=== PATIENT | female | born 1930 | race African-American/Black ===

== ENCOUNTER 2018-02-10 11:29 | Inpatient (IN) | payer MEDICARE, MEDICAID ==
[~2018-02-10] VITALS: Ht 167.6 cm; Wt 74.4 kg
[~2018-02-10 11:29] MED LIST: ASPIRIN EC81 MG ORAL; ASPIRIN-LOW81 MG ORAL; CELEBREX200 MG ORAL; COLACE100 MG ORAL; DIPHENHYDRAMINE50 M1 ORAL; DOCUSATE SODIU100 MG ORAL; FOSAMAX70 MG ORAL; LEVAQUIN250 M1 ORAL; LEVOTHYROXINE112 MCG ORAL; LIPITOR20 MG ORAL; LYRICA25 MG ORAL; NORCO 5-325 TA1 EACH ORAL; NORVASC10 MG ORAL; PRILOSEC20 MG ORAL; RANITIDINE HCL150 MG ORAL; TRAZODONE HCL50 MG ORAL; VITAMIN D-32000 UNI1 PO; VITAMIN D31000 UNI2 PO; ZESTRIL10 M1 ORAL
[2018-02-10 11:36] VITALS: BP 113/68
[2018-02-10] MEDS ORDERED: Sodium Chloride 500ML 500 ML IV ONE (11:36)
[2018-02-10] MEDS ORDERED: Albuterol ud Inhalation HHN ONE (11:45)
[2018-02-10] MEDS ORDERED: ACETAMINOPHEN325 M1 ORAL (11:50)
[2018-02-10] MEDS ORDERED: ARGINAID POWDE1 EACH PO (11:50)
[2018-02-10] MEDS ORDERED: LOVENOX10 M4 SUBQ (11:50)
[2018-02-10] MEDS ORDERED: MIRALAX17 G2 ORAL (11:50)
[2018-02-10] MEDS ORDERED: OXANDROLONE2.5 MG PO (11:50)
[2018-02-10] MEDS ORDERED: MULTI-VITAMIN1 EACH PO (11:50)
[2018-02-10] MEDS ORDERED: FUROSEMIDE20 M1 ORAL (11:50)
[2018-02-10] MEDS ORDERED: LUMIGAN2.5 ML BOTH EYES (11:50)
[2018-02-10] MEDS ORDERED: MACRODANTIN100 MG ORAL (11:50)
[2018-02-10] MEDS ORDERED: ALBUTEROL2.5 MG/3 M INH (11:50)
[2018-02-10] MEDS ORDERED: Lidocaine 1% Plain 30 ml INJ ONE (12:15)
[2018-02-10] MEDS ORDERED: Heparin 2000 units/Ns 1000ml INJ ONE (12:15)
--- NOTE | 2018-02-10 12:16 | Emergency Room Report ---
History of Present Illness General Chief Complaint: Dyspnea/Respdistress Source: Medical Record, EMS Present Illness HPI Patient presents with shortness of breath and increased cough Patient herself has multiple comorbidities Cannot provide appropriate history at this time Presents from nursing facility Unknown regarding fever History of present illness is significantly limited There was no reports of vomiting or diarrhea patient has underlying COPD and it was felt that her oxygenation was worsening Allergies: Coded Allergies: AMOXICILLIN (Verified Allergy, Severe, SEVERE ICTHING /RASHES, 09/17/08) PENICILLINS (Verified Allergy, Intermediate, Itching, 06/21/13) Patient History Limited by: medical condition Past Medical History: see triage record Pertinent Family History: unable to obtain Reviewed Nursing Documentation: PMH: Agreed; PSxH: Agreed Nursing Documentation-PMH Hx Cardiac Problems: Yes - thyroid, anemia Hx Hypertension: Yes Hx Cancer: No Hx Gastrointestinal Problems: Yes - GERD Hx Neurological Problems: No Review of Systems All Other Systems: limited - Other than the ones mentioned in the history of present illness all others are reviewed however they do stay limited due to the patient's mental status Physical Exam Vital Signs Date Time Temp Pulse Resp B/P (MAP) Pulse Ox O2 Delivery O2 Flow Rate FiO2 02/10/18 11:26 98.1 68 22 130/80 98 Nasal Cannula 3.0 98.1 02/10/18 11:48 28 Sp02 EP Interpretation: reviewed, normal General Appearance: mild distress - Short of breath Head: normocephalic, atraumatic Eyes: bilateral eye PERRL, bilateral eye EOMI ENT: dry mucus membranes Neck: supple, thyroid normal Respiratory: crackles - Diffusely and mildly tachypneic Cardiovascular #1: irregularly irregular Gastrointestinal: non tender, soft Musculoskeletal: other - Patient is chronically debilitated with padding applied to all extremities Neurologic: responsive - To physical stimuli Skin: no rash Lymphatic: no adenopathy Medical Decision Making Diagnostic Impression: Primary Impression: Dyspnea Additional Impressions: Respiratory distress COPD (chronic obstructive pulmonary disease) ER Course Patient is a fairly complex patient with multiple differential to consideration including but not limited to cardiac cardiopulmonary and vascular emergencies Patient's blood work reveals significant abnormalities including low sodium Patient has breathing treatments provided No obvious effusion to suggest CHF Patient has done better throughout acute intervention and will require further inpatient care Labs Test 02/10/18 12:12 White Blood Count 9.3 K/UL (4.8-10.8) Red Blood Count 4.07 M/UL (4.20-5.40) Hemoglobin 11.2 G/DL (12.0-16.0) Hematocrit 34.9 % (37.0-47.0) Mean Corpuscular Volume 86 FL (80-99) Mean Corpuscular Hemoglobin 27.5 PG (27.0-31.0) Mean Corpuscular Hemoglobin Concent 32.1 G/DL (32.0-36.0) Red Cell Distribution Width 15.3 % (11.6-14.8) Platelet Count 238 K/UL (150-450) Mean Platelet Volume 7.9 FL (6.5-10.1) Neutrophils (%) (Auto) 72.9 % (45.0-75.0) Lymphocytes (%) (Auto) 12.4 % (20.0-45.0) Monocytes (%) (Auto) 13.1 % (1.0-10.0) Eosinophils (%) (Auto) 0.2 % (0.0-3.0) Basophils (%) (Auto) 1.4 % (0.0-2.0) Sodium Level 127 MMOL/L (136-145) Potassium Level 4.6 MMOL/L (3.5-5.1) Chloride Level 92 MMOL/L (98-107) Carbon Dioxide Level 26 MMOL/L (21-32) Anion Gap 10 mmol/L (5-15) Blood Urea Nitrogen 24 mg/dL (7-18) Creatinine 1.2 MG/DL (0.55-1.30) Estimat Glomerular Filtration Rate mL/min (>60) Glucose Level 124 MG/DL (74-106) Calcium Level 9.7 MG/DL (8.5-10.1) Total Bilirubin 0.4 MG/DL (0.2-1.0) Aspartate Amino Transf (AST/SGOT) 93 U/L (15-37) Alanine Aminotransferase (ALT/SGPT) 205 U/L (12-78) Alkaline Phosphatase 60 U/L (46-116) Total Creatine Kinase 164 U/L (26-308) Creatine Kinase MB 1.7 NG/ML (0.0-3.6) Creatine Kinase MB Relative Index 1.0 Troponin I 0.016 ng/mL (0.000-0.056) Pro-B-Type Natriuretic Peptide 4894 pg/mL (0-125) Total Protein 8.7 G/DL (6.4-8.2) Albumin 3.0 G/DL (3.4-5.0) Globulin 5.7 g/dL Albumin/Globulin Ratio 0.5 (1.0-2.7) Lipase 171 U/L (73-393) Rhythm Strip Diag. Results EP Interpretation: yes Rate: 88 Rhythm: no PVC's, no ectopy, other - Atrial fibrillation Chest X-Ray Diagnostic Results Chest X-Ray Diagnostic Results : Chest X-Ray Ordered: Yes # of Views/Limited/Complete: 1 View Indication: Shortness of Breath EP Interpretation: Yes Interpretation: no consolidation, no effusion, no pneumothorax, other - Nonspecific elevated right hemidiaphragm Impression: Other Electronically Signed by: Sanjay Tinoco DO CT/MRI/US Diagnostic Results CT/MRI/US Diagnostic Results : Impression CT chest abdomen pelvis IMPRESSION: Limited exam without intravenous and oral contrast. Patient motion and significant streak artifact from bilateral hip prosthesis also degraded the obtained images. Within these limitations: * Dense stool in the rectum concerning for fecal impaction. No definite evidence to suggest stercoral colitis at this time. * Significant coronary arterial calcifications. * Mild emphysematous changes in the lungs. 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 Left common iliac artery aneurysm measuring 1.9 cm (previously 1.5 cm). * Cholelithiasis. No CT evidence of acute cholecystitis. * Gastrostomy tube and Cordova catheter in place although the Cordova catheter is poorly evaluated due to significant streak artifact in the pelvis from the bilateral hip prostheses. * Extensive degenerative change of the lumbar spine. * Left renal mass likely cyst. Last Vital Signs Date Time Temp Pulse Resp B/P (MAP) Pulse Ox O2 Delivery O2 Flow Rate FiO2 02/10/18 12:00 105 18 100 Nasal Cannula 2.0 28 02/10/18 11:26 98.1 130/80 98.1 Status: improved Disposition: ADMITTED INPATIENT Condition: Serious Sanjay Tinoco DO Feb 10, 2018 12:16
[2018-02-10 12:33] LABS: BASOPHILS % (AUTO) 1.4 % (0.0-2.0); EOSINOPHILS % (AUTO) 0.2 % (0.0-3.0); HEMATOCRIT 34.9 % (37.0-47.0); HEMOGLOBIN 11.2 G/DL (12.0-16.0); LYMPHOCYTES % (AUTO) 12.4 % (20.0-45.0); MEAN CORPUSCULAR VOLUME 86 FL (80-99); MONOCYTES % (AUTO) 13.1 % (1.0-10.0); NEUTROPHILS % (AUTO) 72.9 % (45.0-75.0); PLATELET COUNT 238 K/UL (150-450); RED BLOOD COUNT 4.07 M/UL (4.20-5.40); RED CELL DISTRIBUTION WIDTH 15.3 % (11.6-14.8); WHITE BLOOD COUNT 9.3 K/UL (4.8-10.8)
--- NOTE | 2018-02-10 12:37 | Diagnostic Imaging Report ---
Indication: Shortness of breath Technique: Portable AP view of the chest Comparison: 11/02/2015 Findings: Elevation of the right hemidiaphragm with underlying loops of air-filled colon, similar to prior exam. Heart size is likely stable allowing for differences in volumes (lower lung volumes on today's exam). Atherosclerotic calcifications in the aorta. There is no definite focal airspace consolidation. Costophrenic sulci appear sharp. No pneumothorax. There is osteopenia and degenerative change of the spine. IMPRESSION: No definite radiographic evidence of acute cardiac pulmonary disease. No significant interval change from the prior exam allowing for lower lung volumes on today's exam. Prominent nonspecific colonic gas, similar to prior exam.
[2018-02-10 12:39] LABS: ANION GAP 10 mmol/L (5-15); BLOOD UREA NITROGEN 24 mg/dL (7-18); CALCIUM 9.7 MG/DL (8.5-10.1); CARBON DIOXIDE 26 MMOL/L (21-32); CHLORIDE 92 MMOL/L (98-107); CREATININE 1.2 MG/DL (0.55-1.30); POTASSIUM 4.6 MMOL/L (3.5-5.1); SODIUM 127 MMOL/L (136-145)
[2018-02-10 12:52] LABS: ALANINE AMINOTRANSFERASE 205 U/L (12-78); ALBUMIN/GLOBULIN RATIO 0.5 (1.0-2.7); ALKALINE PHOSPHATASE 60 U/L (46-116); ASPARTATE AMINO TRANSFERASE 93 U/L (15-37); BILIRUBIN,TOTAL 0.4 MG/DL (0.2-1.0); CKMB 1.7 NG/ML (0.0-3.6); CREATINE KINASE 164 U/L (26-308)
[2018-02-10 13:10] VITALS: BP 128/49
--- NOTE | 2018-02-10 14:41 | Pre-Procedure Note/Attestation ---
Pre-Procedure Note/Attestation Complete Prior to Procedure Planned Procedure: not applicable Procedure Narrative: PICC Line Indications for Procedure Pre-Operative Diagnosis: need iv access Attestation Consent obtained from family member by ER staff, confirmed prior to procedure I attest that I re-evaluated the patient just prior to the surgery and that there has been no change in the patient's H&P, except as documented below: Casey Dominguez M.D. Feb 10, 2018 14:41
--- NOTE | 2018-02-10 14:48 | Diagnostic Imaging Report ---
Indications: Needs long-term IV access Technique: Procedure performed at bedside. Procedural timeout performed. Ultrasound confirms patent compressible right basilic vein. Total sterile technique, including sterile probe cover and sterile gel, sterile gloves, hand hygiene, hat, mask,, sterile gown, large sterile drape, and preparation with 2% chlorhexidine utilized. Local anesthesia with 1% lidocaine. Under real-time ultrasound guidance, puncture right basilic vein using 21-gauge needle, passage 0.018 guidewire, exchange for 5 Brazilian peel-away sheath. 5 Brazilian dual-lumen power PICC cut to 35 cm. It was inserted through the peel-away sheath. Peel-away sheath and guidewire removed. Catheter fixed to the skin. Both catheter ports aspirated and flushed. Patient tolerated procedure well, without immediate complication. Followup chest x-ray obtained, documents catheter tip position at the cavoatrial junction Impression: Successful bedside placement of 5 Brazilian double-lumen PICC under sonographic guidance, as described above.
[2018-02-10] MEDS ORDERED: Solu-MEDROL 125mg Inj IVP ONE (15:00)
[2018-02-10 15:47] VITALS: BP 147/66
[2018-02-10] MEDS ORDERED: Acetaminophen 650mg/20.3ml GT PRN (16:00)
--- NOTE | 2018-02-10 16:08 | Diagnostic Imaging Report ---
Indication: Abdominal pain, possible pneumonia Technique: Noncontrast CT of the chest, abdomen and pelvis utilizing automated exposure control. Axial, sagittal and coronal reformats presented. CT dose: Total DLP 1239.38 mGycm; CTDI vol 19.32 mGy Comparison: CT of the abdomen 01/10/2015 Findings: Please note that evaluation of the mediastinum, abdominal and pelvic viscera and vascular structures is limited without the use of intravenous and oral contrast. Patient motion also degrades images, particularly through the lower chest/upper abdomen. Significant streak artifact from bilateral hip prostheses limits evaluation through the lower pelvis. Within these limitations the following observations are made: CT chest: Dependent atelectasis in the lung bases. Some mild emphysematous changes noted in the apices. No pleural effusion or pneumothorax. The heart is enlarged. There are extensive coronary arterial calcifications. Thyroid grossly unremarkable. No pathologically enlarged hilar or mediastinal adenopathy however evaluation has limited sensitivity due to lack of contrast. Thoracic aorta is normal in caliber but severely calcified. There are degenerative changes of the thoracic spine with bridging anterior osteophytes. No acute osseous abnormality identified. CT abdomen/pelvis: No free intraperitoneal air. There is elevation of the right hemidiaphragm with interposition of the colon anterior to the liver. There is no evidence of small bowel obstruction. There is dense stool within a mildly distended rectum concerning for fecal impaction. No obvious surrounding inflammatory change. There is scattered colonic diverticula without evidence of diverticulitis. A gastrostomy tube is noted in place. Noncontrast evaluation of the liver, spleen, adrenal glands and pancreas grossly unremarkable. Calcified gallstones noted within the gallbladder. No CT evidence to suggest acute cholecystitis. There is a 4.9 cm mass extending from the lower pole of the left kidney likely representing a cyst. Nonobstructive punctate stone in the right kidney. No evidence of hydronephrosis bilaterally. Prior hysterectomy. Bladder not well visualized but likely decompressed with a Cordova catheter. There is focal aneurysmal dilatation of the infrarenal abdominal aorta measuring up to 4.5 cm in diameter (previously 3.8 cm). There is aneurysmal dilatation of the bilateral iliac arteries, present measuring approximately 2.1 cm on the right and 1.9 cm on the left (previously approximately 1.5 cm on the left). There are extensive degenerative changes of the lumbar spine with vacuum disc phenomenon at multiple levels and unchanged grade 1 anterolisthesis of L4 on L5. Bilateral hip prostheses in place. Some foci of subcutaneous gas in the soft tissues of the anterior abdominal wall likely related to medication injections. IMPRESSION: Limited exam without intravenous and oral contrast. Patient motion and significant streak artifact from bilateral hip prosthesis also degraded the obtained images. Within these limitations: * Dense stool in the rectum concerning for fecal impaction. No definite evidence to suggest stercoral colitis at this time. * Significant coronary arterial calcifications. * Mild emphysematous changes in the lungs. 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 Left common iliac artery aneurysm measuring 1.9 cm (previously 1.5 cm). * Cholelithiasis. No CT evidence of acute cholecystitis. * Gastrostomy tube and Cordova catheter in place although the Cordova catheter is poorly evaluated due to significant streak artifact in the pelvis from the bilateral hip prostheses. * Extensive degenerative change of the lumbar spine. * Left renal mass likely cyst. Additional findings as above. The CT scanner at [facility] is accredited by the [employer] and the scans are performed using protocols designed to limit radiation exposure to as low as reasonably achievable to attain images of sufficient resolution adequate for diagnostic evaluation.
--- NOTE | 2018-02-10 16:51 | Consultation ---
Consult Note Consult Note Asked to eval for low Na HPI Patient presents with shortness of breath and increased cough Patient herself has multiple comorbidities Cannot provide appropriate history at this time Presents from nursing facility Unknown regarding fever History of present illness is significantly limited There was no reports of vomiting or diarrhea patient has underlying COPD and it was felt that her oxygenation was worsening Allergies: Coded Allergies: AMOXICILLIN (Verified Allergy, Severe, SEVERE ICTHING /RASHES, 09/17/08) PENICILLINS (Verified Allergy, Intermediate, Itching, 06/21/13) Hx Cardiac Problems: Yes - thyroid, anemia Hx Hypertension: Yes Hx Gastrointestinal Problems: Yes - GERD Hx Neurological Problems: Yes Assessment/Plan HypoNatremia, Likely diuretic related and Depletional COPD exac. ? Aspiration h/o Long Smoking h/o Anemia h/o OA h/o Colon Ca h/o HTN NPO- ST eval Cordova Isotonic solution Low Na snyder 2 D echo IV steroids and Protonix change synthroid to IV Per orders Zeb Jiang MD Feb 10, 2018 16:51
[2018-02-10] MEDS: D5NS 1,000 ML IV SCH (17:12)
[2018-02-10] MEDS: NovoLOG Insulin Flexpen SUBQ SCH ×2 (17:13→20:50)
[2018-02-10] MEDS: Docusate 100mg/10ml Liq GT SCH (17:17)
[2018-02-10] MEDS ORDERED: Docusate 100mg/10ml Liq GT SCH (18:00)
[2018-02-10] MEDS ORDERED: OXANDROLONE ORAL SCH (18:00)
[2018-02-10 18:05] LABS: BILIRUBIN, URINE NEGATIVE (NEGATIVE); GLUCOSE, URINE (UA) NEGATIVE (NEGATIVE); KETONES,URINE NEGATIVE (NEGATIVE); LEUKOCYTE ESTERASE ,URINE 3+ (NEGATIVE); NITRITE,URINE NEGATIVE (NEGATIVE); PH,URINE 5 (4.5-8.0); PROTEIN,URINE 3+ (NEGATIVE); UROBILINOGEN,URINE NORMAL (NORMAL)
[2018-02-10 18:07] LABS: APPEARANCE,URINE SLIGHTLY CLOUDY; COLOR,URINE YELLOW
--- NOTE | 2018-02-10 19:04 | Consultation ---
History of Present Illness General Date patient seen: Feb 10, 2018 Chief Complaint: Dyspnea/Respdistress Present Illness HPI 87 year old female with hx of endstage Dementia, bed bound, COPD, renal insufficiency, [facility] presented to ER with shortness of breath and increased cough Cannot provide appropriate history at this time There was no reports of vomiting or diarrhea patient. It was reported that her oxygenation was worsening. she is awake, aphasic, doesn't follow simple commands. She is visibly slightly short of breath. Allergies: Coded Allergies: AMOXICILLIN (Verified Allergy, Severe, SEVERE ICTHING /RASHES, 09/17/08) PENICILLINS (Verified Allergy, Intermediate, Itching, 06/21/13) Medication History Scheduled Alendronate Sodium* (Fosamax*), 70 MG ORAL ONCE A WEEK, (Reported) Amlodipine Besylate (Norvasc), 10 MG ORAL DAILY, (Reported) Arginine/Ascorbate Sod/Devang AC (Arginaid Powder), 1 EACH PO BID, (Reported) Aspirin (Aspirin EC), 81 MG ORAL BID, (Reported) Atorvastatin Calcium* (Lipitor*), 20 MG ORAL BEDTIME, (Reported) Bimatoprost (Lumigan), 1 DROP BOTH EYES DAILY, (Reported) Cholecalciferol (Vitamin D3) (Vitamin D3), 1,000 UNIT PO BID, (Reported) Docusate Sodium* (Docusate Sodium*), 100 MG ORAL THREE TIMES A DAY, (Reported) Enoxaparin* (Lovenox*), 40 MG SUBQ DAILY, (Reported) Furosemide* (Lasix*), 20 MG ORAL DAILY, (Reported) Levothyroxine Sodium* (Levothyroxine Sodium*), 112 MCG ORAL DAILY, (Reported) Lisinopril* (Zestril*), 10 MG ORAL BID, (Reported) Nitrofurantoin Macrocrystal (Macrodantin), 100 MG ORAL DAILY, (Reported) Omeprazole (Prilosec), 20 MG ORAL DAILY, (Reported) Oxandrolone (Oxandrolone), 2.5 MG PO BID, (Reported) Polyethylene Glycol 3350* (Miralax*), 17 GM ORAL DAILY, (Reported) Pregabalin (Lyrica), 25 MG ORAL THREE TIMES A DAY, (Reported) Ranitidine Hcl* (Zantac*), 150 MG ORAL QHS, (Reported) Scheduled PRN Acetaminophen* (Acetaminophen 325MG Tablet*), 650 MG ORAL Q6H PRN for Pain Scale (6-10), (Reported) Albuterol Sulfate* (Albuterol Sulfate Hhn*), 3 ML INH Q4H PRN for Shortness of Breath, (Reported) Diphenhydramine Hcl (Diphenhydramine Hcl), 50 MG ORAL BEDTIME PRN for Itching, ( Reported) Hydrocodone Bit/Acetaminophen 5-325* ([place] 5-325*), 1 TAB ORAL Q6H PRN for For Pain Miscellaneous Medications Multivitamin (Multi-Vitamin Daily), 1 EACH PO, (Reported) Patient History Healthcare decision maker Resuscitation status Full Code Advanced Directive on File Past Medical/Surgical History Past Medical/Surgical History: (1) Feeding by G-tube (2) Advanced dementia (3) Limited mobility in bed (4) COPD (chronic obstructive pulmonary disease) Review of Systems All Other Systems: negative except mentioned in HPI Physical Exam General Appearance: WD/WN Lines, tubes and drains: peripheral HEENT: normocephalic, atraumatic Neck: non-tender, supple Respiratory/Chest: chest wall non-tender, rhonchi - left, rhonchi - right Cardiovascular/Chest: normal peripheral pulses, normal rate Abdomen: normal bowel sounds, non tender Genitourinary/Rectal: normal genital exam Extremities: normal range of motion, non-tender Last 24 Hour Vital Signs Date Time Temp Pulse Resp B/P (MAP) Pulse Ox O2 Delivery O2 Flow Rate FiO2 02/10/18 15:51 70 02/10/18 15:47 99.1 62 18 147/66 (93) 96 99.1 02/10/18 15:20 98.1 84 18 113/68 100 Nasal Cannula 2.0 28 98.1 02/10/18 13:10 98.1 68 21 128/49 100 Nasal Cannula 2.0 98.1 02/10/18 12:00 105 18 100 Nasal Cannula 2.0 28 02/10/18 11:48 28 02/10/18 11:48 95 18 Nasal Cannula 2.0 28 02/10/18 11:48 95 18 99 Nasal Cannula 2.0 28 02/10/18 11:36 68 22 Room Air 02/10/18 11:36 98.1 84 20 113/68 100 Nasal Cannula 3.0 98.1 02/10/18 11:26 98.1 68 22 130/80 98 Nasal Cannula 3.0 98.1 Laboratory Tests Test 02/10/18 12:12 02/10/18 17:30 White Blood Count 9.3 K/UL (4.8-10.8) Red Blood Count 4.07 M/UL (4.20-5.40) L Hemoglobin 11.2 G/DL (12.0-16.0) L Hematocrit 34.9 % (37.0-47.0) L Mean Corpuscular Volume 86 FL (80-99) Mean Corpuscular Hemoglobin 27.5 PG (27.0-31.0) Mean Corpuscular Hemoglobin Concent 32.1 G/DL (32.0-36.0) Red Cell Distribution Width 15.3 % (11.6-14.8) H Platelet Count 238 K/UL (150-450) Mean Platelet Volume 7.9 FL (6.5-10.1) Neutrophils (%) (Auto) 72.9 % (45.0-75.0) Lymphocytes (%) (Auto) 12.4 % (20.0-45.0) L Monocytes (%) (Auto) 13.1 % (1.0-10.0) H Eosinophils (%) (Auto) 0.2 % (0.0-3.0) Basophils (%) (Auto) 1.4 % (0.0-2.0) Sodium Level 127 MMOL/L (136-145) L Potassium Level 4.6 MMOL/L (3.5-5.1) Chloride Level 92 MMOL/L (98-107) L Carbon Dioxide Level 26 MMOL/L (21-32) Anion Gap 10 mmol/L (5-15) Blood Urea Nitrogen 24 mg/dL (7-18) H Creatinine 1.2 MG/DL (0.55-1.30) Estimat Glomerular Filtration Rate mL/min (>60) Glucose Level 124 MG/DL (74-106) H Calcium Level 9.7 MG/DL (8.5-10.1) Total Bilirubin 0.4 MG/DL (0.2-1.0) Aspartate Amino Transf (AST/SGOT) 93 U/L (15-37) H Alanine Aminotransferase (ALT/SGPT) 205 U/L (12-78) H Alkaline Phosphatase 60 U/L (46-116) Total Creatine Kinase 164 U/L (26-308) Creatine Kinase MB 1.7 NG/ML (0.0-3.6) Creatine Kinase MB Relative Index 1.0 Troponin I 0.016 ng/mL (0.000-0.056) C-Reactive Protein, Quantitative 5.4 mg/dL (0.00-0.90) H Pro-B-Type Natriuretic Peptide 4894 pg/mL (0-125) H Total Protein 8.7 G/DL (6.4-8.2) H Albumin 3.0 G/DL (3.4-5.0) L Globulin 5.7 g/dL Albumin/Globulin Ratio 0.5 (1.0-2.7) L Lipase 171 U/L (73-393) Urine Color Yellow Urine Appearance Slightly cloudy Urine pH 5 (4.5-8.0) Urine Specific [place] 1.015 (1.005-1.035) Urine Protein 3+ (NEGATIVE) H Urine Glucose (UA) Negative (NEGATIVE) Urine Ketones Negative (NEGATIVE) Urine Occult Blood 5+ (NEGATIVE) H Urine Nitrite Negative (NEGATIVE) Urine Bilirubin Negative (NEGATIVE) Urine Urobilinogen Normal MG/DL (NORMAL) Urine Leukocyte Esterase 3+ (NEGATIVE) H Urine RBC 5-10 /HPF (0 - 2) H Urine WBC 10-15 /HPF (0 - 2) H Urine Squamous Epithelial Cells Few /LPF (NONE/OCC) Urine Bacteria Moderate /HPF (NONE) H Height (Feet): 5 Height (Inches): 6.00 Weight (Pounds): 190 Medications Current Medications Medications (Trade) Dose Ordered Sig/Orin Route PRN Reason Start Time Stop Time Status Last Admin Dose Admin Acetaminophen (Tylenol) 650 mg Q4H PRN GT Mild Pain/Temp > 100.5 02/10/18 16:00 03/12/18 15:59 Albuterol/ Ipratropium (Albuterol/ Ipratropium) 3 ml Q6HRT HHN 02/10/18 19:00 02/15/18 18:59 Amlodipine Besylate (Norvasc) 10 mg DAILY ORAL 02/11/18 09:00 03/13/18 08:59 Atorvastatin Calcium (Lipitor) 20 mg BEDTIME ORAL 02/10/18 21:00 03/12/18 20:59 Chlorhexidine Gluconate ([place]-Hex 2%) 1 applic DAILY@2000 TOPIC 02/10/18 20:00 03/12/18 19:59 Dextrose (Dextrose 50%) 25 ml STAT PRN IV Hypoglycemia 02/10/18 15:45 03/12/18 15:44 Dextrose (Dextrose 50%) 50 ml STAT PRN IV Hypoglycemia 02/10/18 15:45 03/12/18 15:44 Dextrose/Sodium Chloride 1,000 ml @ 75 mls/hr [id number] IV 02/10/18 17:00 03/12/18 16:59 02/10/18 17:12 Docusate Sodium (Colace) 100 mg TID GT 02/10/18 18:00 03/12/18 17:59 02/10/18 17:17 Enoxaparin Sodium (Lovenox) 40 mg DAILY SUBQ 02/11/18 09:00 03/13/18 08:59 Insulin Aspart (NovoLOG) BEFORE MEALS AND HS SUBQ 02/10/18 16:30 03/12/18 16:29 02/10/18 17:13 Levothyroxine Sodium (Synthroid) 50 mcg DAILY IV 02/11/18 09:00 03/13/18 08:59 Lisinopril (Zestril) 2.5 mg DAILY GT 02/11/18 09:00 03/13/18 08:59 Methylprednisolone Sodium Succinate (Solu-MEDROL) 40 mg EVERY 8 HOURS IVP 02/10/18 22:00 03/12/18 21:59 Pantoprazole (Protonix) 40 mg EVERY 12 HOURS IVP 02/10/18 21:00 03/12/18 20:59 Polyethylene Glycol (Miralax) 17 gm DAILY GT 02/11/18 09:00 03/13/18 08:59 Assessment/Plan Problem List: (1) Aspiration pneumonia ICD Codes: J69.0 - Pneumonitis due to inhalation of food and vomit SNOMED: 921148690 (2) Respiratory distress ICD Codes: R06.03 - Acute respiratory distress SNOMED: 311759628 (3) COPD (chronic obstructive pulmonary disease) ICD Codes: J44.9 - COPD (chronic obstructive pulmonary disease) SNOMED: 62155450 (4) Advanced dementia ICD Codes: F03.90 - Unspecified dementia without behavioral disturbance SNOMED: 31747225 (5) Feeding by G-tube ICD Codes: Z93.1 - Gastrostomy status SNOMED: 076202784, 218587544 (6) Limited mobility in bed SNOMED: 590343894 Assessment/Plan respiratory treatment titrate fio2 to sat of 92% chest pt check sputum IV abx aspiration precaution dvt prophylaxis Betsy Hope MD Feb 10, 2018 19:04
[2018-02-10 20:00] VITALS: BP 122/73
[2018-02-10] MEDS ORDERED: Dyna-Hex 2% Top Sol 2oz TOPIC SCH (20:00)
[2018-02-10] MEDS: Albuterol/Ipratropium 3ml neb HHN SCH (20:40)
[2018-02-10] MEDS: Pantoprazole Inj IVP SCH (20:49)
[2018-02-10] MEDS ORDERED: Atorvastatin 20mg tab ORAL SCH (21:00)
[2018-02-10] MEDS: Solu-MEDROL 40mg Inj IVP SCH (21:02)
--- NOTE | 2018-02-10 21:45 | History and Physical Report ---
DATE OF ADMISSION: 02/10/2018 CHIEF COMPLAINT: Shortness of breath, hypoxia, weakness, confusion. BRIEF HISTORY: This is an 87-year-old female from [facility], who presented with increased shortness of breath, was hypoxic down in the low 90s. The patient was little bit confused and sent to [facility]. Currently, O2 NC, slightly confused in bed, saying few things but unable to understand her. Currently, slight short of breath, O2 NC, slightly audible wheeze, no complaint. REVIEW OF SYSTEMS: No chest pain. Slight short of breath. No nausea, vomiting, or diarrhea. PAST MEDICAL HISTORY: Includes hypoxia, COPD, weakness. PAST SURGICAL HISTORY: Unknown. ALLERGIES: Amoxicillin and penicillin. MEDICATIONS: Include chlorhexidine, methylprednisolone, heparin, albuterol. SOCIAL HISTORY: Unable to obtain secondary to the patient's confusion. PHYSICAL EXAMINATION: GENERAL: Calm in bed, oriented x1, slight short of breath, O2 NC in place. VITAL SIGNS: Temperature is 98 degrees, pulse 105, respirations 18, blood pressure 113/68. CARDIOVASCULAR: No murmur. LUNGS: Poor air exchange. Bilateral wheeze audible noted. ABDOMEN: Bowel sounds positive. Nontender. Nondistended. EXTREMITIES: Show no cyanosis, clubbing, or edema. NEUROLOGIC: The patient moves all extremities, slightly weak. LABORATORY DATA: Labs at this time show hemoglobin is 11.2, otherwise CBC is normal. BMP shows sodium 127, chloride 92, BUN 24, glucose 124, AST 93, ALT 205. BNP 4894. Albumin 3.0. ASSESSMENT: COPD exacerbation, hypoxia, wheezing, weakness, renal insufficiency, hyponatremia. PLAN: Continue previous medications. IV fluids. O2 and pulmonary treatments. p.r.n. OT, PT, and dietary evaluation. CBC and BMP in the morning. Dr. Rendon, Dr. Hope, and Dr. Jiang to consult. We will continue to follow this patient. Mark Oro D.O. DR: Raymundo JOB#: [id number] CC:
[2018-02-11] VITALS (7 sets, daily range): BP systolic 109–135; BP diastolic 55–80
[2018-02-11] MEDS: Albuterol/Ipratropium 3ml neb HHN SCH ×4 (01:00→20:50)
[2018-02-11] MEDS ORDERED: LORazepam 0.5mg tab ORAL PRN ×2 (04:00→21:00)
[2018-02-11] MEDS: D5NS 1,000 ML IV SCH (05:31)
[2018-02-11] MEDS: Solu-MEDROL 40mg Inj IVP SCH (05:31)
[2018-02-11] MEDS: NovoLOG Insulin Flexpen SUBQ SCH ×4 (05:32→21:28)
[2018-02-11 06:05] LABS: HEMATOCRIT 30.2 % (37.0-47.0); HEMOGLOBIN 9.9 G/DL (12.0-16.0); MEAN CORPUSCULAR VOLUME 86 FL (80-99); PLATELET COUNT 211 K/UL (150-450); RED BLOOD COUNT 3.53 M/UL (4.20-5.40); RED CELL DISTRIBUTION WIDTH 14.8 % (11.6-14.8); WHITE BLOOD COUNT 9.4 K/UL (4.8-10.8)
--- NOTE | 2018-02-11 07:00 | Consultation ---
DATE OF CONSULTATION: 02/11/2018 CONSULTING PHYSICIAN: Josh Gonzalez M.D. HISTORY OF PRESENT ILLNESS: The patient is an 87-year-old female patient and this patient has COPD. This patient is very confused and disorganized, history of COPD exacerbation in this 87-year-old female patient. She has some confusion, some disorganized thought process, mood lability, worsened by stress of her medical illness and she came into the hospital because of shortness of breath, hypoxia, and weakness, transferred from [facility] where she had increased shortness of breath and she was hypoxic in the low 90s, which caused her to be confused and have altered mental status. Her cognition has declined below her baseline and she arrived to the [facility] the same way, so the initial psychiatric consultation and daily consultation throughout her hospital course after that with psychiatric was requested by Dr. Mark Oro. I saw and assessed the patient at bedside. She is still very confused and disorganized. Mood labile. Seems to have no logical plan for own self-care and cognition has declined below baseline based upon documentation of what her cognition was likely before recent events. MEDICAL HISTORY: Hypoxia, COPD, and generalized weakness. ALLERGIES: To amoxicillin and penicillin. SOCIAL HISTORY: The patient lives in [facility]. Financially supported by the [facility] and Medicare. By [employer] collateral information, the patient has no history of any drug or alcohol use. FAMILY PSYCHIATRIC HISTORY: Denies. PSYCHIATRIC HISTORY: Major depression with psychotic features, rule out dementia with psychosis. STRENGTHS: She is motivated to get better and has a place to live. WEAKNESSES: She is impulsive and poor family support. MENTAL STATUS EXAMINATION: This is an 87-year-old female. Appearance disheveled. Attitude irritable and agitated. Affect guarded and restricted. Intellect poor. Mood depressed and anxious. Motor activity, psychomotor agitation. Attention span is poor. Orientation x2. Speech is pressured. Thought process, disorganized and illogical. Thought content, auditory hallucinations and paranoid delusions. Insight and judgment is poor. Short-term memory is poor. She got 0/3 after 5-minute delay. Her long-term memory is poor. She was unable to recall long-term events such as high school that she went to. DIAGNOSIS: Major depressive disorder, mild, recurrent with psychotic features, rule out pseudodementia. PLAN: My plan for this patient is to treat her with a medication regimen consisting of Namenda 5 mg per G-tube twice a day and Ativan 0.5 mg per G-tube q.6 hours p.r.n. anxiety and agitation and she will continue to be followed by Psychiatry throughout her hospital course. Twenty minutes of cognitive behavior therapy was provided to help this patient to go over automatic negative thoughts and help her to convert them to more positive thoughts to reduce depression and 20 minutes of cognitive behavioral therapy. I am going to ask to see this patient for Psychology consultation. Chart reviewed. Discussed with staff. The patient is seen and assessed at bedside. I would like to thank, Dr. Mark Oro, for this interesting consultation. Josh Gonzalez M.D. DR: MELCHOR JOB#: [id number] CC:
[2018-02-11 07:58] LABS: ALANINE AMINOTRANSFERASE 206 U/L (12-78); ALBUMIN 2.8 G/DL (3.4-5.0); ALBUMIN/GLOBULIN RATIO 0.6 (1.0-2.7); ALKALINE PHOSPHATASE 51 U/L (46-116); ANION GAP 11 mmol/L (5-15); ASPARTATE AMINO TRANSFERASE 92 U/L (15-37); BILIRUBIN,TOTAL 0.4 MG/DL (0.2-1.0); BLOOD UREA NITROGEN 29 mg/dL (7-18); CALCIUM 8.8 MG/DL (8.5-10.1); CARBON DIOXIDE 23 MMOL/L (21-32); CHLORIDE 94 MMOL/L (98-107); CHOLESTEROL 124 MG/DL (< 200); CREATINE KINASE 149 U/L (26-308); CREATININE 1.5 MG/DL (0.55-1.30); GAMMA GLUTAMYL TRANSPEPTIDASE 102 U/L (5-85); HDL CHOLESTEROL 52 MG/DL (40-60); POTASSIUM 4.8 MMOL/L (3.5-5.1); SODIUM 128 MMOL/L (136-145); TRIGLYCERIDES 23 MG/DL (30-150)
[2018-02-11] MEDS: Docusate 100mg/10ml Liq GT SCH ×3 (08:35→18:00)
[2018-02-11] MEDS ORDERED: Memantine 5 MG TAB GT SCH (09:00)
[2018-02-11] MEDS ORDERED: Vitamin D 1000 IU Tab GT SCH (09:00)
[2018-02-11] MEDS ORDERED: Multivitamins W/Minerals 15 ML UDC GT SCH (09:00)
[2018-02-11] MEDS ORDERED: Enoxaparin 40mg Inj SUBQ SCH (09:00)
[2018-02-11] MEDS ORDERED: Miralax 17gm pkt GT SCH (09:00)
[2018-02-11] MEDS ORDERED: Lisinopril 2.5mg tab GT SCH (09:00)
[2018-02-11] MEDS: Pantoprazole Inj IVP SCH ×2 (09:41→21:26)
--- NOTE | 2018-02-11 11:42 | Pulmonology Progress Note ---
Assessment/Plan Problems: (1) Aspiration pneumonia (2) Respiratory distress (3) COPD (chronic obstructive pulmonary disease) (4) ATN (acute tubular necrosis) (5) Limited mobility in bed (6) Feeding by G-tube (7) Advanced dementia Assessment/Plan taper steroids continue abx check cultures check sputum titrate fio2 to sat of 92% f/u renal parameters gutbe site care consider DNR and palliative care. Subjective ROS Limited/Unobtainable: No Constitutional: Reports: no symptoms HEENT: Repors: no symptoms Respiratory: Reports: no symptoms Allergies: Coded Allergies: AMOXICILLIN (Verified Allergy, Severe, SEVERE ICTHING /RASHES, 09/17/08) PENICILLINS (Verified Allergy, Intermediate, Itching, 06/21/13) Objective Last 24 Hour Vital Signs Date Time Temp Pulse Resp B/P (MAP) Pulse Ox O2 Delivery O2 Flow Rate FiO2 02/11/18 09:42 83 124/80 02/11/18 09:42 124/80 02/11/18 09:00 Nasal Cannula 3.0 02/11/18 08:00 98.5 83 23 124/80 (95) 98 98.5 02/11/18 08:00 70 02/11/18 07:56 71 18 99 Nasal Cannula 2.0 28 02/11/18 07:48 70 18 100 Nasal Cannula 2.0 28 02/11/18 07:45 Nasal Cannula 2.0 28 02/11/18 07:45 100 Nasal Cannula 2.0 28 02/11/18 04:00 73 02/11/18 04:00 97.5 74 22 122/68 (86) 99 97.5 02/11/18 01:11 Nasal Cannula 2.0 28 02/11/18 01:10 Nasal Cannula 2.0 28 02/11/18 00:00 97.9 57 21 109/55 (73) 100 97.9 02/11/18 00:00 55 02/10/18 21:00 Nasal Cannula 3.0 02/10/18 20:45 96 Nasal Cannula 2.0 28 02/10/18 20:45 Nasal Cannula 2.0 28 02/10/18 20:00 73 02/10/18 20:00 68 18 99 Nasal Cannula 2.0 28 02/10/18 20:00 98.1 67 17 122/73 (89) 100 98.1 02/10/18 20:00 61 18 97 Nasal Cannula 2.0 28 02/10/18 19:33 Nasal Cannula 3.0 02/10/18 15:51 70 02/10/18 15:47 99.1 62 18 147/66 (93) 96 99.1 02/10/18 15:20 98.1 84 18 113/68 100 Nasal Cannula 2.0 28 98.1 02/10/18 13:10 98.1 68 21 128/49 100 Nasal Cannula 2.0 98.1 02/10/18 12:00 105 18 100 Nasal Cannula 2.0 28 02/10/18 11:48 28 02/10/18 11:48 95 18 Nasal Cannula 2.0 28 02/10/18 11:48 95 18 99 Nasal Cannula 2.0 28 Intake and Output 02/10/18 02/11/18 19:00 07:00 Intake Total 75 ml 1302 ml Output Total 500 ml Balance -425 ml 1302 ml Intake Free Water 90 ml IV Total 75 ml 862 ml Tube Feeding 350 ml Output Urine Total 500 ml # Bowel Movements 1 General Appearance: WD/WN HEENT: normocephalic, atraumatic Respiratory/Chest: chest wall non-tender, lungs clear Cardiovascular: normal peripheral pulses, normal rate Abdomen: normal bowel sounds, soft, non tender Genitourinary: normal external genitalia Extremities: no cyanosis Skin: no lesions 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 normal Microbiology Date/Time Source Procedure Growth Status 02/10/18 17:30 Urine,Clean Catch Urine Culture - Preliminary Resulted Laboratory Tests 02/10/18 12:12: White Blood Count 9.3, Red Blood Count 4.07L, Hemoglobin 11.2L, Hematocrit 34.9L , Mean Corpuscular Volume 86, Mean Corpuscular Hemoglobin 27.5, Mean Corpuscular Hemoglobin Concent 32.1, Red Cell Distribution Width 15.3H, Platelet Count 238, Mean Platelet Volume 7.9, Neutrophils (%) (Auto) 72.9, Lymphocytes (%) (Auto) 12.4L, Monocytes (%) (Auto) 13.1H, Eosinophils (%) (Auto ) 0.2, Basophils (%) (Auto) 1.4, Sodium Level 127L, Potassium Level 4.6, Chloride Level 92L, Carbon Dioxide Level 26, Anion Gap 10, Blood Urea Nitrogen 24H, Creatinine 1.2, Estimat Glomerular Filtration Rate , Glucose Level 124H, Calcium Level 9.7, Total Bilirubin 0.4, Aspartate Amino Transf (AST/SGOT) 93H, Alanine Aminotransferase (ALT/SGPT) 205H, Alkaline Phosphatase 60, Total Creatine Kinase 164, Creatine Kinase MB 1.7, Creatine Kinase MB Relative Index 1.0, Troponin I 0.016, C-Reactive Protein, Quantitative 5.4H, Pro-B-Type Natriuretic Peptide 4894H, Total Protein 8.7H, Albumin 3.0L, Globulin 5.7, Albumin/Globulin Ratio 0.5L, Lipase 171 02/10/18 17:30: Urine Color Yellow, Urine Appearance Slightly cloudy, Urine pH 5, Urine Specific [place] 1.015, Urine Protein 3+H, Urine Glucose (UA) Negative, Urine Ketones Negative, Urine Occult Blood 5+H, Urine Nitrite Negative, Urine Bilirubin Negative, Urine Urobilinogen Normal, Urine Leukocyte Esterase 3+H, Urine RBC 5-10H, Urine WBC 10-15H, Urine Squamous Epithelial Cells Few, Urine Bacteria ModerateH 02/11/18 05:45: White Blood Count 9.4, Red Blood Count 3.53L, Hemoglobin 9.9L, Hematocrit 30.2L , Mean Corpuscular Volume 86, Mean Corpuscular Hemoglobin 28.1, Mean Corpuscular Hemoglobin Concent 32.9, Red Cell Distribution Width 14.8, Platelet Count 211, Mean Platelet Volume 8.1, Neutrophils (%) (Auto) , Lymphocytes (%) ( Auto) , Monocytes (%) (Auto) , Eosinophils (%) (Auto) , Basophils (%) (Auto) , Sodium Level 128L, Potassium Level 4.8, Chloride Level 94L, Carbon Dioxide Level 23, Anion Gap 11, Blood Urea Nitrogen 29H, Creatinine 1.5H, Estimat Glomerular Filtration Rate , Glucose Level 177H, Calcium Level 8.8, Total Bilirubin 0.4, Aspartate Amino Transf (AST/SGOT) 92H, Alanine Aminotransferase ( ALT/SGPT) 206H, Alkaline Phosphatase 51, Total Creatine Kinase 149, Troponin I 0.000, Pro-B-Type Natriuretic Peptide 6959H, Total Protein 7.7, Albumin 2.8L, Globulin 4.9, Albumin/Globulin Ratio 0.6L, Differential Total Cells Counted 100 , Neutrophils % (Manual) 88H, Lymphocytes % (Manual) 8L, Monocytes % (Manual) 3 , Eosinophils % (Manual) 0, Basophils % (Manual) 0, Band Neutrophils 1, Platelet Estimate Adequate, Platelet Morphology Normal, Hypochromasia 1+, Anisocytosis 1+, Hemoglobin A1c 5.7, Osmolality 279L, Uric Acid 4.8, Phosphorus Level 5.0H, Magnesium Level 3.0H, Gamma Glutamyl Transpeptidase 102H, Triglycerides Level 23L, Cholesterol Level 124, LDL Cholesterol 73, HDL Cholesterol 52, Cholesterol/HDL Ratio 2.4L, Thyroid Stimulating Hormone (TSH) 4.743H 02/11/18 08:42: Urine Osmolality 434, Urine Random Sodium < 20L Current Medications Medications (Trade) Dose Ordered Sig/Orin Route PRN Reason Start Time Stop Time Status Last Admin Dose Admin Acetaminophen (Tylenol) 650 mg Q4H PRN GT Mild Pain/Temp > 100.5 02/10/18 16:00 03/12/18 15:59 Albuterol/ Ipratropium (Albuterol/ Ipratropium) 3 ml Q6HRT HHN 02/10/18 19:00 02/15/18 18:59 02/11/18 07:48 Amlodipine Besylate (Norvasc) 10 mg DAILY ORAL 02/11/18 09:00 03/13/18 08:59 02/11/18 09:42 Atorvastatin Calcium (Lipitor) 10 mg BEDTIME ORAL 02/11/18 21:00 03/13/18 20:59 Chlorhexidine Gluconate (Merlyn-Hex 2%) 1 applic DAILY@2000 TOPIC 02/10/18 20:00 03/12/18 19:59 Dextrose (Dextrose 50%) 25 ml STAT PRN IV Hypoglycemia 02/10/18 15:45 03/12/18 15:44 Dextrose (Dextrose 50%) 50 ml STAT PRN IV Hypoglycemia 02/10/18 15:45 03/12/18 15:44 Dextrose/Sodium Chloride 1,000 ml @ 75 mls/hr [id number] IV 02/10/18 17:00 03/12/18 16:59 02/11/18 05:31 Docusate Sodium (Colace) 100 mg TID GT 02/10/18 18:00 03/12/18 17:59 02/10/18 17:17 Enoxaparin Sodium (Lovenox) 40 mg DAILY SUBQ 02/11/18 09:00 03/13/18 08:59 02/11/18 09:44 Insulin Aspart (NovoLOG) BEFORE MEALS AND HS SUBQ 02/10/18 16:30 03/12/18 16:29 02/11/18 05:32 Levothyroxine Sodium (Synthroid) 50 mcg DAILY IV 02/11/18 09:00 03/13/18 08:59 02/11/18 10:22 Lisinopril (Zestril) 2.5 mg DAILY GT 02/11/18 09:00 03/13/18 08:59 02/11/18 09:42 Lorazepam (Ativan) 0.5 mg Q6H PRN ORAL For Anxiety 02/11/18 04:00 02/18/18 03:59 Memantine (Namenda) 5 mg BID GT 02/11/18 09:00 03/13/18 08:59 02/11/18 09:41 Methylprednisolone Sodium Succinate (Solu-MEDROL) 40 mg EVERY 8 HOURS IVP 02/10/18 22:00 03/12/18 21:59 02/11/18 05:31 Pantoprazole (Protonix) 40 mg EVERY 12 HOURS IVP 02/10/18 21:00 03/12/18 20:59 02/11/18 09:41 Polyethylene Glycol (Miralax) 17 gm DAILY GT 02/11/18 09:00 03/13/18 08:59 Betsy Hope MD Feb 11, 2018 11:42
--- NOTE | 2018-02-11 12:37 | General Progress Note ---
Assessment/Plan Problem List: (1) Confusion ICD Codes: R41.0 - Disorientation, unspecified SNOMED: 307976205 (2) Hyponatremia ICD Codes: E87.1 - Hypo-osmolality and hyponatremia SNOMED: 62980328 (3) Weak ICD Codes: R53.1 - Weakness SNOMED: 70069422 (4) Diabetes ICD Codes: E11.9 - Type 2 diabetes mellitus without complications SNOMED: 46616739 (5) Dyspnea ICD Codes: R06.00 - Dyspnea, unspecified SNOMED: 492739388 (6) COPD (chronic obstructive pulmonary disease) ICD Codes: J44.9 - COPD (chronic obstructive pulmonary disease) SNOMED: 17067274 (7) Advanced dementia ICD Codes: F03.90 - Unspecified dementia without behavioral disturbance SNOMED: 61907046 Status: unchanged Assessment/Plan o2 pulm tx ot pt diet psyc tx cbc bmp am Subjective Constitutional: Reports: weakness Respiratory: Reports: shortness of breath Allergies: Coded Allergies: AMOXICILLIN (Verified Allergy, Severe, SEVERE ICTHING /RASHES, 09/17/08) PENICILLINS (Verified Allergy, Intermediate, Itching, 06/21/13) All Systems: reviewed and negative except above Subjective o2nc calm Objective Last 24 Hour Vital Signs Date Time Temp Pulse Resp B/P (MAP) Pulse Ox O2 Delivery O2 Flow Rate FiO2 02/11/18 12:00 99.0 87 20 135/78 (97) 98 99.0 02/11/18 09:42 83 124/80 02/11/18 09:42 124/80 02/11/18 09:00 Nasal Cannula 3.0 02/11/18 08:00 98.5 83 23 124/80 (95) 98 98.5 02/11/18 08:00 70 02/11/18 07:56 71 18 99 Nasal Cannula 2.0 28 02/11/18 07:48 70 18 100 Nasal Cannula 2.0 28 02/11/18 07:45 Nasal Cannula 2.0 02/11/18 07:45 100 Nasal Cannula 2.0 28 02/11/18 04:00 73 02/11/18 04:00 97.5 74 22 122/68 (86) 99 97.5 02/11/18 01:11 Nasal Cannula 2.0 02/11/18 01:10 Nasal Cannula 2.0 28 02/11/18 00:00 97.9 57 21 109/55 (73) 100 97.9 02/11/18 00:00 55 02/10/18 21:00 Nasal Cannula 3.0 02/10/18 20:45 96 Nasal Cannula 2.0 28 02/10/18 20:45 Nasal Cannula 2.0 28 02/10/18 20:00 73 02/10/18 20:00 68 18 99 Nasal Cannula 2.0 28 02/10/18 20:00 98.1 67 17 122/73 (89) 100 98.1 02/10/18 20:00 61 18 97 Nasal Cannula 2.0 28 02/10/18 19:33 Nasal Cannula 3.0 02/10/18 15:51 70 02/10/18 15:47 99.1 62 18 147/66 (93) 96 99.1 02/10/18 15:20 98.1 84 18 113/68 100 Nasal Cannula 2.0 28 98.1 02/10/18 13:10 98.1 68 21 128/49 100 Nasal Cannula 2.0 98.1 Intake and Output 02/10/18 02/11/18 19:00 07:00 Intake Total 75 ml 1302 ml Output Total 500 ml Balance -425 ml 1302 ml Intake Free Water 90 ml IV Total 75 ml 862 ml Tube Feeding 350 ml Output Urine Total 500 ml # Bowel Movements 1 Laboratory Tests 02/10/18 17:30: Urine Color Yellow, Urine Appearance Slightly cloudy, Urine pH 5, Urine Specific [place] 1.015, Urine Protein 3+H, Urine Glucose (UA) Negative, Urine Ketones Negative, Urine Occult Blood 5+H, Urine Nitrite Negative, Urine Bilirubin Negative, Urine Urobilinogen Normal, Urine Leukocyte Esterase 3+H, Urine RBC 5-10H, Urine WBC 10-15H, Urine Squamous Epithelial Cells Few, Urine Bacteria ModerateH 02/11/18 05:45: White Blood Count 9.4, Red Blood Count 3.53L, Hemoglobin 9.9L, Hematocrit 30.2L , Mean Corpuscular Volume 86, Mean Corpuscular Hemoglobin 28.1, Mean Corpuscular Hemoglobin Concent 32.9, Red Cell Distribution Width 14.8, Platelet Count 211, Mean Platelet Volume 8.1, Neutrophils (%) (Auto) , Lymphocytes (%) ( Auto) , Monocytes (%) (Auto) , Eosinophils (%) (Auto) , Basophils (%) (Auto) , Differential Total Cells Counted 100, Neutrophils % (Manual) 88H, Lymphocytes % (Manual) 8L, Monocytes % (Manual) 3, Eosinophils % (Manual) 0, Basophils % ( Manual) 0, Band Neutrophils 1, Platelet Estimate Adequate, Platelet Morphology Normal, Hypochromasia 1+, Anisocytosis 1+, Sodium Level 128L, Potassium Level 4.8, Chloride Level 94L, Carbon Dioxide Level 23, Anion Gap 11, Blood Urea Nitrogen 29H, Creatinine 1.5H, Estimat Glomerular Filtration Rate , Glucose Level 177H, Hemoglobin A1c 5.7, Osmolality 279L, Uric Acid 4.8, Calcium Level 8.8, Phosphorus Level 5.0H, Magnesium Level 3.0H, Total Bilirubin 0.4, Gamma Glutamyl Transpeptidase 102H, Aspartate Amino Transf (AST/SGOT) 92H, Alanine Aminotransferase (ALT/SGPT) 206H, Alkaline Phosphatase 51, Total Creatine Kinase 149, Troponin I 0.000, Pro-B-Type Natriuretic Peptide 6959H, Total Protein 7.7, Albumin 2.8L, Globulin 4.9, Albumin/Globulin Ratio 0.6L, Triglycerides Level 23L, Cholesterol Level 124, LDL Cholesterol 73, HDL Cholesterol 52, Cholesterol/HDL Ratio 2.4L, Thyroid Stimulating Hormone (TSH) 4.743H 02/11/18 08:42: Urine Osmolality 434, Urine Random Sodium < 20L Height (Feet): 5 Height (Inches): 6.00 Weight (Pounds): 148 General Appearance: lethargic EENT: normal ENT inspection Neck: non-tender Cardiovascular: normal peripheral pulses, normal rate, regular rhythm Respiratory/Chest: chest wall non-tender, decreased breath sounds Abdomen: normal bowel sounds, non tender, soft Extremities: normal inspection Edema: no edema noted Arm (L), no edema noted Arm (R), no edema noted Leg (L), no edema noted Leg (R), no edema noted Pedal (L), no edema noted Pedal (R), no edema noted Generalized Neurologic: motor weakness Skin: normal pigmentation, warm/dry Mark Oro DO Feb 11, 2018 12:37
--- NOTE | 2018-02-11 14:57 | Cardiology Report ---
APPROVED REPORT EXAM: Two-dimensional and M-mode echocardiogram with Doppler and color Doppler. INDICATION Congestive Heart Failure M-Mode DIMENSIONS IVSd1.2 (0.7-1.1cm)Left Atrium (MM)4.0 (1.6-4.0cm) LVDd5.0 (3.5-5.6cm)Aortic Root3.3 (2.0-3.7cm) PWd1.1 (0.7-1.1cm)Aortic Cusp Exc.1.7 (1.5-2.0cm) LVDs3.4 (2.5-4.0cm) PWs1.5 cm Normal left ventricular chamber size, systolic function and wall motion. Left ventricular ejection fraction estimated to be 55 %. Mild left ventricular hypertrophy. Anterior Echo-free space, may be due to pericardial fat or effusion. All other cardiac chamber sizes are within normal limits. Mild focal aortic valve sclerosis with adequate cusp excursion. Mildly thickened mitral valve leaflets with normal excursion. Mild mitral annulus and aortic root calcification. Normal pulmonic valve structure. Normal tricuspid valve structure. IVC is normal in size with physiological collapse. A color flow and spectral Doppler study was performed and revealed: No aortic insufficiency. Moderate mitral regurgitation. Normal left ventricular diastolic function. Mild to moderate tricuspid regurgitation. Tricuspid systolic velocities suggests peak right ventricular systolic pressure of 44 mmHg, consistent with mild pulmonary hypertension. Mild to moderate pulmonic regurgitation present.
--- NOTE | 2018-02-11 15:03 | Nephrology Progress Note ---
Assessment/Plan Problem List: (1) Hyponatremia Assessment: depletional (2) COPD (chronic obstructive pulmonary disease) Assessment: exacerbation (3) Aspiration pneumonia (4) Feeding by G-tube (5) Anemia Assessment HypoNatremia, Likely diuretic related and Depletional Mireya low Cr jessica 1.5 COPD exac. ? Aspiration h/o Long Smoking h/o Anemia h/o OA h/o Colon Ca h/o HTN Plan Tube feeding ST eval [place] 3% Saline Low Na snyder 2 D echo 55% EjFx IV steroids and Protonix monitor renal parameters and lytes change synthroid to IV Per orders Subjective ROS Limited/Unobtainable: No Constitutional: Reports: malaise Objective Objective Last 24 Hour Vital Signs Date Time Temp Pulse Resp B/P (MAP) Pulse Ox O2 Delivery O2 Flow Rate FiO2 02/11/18 12:58 Nasal Cannula 2.0 28 02/11/18 12:58 Nasal Cannula 2.0 28 02/11/18 12:00 99.0 87 20 135/78 (97) 98 99.0 02/11/18 12:00 72 02/11/18 09:42 83 124/80 02/11/18 09:42 124/80 02/11/18 09:00 Nasal Cannula 3.0 02/11/18 08:00 98.5 83 23 124/80 (95) 98 98.5 02/11/18 08:00 70 02/11/18 07:56 71 18 99 Nasal Cannula 2.0 28 02/11/18 07:48 70 18 100 Nasal Cannula 2.0 02/11/18 07:45 Nasal Cannula 2.0 28 02/11/18 07:45 100 Nasal Cannula 2.0 28 02/11/18 04:00 73 02/11/18 04:00 97.5 74 22 122/68 (86) 99 97.5 02/11/18 01:11 Nasal Cannula 2.0 28 02/11/18 01:10 Nasal Cannula 2.0 02/11/18 00:00 97.9 57 21 109/55 (73) 100 97.9 02/11/18 00:00 55 02/10/18 21:00 Nasal Cannula 3.0 02/10/18 20:45 96 Nasal Cannula 2.0 28 02/10/18 20:45 Nasal Cannula 2.0 28 02/10/18 20:00 73 8/7/18 20:00 68 18 99 Nasal Cannula 2.0 28 02/10/18 20:00 98.1 67 17 122/73 (89) 100 98.1 02/10/18 20:00 61 18 97 Nasal Cannula 2.0 28 02/10/18 19:33 Nasal Cannula 3.0 02/10/18 15:51 70 02/10/18 15:47 99.1 62 18 147/66 (93) 96 99.1 02/10/18 15:20 98.1 84 18 113/68 100 Nasal Cannula 2.0 28 98.1 Intake and Output 02/10/18 02/11/18 19:00 07:00 Intake Total 75 ml 1302 ml Output Total 500 ml Balance -425 ml 1302 ml Intake Free Water 90 ml IV Total 75 ml 862 ml Tube Feeding 350 ml Output Urine Total 500 ml # Bowel Movements 1 Laboratory Tests 02/10/18 17:30: Urine Color Yellow, Urine Appearance Slightly cloudy, Urine pH 5, Urine Specific [place] 1.015, Urine Protein 3+H, Urine Glucose (UA) Negative, Urine Ketones Negative, Urine Occult Blood 5+H, Urine Nitrite Negative, Urine Bilirubin Negative, Urine Urobilinogen Normal, Urine Leukocyte Esterase 3+H, Urine RBC 5-10H, Urine WBC 10-15H, Urine Squamous Epithelial Cells Few, Urine Bacteria ModerateH 02/11/18 05:45: White Blood Count 9.4, Red Blood Count 3.53L, Hemoglobin 9.9L, Hematocrit 30.2L , Mean Corpuscular Volume 86, Mean Corpuscular Hemoglobin 28.1, Mean Corpuscular Hemoglobin Concent 32.9, Red Cell Distribution Width 14.8, Platelet Count 211, Mean Platelet Volume 8.1, Neutrophils (%) (Auto) , Lymphocytes (%) ( Auto) , Monocytes (%) (Auto) , Eosinophils (%) (Auto) , Basophils (%) (Auto) , Differential Total Cells Counted 100, Neutrophils % (Manual) 88H, Lymphocytes % (Manual) 8L, Monocytes % (Manual) 3, Eosinophils % (Manual) 0, Basophils % ( Manual) 0, Band Neutrophils 1, Platelet Estimate Adequate, Platelet Morphology Normal, Hypochromasia 1+, Anisocytosis 1+, Sodium Level 128L, Potassium Level 4.8, Chloride Level 94L, Carbon Dioxide Level 23, Anion Gap 11, Blood Urea Nitrogen 29H, Creatinine 1.5H, Estimat Glomerular Filtration Rate , Glucose Level 177H, Hemoglobin A1c 5.7, Osmolality 279L, Uric Acid 4.8, Calcium Level 8.8, Phosphorus Level 5.0H, Magnesium Level 3.0H, Total Bilirubin 0.4, Gamma Glutamyl Transpeptidase 102H, Aspartate Amino Transf (AST/SGOT) 92H, Alanine Aminotransferase (ALT/SGPT) 206H, Alkaline Phosphatase 51, Total Creatine Kinase 149, Troponin I 0.000, Pro-B-Type Natriuretic Peptide 6959H, Total Protein 7.7, Albumin 2.8L, Globulin 4.9, Albumin/Globulin Ratio 0.6L, Triglycerides Level 23L, Cholesterol Level 124, LDL Cholesterol 73, HDL Cholesterol 52, Cholesterol/HDL Ratio 2.4L, Thyroid Stimulating Hormone (TSH) 4.743H 02/11/18 08:42: Urine Osmolality 434, Urine Random Sodium < 20L Height (Feet): 5 Height (Inches): 6.00 Weight (Pounds): 148 General Appearance: lethargic Respiratory/Chest: decreased breath sounds, other - less wheeze Abdomen: distended eZb Jiang MD Feb 11, 2018 15:03
[2018-02-11] MEDS ORDERED: NaCl 3% 500ml 250 ML IV ONE (16:00)
[2018-02-11] MEDS ORDERED: Acetaminophen 650mg/20.3ml GT PRN (21:00)
[2018-02-12] VITALS (7 sets, daily range): BP systolic 120–155; BP diastolic 67–85
[2018-02-12] MEDS: Albuterol/Ipratropium 3ml neb HHN SCH ×4 (01:00→19:41)
[2018-02-12] MEDS: NovoLOG Insulin Flexpen SUBQ SCH ×4 (05:53→21:22)
[2018-02-12 05:56] LABS: BASOPHILS % (AUTO) 0.3 % (0.0-2.0); HEMATOCRIT 26.8 % (37.0-47.0); HEMOGLOBIN 8.8 G/DL (12.0-16.0); LYMPHOCYTES % (AUTO) 6.1 % (20.0-45.0); MEAN CORPUSCULAR VOLUME 86 FL (80-99); MONOCYTES % (AUTO) 14.3 % (1.0-10.0); NEUTROPHILS % (AUTO) 79.4 % (45.0-75.0); PLATELET COUNT 199 K/UL (150-450); RED CELL DISTRIBUTION WIDTH 15.3 % (11.6-14.8); WHITE BLOOD COUNT 11.9 K/UL (4.8-10.8)
[2018-02-12 06:35] LABS: ALANINE AMINOTRANSFERASE 228 U/L (12-78); ALBUMIN 2.7 G/DL (3.4-5.0); ALKALINE PHOSPHATASE 56 U/L (46-116); ASPARTATE AMINO TRANSFERASE 112 U/L (15-37); BILIRUBIN,DIRECT 0.2 MG/DL (0.0-0.3); BILIRUBIN,TOTAL 0.3 MG/DL (0.2-1.0); PHOSPHORUS 3.7 MG/DL (2.5-4.9)
[2018-02-12 06:44] LABS: ANION GAP 7 mmol/L (5-15); BLOOD UREA NITROGEN 33 mg/dL (7-18); CALCIUM 8.7 MG/DL (8.5-10.1); CARBON DIOXIDE 27 MMOL/L (21-32); CHLORIDE 101 MMOL/L (98-107); CREATININE 1.4 MG/DL (0.55-1.30); FERRITIN 707 NG/ML (8-388); POTASSIUM 4.4 MMOL/L (3.5-5.1); SODIUM 135 MMOL/L (136-145)
[2018-02-12 06:47] LABS: % IRON SATURATION 29 % (15-50); IRON 58 ug/dL (50-175); TOTAL IRON BINDING CAPACITY 199 ug/dL (250-450)
[2018-02-12] MEDS ORDERED: Enoxaparin 40mg Inj SUBQ SCH (09:00)
[2018-02-12] MEDS ORDERED: Solu-MEDROL 40mg Inj IVP SCH ×2 (09:00)
[2018-02-12] MEDS: Miralax 17gm pkt GT SCH (09:50)
[2018-02-12] MEDS: Docusate 100mg/10ml Liq GT SCH ×3 (09:50→17:58)
[2018-02-12] MEDS: Pantoprazole Inj IVP SCH ×2 (09:51→21:17)
--- NOTE | 2018-02-12 13:02 | Nephrology Progress Note ---
Assessment/Plan Problem List: (1) Hyponatremia Assessment: depletional (2) COPD (chronic obstructive pulmonary disease) Assessment: exacerbation (3) Aspiration pneumonia (4) Feeding by G-tube (5) Anemia Assessment HypoNatremia, Likely diuretic related and Depletional Mireya low, improving Cr jessica 1.4 COPD exac. ? Aspiration h/o Long Smoking h/o Anemia h/o OA h/o Colon Ca h/o HTN Plan Tube feeding ST eval [place] 3% Saline and one dose lasix Low Na snyder 2 D echo 55% EjFx IV steroids and Protonix monitor renal parameters and lytes change synthroid to IV Per orders Subjective ROS Limited/Unobtainable: No Constitutional: Reports: malaise, other - more responsive Objective Objective Last 24 Hour Vital Signs Date Time Temp Pulse Resp B/P (MAP) Pulse Ox O2 Delivery O2 Flow Rate FiO2 02/12/18 12:50 83 18 98 Nasal Cannula 2.0 28 02/12/18 12:45 79 18 97 Nasal Cannula 2.0 28 02/12/18 12:00 98.0 86 18 155/85 (108) 100 98.0 02/12/18 09:52 83 127/74 02/12/18 09:48 83 127/74 (91) 02/12/18 09:00 Nasal Cannula 2.0 02/12/18 08:05 81 18 99 Nasal Cannula 2.0 28 02/12/18 08:00 81 Nasal Cannula 2.0 28 02/12/18 08:00 81 18 98 Nasal Cannula 2.0 28 02/12/18 08:00 98.2 83 18 135/71 (92) 96 98.2 02/12/18 08:00 Nasal Cannula 2.0 28 02/12/18 04:00 98.7 82 18 120/75 (90) 96 98.7 02/12/18 01:00 Nasal Cannula 2.0 28 02/12/18 01:00 Nasal Cannula 2.0 28 02/12/18 00:00 98.6 80 18 122/67 (85) 98 98.6 02/11/18 21:00 Nasal Cannula 2.0 02/11/18 21:00 98.4 78 18 132/74 (93) 98 98.4 02/11/18 20:00 80 02/11/18 20:00 97.9 89 24 118/68 (85) 99 97.9 02/11/18 19:25 79 20 99 Nasal Cannula 2.0 28 02/11/18 19:20 Nasal Cannula 2.0 28 02/11/18 19:20 73 20 96 Nasal Cannula 2.0 28 02/11/18 19:20 95 Nasal Cannula 2.0 28 02/11/18 16:46 99.2 89 19 130/74 (92) 98 99.2 02/11/18 16:00 80 Intake and Output 02/11/18 02/12/18 19:00 07:00 Intake Total 1045 ml Output Total 475 ml 550 ml Balance -475 ml 495 ml Intake Free Water 440 ml Tube Feeding 605 ml Output Urine Total 475 ml 550 ml # Bowel Movements 2 Laboratory Tests 02/12/18 05:45: White Blood Count 11.9H, Red Blood Count 3.10L, Hemoglobin 8.8L, Hematocrit 26.8L, Mean Corpuscular Volume 86, Mean Corpuscular Hemoglobin 28.3, Mean Corpuscular Hemoglobin Concent 32.8, Red Cell Distribution Width 15.3H, Platelet Count 199, Mean Platelet Volume 6.7, Neutrophils (%) (Auto) 79.4H, Lymphocytes (%) (Auto) 6.1L, Monocytes (%) (Auto) 14.3H, Eosinophils (%) (Auto) 0.0, Basophils (%) (Auto) 0.3, Sodium Level 135L, Potassium Level 4.4, Chloride Level 101, Carbon Dioxide Level 27, Anion Gap 7, Blood Urea Nitrogen 33H, Creatinine 1.4H, Estimat Glomerular Filtration Rate , Glucose Level 133H, Uric Acid 5.0, Calcium Level 8.7, Phosphorus Level 3.7, Magnesium Level 2.9H, Iron Level 58, Total Iron Binding Capacity 199L, Percent Iron Saturation 29, Unsaturated Iron Binding 141, Ferritin 707H, Total Bilirubin 0.3, Direct Bilirubin 0.2, Aspartate Amino Transf (AST/SGOT) 112H, Alanine Aminotransferase (ALT/SGPT) 228H, Alkaline Phosphatase 56, C-Reactive Protein, Quantitative 3.5H , Pro-B-Type Natriuretic Peptide 3470H, Total Protein 7.1, Albumin 2.7L, Vitamin B12 Level 534, Folate 25.5 Height (Feet): 5 Height (Inches): 6.00 Weight (Pounds): 148 General Appearance: no apparent distress, lethargic Neck: limited range of motion Respiratory/Chest: decreased breath sounds Abdomen: distended Zeb Jiang MD Feb 12, 2018 13:02
--- NOTE | 2018-02-12 13:45 | General Progress Note ---
Assessment/Plan Problem List: (1) Confusion ICD Codes: R41.0 - Disorientation, unspecified SNOMED: 163629213 (2) Hyponatremia ICD Codes: E87.1 - Hypo-osmolality and hyponatremia SNOMED: 18989314 (3) Weak ICD Codes: R53.1 - Weakness SNOMED: 59522753 (4) Diabetes ICD Codes: E11.9 - Type 2 diabetes mellitus without complications SNOMED: 63092336 (5) Dyspnea ICD Codes: R06.00 - Dyspnea, unspecified SNOMED: 527358000 (6) COPD (chronic obstructive pulmonary disease) ICD Codes: J44.9 - COPD (chronic obstructive pulmonary disease) SNOMED: 91153490 (7) Advanced dementia ICD Codes: F03.90 - Unspecified dementia without behavioral disturbance SNOMED: 31780169 Status: stable, progressing Assessment/Plan o2 pulm tx ot pt diet psyc tx cbc bmp am ltach eval Subjective Constitutional: Reports: weakness Allergies: Coded Allergies: AMOXICILLIN (Verified Allergy, Severe, SEVERE ICTHING /RASHES, 09/17/08) PENICILLINS (Verified Allergy, Intermediate, Itching, 06/21/13) All Systems: reviewed and negative except above Subjective o2nc calm Objective Last 24 Hour Vital Signs Date Time Temp Pulse Resp B/P (MAP) Pulse Ox O2 Delivery O2 Flow Rate FiO2 02/12/18 12:50 83 18 98 Nasal Cannula 2.0 28 02/12/18 12:45 79 18 97 Nasal Cannula 2.0 28 02/12/18 12:00 98.0 86 18 155/85 (108) 100 98.0 02/12/18 09:52 83 127/74 02/12/18 09:48 83 127/74 (91) 02/12/18 09:00 Nasal Cannula 2.0 02/12/18 08:05 81 18 99 Nasal Cannula 2.0 28 02/12/18 08:00 81 Nasal Cannula 2.0 28 02/12/18 08:00 81 18 98 Nasal Cannula 2.0 28 02/12/18 08:00 98.2 83 18 135/71 (92) 96 98.2 02/12/18 08:00 Nasal Cannula 2.0 28 02/12/18 04:00 98.7 82 18 120/75 (90) 96 98.7 02/12/18 01:00 Nasal Cannula 2.0 28 02/12/18 01:00 Nasal Cannula 2.0 28 02/12/18 00:00 98.6 80 18 122/67 (85) 98 98.6 02/11/18 21:00 Nasal Cannula 2.0 02/11/18 21:00 98.4 78 18 132/74 (93) 98 98.4 02/11/18 20:00 80 02/11/18 20:00 97.9 89 24 118/68 (85) 99 97.9 02/11/18 19:25 79 20 99 Nasal Cannula 2.0 28 02/11/18 19:20 Nasal Cannula 2.0 28 02/11/18 19:20 73 20 96 Nasal Cannula 2.0 28 02/11/18 19:20 95 Nasal Cannula 2.0 28 02/11/18 16:46 99.2 89 19 130/74 (92) 98 99.2 02/11/18 16:00 80 Intake and Output 02/11/18 02/12/18 19:00 07:00 Intake Total 1045 ml Output Total 475 ml 550 ml Balance -475 ml 495 ml Intake Free Water 440 ml Tube Feeding 605 ml Output Urine Total 475 ml 550 ml # Bowel Movements 2 Laboratory Tests 02/12/18 05:45: White Blood Count 11.9H, Red Blood Count 3.10L, Hemoglobin 8.8L, Hematocrit 26.8L, Mean Corpuscular Volume 86, Mean Corpuscular Hemoglobin 28.3, Mean Corpuscular Hemoglobin Concent 32.8, Red Cell Distribution Width 15.3H, Platelet Count 199, Mean Platelet Volume 6.7, Neutrophils (%) (Auto) 79.4H, Lymphocytes (%) (Auto) 6.1L, Monocytes (%) (Auto) 14.3H, Eosinophils (%) (Auto) 0.0, Basophils (%) (Auto) 0.3, Sodium Level 135L, Potassium Level 4.4, Chloride Level 101, Carbon Dioxide Level 27, Anion Gap 7, Blood Urea Nitrogen 33H, Creatinine 1.4H, Estimat Glomerular Filtration Rate , Glucose Level 133H, Uric Acid 5.0, Calcium Level 8.7, Phosphorus Level 3.7, Magnesium Level 2.9H, Iron Level 58, Total Iron Binding Capacity 199L, Percent Iron Saturation 29, Unsaturated Iron Binding 141, Ferritin 707H, Total Bilirubin 0.3, Direct Bilirubin 0.2, Aspartate Amino Transf (AST/SGOT) 112H, Alanine Aminotransferase (ALT/SGPT) 228H, Alkaline Phosphatase 56, C-Reactive Protein, Quantitative 3.5H , Pro-B-Type Natriuretic Peptide 3470H, Total Protein 7.1, Albumin 2.7L, Vitamin B12 Level 534, Folate 25.5 Height (Feet): 5 Height (Inches): 6.00 Weight (Pounds): 148 General Appearance: lethargic EENT: normal ENT inspection Neck: normal alignment Cardiovascular: normal peripheral pulses, normal rate, regular rhythm Respiratory/Chest: chest wall non-tender, lungs clear, normal breath sounds Abdomen: normal bowel sounds, non tender, soft Extremities: normal inspection Edema: no edema noted Arm (L), no edema noted Arm (R), no edema noted Leg (L), no edema noted Leg (R), no edema noted Pedal (L), no edema noted Pedal (R), no edema noted Generalized Neurologic: motor weakness Skin: normal pigmentation, warm/dry Mark Oro DO Feb 12, 2018 13:45
[2018-02-12] MEDS ORDERED: NaCl 3% 500ml 250 ML IV ONE ×2 (14:00→16:00)
--- NOTE | 2018-02-12 15:31 | Pulmonology Progress Note ---
Assessment/Plan Problems: (1) Aspiration pneumonia (2) Respiratory distress (3) COPD (chronic obstructive pulmonary disease) (4) ATN (acute tubular necrosis) (5) Limited mobility in bed (6) Feeding by G-tube (7) Advanced dementia Assessment/Plan taper steroids continue abx check cultures check sputum titrate fio2 to sat of 92% f/u renal parameters gutbe site care all reviewed, consider DNR and palliative care. Subjective ROS Limited/Unobtainable: Yes Constitutional: Reports: no symptoms HEENT: Repors: no symptoms Respiratory: Reports: no symptoms Allergies: Coded Allergies: AMOXICILLIN (Verified Allergy, Severe, SEVERE ICTHING /RASHES, 09/17/08) PENICILLINS (Verified Allergy, Intermediate, Itching, 06/21/13) Objective Last 24 Hour Vital Signs Date Time Temp Pulse Resp B/P (MAP) Pulse Ox O2 Delivery O2 Flow Rate FiO2 02/12/18 12:50 83 18 98 Nasal Cannula 2.0 28 02/12/18 12:45 79 18 97 Nasal Cannula 2.0 28 02/12/18 12:00 98.0 86 18 155/85 (108) 100 98.0 02/12/18 09:52 83 127/74 02/12/18 09:48 83 127/74 (91) 02/12/18 09:00 Nasal Cannula 2.0 02/12/18 08:05 81 18 99 Nasal Cannula 2.0 28 02/12/18 08:00 81 Nasal Cannula 2.0 28 02/12/18 08:00 81 18 98 Nasal Cannula 2.0 28 02/12/18 08:00 98.2 83 18 135/71 (92) 96 98.2 02/12/18 08:00 Nasal Cannula 2.0 28 02/12/18 04:00 98.7 82 18 120/75 (90) 96 98.7 02/12/18 01:00 Nasal Cannula 2.0 28 02/12/18 01:00 Nasal Cannula 2.0 28 02/12/18 00:00 98.6 80 18 122/67 (85) 98 98.6 02/11/18 21:00 Nasal Cannula 2.0 02/11/18 21:00 98.4 78 18 132/74 (93) 98 98.4 02/11/18 20:00 80 02/11/18 20:00 97.9 89 24 118/68 (85) 99 97.9 02/11/18 19:25 79 20 99 Nasal Cannula 2.0 28 02/11/18 19:20 Nasal Cannula 2.0 28 02/11/18 19:20 73 20 96 Nasal Cannula 2.0 28 02/11/18 19:20 95 Nasal Cannula 2.0 28 02/11/18 16:46 99.2 89 19 130/74 (92) 98 99.2 02/11/18 16:00 80 Intake and Output 02/11/18 02/12/18 19:00 07:00 Intake Total 1045 ml Output Total 475 ml 550 ml Balance -475 ml 495 ml Intake Free Water 440 ml Tube Feeding 605 ml Output Urine Total 475 ml 550 ml # Bowel Movements 2 General Appearance: WD/WN HEENT: normocephalic, atraumatic Respiratory/Chest: chest wall non-tender, lungs clear Breasts: no masses Cardiovascular: normal rate Abdomen: normal bowel sounds, no organomegaly Genitourinary: normal external genitalia Extremities: no clubbing Skin: no rash, no lesions Microbiology Date/Time Source Procedure Growth Status 02/10/18 12:15 Blood Blood Culture - Preliminary NO GROWTH AFTER 24 HOURS Resulted 02/10/18 12:12 Blood Blood Culture - Preliminary NO GROWTH AFTER 24 HOURS Resulted 02/10/18 14:50 Nasal Nares MRSA Culture - Final Staphylococcus Aureus - Mrsa Complete 02/10/18 17:30 Urine,Clean Catch Urine Culture - Preliminary Gram Negative Bacillus 1 Resulted 02/10/18 14:50 Rectum - Final NO CARBAPENEM-RESISTANT ENTEROBACTERI... Complete 02/10/18 14:50 Rectum VRE Culture - Final Enterococcus Faecium - Vre Complete Laboratory Tests 02/12/18 05:45: White Blood Count 11.9H, Red Blood Count 3.10L, Hemoglobin 8.8L, Hematocrit 26.8L, Mean Corpuscular Volume 86, Mean Corpuscular Hemoglobin 28.3, Mean Corpuscular Hemoglobin Concent 32.8, Red Cell Distribution Width 15.3H, Platelet Count 199, Mean Platelet Volume 6.7, Neutrophils (%) (Auto) 79.4H, Lymphocytes (%) (Auto) 6.1L, Monocytes (%) (Auto) 14.3H, Eosinophils (%) (Auto) 0.0, Basophils (%) (Auto) 0.3, Sodium Level 135L, Potassium Level 4.4, Chloride Level 101, Carbon Dioxide Level 27, Anion Gap 7, Blood Urea Nitrogen 33H, Creatinine 1.4H, Estimat Glomerular Filtration Rate , Glucose Level 133H, Uric Acid 5.0, Calcium Level 8.7, Phosphorus Level 3.7, Magnesium Level 2.9H, Iron Level 58, Total Iron Binding Capacity 199L, Percent Iron Saturation 29, Unsaturated Iron Binding 141, Ferritin 707H, Total Bilirubin 0.3, Direct Bilirubin 0.2, Aspartate Amino Transf (AST/SGOT) 112H, Alanine Aminotransferase (ALT/SGPT) 228H, Alkaline Phosphatase 56, C-Reactive Protein, Quantitative 3.5H , Pro-B-Type Natriuretic Peptide 3470H, Total Protein 7.1, Albumin 2.7L, Vitamin B12 Level 534, Folate 25.5 Current Medications Medications (Trade) Dose Ordered Sig/Orin Route PRN Reason Start Time Stop Time Status Last Admin Dose Admin Acetaminophen (Tylenol) 650 mg Q4H PRN GT Mild Pain/Temp > 100.5 02/11/18 21:00 03/13/18 20:59 Albuterol/ Ipratropium (Albuterol/ Ipratropium) 3 ml Q6HRT HHN 02/12/18 01:00 02/15/18 18:59 02/12/18 12:44 Amlodipine Besylate (Norvasc) 10 mg DAILY ORAL 02/12/18 09:00 03/13/18 08:59 02/12/18 09:52 Atorvastatin Calcium (Lipitor) 10 mg BEDTIME ORAL 02/11/18 21:00 03/13/18 20:59 02/11/18 21:26 Chlorhexidine Gluconate (Merlyn-Hex 2%) 1 applic DAILY@1999 TOPIC 02/12/18 20:00 03/12/18 19:59 Dextrose (Dextrose 50%) 25 ml STAT PRN IV Hypoglycemia 02/11/18 21:00 03/13/18 20:59 Dextrose (Dextrose 50%) 50 ml STAT PRN IV Hypoglycemia 02/11/18 21:00 03/13/18 20:59 Docusate Sodium (Colace) 100 mg TID GT 02/12/18 09:00 03/12/18 17:59 02/12/18 13:53 Insulin Aspart (NovoLOG) BEFORE MEALS AND HS SUBQ 02/11/18 21:00 03/12/18 16:29 02/12/18 12:27 Levothyroxine Sodium (Synthroid) 50 mcg DAILY IV 02/12/18 09:00 03/13/18 08:59 02/12/18 09:51 Lorazepam (Ativan) 0.5 mg Q6H PRN ORAL For Anxiety 02/11/18 21:00 02/18/18 20:59 Methylprednisolone Sodium Succinate (Solu-MEDROL) 20 mg DAILY IVP 02/13/18 09:00 03/12/18 21:59 Pantoprazole (Protonix) 40 mg EVERY 12 HOURS IVP 02/11/18 21:00 03/12/18 20:59 02/12/18 09:51 Polyethylene Glycol (Miralax) 17 gm DAILY GT 02/12/18 09:00 03/13/18 08:59 02/12/18 09:50 Sodium Chloride 250 ml @ 30 mls/hr ONCE ONCE IV 02/12/18 14:00 02/12/18 22:19 Betsy Hope MD Feb 12, 2018 15:31
[2018-02-12 16:26] LABS: INR 1.1 (0.9-1.1)
[2018-02-12 17:18] LABS: APPEARANCE,URINE CLOUDY; BILIRUBIN, URINE NEGATIVE (NEGATIVE); COLOR,URINE PALE YELLOW; GLUCOSE, URINE (UA) NEGATIVE (NEGATIVE); KETONES,URINE NEGATIVE (NEGATIVE); LEUKOCYTE ESTERASE ,URINE 3+ (NEGATIVE); NITRITE,URINE NEGATIVE (NEGATIVE); PH,URINE 5 (4.5-8.0); PROTEIN,URINE 3+ (NEGATIVE); UROBILINOGEN,URINE NORMAL MG/DL (0.0-1.0)
--- NOTE | 2018-02-12 18:45 | Consultation ---
DATE OF CONSULTATION: 02/11/2018 PSYCHOTHERAPY CONSULTATION CONSULTING PHYSICIAN: Gisela Schuler PsyD. TREATING ATTENDING PHYSICIAN: Mark Oro D.O. HISTORY OF PRESENT ILLNESS: This patient is an 87-year-old female patient from [facility] . The patient was brought to the hospital with chronic obstructive pulmonary disease exacerbation, shortness of breath, confused, referred for further therapeutic services. . The patient remains slightly confused, disorganized, happened to her. The patient states that she is tired and lethargic and remains disorganized in her thought process at this time and she has some vague helpless and hopeless . Denies suicidal or homicidal thoughts of ideation. There is no indication of auditory or visual hallucinations at this time. PAST MEDICAL HISTORY: Includes a history of hypoxia and COPD. ALLERGIES: The patient is allergic to penicillin and amoxicillin. SUBSTANCE ABUSE HISTORY: The patient denies history of alcohol use, illicit substance use, or smoking cigarettes. PAST PSYCHIATRIC HISTORY: The patient has a . SOCIAL HISTORY: The patient is a 87-year-old female patient. She lives in [facility]. Financially sustained through [employer]. MENTAL STATUS EXAMINATION: The patient is alert and oriented to person and place. Mood is dysphoric. Affect is blunted. Thought process is disoriented. Thought content, confused. She has poor attention and concentration. Poor insight, judgment, and impulse control. DIAGNOSIS: Major depressive disorder, mild, recurrent, with psychotic features. PLAN: This clinician assessed this patient and assessed the patient's mental status. Provide the patient with reality orientation for confusion. Provide the patient with supportive psychotherapy and cognitive behavioral intervention. confusion and disorganization at this time. I want to thank Dr. Mark Oro and in the hospital. Continue with behavioral management. This clinician has reviewed the patient's chart and discussed the treatment with treatment team. Gisela Schuler PsyD. : ALISA JOB#: [id number] CC:
[2018-02-12] MEDS: Dyna-Hex 2% Top Sol 2oz TOPIC SCH (21:17)
[2018-02-13] VITALS: BP 124/63
[2018-02-13] MEDS: Albuterol/Ipratropium 3ml neb HHN SCH ×4 (01:00→19:38)
--- NOTE | 2018-02-13 01:45 | Progress Note ---
DATE: 02/12/2018 NOTE: POOR AUDIO SUBJECTIVE: The patient is an 87-year-old female patient with COPD, agitation, confusion, disorganized thought process and poor cognition worsened by the stress of her medical illness. Because of her decline in cognition, her attending physician request daily psychiatric consultation. The patient was seen and assessed at bedside. disorganized. MENTAL STATUS EXAMINATION: The patient is an 87-year-old female. Appearance is disheveled. Attitude is irritable and agitated. Affect is guarded and restricted. Intellect poor. Mood is depressed and anxious. Motor activity, psychomotor agitation. Attention span is poor. Orientation x2. Speech is pressured. Thought process, disorganized and illogical. Thought content, auditory hallucinations and paranoid delusions. Insight and judgment is poor. . DIAGNOSIS: PLAN: I am going to treat this patient with the medication regimen of Namenda 5 mg per G-tube twice a day, Ativan 0.5 mg per G-tube q.6 h. p.r.n. anxiety and agitation and provide 20 minutes of cognitive behavioral therapy, identifying this patient's automatic negative thoughts and more positive thoughts. Chart reviewed. Discussed with staff. Seen and assessed at bedside. A 20 minutes of cognitive behavioral therapy provided. Josh Gonzalez M.D. DR: TONY JOB#: [id number] CC:
[2018-02-13 04:00] VITALS: BP 141/75
[2018-02-13] MEDS: NovoLOG Insulin Flexpen SUBQ SCH ×4 (05:45→21:30)
[2018-02-13 06:20] LABS: BASOPHILS % (AUTO) 0.3 % (0.0-2.0); HEMATOCRIT 26.8 % (37.0-47.0); HEMOGLOBIN 8.6 G/DL (12.0-16.0); LYMPHOCYTES % (AUTO) 8.5 % (20.0-45.0); MEAN CORPUSCULAR VOLUME 87 FL (80-99); MONOCYTES % (AUTO) 13.2 % (1.0-10.0); NEUTROPHILS % (AUTO) 77.9 % (45.0-75.0); PLATELET COUNT 188 K/UL (150-450); RED BLOOD COUNT 3.06 M/UL (4.20-5.40); WHITE BLOOD COUNT 11.7 K/UL (4.8-10.8)
[2018-02-13 06:51] LABS: ALANINE AMINOTRANSFERASE 208 U/L (12-78); ALBUMIN 2.8 G/DL (3.4-5.0); ALBUMIN/GLOBULIN RATIO 0.6 (1.0-2.7); ALKALINE PHOSPHATASE 49 U/L (46-116); ANION GAP 7 mmol/L (5-15); ASPARTATE AMINO TRANSFERASE 88 U/L (15-37); BILIRUBIN,TOTAL 0.4 MG/DL (0.2-1.0); BLOOD UREA NITROGEN 32 mg/dL (7-18); CALCIUM 8.8 MG/DL (8.5-10.1); CARBON DIOXIDE 27 MMOL/L (21-32); CHLORIDE 107 MMOL/L (98-107); CREATININE 1.3 MG/DL (0.55-1.30); PHOSPHORUS 2.7 MG/DL (2.5-4.9); POTASSIUM 4.2 MMOL/L (3.5-5.1); SODIUM 141 MMOL/L (136-145)
[2018-02-13 08:00] VITALS: BP 148/76
--- NOTE | 2018-02-13 08:05 | Nephrology Progress Note ---
Assessment/Plan Problem List: (1) Hyponatremia Assessment: depletional (2) COPD (chronic obstructive pulmonary disease) Assessment: exacerbation (3) Aspiration pneumonia (4) Feeding by G-tube (5) Anemia Assessment HypoNatremia, Likely diuretic related and Depletional Mireya low, improving Cr stable COPD exac. ? Aspiration h/o Long Smoking h/o Anemia h/o OA h/o Colon Ca h/o HTN Plan Tube feeding Low Na snyder 2 D echo 55% EjFx IV steroids and Protonix monitor renal parameters and lytes change synthroid to IV Per orders Subjective ROS Limited/Unobtainable: No Constitutional: Reports: malaise Objective Objective Last 24 Hour Vital Signs Date Time Temp Pulse Resp B/P (MAP) Pulse Ox O2 Delivery O2 Flow Rate FiO2 02/13/18 04:00 99.3 83 20 141/75 (97) 100 99.3 02/13/18 00:55 Nasal Cannula 2.0 28 02/13/18 00:55 Nasal Cannula 02/13/18 00:00 99.0 85 20 124/63 (83) 99 99.0 02/12/18 21:00 Nasal Cannula 2.0 02/12/18 20:00 98.4 88 20 148/82 (104) 98 98.4 02/12/18 19:53 85 18 99 Nasal Cannula 2.0 28 02/12/18 19:44 78 Nasal Cannula 2.0 28 02/12/18 19:44 Nasal Cannula 2.0 28 02/12/18 19:44 78 18 98 Nasal Cannula 2.0 28 02/12/18 16:00 98.4 75 18 148/76 (100) 100 98.4 02/12/18 12:50 83 18 98 Nasal Cannula 2.0 28 02/12/18 12:45 79 18 97 Nasal Cannula 2.0 28 02/12/18 12:00 98.0 86 18 155/85 (108) 100 98.0 02/12/18 09:52 83 127/74 02/12/18 09:48 83 127/74 (91) 02/12/18 09:00 Nasal Cannula 2.0 Intake and Output 02/12/18 02/13/18 19:00 07:00 Intake Total 570 ml 1140 ml Output Total 800 ml 750 ml Balance -230 ml 390 ml Intake Free Water 240 ml 480 ml Tube Feeding 330 ml 660 ml Output Urine Total 800 ml 750 ml # Bowel Movements 2 1 Laboratory Tests 02/12/18 15:30: Prothrombin Time 11.4, Prothromb Time International Ratio 1.1, Activated Partial Thromboplast Time 146H, Urine Color Pale yellow, Urine Appearance Cloudy , Urine pH 5, Urine Specific [place]ray 1.010, Urine Protein 3+H, Urine Glucose (UA ) Negative, Urine Ketones Negative, Urine Occult Blood 5+H, Urine Nitrite Negative, Urine Bilirubin Negative, Urine Urobilinogen Normal, Urine Leukocyte Esterase 3+H, Urine RBC TntcH, Urine WBC TntcH, Urine Squamous Epithelial Cells Occasional, Urine Bacteria ManyH, C-Reactive Protein, Quantitative 3.5H 02/13/18 05:30: White Blood Count 11.7H, Red Blood Count 3.06L, Hemoglobin 8.6L, Hematocrit 26.8L, Mean Corpuscular Volume 87, Mean Corpuscular Hemoglobin 28.2, Mean Corpuscular Hemoglobin Concent 32.3, Red Cell Distribution Width 15.0H, Platelet Count 188, Mean Platelet Volume 7.2, Neutrophils (%) (Auto) 77.9H, Lymphocytes (%) (Auto) 8.5L, Monocytes (%) (Auto) 13.2H, Eosinophils (%) (Auto) 0.0, Basophils (%) (Auto) 0.3, Sodium Level 141, Potassium Level 4.2, Chloride Level 107, Carbon Dioxide Level 27, Anion Gap 7, Blood Urea Nitrogen 32H, Creatinine 1.3, Estimat Glomerular Filtration Rate , Glucose Level 100, Calcium Level 8.8, Phosphorus Level 2.7, Magnesium Level 2.7H, Total Bilirubin 0.4, Aspartate Amino Transf (AST/SGOT) 88H, Alanine Aminotransferase (ALT/SGPT) 208H , Alkaline Phosphatase 49, Pro-B-Type Natriuretic Peptide 2989H, Total Protein 7.4, Albumin 2.8L, Globulin 4.6, Albumin/Globulin Ratio 0.6L Height (Feet): 5 Height (Inches): 6.00 Weight (Pounds): 148 General Appearance: no apparent distress Respiratory/Chest: decreased breath sounds Abdomen: soft Objective no change Zeb Jiang MD Feb 13, 2018 08:05
[2018-02-13] MEDS ORDERED: Solu-MEDROL 40mg Inj IVP SCH (09:00)
[2018-02-13] MEDS: Docusate 100mg/10ml Liq GT SCH ×3 (09:45→18:19)
[2018-02-13] MEDS: Miralax 17gm pkt GT SCH (09:45)
[2018-02-13] MEDS: Pantoprazole Inj IVP SCH ×2 (10:23→21:29)
--- NOTE | 2018-02-13 11:40 | General Progress Note ---
Assessment/Plan Problem List: (1) Confusion ICD Codes: R41.0 - Disorientation, unspecified SNOMED: 701645788 (2) Hyponatremia ICD Codes: E87.1 - Hypo-osmolality and hyponatremia SNOMED: 42361306 (3) Weak ICD Codes: R53.1 - Weakness SNOMED: 32388097 (4) Diabetes ICD Codes: E11.9 - Type 2 diabetes mellitus without complications SNOMED: 63039198 (5) Dyspnea ICD Codes: R06.00 - Dyspnea, unspecified SNOMED: 066810636 (6) COPD (chronic obstructive pulmonary disease) ICD Codes: J44.9 - COPD (chronic obstructive pulmonary disease) SNOMED: 55103848 (7) Advanced dementia ICD Codes: F03.90 - Unspecified dementia without behavioral disturbance SNOMED: 34421853 (8) UTI (urinary tract infection) ICD Codes: N39.0 - Urinary tract infection, site not specified SNOMED: 33000063 Status: unchanged Assessment/Plan o2 pulm tx ot pt diet psyc tx cbc bmp am ltach eval Subjective Constitutional: Reports: weakness Allergies: Coded Allergies: AMOXICILLIN (Verified Allergy, Severe, SEVERE ICTHING /RASHES, 09/17/08) PENICILLINS (Verified Allergy, Intermediate, Itching, 06/21/13) All Systems: reviewed and negative except above Subjective o2nc calm Objective Last 24 Hour Vital Signs Date Time Temp Pulse Resp B/P (MAP) Pulse Ox O2 Delivery O2 Flow Rate FiO2 02/13/18 09:45 88 148/76 02/13/18 08:13 88 20 99 Nasal Cannula 2.0 28 02/13/18 08:03 88 18 93 Nasal Cannula 2.0 28 02/13/18 08:02 Nasal Cannula 2.0 28 02/13/18 08:01 93 Nasal Cannula 2.0 28 02/13/18 08:00 99.1 90 21 148/76 (100) 93 99.1 02/13/18 04:00 99.3 83 20 141/75 (97) 100 99.3 02/13/18 00:55 Nasal Cannula 2.0 28 02/13/18 00:55 Nasal Cannula 02/13/18 00:00 99.0 85 20 124/63 (83) 99 99.0 02/12/18 21:00 Nasal Cannula 2.0 02/12/18 20:00 98.4 88 20 148/82 (104) 98 98.4 02/12/18 19:53 85 18 99 Nasal Cannula 2.0 02/12/18 19:44 78 Nasal Cannula 2.0 28 02/12/18 19:44 Nasal Cannula 2.0 28 02/12/18 19:44 78 18 98 Nasal Cannula 2.0 28 02/12/18 16:00 98.4 75 18 148/76 (100) 100 98.4 02/12/18 12:50 83 18 98 Nasal Cannula 2.0 02/12/18 12:45 79 18 97 Nasal Cannula 2.0 28 02/12/18 12:00 98.0 86 18 155/85 (108) 100 98.0 Intake and Output 02/12/18 02/13/18 19:00 07:00 Intake Total 570 ml 1140 ml Output Total 800 ml 750 ml Balance -230 ml 390 ml Intake Free Water 240 ml 480 ml Tube Feeding 330 ml 660 ml Output Urine Total 800 ml 750 ml # Bowel Movements 2 1 Laboratory Tests 02/12/18 15:30: Prothrombin Time 11.4, Prothromb Time International Ratio 1.1, Activated Partial Thromboplast Time 146H, Urine Color Pale yellow, Urine Appearance Cloudy , Urine pH 5, Urine Specific [place] 1.010, Urine Protein 3+H, Urine Glucose (UA ) Negative, Urine Ketones Negative, Urine Occult Blood 5+H, Urine Nitrite Negative, Urine Bilirubin Negative, Urine Urobilinogen Normal, Urine Leukocyte Esterase 3+H, Urine RBC TntcH, Urine WBC TntcH, Urine Squamous Epithelial Cells Occasional, Urine Bacteria ManyH, C-Reactive Protein, Quantitative 3.5H 02/13/18 05:30: White Blood Count 11.7H, Red Blood Count 3.06L, Hemoglobin 8.6L, Hematocrit 26.8L, Mean Corpuscular Volume 87, Mean Corpuscular Hemoglobin 28.2, Mean Corpuscular Hemoglobin Concent 32.3, Red Cell Distribution Width 15.0H, Platelet Count 188, Mean Platelet Volume 7.2, Neutrophils (%) (Auto) 77.9H, Lymphocytes (%) (Auto) 8.5L, Monocytes (%) (Auto) 13.2H, Eosinophils (%) (Auto) 0.0, Basophils (%) (Auto) 0.3, Sodium Level 141, Potassium Level 4.2, Chloride Level 107, Carbon Dioxide Level 27, Anion Gap 7, Blood Urea Nitrogen 32H, Creatinine 1.3, Estimat Glomerular Filtration Rate , Glucose Level 100, Calcium Level 8.8, Phosphorus Level 2.7, Magnesium Level 2.7H, Total Bilirubin 0.4, Aspartate Amino Transf (AST/SGOT) 88H, Alanine Aminotransferase (ALT/SGPT) 208H , Alkaline Phosphatase 49, Pro-B-Type Natriuretic Peptide 2989H, Total Protein 7.4, Albumin 2.8L, Globulin 4.6, Albumin/Globulin Ratio 0.6L Height (Feet): 5 Height (Inches): 6.00 Weight (Pounds): 148 General Appearance: lethargic EENT: normal ENT inspection Neck: normal alignment Cardiovascular: normal peripheral pulses, normal rate, regular rhythm Respiratory/Chest: chest wall non-tender, lungs clear, normal breath sounds Abdomen: normal bowel sounds, non tender, soft Extremities: normal inspection Edema: no edema noted Arm (L), no edema noted Arm (R), no edema noted Leg (L), no edema noted Leg (R), no edema noted Pedal (L), no edema noted Pedal (R), no edema noted Generalized Neurologic: motor weakness Skin: normal pigmentation, warm/dry Mark Oro DO Feb 13, 2018 11:40
[2018-02-13 11:59] VITALS: BP 130/70
--- NOTE | 2018-02-13 14:47 | Pulmonology Progress Note ---
Assessment/Plan Problems: (1) Aspiration pneumonia (2) Respiratory distress (3) COPD (chronic obstructive pulmonary disease) (4) ATN (acute tubular necrosis) (5) Limited mobility in bed (6) Feeding by G-tube (7) Advanced dementia Assessment/Plan doing better continue abx check cultures check sputum titrate fio2 to sat of 92% f/u renal parameters gutbe site care all reviewed, consider DNR and palliative care. Subjective ROS Limited/Unobtainable: No Constitutional: Reports: no symptoms HEENT: Repors: no symptoms Respiratory: Reports: no symptoms Allergies: Coded Allergies: AMOXICILLIN (Verified Allergy, Severe, SEVERE ICTHING /RASHES, 09/17/08) PENICILLINS (Verified Allergy, Intermediate, Itching, 06/21/13) Objective Last 24 Hour Vital Signs Date Time Temp Pulse Resp B/P (MAP) Pulse Ox O2 Delivery O2 Flow Rate FiO2 02/13/18 13:41 76 18 99 Nasal Cannula 2.0 28 02/13/18 13:31 74 18 98 Nasal Cannula 2.0 02/13/18 11:59 99.0 82 20 130/70 (90) 96 99.0 02/13/18 09:45 88 148/76 02/13/18 08:30 Nasal Cannula 2.0 02/13/18 08:13 88 20 99 Nasal Cannula 2.0 02/13/18 08:03 88 18 93 Nasal Cannula 2.0 02/13/18 08:02 Nasal Cannula 2.0 02/13/18 08:01 93 Nasal Cannula 2.0 02/13/18 08:00 99.1 90 21 148/76 (100) 93 99.1 02/13/18 04:00 99.3 83 20 141/75 (97) 100 99.3 02/13/18 00:55 Nasal Cannula 2.0 28 02/13/18 00:55 Nasal Cannula 02/13/18 00:00 99.0 85 20 124/63 (83) 99 99.0 02/12/18 21:00 Nasal Cannula 2.0 02/12/18 20:00 98.4 88 20 148/82 (104) 98 98.4 02/12/18 19:53 85 18 99 Nasal Cannula 2.0 02/12/18 19:44 78 Nasal Cannula 2.0 02/12/18 19:44 Nasal Cannula 2.0 28 02/12/18 19:44 78 18 98 Nasal Cannula 2.0 28 02/12/18 16:00 98.4 75 18 148/76 (100) 100 98.4 Intake and Output 02/12/18 02/13/18 19:00 07:00 Intake Total 570 ml 1140 ml Output Total 800 ml 750 ml Balance -230 ml 390 ml Intake Free Water 240 ml 480 ml Tube Feeding 330 ml 660 ml Output Urine Total 800 ml 750 ml # Bowel Movements 2 1 General Appearance: WD/WN HEENT: normocephalic, atraumatic Respiratory/Chest: chest wall non-tender, lungs clear, normal breath sounds Cardiovascular: normal peripheral pulses, normal rate Abdomen: normal bowel sounds, soft, non tender, no scars Extremities: no cyanosis, no clubbing Skin: no rash Microbiology Date/Time Source Procedure Growth Status 02/10/18 14:50 Nasal Nares MRSA Culture - Final Staphylococcus Aureus - Mrsa Complete 02/12/18 15:30 Urine,Clean Catch Urine Culture - Preliminary Pseudomonas Aeruginosa Resulted 02/10/18 17:30 Urine,Clean Catch Urine Culture - Final Pseudomonas Aeruginosa Complete 02/10/18 14:50 Rectum - Final NO CARBAPENEM-RESISTANT ENTEROBACTERI... Complete 02/10/18 14:50 Rectum VRE Culture - Final Enterococcus Faecium - Vre Complete Laboratory Tests 02/12/18 15:30: Prothrombin Time 11.4, Prothromb Time International Ratio 1.1, Activated Partial Thromboplast Time 146H, Urine Color Pale yellow, Urine Appearance Cloudy , Urine pH 5, Urine Specific [place] 1.010, Urine Protein 3+H, Urine Glucose (UA ) Negative, Urine Ketones Negative, Urine Occult Blood 5+H, Urine Nitrite Negative, Urine Bilirubin Negative, Urine Urobilinogen Normal, Urine Leukocyte Esterase 3+H, Urine RBC TntcH, Urine WBC TntcH, Urine Squamous Epithelial Cells Occasional, Urine Bacteria ManyH, C-Reactive Protein, Quantitative 3.5H 02/13/18 05:30: White Blood Count 11.7H, Red Blood Count 3.06L, Hemoglobin 8.6L, Hematocrit 26.8L, Mean Corpuscular Volume 87, Mean Corpuscular Hemoglobin 28.2, Mean Corpuscular Hemoglobin Concent 32.3, Red Cell Distribution Width 15.0H, Platelet Count 188, Mean Platelet Volume 7.2, Neutrophils (%) (Auto) 77.9H, Lymphocytes (%) (Auto) 8.5L, Monocytes (%) (Auto) 13.2H, Eosinophils (%) (Auto) 0.0, Basophils (%) (Auto) 0.3, Sodium Level 141, Potassium Level 4.2, Chloride Level 107, Carbon Dioxide Level 27, Anion Gap 7, Blood Urea Nitrogen 32H, Creatinine 1.3, Estimat Glomerular Filtration Rate , Glucose Level 100, Calcium Level 8.8, Phosphorus Level 2.7, Magnesium Level 2.7H, Total Bilirubin 0.4, Aspartate Amino Transf (AST/SGOT) 88H, Alanine Aminotransferase (ALT/SGPT) 208H , Alkaline Phosphatase 49, Pro-B-Type Natriuretic Peptide 2989H, Total Protein 7.4, Albumin 2.8L, Globulin 4.6, Albumin/Globulin Ratio 0.6L Current Medications Medications (Trade) Dose Ordered Sig/Orin Route PRN Reason Start Time Stop Time Status Last Admin Dose Admin Acetaminophen (Tylenol) 650 mg Q4H PRN GT Mild Pain/Temp > 100.5 02/11/18 21:00 03/13/18 20:59 Albuterol/ Ipratropium (Albuterol/ Ipratropium) 3 ml Q6HRT HHN 02/12/18 01:00 02/15/18 18:59 02/13/18 13:31 Amlodipine Besylate (Norvasc) 10 mg DAILY ORAL 02/12/18 09:00 03/13/18 08:59 02/13/18 09:45 Atorvastatin Calcium (Lipitor) 10 mg BEDTIME ORAL 02/11/18 21:00 03/13/18 20:59 02/12/18 21:17 Chlorhexidine Gluconate (Merlyn-Hex 2%) 1 applic DAILY@1999 TOPIC 02/12/18 20:00 03/12/18 19:59 02/12/18 21:17 Dextrose (Dextrose 50%) 25 ml STAT PRN IV Hypoglycemia 02/11/18 21:00 03/13/18 20:59 Dextrose (Dextrose 50%) 50 ml STAT PRN IV Hypoglycemia 02/11/18 21:00 03/13/18 20:59 Docusate Sodium (Colace) 100 mg TID GT 02/12/18 09:00 03/12/18 17:59 02/13/18 13:26 Insulin Aspart (NovoLOG) BEFORE MEALS AND HS SUBQ 02/11/18 21:00 03/12/18 16:29 02/13/18 11:27 Levothyroxine Sodium (Synthroid) 50 mcg DAILY IV 02/12/18 09:00 03/13/18 08:59 02/13/18 09:46 Lorazepam (Ativan) 0.5 mg Q6H PRN ORAL For Anxiety 02/11/18 21:00 02/18/18 20:59 Methylprednisolone Sodium Succinate (Solu-MEDROL) 20 mg DAILY IVP 02/13/18 09:00 03/12/18 21:59 02/13/18 09:45 Pantoprazole (Protonix) 40 mg EVERY 12 HOURS IVP 02/11/18 21:00 03/12/18 20:59 02/13/18 10:23 Polyethylene Glycol (Miralax) 17 gm DAILY GT 02/12/18 09:00 03/13/18 08:59 02/13/18 09:45 Betsy Hope MD Feb 13, 2018 14:47
[2018-02-13 16:00] VITALS: BP 148/79
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
[2018-02-13 20:00] VITALS: BP 136/64
[2018-02-13] MEDS: Dyna-Hex 2% Top Sol 2oz TOPIC SCH (21:28)
[2018-02-14] VITALS: BP 137/72
[2018-02-14] MEDS: Albuterol/Ipratropium 3ml neb HHN SCH ×4 (01:00→19:00)
[2018-02-14 04:00] VITALS: BP 136/72
[2018-02-14] MEDS: NovoLOG Insulin Flexpen SUBQ SCH ×4 (06:01→21:11)
[2018-02-14 06:17] LABS: BASOPHILS % (AUTO) 0.7 % (0.0-2.0); HEMATOCRIT 27.4 % (37.0-47.0); HEMOGLOBIN 9.2 G/DL (12.0-16.0); LYMPHOCYTES % (AUTO) 10.3 % (20.0-45.0); MEAN CORPUSCULAR VOLUME 88 FL (80-99); MONOCYTES % (AUTO) 11.9 % (1.0-10.0); NEUTROPHILS % (AUTO) 77.2 % (45.0-75.0); PLATELET COUNT 169 K/UL (150-450); RED BLOOD COUNT 3.12 M/UL (4.20-5.40); RED CELL DISTRIBUTION WIDTH 15.5 % (11.6-14.8); WHITE BLOOD COUNT 12.6 K/UL (4.8-10.8)
[2018-02-14 06:42] LABS: ANION GAP 7 mmol/L (5-15); BLOOD UREA NITROGEN 30 mg/dL (7-18); CARBON DIOXIDE 27 MMOL/L (21-32); CHLORIDE 107 MMOL/L (98-107); CREATININE 1.3 MG/DL (0.55-1.30); POTASSIUM 4.5 MMOL/L (3.5-5.1); SODIUM 140 MMOL/L (136-145)
[2018-02-14 08:00] VITALS: BP 145/88
[2018-02-14] MEDS: Pantoprazole Inj IVP SCH (08:55)
--- NOTE | 2018-02-14 09:05 | General Progress Note ---
Assessment/Plan Problem List: (1) Confusion ICD Codes: R41.0 - Disorientation, unspecified SNOMED: 367571925 (2) Hyponatremia ICD Codes: E87.1 - Hypo-osmolality and hyponatremia SNOMED: 72447459 (3) Weak ICD Codes: R53.1 - Weakness SNOMED: 05214185 (4) Diabetes ICD Codes: E11.9 - Type 2 diabetes mellitus without complications SNOMED: 81536082 (5) Dyspnea ICD Codes: R06.00 - Dyspnea, unspecified SNOMED: 377793143 (6) COPD (chronic obstructive pulmonary disease) ICD Codes: J44.9 - COPD (chronic obstructive pulmonary disease) SNOMED: 53040427 (7) Advanced dementia ICD Codes: F03.90 - Unspecified dementia without behavioral disturbance SNOMED: 72382673 (8) UTI (urinary tract infection) ICD Codes: N39.0 - Urinary tract infection, site not specified SNOMED: 35309414 Status: stable, progressing Assessment/Plan o2 pulm tx ot pt diet psyc tx cbc bmp am Subjective Constitutional: Reports: weakness Allergies: Coded Allergies: AMOXICILLIN (Verified Allergy, Severe, SEVERE ICTHING /RASHES, 09/17/08) PENICILLINS (Verified Allergy, Intermediate, Itching, 06/21/13) All Systems: reviewed and negative except above Subjective o2nc calm Objective Last 24 Hour Vital Signs Date Time Temp Pulse Resp B/P (MAP) Pulse Ox O2 Delivery O2 Flow Rate FiO2 02/14/18 07:40 Nasal Cannula 2.0 28 02/14/18 07:15 65 20 98 Nasal Cannula 2.0 28 02/14/18 07:15 Nasal Cannula 2.0 28 02/14/18 07:15 98 Nasal Cannula 2.0 28 02/14/18 04:00 99.0 62 20 136/72 (93) 99 99.0 02/14/18 02:21 Nasal Cannula 2.0 28 02/14/18 01:15 Nasal Cannula 02/14/18 00:00 98.5 72 20 137/72 (93) 99 98.5 02/13/18 21:00 Nasal Cannula 2.0 02/13/18 20:00 98.0 72 20 136/64 (88) 100 98.0 02/13/18 19:50 82 18 99 Nasal Cannula 2.0 28 02/13/18 19:40 63 18 99 Nasal Cannula 2.0 28 02/13/18 19:40 Nasal Cannula 2.0 28 02/13/18 19:39 99 Nasal Cannula 2.0 28 02/13/18 16:00 99.3 86 20 148/79 (102) 97 99.3 02/13/18 13:41 76 18 99 Nasal Cannula 2.0 28 02/13/18 13:31 74 18 98 Nasal Cannula 2.0 02/13/18 11:59 99.0 82 20 130/70 (90) 96 99.0 02/13/18 09:45 88 148/76 Intake and Output 02/13/18 02/14/18 19:00 07:00 Intake Total 1235 ml 1065 ml Output Total 1200 ml 400 ml Balance 35 ml 665 ml Intake Free Water 520 ml 460 ml Tube Feeding 715 ml 605 ml Output Urine Total 1200 ml 400 ml # Bowel Movements 1 Laboratory Tests 02/14/18 05:50: White Blood Count 12.6H, Red Blood Count 3.12L, Hemoglobin 9.2L, Hematocrit 27.4L, Mean Corpuscular Volume 88, Mean Corpuscular Hemoglobin 29.6, Mean Corpuscular Hemoglobin Concent 33.7, Red Cell Distribution Width 15.5H, Platelet Count 169, Mean Platelet Volume 7.5, Neutrophils (%) (Auto) 77.2H, Lymphocytes (%) (Auto) 10.3L, Monocytes (%) (Auto) 11.9H, Eosinophils (%) (Auto ) 0.0, Basophils (%) (Auto) 0.7, Sodium Level 140, Potassium Level 4.5, Chloride Level 107, Carbon Dioxide Level 27, Anion Gap 7, Blood Urea Nitrogen 30H, Creatinine 1.3, Estimat Glomerular Filtration Rate , Glucose Level 138H, Calcium Level 9.0 Height (Feet): 5 Height (Inches): 6.00 Weight (Pounds): 148 General Appearance: lethargic EENT: normal ENT inspection Neck: normal alignment Cardiovascular: normal peripheral pulses Respiratory/Chest: chest wall non-tender, decreased breath sounds Abdomen: normal bowel sounds, non tender, soft Extremities: normal inspection Edema: no edema noted Arm (L), no edema noted Arm (R), no edema noted Leg (L), no edema noted Leg (R), no edema noted Pedal (L), no edema noted Pedal (R), no edema noted Generalized Neurologic: motor weakness Skin: normal pigmentation, warm/dry Mark Oro DO Feb 14, 2018 09:05
--- NOTE | 2018-02-14 09:09 | Nephrology Progress Note ---
Assessment/Plan Problem List: (1) Hyponatremia Assessment: depletional (2) COPD (chronic obstructive pulmonary disease) Assessment: exacerbation (3) Aspiration pneumonia (4) Feeding by G-tube (5) Anemia Assessment HypoNatremia, Likely diuretic related and Depletional Mireya low, improving Cr stable COPD exac. ? Aspiration h/o Long Smoking h/o Anemia h/o OA h/o Colon Ca h/o HTN Plan Tube feeding Low Na snyder 2 D echo 55% EjFx IV steroids and Protonix monitor renal parameters and lytes change synthroid to IV Per orders Subjective ROS Limited/Unobtainable: No Constitutional: Reports: malaise, other - more awake Objective Objective Last 24 Hour Vital Signs Date Time Temp Pulse Resp B/P (MAP) Pulse Ox O2 Delivery O2 Flow Rate FiO2 02/14/18 07:40 Nasal Cannula 2.0 02/14/18 07:15 65 20 98 Nasal Cannula 2.0 02/14/18 07:15 Nasal Cannula 2.0 02/14/18 07:15 98 Nasal Cannula 2.0 02/14/18 04:00 99.0 62 20 136/72 (93) 99 99.0 02/14/18 02:21 Nasal Cannula 2.0 02/14/18 01:15 Nasal Cannula 02/14/18 00:00 98.5 72 20 137/72 (93) 99 98.5 02/13/18 21:00 Nasal Cannula 2.0 02/13/18 20:00 98.0 72 20 136/64 (88) 100 98.0 02/13/18 19:50 82 18 99 Nasal Cannula 2.0 02/13/18 19:40 63 18 99 Nasal Cannula 2.0 02/13/18 19:40 Nasal Cannula 2.0 02/13/18 19:39 99 Nasal Cannula 2.0 02/13/18 16:00 99.3 86 20 148/79 (102) 97 99.3 02/13/18 13:41 76 18 99 Nasal Cannula 2.0 02/13/18 13:31 74 18 98 Nasal Cannula 2.0 02/13/18 11:59 99.0 82 20 130/70 (90) 96 99.0 02/13/18 09:45 88 148/76 Intake and Output 02/13/18 02/14/18 19:00 07:00 Intake Total 1235 ml 1065 ml Output Total 1200 ml 400 ml Balance 35 ml 665 ml Intake Free Water 520 ml 460 ml Tube Feeding 715 ml 605 ml Output Urine Total 1200 ml 400 ml # Bowel Movements 1 Laboratory Tests 02/14/18 05:50: White Blood Count 12.6H, Red Blood Count 3.12L, Hemoglobin 9.2L, Hematocrit 27.4L, Mean Corpuscular Volume 88, Mean Corpuscular Hemoglobin 29.6, Mean Corpuscular Hemoglobin Concent 33.7, Red Cell Distribution Width 15.5H, Platelet Count 169, Mean Platelet Volume 7.5, Neutrophils (%) (Auto) 77.2H, Lymphocytes (%) (Auto) 10.3L, Monocytes (%) (Auto) 11.9H, Eosinophils (%) (Auto ) 0.0, Basophils (%) (Auto) 0.7, Sodium Level 140, Potassium Level 4.5, Chloride Level 107, Carbon Dioxide Level 27, Anion Gap 7, Blood Urea Nitrogen 30H, Creatinine 1.3, Estimat Glomerular Filtration Rate , Glucose Level 138H, Calcium Level 9.0 Height (Feet): 5 Height (Inches): 6.00 Weight (Pounds): 148 General Appearance: no apparent distress Respiratory/Chest: decreased breath sounds Abdomen: soft Objective no change Zeb Jiang MD Feb 14, 2018 09:09
[2018-02-14] MEDS: Miralax 17gm pkt GT SCH (09:37)
[2018-02-14] MEDS: Docusate 100mg/10ml Liq GT SCH ×3 (09:37→17:50)
--- NOTE | 2018-02-14 09:48 | Consultation ---
History of Present Illness General Date patient seen: Feb 14, 2018 Chief Complaint: Dyspnea/Respdistress Reason for Consultation: UTI Present Illness HPI Ms Duque is a 87 yo female with PMHx of UIT, hypertension, hypothyroidism, hypercholesterolemia, DJD and GERD who presents from [facility] with SOB. She was found to have UTI. Since admission she has develop a mild leukocytosis. UA was positive and urine in growing Pseudomonas Today she will make eye contact but no talking, Will moan when examined. PMHx #UIT #DM #Hypertension #Hypothyroidism #Hypercholesterolemia #DJD #GERD #Colon mass PSHx #Right Hip #Thyroid #Hysterectomy #Tonsills SocHx No E/T FamHx Uable to obtain Allergies: Coded Allergies: AMOXICILLIN (Verified Allergy, Severe, SEVERE ICTHING /RASHES, 09/17/08) PENICILLINS (Verified Allergy, Intermediate, Itching, 06/21/13) Medication History Scheduled Alendronate Sodium* (Fosamax*), 70 MG ORAL ONCE A WEEK, (Reported) Amlodipine Besylate (Norvasc), 10 MG ORAL DAILY, (Reported) Arginine/Ascorbate Sod/Devang AC (Arginaid Powder), 1 EACH PO BID, (Reported) Aspirin (Aspirin EC), 81 MG ORAL BID, (Reported) Atorvastatin Calcium* (Lipitor*), 20 MG ORAL BEDTIME, (Reported) Bimatoprost (Lumigan), 1 DROP BOTH EYES DAILY, (Reported) Cholecalciferol (Vitamin D3) (Vitamin D3), 1,000 UNIT PO BID, (Reported) Docusate Sodium* (Docusate Sodium*), 100 MG ORAL THREE TIMES A DAY, (Reported) Enoxaparin* (Lovenox*), 40 MG SUBQ DAILY, (Reported) Furosemide* (Lasix*), 20 MG ORAL DAILY, (Reported) Levothyroxine Sodium* (Levothyroxine Sodium*), 112 MCG ORAL DAILY, (Reported) Lisinopril* (Zestril*), 10 MG ORAL BID, (Reported) Nitrofurantoin Macrocrystal (Macrodantin), 100 MG ORAL DAILY, (Reported) Omeprazole (Prilosec), 20 MG ORAL DAILY, (Reported) Oxandrolone (Oxandrolone), 2.5 MG PO BID, (Reported) Polyethylene Glycol 3350* (Miralax*), 17 GM ORAL DAILY, (Reported) Pregabalin (Lyrica), 25 MG ORAL THREE TIMES A DAY, (Reported) Ranitidine Hcl* (Zantac*), 150 MG ORAL QHS, (Reported) Scheduled PRN Acetaminophen* (Acetaminophen 325MG Tablet*), 650 MG ORAL Q6H PRN for Pain Scale (6-10), (Reported) Albuterol Sulfate* (Albuterol Sulfate Hhn*), 3 ML INH Q4H PRN for Shortness of Breath, (Reported) Diphenhydramine Hcl (Diphenhydramine Hcl), 50 MG ORAL BEDTIME PRN for Itching, ( Reported) Hydrocodone Bit/Acetaminophen 5-325* ([place] 5-325*), 1 TAB ORAL Q6H PRN for For Pain Miscellaneous Medications Multivitamin (Multi-Vitamin Daily), 1 EACH PO, (Reported) Patient History Healthcare decision maker Resuscitation status Full Code Advanced Directive on File Review of Systems All Other Systems: negative except mentioned in HPI ROS Narrative Unable to obtain 2/2 AMS Physical Exam Last 24 Hour Vital Signs Date Time Temp Pulse Resp B/P (MAP) Pulse Ox O2 Delivery O2 Flow Rate FiO2 02/14/18 08:00 97.8 70 18 145/88 (107) 99 97.8 02/14/18 07:40 Nasal Cannula 2.0 28 02/14/18 07:15 65 20 98 Nasal Cannula 2.0 28 02/14/18 07:15 Nasal Cannula 2.0 28 02/14/18 07:15 98 Nasal Cannula 2.0 28 02/14/18 04:00 99.0 62 20 136/72 (93) 99 99.0 02/14/18 02:21 Nasal Cannula 2.0 28 02/14/18 01:15 Nasal Cannula 02/14/18 00:00 98.5 72 20 137/72 (93) 99 98.5 02/13/18 21:00 Nasal Cannula 2.0 02/13/18 20:00 98.0 72 20 136/64 (88) 100 98.0 02/13/18 19:50 82 18 99 Nasal Cannula 2.0 28 02/13/18 19:40 63 18 99 Nasal Cannula 2.0 28 02/13/18 19:40 Nasal Cannula 2.0 28 02/13/18 19:39 99 Nasal Cannula 2.0 28 02/13/18 16:00 99.3 86 20 148/79 (102) 97 99.3 02/13/18 13:41 76 18 99 Nasal Cannula 2.0 28 02/13/18 13:31 74 18 98 Nasal Cannula 2.0 28 02/13/18 11:59 99.0 82 20 130/70 (90) 96 99.0 Intake and Output 02/13/18 02/14/18 19:00 07:00 Intake Total 1235 ml 1065 ml Output Total 1200 ml 400 ml Balance 35 ml 665 ml Intake Free Water 520 ml 460 ml Tube Feeding 715 ml 605 ml Output Urine Total 1200 ml 400 ml # Bowel Movements 1 Laboratory Tests Test 02/14/18 05:50 White Blood Count 12.6 K/UL (4.8-10.8) H Red Blood Count 3.12 M/UL (4.20-5.40) L Hemoglobin 9.2 G/DL (12.0-16.0) L Hematocrit 27.4 % (37.0-47.0) L Mean Corpuscular Volume 88 FL (80-99) Mean Corpuscular Hemoglobin 29.6 PG (27.0-31.0) Mean Corpuscular Hemoglobin Concent 33.7 G/DL (32.0-36.0) Red Cell Distribution Width 15.5 % (11.6-14.8) H Platelet Count 169 K/UL (150-450) Mean Platelet Volume 7.5 FL (6.5-10.1) Neutrophils (%) (Auto) 77.2 % (45.0-75.0) H Lymphocytes (%) (Auto) 10.3 % (20.0-45.0) L Monocytes (%) (Auto) 11.9 % (1.0-10.0) H Eosinophils (%) (Auto) 0.0 % (0.0-3.0) Basophils (%) (Auto) 0.7 % (0.0-2.0) Sodium Level 140 MMOL/L (136-145) Potassium Level 4.5 MMOL/L (3.5-5.1) Chloride Level 107 MMOL/L (98-107) Carbon Dioxide Level 27 MMOL/L (21-32) Anion Gap 7 mmol/L (5-15) Blood Urea Nitrogen 30 mg/dL (7-18) H Creatinine 1.3 MG/DL (0.55-1.30) Estimat Glomerular Filtration Rate mL/min (>60) Glucose Level 138 MG/DL (74-106) H Calcium Level 9.0 MG/DL (8.5-10.1) Height (Feet): 5 Height (Inches): 6.00 Weight (Pounds): 148 Medications Current Medications Medications (Trade) Dose Ordered Sig/Orin Route PRN Reason Start Time Stop Time Status Last Admin Dose Admin Acetaminophen (Tylenol) 650 mg Q4H PRN GT Mild Pain/Temp > 100.5 02/11/18 21:00 03/13/18 20:59 Albuterol/ Ipratropium (Albuterol/ Ipratropium) 3 ml Q6HRT HHN 02/12/18 01:00 02/15/18 18:59 02/13/18 19:38 Amlodipine Besylate (Norvasc) 10 mg DAILY ORAL 02/12/18 09:00 03/13/18 08:59 02/13/18 09:45 Atorvastatin Calcium (Lipitor) 10 mg BEDTIME ORAL 02/11/18 21:00 03/13/18 20:59 02/13/18 21:29 Chlorhexidine Gluconate (Merlyn-Hex 2%) 1 applic DAILY@1999 TOPIC 02/12/18 20:00 03/12/18 19:59 02/13/18 21:28 Dextrose (Dextrose 50%) 25 ml STAT PRN IV Hypoglycemia 02/11/18 21:00 03/13/18 20:59 Dextrose (Dextrose 50%) 50 ml STAT PRN IV Hypoglycemia 02/11/18 21:00 03/13/18 20:59 Docusate Sodium (Colace) 100 mg TID GT 02/12/18 09:00 03/12/18 17:59 02/13/18 18:19 Famotidine (Pepcid) 20 mg BID GT 02/14/18 18:00 03/16/18 17:59 Insulin Aspart (NovoLOG) BEFORE MEALS AND HS SUBQ 02/11/18 21:00 03/12/18 16:29 02/14/18 06:01 Levothyroxine Sodium (Synthroid) 50 mcg DAILY IV 02/12/18 09:00 03/13/18 08:59 02/13/18 09:46 Lorazepam (Ativan) 0.5 mg Q6H PRN ORAL For Anxiety 02/11/18 21:00 02/18/18 20:59 Polyethylene Glycol (Miralax) 17 gm DAILY GT 02/12/18 09:00 03/13/18 08:59 02/13/18 09:45 Objective Narrative Gen: NAD, A/O x 0 HEENT: NCAT, MMM, EOMI, PERRL, No Oral lesion, no scleral icterus, Trach in place no surrounding erythema NECK: full range of motion, supple, no meningismus, No LAD, No JVD LUNGS: CTAB, No W/C, No Accessory muscle use CARDS: RRR, S1, S2, No M/R/G, ABD: Soft, Obese NT, ND, No R/G, + BS Ext: C/C/E, Pulses 2+ B/L (DP, Rad), No joint pain or erythema : Deferred NEURO: A/O x 4, Strength and Sensation Grossly intact PSYCH: mood/affect normal SKIN: warm/dry, No rashes Assessment/Plan Assessment/Plan 87 yo female with PMHx of UIT, hypertension, hypothyroidism, hypercholesterolemia, DJD and GERD who presents from [facility] with SOB. She was found to have UTI. # Pseudomonas UTI - Urine Cx 02/10/18 P.a. # Sacral Ulcers - No cellulitis or sign of active infection #DM #Hypertension #Hypothyroidism #Hypercholesterolemia #DJD #GERD #Colon mass PLAN: - Start cefepime #1 - Monitor CBC and Temps - Wound care Thank you for consulting us for the care of this patient. We will continue to follow with you. Nacho Zamora M.D. Feb 14, 2018 09:48
--- NOTE | 2018-02-14 11:17 | Pulmonology Progress Note ---
Assessment/Plan Problems: (1) Aspiration pneumonia (2) Respiratory distress (3) COPD (chronic obstructive pulmonary disease) (4) ATN (acute tubular necrosis) (5) Limited mobility in bed (6) Feeding by G-tube (7) Advanced dementia Assessment/Plan doing better continue abx check cultures check sputum titrate fio2 to sat of 92% f/u renal parameters gutbe site care all reviewed, consider DNR and palliative care. Subjective ROS Limited/Unobtainable: No Allergies: Coded Allergies: AMOXICILLIN (Verified Allergy, Severe, SEVERE ICTHING /RASHES, 09/17/08) PENICILLINS (Verified Allergy, Intermediate, Itching, 06/21/13) Objective Last 24 Hour Vital Signs Date Time Temp Pulse Resp B/P (MAP) Pulse Ox O2 Delivery O2 Flow Rate FiO2 02/14/18 10:10 66 20 99 Nasal Cannula 2.0 28 02/14/18 09:56 60 20 93 Nasal Cannula 2.0 28 02/14/18 09:37 70 145/88 02/14/18 08:00 97.8 70 18 145/88 (107) 99 97.8 02/14/18 07:40 Nasal Cannula 2.0 28 02/14/18 07:15 65 20 98 Nasal Cannula 2.0 28 02/14/18 07:15 Nasal Cannula 2.0 28 02/14/18 07:15 98 Nasal Cannula 2.0 28 02/14/18 04:00 99.0 62 20 136/72 (93) 99 99.0 02/14/18 02:21 Nasal Cannula 2.0 28 02/14/18 01:15 Nasal Cannula 02/14/18 00:00 98.5 72 20 137/72 (93) 99 98.5 02/13/18 21:00 Nasal Cannula 2.0 02/13/18 20:00 98.0 72 20 136/64 (88) 100 98.0 02/13/18 19:50 82 18 99 Nasal Cannula 2.0 28 02/13/18 19:40 63 18 99 Nasal Cannula 2.0 28 02/13/18 19:40 Nasal Cannula 2.0 28 02/13/18 19:39 99 Nasal Cannula 2.0 28 02/13/18 16:00 99.3 86 20 148/79 (102) 97 99.3 02/13/18 13:41 76 18 99 Nasal Cannula 2.0 28 02/13/18 13:31 74 18 98 Nasal Cannula 2.0 28 02/13/18 11:59 99.0 82 20 130/70 (90) 96 99.0 Intake and Output 02/13/18 02/14/18 19:00 07:00 Intake Total 1235 ml 1065 ml Output Total 1200 ml 400 ml Balance 35 ml 665 ml Intake Free Water 520 ml 460 ml Tube Feeding 715 ml 605 ml Output Urine Total 1200 ml 400 ml # Bowel Movements 1 General Appearance: WD/WN HEENT: normocephalic Respiratory/Chest: lungs clear, normal breath sounds Cardiovascular: normal peripheral pulses, normal rate Abdomen: normal bowel sounds, no organomegaly Genitourinary: normal external genitalia Extremities: no clubbing Microbiology Date/Time Source Procedure Growth Status 02/12/18 15:30 Urine,Clean Catch Urine Culture - Final Pseudomonas Aeruginosa Complete Laboratory Tests 02/14/18 05:50: White Blood Count 12.6H, Red Blood Count 3.12L, Hemoglobin 9.2L, Hematocrit 27.4L, Mean Corpuscular Volume 88, Mean Corpuscular Hemoglobin 29.6, Mean Corpuscular Hemoglobin Concent 33.7, Red Cell Distribution Width 15.5H, Platelet Count 169, Mean Platelet Volume 7.5, Neutrophils (%) (Auto) 77.2H, Lymphocytes (%) (Auto) 10.3L, Monocytes (%) (Auto) 11.9H, Eosinophils (%) (Auto ) 0.0, Basophils (%) (Auto) 0.7, Sodium Level 140, Potassium Level 4.5, Chloride Level 107, Carbon Dioxide Level 27, Anion Gap 7, Blood Urea Nitrogen 30H, Creatinine 1.3, Estimat Glomerular Filtration Rate , Glucose Level 138H, Calcium Level 9.0 Current Medications Medications (Trade) Dose Ordered Sig/Orin Route PRN Reason Start Time Stop Time Status Last Admin Dose Admin Acetaminophen (Tylenol) 650 mg Q4H PRN GT Mild Pain/Temp > 100.5 02/11/18 21:00 03/13/18 20:59 Albuterol/ Ipratropium (Albuterol/ Ipratropium) 3 ml Q6HRT HHN 02/12/18 01:00 02/15/18 18:59 02/14/18 10:05 Amlodipine Besylate (Norvasc) 10 mg DAILY ORAL 02/12/18 09:00 03/13/18 08:59 02/14/18 09:37 Atorvastatin Calcium (Lipitor) 10 mg BEDTIME ORAL 02/11/18 21:00 03/13/18 20:59 02/13/18 21:29 Chlorhexidine Gluconate (Merlyn-Hex 2%) 1 applic DAILY@2000 TOPIC 02/12/18 20:00 03/12/18 19:59 02/13/18 21:28 Dextrose (Dextrose 50%) 25 ml STAT PRN IV Hypoglycemia 02/11/18 21:00 03/13/18 20:59 Dextrose (Dextrose 50%) 50 ml STAT PRN IV Hypoglycemia 02/11/18 21:00 03/13/18 20:59 Docusate Sodium (Colace) 100 mg TID GT 02/12/18 09:00 03/12/18 17:59 02/14/18 09:37 Famotidine (Pepcid) 20 mg BID GT 02/14/18 18:00 03/16/18 17:59 Insulin Aspart (NovoLOG) BEFORE MEALS AND HS SUBQ 02/11/18 21:00 03/12/18 16:29 02/14/18 06:01 Levothyroxine Sodium (Synthroid) 50 mcg DAILY IV 02/12/18 09:00 03/13/18 08:59 02/14/18 09:37 Lorazepam (Ativan) 0.5 mg Q6H PRN ORAL For Anxiety 02/11/18 21:00 02/18/18 20:59 02/14/18 10:43 Polyethylene Glycol (Miralax) 17 gm DAILY GT 02/12/18 09:00 03/13/18 08:59 02/14/18 09:37 Betsy Hope MD Feb 14, 2018 11:17
[2018-02-14 12:00] VITALS: BP 139/86
[2018-02-14] MEDS: Cefepime HCl 1 GM in D5W 55 ML IVPB SCH (14:50)
[2018-02-14 16:00] VITALS: BP 110/89
[2018-02-14 19:59] VITALS: BP 144/74
[2018-02-14] MEDS: Dyna-Hex 2% Top Sol 2oz TOPIC SCH (21:13)
[2018-02-15] VITALS: BP 144/91
[2018-02-15] MEDS: Albuterol/Ipratropium 3ml neb HHN SCH ×3 (01:39→13:01)
[2018-02-15 04:00] VITALS: BP 150/80
[2018-02-15] MEDS: NovoLOG Insulin Flexpen SUBQ SCH ×3 (05:58→17:40)
[2018-02-15 06:49] LABS: BASOPHILS % (AUTO) 0.4 % (0.0-2.0); EOSINOPHILS % (AUTO) 0.1 % (0.0-3.0); HEMATOCRIT 29.9 % (37.0-47.0); HEMOGLOBIN 9.7 G/DL (12.0-16.0); LYMPHOCYTES % (AUTO) 9.7 % (20.0-45.0); MEAN CORPUSCULAR VOLUME 87 FL (80-99); NEUTROPHILS % (AUTO) 79.8 % (45.0-75.0); PLATELET COUNT 175 K/UL (150-450); RED BLOOD COUNT 3.45 M/UL (4.20-5.40); RED CELL DISTRIBUTION WIDTH 15.5 % (11.6-14.8); WHITE BLOOD COUNT 14.9 K/UL (4.8-10.8)
[2018-02-15 06:59] LABS: ANION GAP 9 mmol/L (5-15); BLOOD UREA NITROGEN 24 mg/dL (7-18); CALCIUM 9.3 MG/DL (8.5-10.1); CARBON DIOXIDE 27 MMOL/L (21-32); CHLORIDE 104 MMOL/L (98-107); CREATININE 1.2 MG/DL (0.55-1.30); POTASSIUM 3.9 MMOL/L (3.5-5.1); SODIUM 140 MMOL/L (136-145)
[2018-02-15 08:00] VITALS: BP 140/86
--- NOTE | 2018-02-15 09:01 | General Progress Note ---
Assessment/Plan Problem List: (1) Confusion ICD Codes: R41.0 - Disorientation, unspecified SNOMED: 917975023 (2) Hyponatremia ICD Codes: E87.1 - Hypo-osmolality and hyponatremia SNOMED: 08856184 (3) Weak ICD Codes: R53.1 - Weakness SNOMED: 51889646 (4) Diabetes ICD Codes: E11.9 - Type 2 diabetes mellitus without complications SNOMED: 27238637 (5) Dyspnea ICD Codes: R06.00 - Dyspnea, unspecified SNOMED: 242669214 (6) COPD (chronic obstructive pulmonary disease) ICD Codes: J44.9 - COPD (chronic obstructive pulmonary disease) SNOMED: 71530314 (7) Advanced dementia ICD Codes: F03.90 - Unspecified dementia without behavioral disturbance SNOMED: 05773236 (8) UTI (urinary tract infection) ICD Codes: N39.0 - Urinary tract infection, site not specified SNOMED: 95809265 Status: stable, progressing Assessment/Plan o2 pulm tx ot pt diet psyc tx cbc bmp am Subjective Constitutional: Reports: weakness Allergies: Coded Allergies: AMOXICILLIN (Verified Allergy, Severe, SEVERE ICTHING /RASHES, 09/17/08) PENICILLINS (Verified Allergy, Intermediate, Itching, 06/21/13) All Systems: reviewed and negative except above Subjective o2nc calm Objective Last 24 Hour Vital Signs Date Time Temp Pulse Resp B/P (MAP) Pulse Ox O2 Delivery O2 Flow Rate FiO2 02/15/18 08:11 81 20 98 Nasal Cannula 2.0 28 02/15/18 08:02 Nasal Cannula 2.0 28 02/15/18 08:02 28 02/15/18 08:02 69 20 98 Nasal Cannula 2.0 28 02/15/18 08:02 98 Nasal Cannula 2.0 28 02/15/18 04:00 99.0 87 20 150/80 (103) 99 99.0 87 02/15/18 01:40 88 20 98 Nasal Cannula 2.0 28 02/15/18 01:39 84 20 95 Nasal Cannula 2.0 28 02/15/18 00:00 99.7 89 20 144/91 (108) 100 99.7 02/14/18 21:00 Nasal Cannula 2.0 02/14/18 19:59 99.1 73 19 144/74 (97) 98 99.1 73 8/11/18 19:15 Nasal Cannula 2.0 28 02/14/18 19:13 98 Nasal Cannula 2.0 28 02/14/18 19:13 Nasal Cannula 2.0 28 02/14/18 19:13 Nasal Cannula 2.0 28 02/14/18 16:00 98.6 79 19 110/89 (96) 96 98.6 02/14/18 13:25 73 20 97 Nasal Cannula 2.0 28 02/14/18 13:20 70 20 94 Nasal Cannula 2.0 28 02/14/18 12:00 98.0 82 18 139/86 (103) 98 98.0 02/14/18 10:10 66 20 99 Nasal Cannula 2.0 02/14/18 09:56 60 20 93 Nasal Cannula 2.0 02/14/18 09:37 70 145/88 Intake and Output 02/14/18 02/15/18 19:00 07:00 Intake Total 1195 ml 1140 ml Output Total 2600 ml Balance 1195 ml -1460 ml Intake Free Water 480 ml 480 ml IV Total 55 ml Tube Feeding 660 ml 660 ml Output Urine Total 2600 ml # Bowel Movements 1 Laboratory Tests 02/15/18 04:45: White Blood Count 14.9H, Red Blood Count 3.45L, Hemoglobin 9.7L, Hematocrit 29.9L, Mean Corpuscular Volume 87, Mean Corpuscular Hemoglobin 28.3, Mean Corpuscular Hemoglobin Concent 32.6, Red Cell Distribution Width 15.5H, Platelet Count 175, Mean Platelet Volume 7.2, Neutrophils (%) (Auto) 79.8H, Lymphocytes (%) (Auto) 9.7L, Monocytes (%) (Auto) 10.0, Eosinophils (%) (Auto) 0.1, Basophils (%) (Auto) 0.4, Sodium Level 140, Potassium Level 3.9, Chloride Level 104, Carbon Dioxide Level 27, Anion Gap 9, Blood Urea Nitrogen 24H, Creatinine 1.2, Estimat Glomerular Filtration Rate , Glucose Level 122H, Calcium Level 9.3 Height (Feet): 5 Height (Inches): 6.00 Weight (Pounds): 148 General Appearance: lethargic EENT: normal ENT inspection Neck: normal alignment Cardiovascular: normal peripheral pulses, normal rate, regular rhythm Respiratory/Chest: chest wall non-tender, decreased breath sounds Abdomen: normal bowel sounds, non tender, soft Extremities: normal inspection Edema: no edema noted Arm (L), no edema noted Arm (R), no edema noted Leg (L), no edema noted Leg (R), no edema noted Pedal (L), no edema noted Pedal (R), no edema noted Generalized Neurologic: motor weakness Skin: normal pigmentation, warm/dry Mark Oro DO Feb 15, 2018 09:01
[2018-02-15] MEDS: Docusate 100mg/10ml Liq GT SCH ×3 (10:00→17:35)
[2018-02-15] MEDS: Miralax 17gm pkt GT SCH (10:01)
[2018-02-15 12:00] VITALS: BP 129/76
--- NOTE | 2018-02-15 12:12 | Nephrology Progress Note ---
Assessment/Plan Problem List: (1) Hyponatremia Assessment: depletional (2) COPD (chronic obstructive pulmonary disease) Assessment: exacerbation (3) Aspiration pneumonia (4) Feeding by G-tube (5) Anemia Assessment WBCs rising HypoNatremia, Likely diuretic related and Depletional Mireya low, improving Cr stable COPD exac. ? Aspiration h/o Long Smoking h/o Anemia h/o OA h/o Colon Ca h/o HTN Plan per ID Recs Tube feeding Low Na snyder 2 D echo 55% EjFx Off IV steroids monitor renal parameters and lytes change synthroid to IV Per orders Subjective ROS Limited/Unobtainable: No Constitutional: Reports: malaise, weakness Objective Objective Last 24 Hour Vital Signs Date Time Temp Pulse Resp B/P (MAP) Pulse Ox O2 Delivery O2 Flow Rate FiO2 02/15/18 10:00 69 140/86 02/15/18 09:00 Nasal Cannula 2.0 02/15/18 08:11 81 20 98 Nasal Cannula 2.0 28 02/15/18 08:02 Nasal Cannula 2.0 28 02/15/18 08:02 28 02/15/18 08:02 69 20 98 Nasal Cannula 2.0 28 02/15/18 08:02 98 Nasal Cannula 2.0 28 02/15/18 08:00 98.6 69 18 140/86 (104) 99 98.6 02/15/18 04:00 99.0 87 20 150/80 (103) 99 99.0 87 02/15/18 01:40 88 20 98 Nasal Cannula 2.0 28 02/15/18 01:39 84 20 95 Nasal Cannula 2.0 28 02/15/18 00:00 99.7 89 20 144/91 (108) 100 99.7 02/14/18 21:00 Nasal Cannula 2.0 02/14/18 19:59 99.1 73 19 144/74 (97) 98 99.1 73 02/14/18 19:15 Nasal Cannula 2.0 28 02/14/18 19:13 98 Nasal Cannula 2.0 28 02/14/18 19:13 Nasal Cannula 2.0 28 02/14/18 19:13 Nasal Cannula 2.0 28 02/14/18 16:00 98.6 79 19 110/89 (96) 96 98.6 02/14/18 13:25 73 20 97 Nasal Cannula 2.0 28 02/14/18 13:20 70 20 94 Nasal Cannula 2.0 28 Intake and Output 02/14/18 02/15/18 19:00 07:00 Intake Total 1195 ml 1140 ml Output Total 2600 ml Balance 1195 ml -1460 ml Intake Free Water 480 ml 480 ml IV Total 55 ml Tube Feeding 660 ml 660 ml Output Urine Total 2600 ml # Bowel Movements 1 Laboratory Tests 02/15/18 04:45: White Blood Count 14.9H, Red Blood Count 3.45L, Hemoglobin 9.7L, Hematocrit 29.9L, Mean Corpuscular Volume 87, Mean Corpuscular Hemoglobin 28.3, Mean Corpuscular Hemoglobin Concent 32.6, Red Cell Distribution Width 15.5H, Platelet Count 175, Mean Platelet Volume 7.2, Neutrophils (%) (Auto) 79.8H, Lymphocytes (%) (Auto) 9.7L, Monocytes (%) (Auto) 10.0, Eosinophils (%) (Auto) 0.1, Basophils (%) (Auto) 0.4, Sodium Level 140, Potassium Level 3.9, Chloride Level 104, Carbon Dioxide Level 27, Anion Gap 9, Blood Urea Nitrogen 24H, Creatinine 1.2, Estimat Glomerular Filtration Rate , Glucose Level 122H, Calcium Level 9.3 Height (Feet): 5 Height (Inches): 6.00 Weight (Pounds): 148 General Appearance: no apparent distress Neck: limited range of motion Cardiovascular: normal rate Respiratory/Chest: decreased breath sounds Abdomen: soft Objective no change Zeb Jiang MD Feb 15, 2018 12:12
[2018-02-15 12:37] LABS: ALANINE AMINOTRANSFERASE 127 U/L (12-78); ALBUMIN 2.8 G/DL (3.4-5.0); ALKALINE PHOSPHATASE 59 U/L (46-116); ASPARTATE AMINO TRANSFERASE 40 U/L (15-37); BILIRUBIN,DIRECT 0.3 MG/DL (0.0-0.3); BILIRUBIN,TOTAL 0.6 MG/DL (0.2-1.0); PHOSPHORUS 2.3 MG/DL (2.5-4.9)
[2018-02-15] MEDS: Cefepime HCl 1 GM in D5W 55 ML IVPB SCH (13:50)
--- NOTE | 2018-02-15 14:13 | Pulmonology Progress Note ---
Assessment/Plan Problems: (1) Aspiration pneumonia (2) Respiratory distress (3) COPD (chronic obstructive pulmonary disease) (4) ATN (acute tubular necrosis) (5) Limited mobility in bed (6) Feeding by G-tube (7) Advanced dementia Assessment/Plan doing better awake continue abx check cultures check sputum titrate fio2 to sat of 92% f/u renal parameters gutbe site care all reviewed, consider DNR and palliative care. Subjective ROS Limited/Unobtainable: No Constitutional: Reports: no symptoms HEENT: Repors: no symptoms Respiratory: Reports: no symptoms Allergies: Coded Allergies: AMOXICILLIN (Verified Allergy, Severe, SEVERE ICTHING /RASHES, 09/17/08) PENICILLINS (Verified Allergy, Intermediate, Itching, 06/21/13) Objective Last 24 Hour Vital Signs Date Time Temp Pulse Resp B/P (MAP) Pulse Ox O2 Delivery O2 Flow Rate FiO2 02/15/18 13:10 85 18 98 Nasal Cannula 2.0 28 02/15/18 13:01 73 18 98 Nasal Cannula 2.0 28 02/15/18 13:01 28 02/15/18 10:00 69 140/86 02/15/18 09:00 Nasal Cannula 2.0 02/15/18 08:11 81 20 98 Nasal Cannula 2.0 28 02/15/18 08:02 Nasal Cannula 2.0 28 02/15/18 08:02 28 02/15/18 08:02 69 20 98 Nasal Cannula 2.0 28 02/15/18 08:02 98 Nasal Cannula 2.0 28 02/15/18 08:00 98.6 69 18 140/86 (104) 99 98.6 02/15/18 04:00 99.0 87 20 150/80 (103) 99 99.0 87 02/15/18 01:40 88 20 98 Nasal Cannula 2.0 28 02/15/18 01:39 84 20 95 Nasal Cannula 2.0 28 02/15/18 00:00 99.7 89 20 144/91 (108) 100 99.7 02/14/18 21:00 Nasal Cannula 2.0 02/14/18 19:59 99.1 73 19 144/74 (97) 98 99.1 73 02/14/18 19:15 Nasal Cannula 2.0 28 02/14/18 19:13 98 Nasal Cannula 2.0 28 02/14/18 19:13 Nasal Cannula 2.0 28 02/14/18 19:13 Nasal Cannula 2.0 28 02/14/18 16:00 98.6 79 19 110/89 (96) 96 98.6 Intake and Output 02/14/18 02/15/18 19:00 07:00 Intake Total 1195 ml 1140 ml Output Total 2600 ml Balance 1195 ml -1460 ml Intake Free Water 480 ml 480 ml IV Total 55 ml Tube Feeding 660 ml 660 ml Output Urine Total 2600 ml # Bowel Movements 1 General Appearance: WD/WN HEENT: normocephalic, atraumatic Respiratory/Chest: chest wall non-tender, normal breath sounds Breasts: no masses Cardiovascular: normal peripheral pulses, normal rate Abdomen: normal bowel sounds, soft, non tender, no scars Extremities: no clubbing Skin: no rash Microbiology Date/Time Source Procedure Growth Status 02/12/18 15:30 Urine,Clean Catch Urine Culture - Final Pseudomonas Aeruginosa Complete Laboratory Tests 02/15/18 04:45: White Blood Count 14.9H, Red Blood Count 3.45L, Hemoglobin 9.7L, Hematocrit 29.9L, Mean Corpuscular Volume 87, Mean Corpuscular Hemoglobin 28.3, Mean Corpuscular Hemoglobin Concent 32.6, Red Cell Distribution Width 15.5H, Platelet Count 175, Mean Platelet Volume 7.2, Neutrophils (%) (Auto) 79.8H, Lymphocytes (%) (Auto) 9.7L, Monocytes (%) (Auto) 10.0, Eosinophils (%) (Auto) 0.1, Basophils (%) (Auto) 0.4, Sodium Level 140, Potassium Level 3.9, Chloride Level 104, Carbon Dioxide Level 27, Anion Gap 9, Blood Urea Nitrogen 24H, Creatinine 1.2, Estimat Glomerular Filtration Rate , Glucose Level 122H, Calcium Level 9.3, Phosphorus Level 2.3L, Magnesium Level 2.3, Total Bilirubin 0.6, Direct Bilirubin 0.3, Aspartate Amino Transf (AST/SGOT) 40H, Alanine Aminotransferase (ALT/SGPT) 127H, Alkaline Phosphatase 59, C-Reactive Protein, Quantitative 11.0H, Pro-B-Type Natriuretic Peptide 9558H, Total Protein 7.6, Albumin 2.8L Current Medications Medications (Trade) Dose Ordered Sig/Orin Route PRN Reason Start Time Stop Time Status Last Admin Dose Admin Acetaminophen (Tylenol) 650 mg Q4H PRN GT Mild Pain/Temp > 100.5 02/11/18 21:00 03/13/18 20:59 Albuterol/ Ipratropium (Albuterol/ Ipratropium) 3 ml Q6HRT HHN 02/12/18 01:00 02/15/18 18:59 02/15/18 13:01 Amlodipine Besylate (Norvasc) 10 mg DAILY ORAL 02/12/18 09:00 03/13/18 08:59 02/15/18 10:00 Atorvastatin Calcium (Lipitor) 10 mg BEDTIME ORAL 02/11/18 21:00 03/13/18 20:59 02/14/18 21:13 Cefepime HCl 1 gm/ Dextrose 55 ml @ 110 mls/hr Q24H IVPB 02/14/18 14:00 02/21/18 13:59 02/15/18 13:50 Chlorhexidine Gluconate (Merlyn-Hex 2%) 1 applic DAILY@2000 TOPIC 02/12/18 20:00 03/12/18 19:59 02/14/18 21:13 Dextrose (Dextrose 50%) 25 ml STAT PRN IV Hypoglycemia 02/11/18 21:00 03/13/18 20:59 Dextrose (Dextrose 50%) 50 ml STAT PRN IV Hypoglycemia 02/11/18 21:00 03/13/18 20:59 Docusate Sodium (Colace) 100 mg TID GT 02/12/18 09:00 03/12/18 17:59 02/15/18 12:16 Famotidine (Pepcid) 20 mg BID GT 02/14/18 18:00 03/16/18 17:59 02/15/18 10:00 Insulin Aspart (NovoLOG) BEFORE MEALS AND HS SUBQ 02/11/18 21:00 03/12/18 16:29 02/15/18 12:16 Levothyroxine Sodium (Synthroid) 50 mcg DAILY IV 02/12/18 09:00 03/13/18 08:59 02/15/18 10:01 Lorazepam (Ativan) 0.5 mg Q6H PRN ORAL For Anxiety 02/11/18 21:00 8/15/18 20:59 02/14/18 10:43 Polyethylene Glycol (Miralax) 17 gm DAILY GT 02/12/18 09:00 03/13/18 08:59 02/15/18 10:01 Betsy Hope MD Feb 15, 2018 14:13
[2018-02-15 16:00] VITALS: BP 131/82
[2018-02-15 20:00] VITALS: BP 155/86
[2018-02-15] MEDS: Dyna-Hex 2% Top Sol 2oz TOPIC SCH (20:53)
[2018-02-16] VITALS: BP 119/65
[2018-02-16 04:00] VITALS: BP 151/68
[2018-02-16 05:59] LABS: BASOPHILS % (AUTO) 0.6 % (0.0-2.0); EOSINOPHILS % (AUTO) 0.4 % (0.0-3.0); HEMATOCRIT 28.9 % (37.0-47.0); HEMOGLOBIN 9.5 G/DL (12.0-16.0); MEAN CORPUSCULAR VOLUME 87 FL (80-99); MONOCYTES % (AUTO) 7.7 % (1.0-10.0); NEUTROPHILS % (AUTO) 83.2 % (45.0-75.0); PLATELET COUNT 167 K/UL (150-450); RED BLOOD COUNT 3.34 M/UL (4.20-5.40); RED CELL DISTRIBUTION WIDTH 15.5 % (11.6-14.8); WHITE BLOOD COUNT 13.9 K/UL (4.8-10.8)
[2018-02-16] MEDS: NovoLOG Insulin Flexpen SUBQ SCH ×4 (06:01→18:00)
[2018-02-16 06:13] LABS: ANION GAP 8 mmol/L (5-15); BLOOD UREA NITROGEN 23 mg/dL (7-18); CALCIUM 8.5 MG/DL (8.5-10.1); CARBON DIOXIDE 27 MMOL/L (21-32); CHLORIDE 103 MMOL/L (98-107); CREATININE 1.1 MG/DL (0.55-1.30); SODIUM 138 MMOL/L (136-145)
[2018-02-16 08:00] VITALS: BP 145/89
--- NOTE | 2018-02-16 10:03 | Infectious Diseases Prog Note ---
Assessment/Plan Assessment/Plan 87 yo female with PMHx of UIT, hypertension, hypothyroidism, hypercholesterolemia, DJD and GERD who presents from [facility] with SOB. She was found to have UTI. # Pseudomonas UTI - Urine Cx 02/10/18 P.a. # Sacral Ulcers - No cellulitis or sign of active infection # Leukocytosis - On Solumedrol #DM #Hypertension #Hypothyroidism #Hypercholesterolemia #DJD #GERD #Colon mass PLAN: - Continue cefepime #09/10 for uti - Monitor CBC and Temps - Wound care Thank you for consulting us for the care of this patient. We will continue to follow with you. Subjective Allergies: Coded Allergies: AMOXICILLIN (Verified Allergy, Severe, SEVERE ICTHING /RASHES, 09/17/08) PENICILLINS (Verified Allergy, Intermediate, Itching, 06/21/13) Subjective Patient with low grade fever overnight A/O x 0 No Diarrhea Objective Vital Signs Last 24 Hour Vital Signs Date Time Temp Pulse Resp B/P (MAP) Pulse Ox O2 Delivery O2 Flow Rate FiO2 02/16/18 08:00 100.8 81 18 145/89 (107) 100.8 02/16/18 05:18 99.0 02/16/18 04:48 100.0 02/16/18 04:00 100.0 79 18 151/68 (95) 99 100.0 02/16/18 00:00 99.5 79 20 119/65 (83) 98 99.5 02/15/18 21:00 Nasal Cannula 2.0 02/15/18 20:00 99.5 84 17 155/86 (109) 100 99.5 84 02/15/18 16:00 97.8 74 19 131/82 (98) 97 97.8 02/15/18 13:10 85 18 98 Nasal Cannula 2.0 28 02/15/18 13:01 73 18 98 Nasal Cannula 2.0 28 02/15/18 13:01 28 02/15/18 12:00 98.0 72 18 129/76 (93) 98 98.0 72 02/15/18 10:00 69 140/86 Height (Feet): 5 Height (Inches): 6.00 Weight (Pounds): 148 Objective Gen: NAD, A/O x 0 HEENT: NCAT, MMM, EOMI LUNGS: CTAB, No W/C, CARDS: RRR, S1, S2, No M/R/G, ABD: Soft, Obese, NT, ND, No R/G, + BS NEURO: A/O x Laboratory Tests Test 02/16/18 05:40 White Blood Count 13.9 K/UL (4.8-10.8) H Red Blood Count 3.34 M/UL (4.20-5.40) L Hemoglobin 9.5 G/DL (12.0-16.0) L Hematocrit 28.9 % (37.0-47.0) L Mean Corpuscular Volume 87 FL (80-99) Mean Corpuscular Hemoglobin 28.6 PG (27.0-31.0) Mean Corpuscular Hemoglobin Concent 33.0 G/DL (32.0-36.0) Red Cell Distribution Width 15.5 % (11.6-14.8) H Platelet Count 167 K/UL (150-450) Mean Platelet Volume 7.6 FL (6.5-10.1) Neutrophils (%) (Auto) 83.2 % (45.0-75.0) H Lymphocytes (%) (Auto) 8.0 % (20.0-45.0) L Monocytes (%) (Auto) 7.7 % (1.0-10.0) Eosinophils (%) (Auto) 0.4 % (0.0-3.0) Basophils (%) (Auto) 0.6 % (0.0-2.0) Sodium Level 138 MMOL/L (136-145) Potassium Level 4.0 MMOL/L (3.5-5.1) Chloride Level 103 MMOL/L (98-107) Carbon Dioxide Level 27 MMOL/L (21-32) Anion Gap 8 mmol/L (5-15) Blood Urea Nitrogen 23 mg/dL (7-18) H Creatinine 1.1 MG/DL (0.55-1.30) Estimat Glomerular Filtration Rate mL/min (>60) Glucose Level 118 MG/DL (74-106) H Calcium Level 8.5 MG/DL (8.5-10.1) Current Medications Medications (Trade) Dose Ordered Sig/Orin Route PRN Reason Start Time Stop Time Status Last Admin Dose Admin Acetaminophen (Tylenol) 650 mg Q4H PRN GT Mild Pain/Temp > 100.5 02/11/18 21:00 03/13/18 20:59 02/16/18 04:48 Amlodipine Besylate (Norvasc) 10 mg DAILY ORAL 02/12/18 09:00 03/13/18 08:59 02/15/18 10:00 Atorvastatin Calcium (Lipitor) 10 mg BEDTIME ORAL 02/11/18 21:00 03/13/18 20:59 02/15/18 20:53 Cefepime HCl 1 gm/ Dextrose 55 ml @ 110 mls/hr Q24H IVPB 02/14/18 14:00 02/21/18 13:59 02/15/18 13:50 Chlorhexidine Gluconate (Merlyn-Hex 2%) 1 applic DAILY@2000 TOPIC 02/12/18 20:00 03/12/18 19:59 02/15/18 20:53 Dextrose (Dextrose 50%) 25 ml STAT PRN IV Hypoglycemia 02/11/18 21:00 03/13/18 20:59 Dextrose (Dextrose 50%) 50 ml STAT PRN IV Hypoglycemia 02/11/18 21:00 03/13/18 20:59 Docusate Sodium (Colace) 100 mg TID GT 02/12/18 09:00 03/12/18 17:59 02/15/18 17:35 Famotidine (Pepcid) 20 mg BID GT 02/14/18 18:00 03/16/18 17:59 02/15/18 17:35 Insulin Aspart (NovoLOG) Q6HR SUBQ 02/15/18 18:00 03/12/18 16:29 02/16/18 06:01 Levothyroxine Sodium (Synthroid) 50 mcg DAILY IV 02/12/18 09:00 03/13/18 08:59 02/15/18 10:01 Lorazepam (Ativan) 0.5 mg Q6H PRN ORAL For Anxiety 02/11/18 21:00 02/18/18 20:59 02/14/18 10:43 Polyethylene Glycol (Miralax) 17 gm DAILY GT 02/12/18 09:00 03/13/18 08:59 02/15/18 10:01 Nacho Zamora M.D. Feb 16, 2018 10:03
[2018-02-16] MEDS: Docusate 100mg/10ml Liq GT SCH ×3 (11:05→18:38)
[2018-02-16] MEDS: Miralax 17gm pkt GT SCH (11:06)
[2018-02-16 12:00] VITALS: BP 138/77
--- NOTE | 2018-02-16 12:54 | General Progress Note ---
Assessment/Plan Problem List: (1) Confusion ICD Codes: R41.0 - Disorientation, unspecified SNOMED: 912211148 (2) Hyponatremia ICD Codes: E87.1 - Hypo-osmolality and hyponatremia SNOMED: 85285530 (3) Weak ICD Codes: R53.1 - Weakness SNOMED: 14244370 (4) Diabetes ICD Codes: E11.9 - Type 2 diabetes mellitus without complications SNOMED: 63017845 (5) Dyspnea ICD Codes: R06.00 - Dyspnea, unspecified SNOMED: 555743677 (6) COPD (chronic obstructive pulmonary disease) ICD Codes: J44.9 - COPD (chronic obstructive pulmonary disease) SNOMED: 28022273 (7) Advanced dementia ICD Codes: F03.90 - Unspecified dementia without behavioral disturbance SNOMED: 34034628 (8) UTI (urinary tract infection) ICD Codes: N39.0 - Urinary tract infection, site not specified SNOMED: 05162644 Status: stable, progressing Assessment/Plan o2 pulm tx ot pt diet psyc tx cbc bmp am dc plan snf Subjective Constitutional: Reports: weakness Allergies: Coded Allergies: AMOXICILLIN (Verified Allergy, Severe, SEVERE ICTHING /RASHES, 09/17/08) PENICILLINS (Verified Allergy, Intermediate, Itching, 06/21/13) All Systems: reviewed and negative except above Subjective o2nc calm Objective Last 24 Hour Vital Signs Date Time Temp Pulse Resp B/P (MAP) Pulse Ox O2 Delivery O2 Flow Rate FiO2 02/16/18 12:00 99.5 81 18 138/77 (97) 97 99.5 02/16/18 11:05 81 145/89 02/16/18 08:40 Nasal Cannula 2.0 02/16/18 08:00 100.8 81 18 145/89 (107) 100.8 02/16/18 05:18 99.0 02/16/18 04:48 100.0 02/16/18 04:00 100.0 79 18 151/68 (95) 99 100.0 02/16/18 00:00 99.5 79 20 119/65 (83) 98 99.5 02/15/18 21:00 Nasal Cannula 2.0 02/15/18 20:00 99.5 84 17 155/86 (109) 100 99.5 84 02/15/18 16:00 97.8 74 19 131/82 (98) 97 97.8 02/15/18 13:10 85 18 98 Nasal Cannula 2.0 28 02/15/18 13:01 73 18 98 Nasal Cannula 2.0 28 02/15/18 13:01 28 Intake and Output 02/15/18 02/16/18 19:00 07:00 Intake Total 95 ml 1140 ml Output Total 2000 ml Balance 95 ml -860 ml Intake Free Water 40 ml 480 ml Tube Feeding 55 ml 660 ml Output Urine Total 2000 ml Laboratory Tests 02/16/18 05:40: White Blood Count 13.9H, Red Blood Count 3.34L, Hemoglobin 9.5L, Hematocrit 28.9L, Mean Corpuscular Volume 87, Mean Corpuscular Hemoglobin 28.6, Mean Corpuscular Hemoglobin Concent 33.0, Red Cell Distribution Width 15.5H, Platelet Count 167, Mean Platelet Volume 7.6, Neutrophils (%) (Auto) 83.2H, Lymphocytes (%) (Auto) 8.0L, Monocytes (%) (Auto) 7.7, Eosinophils (%) (Auto) 0.4, Basophils (%) (Auto) 0.6, Sodium Level 138, Potassium Level 4.0, Chloride Level 103, Carbon Dioxide Level 27, Anion Gap 8, Blood Urea Nitrogen 23H, Creatinine 1.1, Estimat Glomerular Filtration Rate , Glucose Level 118H, Calcium Level 8.5 Height (Feet): 5 Height (Inches): 6.00 Weight (Pounds): 148 General Appearance: lethargic EENT: normal ENT inspection Neck: normal alignment Cardiovascular: normal peripheral pulses, normal rate, regular rhythm Respiratory/Chest: chest wall non-tender, decreased breath sounds Abdomen: normal bowel sounds, non tender, soft Extremities: normal inspection Edema: no edema noted Arm (L), no edema noted Arm (R), no edema noted Leg (L), no edema noted Leg (R), no edema noted Pedal (L), no edema noted Pedal (R), no edema noted Generalized Neurologic: motor weakness Skin: normal pigmentation, warm/dry Mark Oro DO Feb 16, 2018 12:54
--- NOTE | 2018-02-16 12:59 | Nephrology Progress Note ---
Assessment/Plan Problem List: (1) Hyponatremia Assessment: depletional (2) COPD (chronic obstructive pulmonary disease) Assessment: exacerbation (3) Aspiration pneumonia (4) Feeding by G-tube (5) Anemia Assessment WBCs up HypoNatremia, Likely diuretic related and Depletional Mireya low, improving Cr stable COPD exac. ? Aspiration h/o Long Smoking h/o Anemia h/o OA h/o Colon Ca h/o HTN Plan ua cxr one dose Genta per ID Recs Tube feeding Low Na snyder 2 D echo 55% EjFx Off IV steroids monitor renal parameters and lytes change synthroid to IV Per orders Subjective ROS Limited/Unobtainable: No Constitutional: Reports: malaise, weakness Objective Objective Last 24 Hour Vital Signs Date Time Temp Pulse Resp B/P (MAP) Pulse Ox O2 Delivery O2 Flow Rate FiO2 02/16/18 12:00 99.5 81 18 138/77 (97) 97 99.5 02/16/18 11:05 81 145/89 02/16/18 08:40 Nasal Cannula 2.0 02/16/18 08:00 100.8 81 18 145/89 (107) 100.8 02/16/18 05:18 99.0 02/16/18 04:48 100.0 02/16/18 04:00 100.0 79 18 151/68 (95) 99 100.0 02/16/18 00:00 99.5 79 20 119/65 (83) 98 99.5 02/15/18 21:00 Nasal Cannula 2.0 02/15/18 20:00 99.5 84 17 155/86 (109) 100 99.5 84 02/15/18 16:00 97.8 74 19 131/82 (98) 97 97.8 02/15/18 13:10 85 18 98 Nasal Cannula 2.0 28 02/15/18 13:01 73 18 98 Nasal Cannula 2.0 28 02/15/18 13:01 28 Intake and Output 02/15/18 02/16/18 19:00 07:00 Intake Total 95 ml 1140 ml Output Total 2000 ml Balance 95 ml -860 ml Intake Free Water 40 ml 480 ml Tube Feeding 55 ml 660 ml Output Urine Total 2000 ml Laboratory Tests 02/16/18 05:40: White Blood Count 13.9H, Red Blood Count 3.34L, Hemoglobin 9.5L, Hematocrit 28.9L, Mean Corpuscular Volume 87, Mean Corpuscular Hemoglobin 28.6, Mean Corpuscular Hemoglobin Concent 33.0, Red Cell Distribution Width 15.5H, Platelet Count 167, Mean Platelet Volume 7.6, Neutrophils (%) (Auto) 83.2H, Lymphocytes (%) (Auto) 8.0L, Monocytes (%) (Auto) 7.7, Eosinophils (%) (Auto) 0.4, Basophils (%) (Auto) 0.6, Sodium Level 138, Potassium Level 4.0, Chloride Level 103, Carbon Dioxide Level 27, Anion Gap 8, Blood Urea Nitrogen 23H, Creatinine 1.1, Estimat Glomerular Filtration Rate , Glucose Level 118H, Calcium Level 8.5 Height (Feet): 5 Height (Inches): 6.00 Weight (Pounds): 148 General Appearance: no apparent distress Neck: limited range of motion Cardiovascular: normal rate Respiratory/Chest: decreased breath sounds Abdomen: soft Objective no change Zeb Jiang MD Feb 16, 2018 12:59
[2018-02-16] MEDS: Cefepime HCl 1 GM in D5W 55 ML IVPB SCH (14:01)
--- NOTE | 2018-02-16 14:03 | Diagnostic Imaging Report ---
Indication: Cough Technique: One view of the chest Comparison: 02/10/2018 Findings: There is opacification of the left mid and lower lung. This may result from left lower lobe atelectasis, as there is suggestion of abrupt termination of the left mainstem bronchus. Alternatively, this could represent a large left pleural effusion, or combination of both. Right lung and pleural space are clear. Impression: Left lower lobe atelectasis and/or large left pleural effusion, new since 02/10/2018 Possible endobronchial obstruction of the left mainstem bronchus Dr. Hope notified of the findings at the time of interpretation
[2018-02-16] MEDS ORDERED: Gentamicin inj 120 MG in NS 110 ML IVPB ONE (14:30)
[2018-02-16] MEDS ORDERED: Gentamicin 120mg/100ml NS INJ 100 ML IVPB ONE (14:30)
[2018-02-16 14:55] LABS: APPEARANCE,URINE CLEAR; BILIRUBIN, URINE NEGATIVE (NEGATIVE); GLUCOSE, URINE (UA) NEGATIVE (NEGATIVE); KETONES,URINE NEGATIVE (NEGATIVE); LEUKOCYTE ESTERASE ,URINE 1+ (NEGATIVE); NITRITE,URINE NEGATIVE (NEGATIVE); PH,URINE 7 (4.5-8.0); PROTEIN,URINE 3+ (NEGATIVE); UROBILINOGEN,URINE 1 MG/DL (0.0-1.0)
[2018-02-16 14:56] LABS: COLOR,URINE YELLOW
--- NOTE | 2018-02-16 15:11 | Pulmonology Progress Note ---
Assessment/Plan Problems: (1) Aspiration pneumonia (2) Respiratory distress (3) COPD (chronic obstructive pulmonary disease) (4) ATN (acute tubular necrosis) (5) Limited mobility in bed (6) Feeding by G-tube (7) Advanced dementia Assessment/Plan doing better continue abx check cultures check sputum titrate fio2 to sat of 92% f/u renal parameters gutbe site care all reviewed, cxr reviewed: ? L effusion or atelectasis Subjective ROS Limited/Unobtainable: No Constitutional: Reports: no symptoms HEENT: Repors: no symptoms Respiratory: Reports: no symptoms Allergies: Coded Allergies: AMOXICILLIN (Verified Allergy, Severe, SEVERE ICTHING /RASHES, 09/17/08) PENICILLINS (Verified Allergy, Intermediate, Itching, 06/21/13) Objective Last 24 Hour Vital Signs Date Time Temp Pulse Resp B/P (MAP) Pulse Ox O2 Delivery O2 Flow Rate FiO2 02/16/18 12:00 99.5 81 18 138/77 (97) 97 99.5 02/16/18 11:05 81 145/89 02/16/18 08:40 Nasal Cannula 2.0 02/16/18 08:00 100.8 81 18 145/89 (107) 100.8 02/16/18 05:18 99.0 02/16/18 04:48 100.0 02/16/18 04:00 100.0 79 18 151/68 (95) 99 100.0 02/16/18 00:00 99.5 79 20 119/65 (83) 98 99.5 02/15/18 21:00 Nasal Cannula 2.0 02/15/18 20:00 99.5 84 17 155/86 (109) 100 99.5 84 02/15/18 16:00 97.8 74 19 131/82 (98) 97 97.8 Intake and Output 02/15/18 02/16/18 19:00 07:00 Intake Total 95 ml 1140 ml Output Total 2000 ml Balance 95 ml -860 ml Intake Free Water 40 ml 480 ml Tube Feeding 55 ml 660 ml Output Urine Total 2000 ml General Appearance: WD/WN HEENT: normocephalic, atraumatic Respiratory/Chest: chest wall non-tender, lungs clear Breasts: no masses Cardiovascular: normal peripheral pulses, normal rate Abdomen: normal bowel sounds, no organomegaly Genitourinary: normal external genitalia Skin: no rash Laboratory Tests 02/16/18 05:40: White Blood Count 13.9H, Red Blood Count 3.34L, Hemoglobin 9.5L, Hematocrit 28.9L, Mean Corpuscular Volume 87, Mean Corpuscular Hemoglobin 28.6, Mean Corpuscular Hemoglobin Concent 33.0, Red Cell Distribution Width 15.5H, Platelet Count 167, Mean Platelet Volume 7.6, Neutrophils (%) (Auto) 83.2H, Lymphocytes (%) (Auto) 8.0L, Monocytes (%) (Auto) 7.7, Eosinophils (%) (Auto) 0.4, Basophils (%) (Auto) 0.6, Sodium Level 138, Potassium Level 4.0, Chloride Level 103, Carbon Dioxide Level 27, Anion Gap 8, Blood Urea Nitrogen 23H, Creatinine 1.1, Estimat Glomerular Filtration Rate , Glucose Level 118H, Calcium Level 8.5 02/16/18 14:40: Urine Color Yellow, Urine Appearance Clear, Urine pH 7, Urine Specific [place] 1.010, Urine Protein 3+H, Urine Glucose (UA) Negative, Urine Ketones Negative, Urine Occult Blood 1+H, Urine Nitrite Negative, Urine Bilirubin Negative, Urine Urobilinogen 1H, Urine Leukocyte Esterase 1+H, Urine RBC [Pending], Urine WBC [ Pending], Urine Squamous Epithelial Cells [Pending], Urine Bacteria [Pending] Current Medications Medications (Trade) Dose Ordered Sig/Orin Route PRN Reason Start Time Stop Time Status Last Admin Dose Admin Acetaminophen (Tylenol) 650 mg Q4H PRN GT Mild Pain/Temp > 100.5 02/11/18 21:00 03/13/18 20:59 02/16/18 04:48 Amlodipine Besylate (Norvasc) 10 mg DAILY ORAL 02/12/18 09:00 03/13/18 08:59 02/16/18 11:05 Atorvastatin Calcium (Lipitor) 10 mg BEDTIME ORAL 02/11/18 21:00 03/13/18 20:59 02/15/18 20:53 Cefepime HCl 1 gm/ Dextrose 55 ml @ 110 mls/hr Q24H IVPB 02/14/18 14:00 02/21/18 13:59 02/16/18 14:01 Chlorhexidine Gluconate (Merlyn-Hex 2%) 1 applic DAILY@2000 TOPIC 02/12/18 20:00 03/12/18 19:59 02/15/18 20:53 Dextrose (Dextrose 50%) 25 ml STAT PRN IV Hypoglycemia 02/11/18 21:00 03/13/18 20:59 Dextrose (Dextrose 50%) 50 ml STAT PRN IV Hypoglycemia 02/11/18 21:00 03/13/18 20:59 Docusate Sodium (Colace) 100 mg TID GT 02/12/18 09:00 03/12/18 17:59 02/16/18 14:01 Famotidine (Pepcid) 20 mg BID GT 02/14/18 18:00 03/16/18 17:59 02/16/18 11:05 Insulin Aspart (NovoLOG) Q6HR SUBQ 02/15/18 18:00 03/12/18 16:29 02/16/18 06:01 Levothyroxine Sodium (Synthroid) 100 mcg DAILY@0630 GT 02/17/18 06:30 03/19/18 06:29 Lorazepam (Ativan) 0.5 mg Q6H PRN ORAL For Anxiety 02/11/18 21:00 02/18/18 20:59 02/14/18 10:43 Polyethylene Glycol (Miralax) 17 gm DAILY GT 02/12/18 09:00 03/13/18 08:59 02/15/18 10:01 Betsy Hope MD Feb 16, 2018 15:11
[2018-02-16 16:00] VITALS: BP 140/82
--- NOTE | 2018-02-16 16:50 | Consultation ---
History of Present Illness General Date patient seen: Feb 16, 2018 Time patient seen: 16:40 Chief Complaint: Dyspnea/Respdistress Reason for Consultation: Sacral pressure ulcer Present Illness HPI Patient is an 87 yof who was [facility] for SOB. She had a pressure ulcer on admission. She also has + urine cultures and is on antibx for UTI being followed by ID. Unclear how long she has had the pressure ulcer prior to admission. Patient is not able to give history due to current medical condition. Allergies: Coded Allergies: AMOXICILLIN (Verified Allergy, Severe, SEVERE ICTHING /RASHES, 09/17/08) PENICILLINS (Verified Allergy, Intermediate, Itching, 06/21/13) Medication History Scheduled Alendronate Sodium* (Fosamax*), 70 MG ORAL ONCE A WEEK, (Reported) Amlodipine Besylate (Norvasc), 10 MG ORAL DAILY, (Reported) Arginine/Ascorbate Sod/Devang AC (Arginaid Powder), 1 EACH PO BID, (Reported) Aspirin (Aspirin EC), 81 MG ORAL BID, (Reported) Atorvastatin Calcium* (Lipitor*), 20 MG ORAL BEDTIME, (Reported) Bimatoprost (Lumigan), 1 DROP BOTH EYES DAILY, (Reported) Cholecalciferol (Vitamin D3) (Vitamin D3), 1,000 UNIT PO BID, (Reported) Docusate Sodium* (Docusate Sodium*), 100 MG ORAL THREE TIMES A DAY, (Reported) Enoxaparin* (Lovenox*), 40 MG SUBQ DAILY, (Reported) Furosemide* (Lasix*), 20 MG ORAL DAILY, (Reported) Levothyroxine Sodium* (Levothyroxine Sodium*), 112 MCG ORAL DAILY, (Reported) Lisinopril* (Zestril*), 10 MG ORAL BID, (Reported) Nitrofurantoin Macrocrystal (Macrodantin), 100 MG ORAL DAILY, (Reported) Omeprazole (Prilosec), 20 MG ORAL DAILY, (Reported) Oxandrolone (Oxandrolone), 2.5 MG PO BID, (Reported) Polyethylene Glycol 3350* (Miralax*), 17 GM ORAL DAILY, (Reported) Pregabalin (Lyrica), 25 MG ORAL THREE TIMES A DAY, (Reported) Ranitidine Hcl* (Zantac*), 150 MG ORAL QHS, (Reported) Scheduled PRN Acetaminophen* (Acetaminophen 325MG Tablet*), 650 MG ORAL Q6H PRN for Pain Scale (6-10), (Reported) Albuterol Sulfate* (Albuterol Sulfate Hhn*), 3 ML INH Q4H PRN for Shortness of Breath, (Reported) Diphenhydramine Hcl (Diphenhydramine Hcl), 50 MG ORAL BEDTIME PRN for Itching, ( Reported) Hydrocodone Bit/Acetaminophen 5-325* ([place] 5-325*), 1 TAB ORAL Q6H PRN for For Pain Miscellaneous Medications Multivitamin (Multi-Vitamin Daily), 1 EACH PO, (Reported) Patient History Limited by: medical condition History Provided By: Medical Record Healthcare decision maker Resuscitation status Full Code Advanced Directive on File Past Medical/Surgical History Past Medical/Surgical History: (1) COPD (chronic obstructive pulmonary disease) (2) Diabetes (3) UTI (urinary tract infection) (4) Decubitus ulcer of sacral region, stage 3 Physical Exam General Appearance: no apparent distress Lines, tubes and drains: peripheral, gtube, krishnamurthy cath Extremities: other - 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 Skin Exam: other - Stage 3 pressure ulcer of the sacrococcyx with granular tissue at the base. No slough. Periulcer with no maceration and no erythema, warmth, or fluctuance. Musculoskeletal: atrophy Last 24 Hour Vital Signs Date Time Temp Pulse Resp B/P (MAP) Pulse Ox O2 Delivery O2 Flow Rate FiO2 02/16/18 12:00 99.5 81 18 138/77 (97) 97 99.5 02/16/18 11:05 81 145/89 02/16/18 08:40 Nasal Cannula 2.0 02/16/18 08:00 100.8 81 18 145/89 (107) 100.8 02/16/18 05:18 99.0 02/16/18 04:48 100.0 02/16/18 04:00 100.0 79 18 151/68 (95) 99 100.0 02/16/18 00:00 99.5 79 20 119/65 (83) 98 99.5 02/15/18 21:00 Nasal Cannula 2.0 02/15/18 20:00 99.5 84 17 155/86 (109) 100 99.5 84 Intake and Output 02/15/18 02/16/18 19:00 07:00 Intake Total 95 ml 1140 ml Output Total 2000 ml Balance 95 ml -860 ml Intake Free Water 40 ml 480 ml Tube Feeding 55 ml 660 ml Output Urine Total 2000 ml Laboratory Tests Test 02/16/18 05:40 02/16/18 14:40 White Blood Count 13.9 K/UL (4.8-10.8) H Red Blood Count 3.34 M/UL (4.20-5.40) L Hemoglobin 9.5 G/DL (12.0-16.0) L Hematocrit 28.9 % (37.0-47.0) L Mean Corpuscular Volume 87 FL (80-99) Mean Corpuscular Hemoglobin 28.6 PG (27.0-31.0) Mean Corpuscular Hemoglobin Concent 33.0 G/DL (32.0-36.0) Red Cell Distribution Width 15.5 % (11.6-14.8) H Platelet Count 167 K/UL (150-450) Mean Platelet Volume 7.6 FL (6.5-10.1) Neutrophils (%) (Auto) 83.2 % (45.0-75.0) H Lymphocytes (%) (Auto) 8.0 % (20.0-45.0) L Monocytes (%) (Auto) 7.7 % (1.0-10.0) Eosinophils (%) (Auto) 0.4 % (0.0-3.0) Basophils (%) (Auto) 0.6 % (0.0-2.0) Sodium Level 138 MMOL/L (136-145) Potassium Level 4.0 MMOL/L (3.5-5.1) Chloride Level 103 MMOL/L (98-107) Carbon Dioxide Level 27 MMOL/L (21-32) Anion Gap 8 mmol/L (5-15) Blood Urea Nitrogen 23 mg/dL (7-18) H Creatinine 1.1 MG/DL (0.55-1.30) Estimat Glomerular Filtration Rate mL/min (>60) Glucose Level 118 MG/DL (74-106) H Calcium Level 8.5 MG/DL (8.5-10.1) Urine Color Yellow Urine Appearance Clear Urine pH 7 (4.5-8.0) Urine Specific [place] 1.010 (1.005-1.035) Urine Protein 3+ (NEGATIVE) H Urine Glucose (UA) Negative (NEGATIVE) Urine Ketones Negative (NEGATIVE) Urine Occult Blood 1+ (NEGATIVE) H Urine Nitrite Negative (NEGATIVE) Urine Bilirubin Negative (NEGATIVE) Urine Urobilinogen 1 MG/DL (0.0-1.0) H Urine Leukocyte Esterase 1+ (NEGATIVE) H Urine RBC 0-2 /HPF (0 - 2) Urine WBC 2-4 /HPF (0 - 2) Urine Squamous Epithelial Cells Few /LPF (NONE/OCC) Urine Amorphous Sediment Few /LPF (NONE) H Urine Bacteria Few /HPF (NONE) Height (Feet): 5 Height (Inches): 6.00 Weight (Pounds): 148 Medications Current Medications Medications (Trade) Dose Ordered Sig/Orin Route PRN Reason Start Time Stop Time Status Last Admin Dose Admin Acetaminophen (Tylenol) 650 mg Q4H PRN GT Mild Pain/Temp > 100.5 02/11/18 21:00 03/13/18 20:59 02/16/18 04:48 Amlodipine Besylate (Norvasc) 10 mg DAILY ORAL 02/12/18 09:00 03/13/18 08:59 02/16/18 11:05 Atorvastatin Calcium (Lipitor) 10 mg BEDTIME ORAL 02/11/18 21:00 03/13/18 20:59 02/15/18 20:53 Cefepime HCl 1 gm/ Dextrose 55 ml @ 110 mls/hr Q24H IVPB 02/14/18 14:00 02/21/18 13:59 02/16/18 14:01 Chlorhexidine Gluconate (Merlyn-Hex 2%) 1 applic DAILY@2000 TOPIC 02/12/18 20:00 03/12/18 19:59 02/15/18 20:53 Dextrose (Dextrose 50%) 25 ml STAT PRN IV Hypoglycemia 02/11/18 21:00 03/13/18 20:59 Dextrose (Dextrose 50%) 50 ml STAT PRN IV Hypoglycemia 02/11/18 21:00 03/13/18 20:59 Docusate Sodium (Colace) 100 mg TID GT 02/12/18 09:00 03/12/18 17:59 02/16/18 14:01 Famotidine (Pepcid) 20 mg BID GT 02/14/18 18:00 03/16/18 17:59 02/16/18 11:05 Insulin Aspart (NovoLOG) Q6HR SUBQ 02/15/18 18:00 03/12/18 16:29 02/16/18 06:01 Levothyroxine Sodium (Synthroid) 100 mcg DAILY@0630 GT 02/17/18 06:30 03/19/18 06:29 Lorazepam (Ativan) 0.5 mg Q6H PRN ORAL For Anxiety 02/11/18 21:00 02/18/18 20:59 02/14/18 10:43 Polyethylene Glycol (Miralax) 17 gm DAILY GT 02/12/18 09:00 03/13/18 08:59 02/15/18 10:01 Assessment/Plan Assessment/Plan Patient with stage 3 sacrococcyx pressure ulcer. She still has a leukocytosis but this is not due to the pressure ulcer (most likely due to urine). Need to off load the area by turning [id number], moisture control especially important to keep stool away from wound area (this may require more than daily dressing changes if it gets soiled). Nutritional support as her albumin is low at 2.8. No surgical intervention necessary as the wound bed is healthy appearing. Thank you for allowing me to participate in this patient's care. Leo Gates MD Feb 16, 2018 16:50
[2018-02-16 20:00] VITALS: BP 136/88
[2018-02-16] MEDS: Dyna-Hex 2% Top Sol 2oz TOPIC SCH (21:19)
[2018-02-17] VITALS: BP 125/90
[2018-02-17 04:00] VITALS: BP 127/52
[2018-02-17] MEDS: NovoLOG Insulin Flexpen SUBQ SCH ×4 (06:13→18:27)
[2018-02-17 07:14] LABS: BASOPHILS % (AUTO) 0.5 % (0.0-2.0); EOSINOPHILS % (AUTO) 0.6 % (0.0-3.0); HEMATOCRIT 29.9 % (37.0-47.0); HEMOGLOBIN 10.1 G/DL (12.0-16.0); LYMPHOCYTES % (AUTO) 6.8 % (20.0-45.0); MEAN CORPUSCULAR VOLUME 86 FL (80-99); MONOCYTES % (AUTO) 8.6 % (1.0-10.0); NEUTROPHILS % (AUTO) 83.5 % (45.0-75.0); PLATELET COUNT 178 K/UL (150-450); RED BLOOD COUNT 3.47 M/UL (4.20-5.40); RED CELL DISTRIBUTION WIDTH 14.8 % (11.6-14.8); WHITE BLOOD COUNT 15.1 K/UL (4.8-10.8)
[2018-02-17 07:27] LABS: ALANINE AMINOTRANSFERASE 82 U/L (12-78); ALBUMIN 2.3 G/DL (3.4-5.0); ALBUMIN/GLOBULIN RATIO 0.5 (1.0-2.7); ALKALINE PHOSPHATASE 58 U/L (46-116); ANION GAP 8 mmol/L (5-15); ASPARTATE AMINO TRANSFERASE 32 U/L (15-37); BILIRUBIN,TOTAL 0.5 MG/DL (0.2-1.0); BLOOD UREA NITROGEN 20 mg/dL (7-18); CALCIUM 8.6 MG/DL (8.5-10.1); CARBON DIOXIDE 27 MMOL/L (21-32); CHLORIDE 101 MMOL/L (98-107); POTASSIUM 3.9 MMOL/L (3.5-5.1); SODIUM 136 MMOL/L (136-145)
[2018-02-17 08:00] VITALS: BP 153/92
[2018-02-17] MEDS: Docusate 100mg/10ml Liq GT SCH ×3 (09:06→17:57)
[2018-02-17] MEDS: Miralax 17gm pkt GT SCH (09:06)
--- NOTE | 2018-02-17 10:07 | Diagnostic Imaging Report ---
Indication: Dyspnea Technique: One view of the chest Comparison: 02/16/2018 Findings: Retrocardiac opacity, leftward mediastinal shift, and abrupt cut off of the left mainstem bronchus are again demonstrated and unchanged. Left upper lobe remains aerated. Right lung and pleural space remain clear. There is a gastrostomy in a right arm PICC Impression: Persistent opacification of left lung base, likely left lower lobe atelectasis, possibly due to endobronchial obstruction, unchanged over one day Other stable findings as described
--- NOTE | 2018-02-17 10:33 | Infectious Diseases Prog Note ---
Assessment/Plan Assessment/Plan 87 yo female with PMHx of UIT, hypertension, hypothyroidism, hypercholesterolemia, DJD and GERD who presents from [facility] with SOB. She was found to have UTI. # Pseudomonas UTI - Urine Cx 02/10/18 P.a. # Sacral Ulcers - No cellulitis or sign of active infection # Leukocytosis - On Solumedrol #DM #Hypertension #Hypothyroidism #Hypercholesterolemia #DJD #GERD #Colon mass PLAN: - Continue cefepime #10/11 for uti - Monitor CBC and Temps - Wound care Thank you for consulting us for the care of this patient. We will continue to follow with you. Subjective Allergies: Coded Allergies: AMOXICILLIN (Verified Allergy, Severe, SEVERE ICTHING /RASHES, 09/17/08) PENICILLINS (Verified Allergy, Intermediate, Itching, 06/21/13) Subjective Afebrile over night. No Diarrhea Objective Vital Signs Last 24 Hour Vital Signs Date Time Temp Pulse Resp B/P (MAP) Pulse Ox O2 Delivery O2 Flow Rate FiO2 02/17/18 09:06 88 153/92 02/17/18 04:00 99.0 93 20 127/52 (77) 95 99.0 02/17/18 00:00 98.8 82 18 125/90 (102) 100 98.8 02/16/18 21:00 Nasal Cannula 2.0 02/16/18 20:00 98.2 83 18 136/88 (104) 98 98.2 02/16/18 16:00 98.8 85 18 140/82 (101) 99 98.8 02/16/18 12:00 99.5 81 18 138/77 (97) 97 99.5 02/16/18 11:05 81 145/89 Height (Feet): 5 Height (Inches): 6.00 Weight (Pounds): 148 Objective Gen: NAD, A/O x 0 HEENT: NCAT, MMM, EOMI LUNGS: CTAB, No W/C, CARDS: RRR, S1, S2, No M/R/G, ABD: Soft, Obese, NT, ND, No R/G, + BS NEURO: A/O x, Tracks with eyes, not speaking Laboratory Tests Test 02/16/18 14:40 02/17/18 05:40 Urine Color Yellow Urine Appearance Clear Urine pH 7 (4.5-8.0) Urine Specific [place] 1.010 (1.005-1.035) Urine Protein 3+ (NEGATIVE) H Urine Glucose (UA) Negative (NEGATIVE) Urine Ketones Negative (NEGATIVE) Urine Occult Blood 1+ (NEGATIVE) H Urine Nitrite Negative (NEGATIVE) Urine Bilirubin Negative (NEGATIVE) Urine Urobilinogen 1 MG/DL (0.0-1.0) H Urine Leukocyte Esterase 1+ (NEGATIVE) H Urine RBC 0-2 /HPF (0 - 2) Urine WBC 2-4 /HPF (0 - 2) Urine Squamous Epithelial Cells Few /LPF (NONE/OCC) Urine Amorphous Sediment Few /LPF (NONE) H Urine Bacteria Few /HPF (NONE) White Blood Count 15.1 K/UL (4.8-10.8) H Red Blood Count 3.47 M/UL (4.20-5.40) L Hemoglobin 10.1 G/DL (12.0-16.0) L Hematocrit 29.9 % (37.0-47.0) L Mean Corpuscular Volume 86 FL (80-99) Mean Corpuscular Hemoglobin 29.2 PG (27.0-31.0) Mean Corpuscular Hemoglobin Concent 33.9 G/DL (32.0-36.0) Red Cell Distribution Width 14.8 % (11.6-14.8) Platelet Count 178 K/UL (150-450) Mean Platelet Volume 7.4 FL (6.5-10.1) Neutrophils (%) (Auto) 83.5 % (45.0-75.0) H Lymphocytes (%) (Auto) 6.8 % (20.0-45.0) L Monocytes (%) (Auto) 8.6 % (1.0-10.0) Eosinophils (%) (Auto) 0.6 % (0.0-3.0) Basophils (%) (Auto) 0.5 % (0.0-2.0) Sodium Level 136 MMOL/L (136-145) Potassium Level 3.9 MMOL/L (3.5-5.1) Chloride Level 101 MMOL/L (98-107) Carbon Dioxide Level 27 MMOL/L (21-32) Anion Gap 8 mmol/L (5-15) Blood Urea Nitrogen 20 mg/dL (7-18) H Creatinine 1.0 MG/DL (0.55-1.30) Estimat Glomerular Filtration Rate mL/min (>60) Glucose Level 111 MG/DL (74-106) H Calcium Level 8.6 MG/DL (8.5-10.1) Total Bilirubin 0.5 MG/DL (0.2-1.0) Aspartate Amino Transf (AST/SGOT) 32 U/L (15-37) Alanine Aminotransferase (ALT/SGPT) 82 U/L (12-78) H Alkaline Phosphatase 58 U/L (46-116) Pro-B-Type Natriuretic Peptide 1706 pg/mL (0-125) H Total Protein 7.2 G/DL (6.4-8.2) Albumin 2.3 G/DL (3.4-5.0) L Globulin 4.9 g/dL Albumin/Globulin Ratio 0.5 (1.0-2.7) L Current Medications Medications (Trade) Dose Ordered Sig/Orin Route PRN Reason Start Time Stop Time Status Last Admin Dose Admin Acetaminophen (Tylenol) 650 mg Q4H PRN GT Mild Pain/Temp > 100.5 02/11/18 21:00 03/13/18 20:59 02/16/18 04:48 Amlodipine Besylate (Norvasc) 10 mg DAILY ORAL 02/12/18 09:00 03/13/18 08:59 02/17/18 09:06 Atorvastatin Calcium (Lipitor) 10 mg BEDTIME ORAL 02/11/18 21:00 03/13/18 20:59 02/16/18 21:19 Cefepime HCl 1 gm/ Dextrose 55 ml @ 110 mls/hr Q24H IVPB 02/14/18 14:00 02/21/18 13:59 02/16/18 14:01 Chlorhexidine Gluconate (Merlyn-Hex 2%) 1 applic DAILY@2000 TOPIC 02/12/18 20:00 03/12/18 19:59 02/16/18 21:19 Dextrose (Dextrose 50%) 25 ml STAT PRN IV Hypoglycemia 02/11/18 21:00 03/13/18 20:59 Dextrose (Dextrose 50%) 50 ml STAT PRN IV Hypoglycemia 02/11/18 21:00 03/13/18 20:59 Docusate Sodium (Colace) 100 mg TID GT 02/12/18 09:00 03/12/18 17:59 02/17/18 09:06 Famotidine (Pepcid) 20 mg BID GT 02/14/18 18:00 03/16/18 17:59 02/17/18 09:06 Insulin Aspart (NovoLOG) Q6HR SUBQ 02/15/18 18:00 03/12/18 16:29 02/17/18 06:13 Levothyroxine Sodium (Synthroid) 100 mcg DAILY@0630 GT 02/17/18 06:30 03/19/18 06:29 02/17/18 06:11 Lorazepam (Ativan) 0.5 mg Q6H PRN ORAL For Anxiety 02/11/18 21:00 02/18/18 20:59 02/14/18 10:43 Polyethylene Glycol (Miralax) 17 gm DAILY GT 02/12/18 09:00 03/13/18 08:59 02/17/18 09:06 Nacho Zamora M.D. Feb 17, 2018 10:33
--- NOTE | 2018-02-17 10:55 | Progress Note ---
DATE: 02/15/2018 Poor Audio HISTORY: This is an 87-year-old patient with COPD. She has confusion, disorganized, and mood lability worsened by stress of her medical illness. That is why her attending physician has requested daily psychiatric consultation. MENTAL STATUS EXAMINATION: The patient is an 87-year-old female, appeared disheveled, irritable and agitated. Affect, guarded and restricted. Intellect poor. Mood depressed and anxious. Motor activity, psychomotor agitation. Attention span is poor. Orientation x3. Speech is pressured. Thought process, disorganized and illogical. Insight and judgement is poor. DIAGNOSIS: Major depressive disorder, mild, with psychotic features. PLAN: Treat her patient daily regimen consisted of Namenda 5 mg per G-tube twice a day and Ativan 0.5 mg G-tube q.6 h. . Josh Gonzalez M.D. DR: TONY JOB#: [id number] CC:
--- NOTE | 2018-02-17 10:57 | Progress Note ---
DATE: 02/16/2018 HISTORY OF PRESENT ILLNESS: The patient is an 87-year-old female patient, who came into the hospital, still very confused, disorganized, , mood labile, disorganized thought process, and confused. She presented to the hospital for COPD, but she had underlying confusion and disorganized thought process, decline in cognition, worsened by the stress of her medical illness. She presents with decline in cognition secondary to stress of her medical illness. So, for the decline in cognition, her attending has requested daily psychiatric consultation. MENTAL STATUS EXAMINATION: This is an 87-year-old female. Appearance is disheveled. Attitude, irritable and agitated. Affect, guarded and restricted. Intellect poor. Mood, depressed and anxious. Motor activity, psychomotor agitation. Attention span is poor. Orientation x2. Speech is pressured. Thought process, disorganized and illogical. Thought content, auditory hallucinations and paranoid delusions. Insight and judgment is poor. DIAGNOSIS: Major depression with psychotic features, rule out dementia with psychosis. PLAN: Continue treatment with psychotropic medications to stabilize her mood. Also provided 20 minutes of insight-oriented psychotherapy to improve her insight into her illness and mental illness so that she has less impulse problems and better behavior in the unit. A 20 minutes of insight-oriented psychotherapy provided. Chart reviewed. Discussed with staff. She is seen and assessed in her room. Josh Gonzalez M.D. DR: DAMARIS JOB#: [id number] CC:
--- NOTE | 2018-02-17 11:47 | Progress Note ---
DATE: 02/14/2018 SUBJECTIVE: This is an 87-year-old female patient with COPD. She has confusion, disorganized thought process, poor cognition secondary to progression of her medical illness that is why this patient requires daily psychiatric consultation. MENTAL STATUS EXAMINATION: This is an 87-year-old female. Appearance disheveled. Attitude irritable and agitated. Affect guarded and restricted. Intellect poor. Mood depressed and anxious. Motor activity, psychomotor agitation. Attention span is poor. Orientation x2. Speech is pressured. Thought process, disorganized and illogical. Thought content, auditory hallucinations and paranoid delusions. Insight and judgment is poor. DIAGNOSIS: Major depressive disorder, mild, recurrent with psychotic features. PLAN: Treat her with Namenda 5 mg per G-tube twice a day and Ativan 0.5 mg per G-tube q.6 h. p.r.n. anxiety and agitation. Provided 20 minutes of insight-oriented psychotherapy . Chart reviewed. . Josh Gonzalez M.D. DR: Margie JOB#: [id number] CC:
[2018-02-17 12:00] VITALS: BP 147/73
--- NOTE | 2018-02-17 12:35 | Pulmonology Progress Note ---
Assessment/Plan Problems: (1) Aspiration pneumonia (2) Respiratory distress (3) COPD (chronic obstructive pulmonary disease) (4) ATN (acute tubular necrosis) (5) Limited mobility in bed (6) Feeding by G-tube (7) Advanced dementia Assessment/Plan no n awake continue abx check cultures check sputum titrate fio2 to sat of 92% f/u renal parameters gutbe site care all reviewed, Subjective ROS Limited/Unobtainable: No Constitutional: Reports: no symptoms HEENT: Repors: no symptoms Respiratory: Reports: no symptoms Allergies: Coded Allergies: AMOXICILLIN (Verified Allergy, Severe, SEVERE ICTHING /RASHES, 09/17/08) PENICILLINS (Verified Allergy, Intermediate, Itching, 06/21/13) Objective Last 24 Hour Vital Signs Date Time Temp Pulse Resp B/P (MAP) Pulse Ox O2 Delivery O2 Flow Rate FiO2 02/17/18 09:06 88 153/92 02/17/18 04:00 99.0 93 20 127/52 (77) 95 99.0 02/17/18 00:00 98.8 82 18 125/90 (102) 100 98.8 02/16/18 21:00 Nasal Cannula 2.0 02/16/18 20:00 98.2 83 18 136/88 (104) 98 98.2 02/16/18 16:00 98.8 85 18 140/82 (101) 99 98.8 Intake and Output 02/16/18 02/17/18 19:00 07:00 Intake Total 1140 ml 1045 ml Output Total 700 ml Balance 440 ml 1045 ml Intake Free Water 480 ml 440 ml Tube Feeding 660 ml 605 ml Output Urine Total 700 ml # Bowel Movements 2 General Appearance: WD/WN HEENT: normocephalic, atraumatic Respiratory/Chest: chest wall non-tender, lungs clear Breasts: no masses Cardiovascular: normal rate, regular rhythm Abdomen: normal bowel sounds, no organomegaly Extremities: no cyanosis, no clubbing Skin: no rash Laboratory Tests 02/16/18 14:40: Urine Color Yellow, Urine Appearance Clear, Urine pH 7, Urine Specific [place] 1.010, Urine Protein 3+H, Urine Glucose (UA) Negative, Urine Ketones Negative, Urine Occult Blood 1+H, Urine Nitrite Negative, Urine Bilirubin Negative, Urine Urobilinogen 1H, Urine Leukocyte Esterase 1+H, Urine RBC 0-2, Urine WBC 2-4, Urine Squamous Epithelial Cells Few, Urine Amorphous Sediment FewH, Urine Bacteria Few 02/17/18 05:40: White Blood Count 15.1H, Red Blood Count 3.47L, Hemoglobin 10.1L, Hematocrit 29.9L, Mean Corpuscular Volume 86, Mean Corpuscular Hemoglobin 29.2, Mean Corpuscular Hemoglobin Concent 33.9, Red Cell Distribution Width 14.8, Platelet Count 178, Mean Platelet Volume 7.4, Neutrophils (%) (Auto) 83.5H, Lymphocytes ( %) (Auto) 6.8L, Monocytes (%) (Auto) 8.6, Eosinophils (%) (Auto) 0.6, Basophils (%) (Auto) 0.5, Sodium Level 136, Potassium Level 3.9, Chloride Level 101, Carbon Dioxide Level 27, Anion Gap 8, Blood Urea Nitrogen 20H, Creatinine 1.0, Estimat Glomerular Filtration Rate , Glucose Level 111H, Calcium Level 8.6, Total Bilirubin 0.5, Aspartate Amino Transf (AST/SGOT) 32, Alanine Aminotransferase (ALT/SGPT) 82H, Alkaline Phosphatase 58, Pro-B-Type Natriuretic Peptide 1706H, Total Protein 7.2, Albumin 2.3L, Globulin 4.9, Albumin/Globulin Ratio 0.5L Current Medications Medications (Trade) Dose Ordered Sig/Orin Route PRN Reason Start Time Stop Time Status Last Admin Dose Admin Acetaminophen (Tylenol) 650 mg Q4H PRN GT Mild Pain/Temp > 100.5 02/11/18 21:00 03/13/18 20:59 02/16/18 04:48 Amlodipine Besylate (Norvasc) 10 mg DAILY ORAL 02/12/18 09:00 03/13/18 08:59 02/17/18 09:06 Atorvastatin Calcium (Lipitor) 10 mg BEDTIME ORAL 02/11/18 21:00 03/13/18 20:59 02/16/18 21:19 Cefepime HCl 1 gm/ Dextrose 55 ml @ 110 mls/hr Q24H IVPB 02/14/18 14:00 02/21/18 13:59 02/16/18 14:01 Chlorhexidine Gluconate (Merlyn-Hex 2%) 1 applic DAILY@2000 TOPIC 02/12/18 20:00 03/12/18 19:59 02/16/18 21:19 Dextrose (Dextrose 50%) 25 ml STAT PRN IV Hypoglycemia 02/11/18 21:00 03/13/18 20:59 Dextrose (Dextrose 50%) 50 ml STAT PRN IV Hypoglycemia 02/11/18 21:00 03/13/18 20:59 Docusate Sodium (Colace) 100 mg TID GT 02/12/18 09:00 03/12/18 17:59 02/17/18 09:06 Famotidine (Pepcid) 20 mg BID GT 02/14/18 18:00 03/16/18 17:59 02/17/18 09:06 Insulin Aspart (NovoLOG) Q6HR SUBQ 02/15/18 18:00 03/12/18 16:29 02/17/18 06:13 Levothyroxine Sodium (Synthroid) 100 mcg DAILY@0630 GT 02/17/18 06:30 03/19/18 06:29 02/17/18 06:11 Lorazepam (Ativan) 0.5 mg Q6H PRN ORAL For Anxiety 02/11/18 21:00 02/18/18 20:59 02/14/18 10:43 Polyethylene Glycol (Miralax) 17 gm DAILY GT 02/12/18 09:00 03/13/18 08:59 02/17/18 09:06 Betsy Hope MD Feb 17, 2018 12:35
--- NOTE | 2018-02-17 13:06 | Nephrology Progress Note ---
Assessment/Plan Problem List: (1) Hyponatremia Assessment: depletional (2) COPD (chronic obstructive pulmonary disease) Assessment: exacerbation (3) Aspiration pneumonia (4) Feeding by G-tube (5) Anemia Assessment WBCs up HypoNatremia, Likely diuretic related and Depletional Mireya low, improving Cr stable COPD exac. ? Aspiration h/o Long Smoking h/o Anemia h/o OA h/o Colon Ca h/o HTN Plan ua cxr one dose Genta per ID Recs Tube feeding Low Na snyder 2 D echo 55% EjFx Off IV steroids monitor renal parameters and lytes change synthroid to IV Per orders Subjective ROS Limited/Unobtainable: No Constitutional: Reports: malaise Objective Objective Last 24 Hour Vital Signs Date Time Temp Pulse Resp B/P (MAP) Pulse Ox O2 Delivery O2 Flow Rate FiO2 02/17/18 12:00 99.5 81 20 147/73 (97) 97 99.5 02/17/18 09:06 88 153/92 02/17/18 09:00 Nasal Cannula 2.0 02/17/18 08:00 98.1 88 20 153/92 (112) 97 98.1 02/17/18 04:00 99.0 93 20 127/52 (77) 95 99.0 02/17/18 00:00 98.8 82 18 125/90 (102) 100 98.8 02/16/18 21:00 Nasal Cannula 2.0 02/16/18 20:00 98.2 83 18 136/88 (104) 98 98.2 02/16/18 16:00 98.8 85 18 140/82 (101) 99 98.8 Intake and Output 02/16/18 02/17/18 19:00 07:00 Intake Total 1140 ml 1045 ml Output Total 700 ml Balance 440 ml 1045 ml Intake Free Water 480 ml 440 ml Tube Feeding 660 ml 605 ml Output Urine Total 700 ml # Bowel Movements 2 Laboratory Tests 02/16/18 14:40: Urine Color Yellow, Urine Appearance Clear, Urine pH 7, Urine Specific [place] 1.010, Urine Protein 3+H, Urine Glucose (UA) Negative, Urine Ketones Negative, Urine Occult Blood 1+H, Urine Nitrite Negative, Urine Bilirubin Negative, Urine Urobilinogen 1H, Urine Leukocyte Esterase 1+H, Urine RBC 0-2, Urine WBC 2-4, Urine Squamous Epithelial Cells Few, Urine Amorphous Sediment FewH, Urine Bacteria Few 02/17/18 05:40: White Blood Count 15.1H, Red Blood Count 3.47L, Hemoglobin 10.1L, Hematocrit 29.9L, Mean Corpuscular Volume 86, Mean Corpuscular Hemoglobin 29.2, Mean Corpuscular Hemoglobin Concent 33.9, Red Cell Distribution Width 14.8, Platelet Count 178, Mean Platelet Volume 7.4, Neutrophils (%) (Auto) 83.5H, Lymphocytes ( %) (Auto) 6.8L, Monocytes (%) (Auto) 8.6, Eosinophils (%) (Auto) 0.6, Basophils (%) (Auto) 0.5, Sodium Level 136, Potassium Level 3.9, Chloride Level 101, Carbon Dioxide Level 27, Anion Gap 8, Blood Urea Nitrogen 20H, Creatinine 1.0, Estimat Glomerular Filtration Rate , Glucose Level 111H, Calcium Level 8.6, Total Bilirubin 0.5, Aspartate Amino Transf (AST/SGOT) 32, Alanine Aminotransferase (ALT/SGPT) 82H, Alkaline Phosphatase 58, Pro-B-Type Natriuretic Peptide 1706H, Total Protein 7.2, Albumin 2.3L, Globulin 4.9, Albumin/Globulin Ratio 0.5L Height (Feet): 5 Height (Inches): 6.00 Weight (Pounds): 148 General Appearance: no apparent distress Objective no change Zeb Jiang MD Feb 17, 2018 13:06
[2018-02-17] MEDS: Cefepime HCl 1 GM in D5W 55 ML IVPB SCH (14:07)
--- NOTE | 2018-02-17 14:18 | General Progress Note ---
Assessment/Plan Problem List: (1) Confusion ICD Codes: R41.0 - Disorientation, unspecified SNOMED: 585046780 (2) Hyponatremia ICD Codes: E87.1 - Hypo-osmolality and hyponatremia SNOMED: 13037387 (3) Weak ICD Codes: R53.1 - Weakness SNOMED: 37429284 (4) Diabetes ICD Codes: E11.9 - Type 2 diabetes mellitus without complications SNOMED: 64807006 (5) Dyspnea ICD Codes: R06.00 - Dyspnea, unspecified SNOMED: 157054405 (6) COPD (chronic obstructive pulmonary disease) ICD Codes: J44.9 - COPD (chronic obstructive pulmonary disease) SNOMED: 92931860 (7) Advanced dementia ICD Codes: F03.90 - Unspecified dementia without behavioral disturbance SNOMED: 69819496 (8) UTI (urinary tract infection) ICD Codes: N39.0 - Urinary tract infection, site not specified SNOMED: 74161483 Status: stable, progressing Assessment/Plan o2 pulm tx ot pt diet psyc tx cbc bmp am dc plan snf Subjective Constitutional: Reports: weakness Allergies: Coded Allergies: AMOXICILLIN (Verified Allergy, Severe, SEVERE ICTHING /RASHES, 09/17/08) PENICILLINS (Verified Allergy, Intermediate, Itching, 06/21/13) All Systems: reviewed and negative except above Subjective o2nc calm Objective Last 24 Hour Vital Signs Date Time Temp Pulse Resp B/P (MAP) Pulse Ox O2 Delivery O2 Flow Rate FiO2 02/17/18 12:00 99.5 81 20 147/73 (97) 97 99.5 02/17/18 09:06 88 153/92 02/17/18 09:00 Nasal Cannula 2.0 02/17/18 08:00 98.1 88 20 153/92 (112) 97 98.1 02/17/18 04:00 99.0 93 20 127/52 (77) 95 99.0 02/17/18 00:00 98.8 82 18 125/90 (102) 100 98.8 02/16/18 21:00 Nasal Cannula 2.0 02/16/18 20:00 98.2 83 18 136/88 (104) 98 98.2 02/16/18 16:00 98.8 85 18 140/82 (101) 99 98.8 Intake and Output 02/16/18 02/17/18 19:00 07:00 Intake Total 1140 ml 1045 ml Output Total 700 ml Balance 440 ml 1045 ml Intake Free Water 480 ml 440 ml Tube Feeding 660 ml 605 ml Output Urine Total 700 ml # Bowel Movements 2 Laboratory Tests 02/16/18 14:40: Urine Color Yellow, Urine Appearance Clear, Urine pH 7, Urine Specific [place] 1.010, Urine Protein 3+H, Urine Glucose (UA) Negative, Urine Ketones Negative, Urine Occult Blood 1+H, Urine Nitrite Negative, Urine Bilirubin Negative, Urine Urobilinogen 1H, Urine Leukocyte Esterase 1+H, Urine RBC 0-2, Urine WBC 2-4, Urine Squamous Epithelial Cells Few, Urine Amorphous Sediment FewH, Urine Bacteria Few 02/17/18 05:40: White Blood Count 15.1H, Red Blood Count 3.47L, Hemoglobin 10.1L, Hematocrit 29.9L, Mean Corpuscular Volume 86, Mean Corpuscular Hemoglobin 29.2, Mean Corpuscular Hemoglobin Concent 33.9, Red Cell Distribution Width 14.8, Platelet Count 178, Mean Platelet Volume 7.4, Neutrophils (%) (Auto) 83.5H, Lymphocytes ( %) (Auto) 6.8L, Monocytes (%) (Auto) 8.6, Eosinophils (%) (Auto) 0.6, Basophils (%) (Auto) 0.5, Sodium Level 136, Potassium Level 3.9, Chloride Level 101, Carbon Dioxide Level 27, Anion Gap 8, Blood Urea Nitrogen 20H, Creatinine 1.0, Estimat Glomerular Filtration Rate , Glucose Level 111H, Calcium Level 8.6, Total Bilirubin 0.5, Aspartate Amino Transf (AST/SGOT) 32, Alanine Aminotransferase (ALT/SGPT) 82H, Alkaline Phosphatase 58, Pro-B-Type Natriuretic Peptide 1706H, Total Protein 7.2, Albumin 2.3L, Globulin 4.9, Albumin/Globulin Ratio 0.5L Height (Feet): 5 Height (Inches): 6.00 Weight (Pounds): 148 General Appearance: lethargic EENT: normal ENT inspection Neck: normal alignment Cardiovascular: normal peripheral pulses, normal rate, regular rhythm Respiratory/Chest: chest wall non-tender, lungs clear, normal breath sounds Abdomen: normal bowel sounds, non tender, soft Extremities: normal inspection Edema: no edema noted Arm (L), no edema noted Arm (R), no edema noted Leg (L), no edema noted Leg (R), no edema noted Pedal (L), no edema noted Pedal (R), no edema noted Generalized Neurologic: motor weakness Skin: normal pigmentation, warm/dry Mark Oro DO Feb 17, 2018 14:18
[2018-02-17 16:00] VITALS: BP 130/82
[2018-02-17 20:00] VITALS: BP 148/92
[2018-02-17] MEDS: Dyna-Hex 2% Top Sol 2oz TOPIC SCH (23:16)
[2018-02-18] VITALS: BP 160/83
[2018-02-18 04:00] VITALS: BP 129/79
[2018-02-18] MEDS: NovoLOG Insulin Flexpen SUBQ SCH ×3 (06:00→11:52)
[2018-02-18 07:32] LABS: BASOPHILS % (AUTO) 0.6 % (0.0-2.0); EOSINOPHILS % (AUTO) 1.1 % (0.0-3.0); HEMATOCRIT 28.2 % (37.0-47.0); HEMOGLOBIN 9.5 G/DL (12.0-16.0); LYMPHOCYTES % (AUTO) 11.4 % (20.0-45.0); MEAN CORPUSCULAR VOLUME 85 FL (80-99); MONOCYTES % (AUTO) 12.2 % (1.0-10.0); NEUTROPHILS % (AUTO) 74.8 % (45.0-75.0); PLATELET COUNT 181 K/UL (150-450); RED BLOOD COUNT 3.32 M/UL (4.20-5.40); RED CELL DISTRIBUTION WIDTH 14.8 % (11.6-14.8); WHITE BLOOD COUNT 10.7 K/UL (4.8-10.8)
[2018-02-18 07:36] LABS: ANION GAP 5 mmol/L (5-15); BLOOD UREA NITROGEN 28 mg/dL (7-18); CALCIUM 8.3 MG/DL (8.5-10.1); CARBON DIOXIDE 28 MMOL/L (21-32); CHLORIDE 101 MMOL/L (98-107); CREATININE 1.1 MG/DL (0.55-1.30); POTASSIUM 4.1 MMOL/L (3.5-5.1); SODIUM 134 MMOL/L (136-145)
[2018-02-18 08:00] VITALS: BP 132/60
[2018-02-18] MEDS: Miralax 17gm pkt GT SCH (09:21)
[2018-02-18] MEDS: Docusate 100mg/10ml Liq GT SCH ×2 (09:21→14:04)
--- NOTE | 2018-02-18 11:23 | Nephrology Progress Note ---
Assessment/Plan Problem List: (1) Hyponatremia Assessment: depletional (2) COPD (chronic obstructive pulmonary disease) Assessment: exacerbation (3) Aspiration pneumonia (4) Feeding by G-tube (5) Anemia Assessment WBCs WNL HypoNatremia, Likely diuretic related and Depletional Mireya low, improving Cr stable COPD exac. ? Aspiration h/o Long Smoking h/o Anemia h/o OA h/o Colon Ca h/o HTN Plan OK to DC ? 2 D echo 55% EjFx Off IV steroids monitor renal parameters and lytes change synthroid to IV Per orders Subjective ROS Limited/Unobtainable: No Constitutional: Reports: malaise Objective Objective Last 24 Hour Vital Signs Date Time Temp Pulse Resp B/P (MAP) Pulse Ox O2 Delivery O2 Flow Rate FiO2 02/18/18 09:21 86 132/60 02/18/18 09:00 Nasal Cannula 2.0 02/18/18 08:00 98.8 86 20 132/60 (84) 100 98.8 02/18/18 04:00 98.4 77 20 129/79 (96) 100 98.4 02/18/18 00:00 98.3 85 20 160/83 (108) 96 98.3 02/17/18 21:00 Nasal Cannula 2.0 02/17/18 20:00 98.1 107 20 148/92 (110) 100 98.1 02/17/18 16:00 98.4 88 20 130/82 (98) 97 98.4 02/17/18 12:00 99.5 81 20 147/73 (97) 97 99.5 Intake and Output 02/17/18 02/18/18 19:00 07:00 Intake Total 985 ml Output Total 200 ml Balance 985 ml -200 ml Intake Free Water 120 ml IV Total 55 ml Tube Feeding 810 ml Output Urine Total 200 ml # Bowel Movements 3 2 Laboratory Tests 02/18/18 05:50: White Blood Count 10.7, Red Blood Count 3.32L, Hemoglobin 9.5L, Hematocrit 28.2L , Mean Corpuscular Volume 85, Mean Corpuscular Hemoglobin 28.5, Mean Corpuscular Hemoglobin Concent 33.5, Red Cell Distribution Width 14.8, Platelet Count 181, Mean Platelet Volume 9.7, Neutrophils (%) (Auto) 74.8, Lymphocytes (% ) (Auto) 11.4L, Monocytes (%) (Auto) 12.2H, Eosinophils (%) (Auto) 1.1, Basophils (%) (Auto) 0.6, Sodium Level 134L, Potassium Level 4.1, Chloride Level 101, Carbon Dioxide Level 28, Anion Gap 5, Blood Urea Nitrogen 28H, Creatinine 1.1, Estimat Glomerular Filtration Rate , Glucose Level 102, Calcium Level 8.3L Height (Feet): 5 Height (Inches): 6.00 Weight (Pounds): 164 General Appearance: no apparent distress Cardiovascular: normal rate Respiratory/Chest: decreased breath sounds Abdomen: soft Objective no change Zeb Jiang MD Feb 18, 2018 11:23
[2018-02-18 12:00] VITALS: BP 140/73
--- NOTE | 2018-02-18 12:36 | Infectious Diseases Prog Note ---
Assessment/Plan Assessment/Plan 87 yo female with PMHx of UIT, hypertension, hypothyroidism, hypercholesterolemia, DJD and GERD who presents from [facility] with SOB. She was found to have UTI. # Pseudomonas UTI - Urine Cx 02/10/18 P.a. # Sacral Ulcers - No cellulitis or sign of active infection # Leukocytosis - Resolved - On Solumedrol #DM #Hypertension #Hypothyroidism #Hypercholesterolemia #DJD #GERD #Colon mass PLAN: - Continue cefepime #11/10 for uti - Monitor CBC and Temps - Wound care Thank you for consulting us for the care of this patient. We will continue to follow with you. Subjective Allergies: Coded Allergies: AMOXICILLIN (Verified Allergy, Severe, SEVERE ICTHING /RASHES, 09/17/08) PENICILLINS (Verified Allergy, Intermediate, Itching, 06/21/13) Subjective Stable over night No fevers Objective Vital Signs Last 24 Hour Vital Signs Date Time Temp Pulse Resp B/P (MAP) Pulse Ox O2 Delivery O2 Flow Rate FiO2 02/18/18 12:00 99.2 80 18 140/73 (95) 99 99.2 02/18/18 09:21 86 132/60 02/18/18 09:00 Nasal Cannula 2.0 02/18/18 08:00 98.8 86 20 132/60 (84) 100 98.8 02/18/18 04:00 98.4 77 20 129/79 (96) 100 98.4 02/18/18 00:00 98.3 85 20 160/83 (108) 96 98.3 02/17/18 21:00 Nasal Cannula 2.0 02/17/18 20:00 98.1 107 20 148/92 (110) 100 98.1 02/17/18 16:00 98.4 88 20 130/82 (98) 97 98.4 Height (Feet): 5 Height (Inches): 6.00 Weight (Pounds): 164 Objective Gen: NAD, Calm HEENT: NCAT, MMM, EOMI LUNGS: CTAB, No W/C, CARDS: RRR, S1, S2, No M/R/G, ABD: Soft, Obese, NT, ND, No R/G, + BS NEURO: A/O x, Tracks with eyes, not speaking Laboratory Tests Test 02/18/18 05:50 White Blood Count 10.7 K/UL (4.8-10.8) Red Blood Count 3.32 M/UL (4.20-5.40) L Hemoglobin 9.5 G/DL (12.0-16.0) L Hematocrit 28.2 % (37.0-47.0) L Mean Corpuscular Volume 85 FL (80-99) Mean Corpuscular Hemoglobin 28.5 PG (27.0-31.0) Mean Corpuscular Hemoglobin Concent 33.5 G/DL (32.0-36.0) Red Cell Distribution Width 14.8 % (11.6-14.8) Platelet Count 181 K/UL (150-450) Mean Platelet Volume 9.7 FL (6.5-10.1) Neutrophils (%) (Auto) 74.8 % (45.0-75.0) Lymphocytes (%) (Auto) 11.4 % (20.0-45.0) L Monocytes (%) (Auto) 12.2 % (1.0-10.0) H Eosinophils (%) (Auto) 1.1 % (0.0-3.0) Basophils (%) (Auto) 0.6 % (0.0-2.0) Sodium Level 134 MMOL/L (136-145) L Potassium Level 4.1 MMOL/L (3.5-5.1) Chloride Level 101 MMOL/L (98-107) Carbon Dioxide Level 28 MMOL/L (21-32) Anion Gap 5 mmol/L (5-15) Blood Urea Nitrogen 28 mg/dL (7-18) H Creatinine 1.1 MG/DL (0.55-1.30) Estimat Glomerular Filtration Rate mL/min (>60) Glucose Level 102 MG/DL (74-106) Calcium Level 8.3 MG/DL (8.5-10.1) L Current Medications Medications (Trade) Dose Ordered Sig/Orin Route PRN Reason Start Time Stop Time Status Last Admin Dose Admin Acetaminophen (Tylenol) 650 mg Q4H PRN GT Mild Pain/Temp > 100.5 02/11/18 21:00 03/13/18 20:59 02/16/18 04:48 Amlodipine Besylate (Norvasc) 10 mg DAILY ORAL 02/12/18 09:00 9/7/18 08:59 02/18/18 09:21 Atorvastatin Calcium (Lipitor) 10 mg BEDTIME ORAL 02/11/18 21:00 03/13/18 20:59 02/17/18 23:17 Cefepime HCl 1 gm/ Dextrose 55 ml @ 110 mls/hr Q24H IVPB 02/14/18 14:00 02/21/18 13:59 02/17/18 14:07 Chlorhexidine Gluconate (Merlyn-Hex 2%) 1 applic DAILY@2000 TOPIC 02/12/18 20:00 03/12/18 19:59 02/17/18 23:16 Dextrose (Dextrose 50%) 25 ml STAT PRN IV Hypoglycemia 02/11/18 21:00 03/13/18 20:59 Dextrose (Dextrose 50%) 50 ml STAT PRN IV Hypoglycemia 02/11/18 21:00 03/13/18 20:59 Docusate Sodium (Colace) 100 mg TID GT 02/12/18 09:00 03/12/18 17:59 02/18/18 09:21 Famotidine (Pepcid) 20 mg BID GT 02/14/18 18:00 03/16/18 17:59 02/18/18 09:21 Insulin Aspart (NovoLOG) Q6HR SUBQ 02/15/18 18:00 03/12/18 16:29 02/17/18 18:27 Levothyroxine Sodium (Synthroid) 100 mcg DAILY@0630 GT 02/17/18 06:30 03/19/18 06:29 02/18/18 06:44 Lorazepam (Ativan) 0.5 mg Q6H PRN ORAL For Anxiety 02/11/18 21:00 02/18/18 20:59 02/14/18 10:43 Polyethylene Glycol (Miralax) 17 gm DAILY GT 02/12/18 09:00 03/13/18 08:59 02/18/18 09:21 Nacho Zamora M.D. Feb 18, 2018 12:36
[2018-02-18] MEDS: Cefepime HCl 1 GM in D5W 55 ML IVPB SCH (14:05)
--- NOTE | 2018-02-18 14:26 | General Progress Note ---
Assessment/Plan Problem List: (1) Confusion ICD Codes: R41.0 - Disorientation, unspecified SNOMED: 318762557 (2) Hyponatremia ICD Codes: E87.1 - Hypo-osmolality and hyponatremia SNOMED: 99471631 (3) Weak ICD Codes: R53.1 - Weakness SNOMED: 77361071 (4) Diabetes ICD Codes: E11.9 - Type 2 diabetes mellitus without complications SNOMED: 87016124 (5) Dyspnea ICD Codes: R06.00 - Dyspnea, unspecified SNOMED: 969045909 (6) COPD (chronic obstructive pulmonary disease) ICD Codes: J44.9 - COPD (chronic obstructive pulmonary disease) SNOMED: 37902550 (7) Advanced dementia ICD Codes: F03.90 - Unspecified dementia without behavioral disturbance SNOMED: 75818607 (8) UTI (urinary tract infection) ICD Codes: N39.0 - Urinary tract infection, site not specified SNOMED: 39973764 Status: stable, progressing Assessment/Plan o2 pulm tx ot pt diet psyc tx dc if clear Subjective Constitutional: Reports: weakness Allergies: Coded Allergies: AMOXICILLIN (Verified Allergy, Severe, SEVERE ICTHING /RASHES, 09/17/08) PENICILLINS (Verified Allergy, Intermediate, Itching, 06/21/13) All Systems: reviewed and negative except above Subjective o2nc calm Objective Last 24 Hour Vital Signs Date Time Temp Pulse Resp B/P (MAP) Pulse Ox O2 Delivery O2 Flow Rate FiO2 02/18/18 12:00 99.2 80 18 140/73 (95) 99 99.2 02/18/18 09:21 86 132/60 02/18/18 09:00 Nasal Cannula 2.0 02/18/18 08:00 98.8 86 20 132/60 (84) 100 98.8 02/18/18 04:00 98.4 77 20 129/79 (96) 100 98.4 02/18/18 00:00 98.3 85 20 160/83 (108) 96 98.3 02/17/18 21:00 Nasal Cannula 2.0 02/17/18 20:00 98.1 107 20 148/92 (110) 100 98.1 02/17/18 16:00 98.4 88 20 130/82 (98) 97 98.4 Intake and Output 02/17/18 02/18/18 19:00 07:00 Intake Total 985 ml 65 ml Output Total 200 ml Balance 985 ml -135 ml Intake Free Water 120 ml IV Total 55 ml Tube Feeding 810 ml 65 ml Output Urine Total 200 ml # Bowel Movements 3 2 Laboratory Tests 02/18/18 05:50: White Blood Count 10.7, Red Blood Count 3.32L, Hemoglobin 9.5L, Hematocrit 28.2L , Mean Corpuscular Volume 85, Mean Corpuscular Hemoglobin 28.5, Mean Corpuscular Hemoglobin Concent 33.5, Red Cell Distribution Width 14.8, Platelet Count 181, Mean Platelet Volume 9.7, Neutrophils (%) (Auto) 74.8, Lymphocytes (% ) (Auto) 11.4L, Monocytes (%) (Auto) 12.2H, Eosinophils (%) (Auto) 1.1, Basophils (%) (Auto) 0.6, Sodium Level 134L, Potassium Level 4.1, Chloride Level 101, Carbon Dioxide Level 28, Anion Gap 5, Blood Urea Nitrogen 28H, Creatinine 1.1, Estimat Glomerular Filtration Rate , Glucose Level 102, Calcium Level 8.3L Height (Feet): 5 Height (Inches): 6.00 Weight (Pounds): 164 General Appearance: lethargic EENT: normal ENT inspection Neck: normal alignment Cardiovascular: normal peripheral pulses, normal rate, regular rhythm Respiratory/Chest: chest wall non-tender, lungs clear, normal breath sounds Abdomen: normal bowel sounds, non tender, soft Extremities: normal inspection Edema: no edema noted Arm (L), no edema noted Arm (R), no edema noted Leg (L), no edema noted Leg (R), no edema noted Pedal (L), no edema noted Pedal (R), no edema noted Generalized Neurologic: motor weakness Skin: normal pigmentation, warm/dry Mark Oro DO Feb 18, 2018 14:26
[2018-02-18] MEDS ORDERED: FAMOTIDINE20 MG GT (15:43)
[2018-02-18] MEDS ORDERED: CEFEPIME-D1 GM/50 ML IVPB (15:43)
[2018-02-18] MEDS ORDERED: LORAZEPAM0.5 MG ORAL (15:44)
[2018-02-18] MEDS ORDERED: NOVOLOG100 UNIT/3 SUBQ (15:47)
--- NOTE | 2018-02-18 17:23 | Pulmonology Progress Note ---
Assessment/Plan Problems: (1) Aspiration pneumonia (2) Respiratory distress (3) COPD (chronic obstructive pulmonary disease) (4) ATN (acute tubular necrosis) (5) Limited mobility in bed (6) Feeding by G-tube (7) Advanced dementia Assessment/Plan no n awake continue abx check cultures check sputum titrate fio2 to sat of 92% f/u renal parameters gutbe site care all reviewed, Subjective Allergies: Coded Allergies: AMOXICILLIN (Verified Allergy, Severe, SEVERE ICTHING /RASHES, 09/17/08) PENICILLINS (Verified Allergy, Intermediate, Itching, 06/21/13) Objective Last 24 Hour Vital Signs Date Time Temp Pulse Resp B/P (MAP) Pulse Ox O2 Delivery O2 Flow Rate FiO2 02/18/18 12:00 99.2 80 18 140/73 (95) 99 99.2 02/18/18 09:21 86 132/60 02/18/18 09:00 Nasal Cannula 2.0 02/18/18 08:00 98.8 86 20 132/60 (84) 100 98.8 02/18/18 04:00 98.4 77 20 129/79 (96) 100 98.4 02/18/18 00:00 98.3 85 20 160/83 (108) 96 98.3 02/17/18 21:00 Nasal Cannula 2.0 02/17/18 20:00 98.1 107 20 148/92 (110) 100 98.1 Intake and Output 02/17/18 02/18/18 19:00 07:00 Intake Total 985 ml 65 ml Output Total 200 ml Balance 985 ml -135 ml Intake Free Water 120 ml IV Total 55 ml Tube Feeding 810 ml 65 ml Output Urine Total 200 ml # Bowel Movements 3 2 Laboratory Tests 02/18/18 05:50: White Blood Count 10.7, Red Blood Count 3.32L, Hemoglobin 9.5L, Hematocrit 28.2L , Mean Corpuscular Volume 85, Mean Corpuscular Hemoglobin 28.5, Mean Corpuscular Hemoglobin Concent 33.5, Red Cell Distribution Width 14.8, Platelet Count 181, Mean Platelet Volume 9.7, Neutrophils (%) (Auto) 74.8, Lymphocytes (% ) (Auto) 11.4L, Monocytes (%) (Auto) 12.2H, Eosinophils (%) (Auto) 1.1, Basophils (%) (Auto) 0.6, Sodium Level 134L, Potassium Level 4.1, Chloride Level 101, Carbon Dioxide Level 28, Anion Gap 5, Blood Urea Nitrogen 28H, Creatinine 1.1, Estimat Glomerular Filtration Rate , Glucose Level 102, Calcium Level 8.3L Current Medications Medications (Trade) Dose Ordered Sig/Orin Route PRN Reason Start Time Stop Time Status Last Admin Dose Admin Acetaminophen (Tylenol) 650 mg Q4H PRN GT Mild Pain/Temp > 100.5 02/11/18 21:00 03/13/18 20:59 02/16/18 04:48 Amlodipine Besylate (Norvasc) 10 mg DAILY ORAL 02/12/18 09:00 03/13/18 08:59 02/18/18 09:21 Atorvastatin Calcium (Lipitor) 10 mg BEDTIME ORAL 02/11/18 21:00 03/13/18 20:59 02/17/18 23:17 Cefepime HCl 1 gm/ Dextrose 55 ml @ 110 mls/hr Q24H IVPB 02/14/18 14:00 02/21/18 13:59 02/18/18 14:05 Chlorhexidine Gluconate (Merlyn-Hex 2%) 1 applic DAILY@2000 TOPIC 02/12/18 20:00 03/12/18 19:59 02/17/18 23:16 Dextrose (Dextrose 50%) 25 ml STAT PRN IV Hypoglycemia 02/11/18 21:00 03/13/18 20:59 Dextrose (Dextrose 50%) 50 ml STAT PRN IV Hypoglycemia 02/11/18 21:00 03/13/18 20:59 Docusate Sodium (Colace) 100 mg TID GT 02/12/18 09:00 03/12/18 17:59 02/18/18 14:04 Famotidine (Pepcid) 20 mg BID GT 02/14/18 18:00 03/16/18 17:59 02/18/18 09:21 Insulin Aspart (NovoLOG) Q6HR SUBQ 02/15/18 18:00 03/12/18 16:29 02/17/18 18:27 Levothyroxine Sodium (Synthroid) 100 mcg DAILY@0630 GT 02/17/18 06:30 03/19/18 06:29 02/18/18 06:44 Lorazepam (Ativan) 0.5 mg Q6H PRN ORAL For Anxiety 02/11/18 21:00 02/18/18 20:59 02/14/18 10:43 Polyethylene Glycol (Miralax) 17 gm DAILY GT 02/12/18 09:00 03/13/18 08:59 02/18/18 09:21 Betsy Hope MD Feb 18, 2018 17:23
--- NOTE | 2018-02-18 19:30 | Progress Note ---
DATE: 02/18/2018 SUBJECTIVE: The patient is an 87-year-old female patient, seen in the hospital because of COPD. She has some confusion, disorganized thought process, and mood lability worsened by stress of her medical illness. That is why, her attending physician has requested daily psychiatric consultation at this time. MENTAL STATUS EXAMINATION: This is a female patient. She is an 87-year-old female. Appearance is disheveled. Attitude, irritable and agitated. Affect guarded and restricted. Intellect poor. Mood depressed and anxious. Motor activity, psychomotor agitation. Attention span is poor. Orientation x2. Speech is low volume and slurred. Thought process, disorganized and illogical. Thought content, auditory hallucinations and paranoid delusions. Insight and judgment is poor. DIAGNOSIS: Major depression with psychotic features. PLAN: Treat her with a psychotropic medication regimen consisting of Ativan 0.5 mg every 6 hours. p.r.n. anxiety and agitation. Provide 20 minutes of cognitive behavioral therapy to help her identify automatic negative thoughts and help her to convert them to more positive thoughts. Chart reviewed. Discussed with staff. She will continue to be followed by Psychiatry per the request of attending physician. Seen and assessed in her room. Josh Gonzalez M.D. DR: DAMARIS JOB#: [id number] CC:
--- NOTE | 2018-02-19 09:01 | Consultation ---
DATE OF CONSULTATION: 02/13/2018 CONSULTING PHYSICIAN: Josh Gonzalez M.D. HISTORY: This is an 87-year-old female patient. The patient presents with COPD at this time and she is having some confusion, disorganized thought process, cognition has declined below baseline. That is why her attending physician has requested daily psychiatric consultation. MENTAL STATUS EXAMINATION: The patient is an 87-year-old female. Appearance is disheveled. Attitude is irritable and agitated. Affect guarded and restricted. Intellect poor. Motor activity with psychomotor agitation. Attention span is poor. Orientation x2. Speech is pressured. Thought process, disorganized and illogical. Thought content, auditory hallucinations and paranoid delusions. Insight and judgment is poor. DIAGNOSIS: Major depression with psychotic features, rule out pseudodementia. PLAN: Namenda 5 mg per G-tube twice a day, Ativan 0.5 mg per G-tube q.6 h. A 20 minutes of insight-oriented psychotherapy to improve her . Chart reviewed. Discussed with staff. Seen and assessed in her room. Provided 20 minutes of cognitive behavioral therapy psychotherapy provided. Josh Gonzalez M.D. DR: TOYN JOB#: [id number] CC:
--- NOTE | 2018-02-19 14:00 | Discharge Summary ---
Discharge Summary Discharge Summary _ DATE OF ADMISSION: 02/11/2018 DATE OF DISCHARGE: 02/18/2018 CONSULTANTS: Dr. Josh Herrera [facility] HOSPITAL COURSE: Patient is an 87-year-old female, from [facility], presented with increased shortness of breath and hypoxia with O2 saturation on the low 90s. Patient was slightly confused and was sent to [facility]. She has medical history significant for COPD, GERD, anemia, and hypertension. On evaluation at ED, patient was mildly tachypneic. She was given breathing treatment. Blood work showed no leukocytosis, sodium level was 127. Chest x- ray done showed no acute cardiopulmonary disease. CT scan of the chest abdomen and pelvis showed fecal impaction. She was then admitted for evaluation of hypoxia and possible aspiration pneumonia. He was seen by catalyst recovery operator. He was given respiratory treatment and chest physiotherapy. She was placed on strict aspiration precaution. She was placed on NPO. She was given isotonic solution. She was given Protonix. TSH was 4.7 , she was given IV Synthroid. She has mood lability and has major depressive disorder. She was given Namenda. Urine culture with growth of Pseudomonas. She was started on cefepime by infectious disease specialist. She came in with full-thickness wound to the sacral area. Surgery was consulted. Wound care was done. She was placed on overlay pressure-relief mattress and with frequent turning and offloading. She was advised nutritional support. Patient had leukocytoses, however sacral ulcers with no cellulitis or no signs of active infection. Leukocytosis possibly secondary to Solu-Medrol. Echocardiogram done showed ejection fraction of 55%. Patient has hyponatremia, likely diuretic related and depletional. Sodium level was eventually improved. She underwent speech evaluation and recommended nothing by mouth continue with feeding. He was saturating well on nasal cannula. He was tapered off solumedrol He was eventually discharged back to intermediate. FINAL DIAGNOSES: Aspiration pneumonia Hyponatremia Urinary tract infection with Pseudomonas Respiratory distress COPD Acute tubular necrosis Advanced dementia Dysphagia on G-tube Limited mobility Major depression with psychotic features Sacral ulcers stage III, present on admission Diabetes mellitus Hypertension Hypothyroidism Hypercholesterolemia DJD GERD Colon Mass DISPOSITION: Patient was discharged to [facility]. DISCHARGE MEDICATIONS: Refer to Discharge Medication List. Continue with cefepime for 2 more days. I have been assigned to dictate discharge summary on this account, and I was not involved in the patient's management. Alessandra Triana NP Feb 19, 2018 14:00
== END 2018-02-18 18:38 | DRG 177 ==
LOC: EDBD 11:29 → EMR 12:58 → 2E 13:08 → EDBEDREQ 13:19 → 2E 15:20 → 4E 02-11 20:51
PROC: 02HV33Z Insertion of Infusion Device into Superior Vena Cava, Percutaneous Approach (ICD-10-PCS; principal; 2018-02-10)
DX: J69.0 Pneumonitis due to inhalation of food and vomit (principal); L89.153 Pressure ulcer of sacral region, stage 3; N17.0 Acute kidney failure with tubular necrosis; E87.1 Hypo-osmolality and hyponatremia; N39.0 Urinary tract infection, site not specified; Z43.1 Encounter for attention to gastrostomy; F33.3 Major depressive disorder, recurrent, severe with psychotic symptoms; R09.02 Hypoxemia; J44.9 Chronic obstructive pulmonary disease, unspecified; Z88.1 Allergy status to other antibiotic agents; Z88.0 Allergy status to penicillin; K21.9 Gastro-esophageal reflux disease without esophagitis; I10 Essential (primary) hypertension; B96.5 Pseudomonas (aeruginosa) (mallei) (pseudomallei) as the cause of diseases classified elsewhere; R06.03 Acute respiratory distress; R13.10 Dysphagia, unspecified; Z74.01 Bed confinement status; E11.9 Type 2 diabetes mellitus without complications; E03.9 Hypothyroidism, unspecified; E78.00 Pure hypercholesterolemia, unspecified; M19.90 Unspecified osteoarthritis, unspecified site; K63.9 Disease of intestine, unspecified; F03.90 Unspecified dementia, unspecified severity, without behavioral disturbance, psychotic disturbance, mood disturbance, and anxiety
CPT/HCPCS: 36415; 36569; 71045; 71250; 74176; 76937; 80048; 80053; 80061; 80076; 81001; 82550; 82553; 82607; 82728; 82746; 82962; 82977; 83036; 83540; 83550; 83690; 83735; 83880; 83930; 83935; 84100; 84300; 84443; 84484; 84550; 85007; 85025; 85610; 85730; 86140; 87040; 87081; 87086; 87181; 93005; 93306; 94640; 94664; 94760; 97803; 99285; J1815; J7620

== ENCOUNTER 2018-04-05 08:01 | Inpatient (IN) | payer MEDICARE, MEDICAID ==
[~2018-04-05] VITALS: Ht 162.6 cm; Wt 60.3 kg
[~2018-04-05 08:01] MED LIST changes: +ACETAMINOPHEN325 M1 ORAL; +ALBUTEROL2.5 MG/3 M INH; +ARGINAID POWDE1 EACH PO; +CEFEPIME-D1 GM/50 ML IVPB; +FAMOTIDINE20 MG GT; +FUROSEMIDE20 M1 ORAL; +LORAZEPAM0.5 MG ORAL; +LOVENOX10 M4 SUBQ; +LUMIGAN2.5 ML BOTH EYES; +MACRODANTIN100 MG ORAL; +MIRALAX17 G2 ORAL; +MULTI-VITAMIN1 EACH PO; +NOVOLOG100 UNIT/3 SUBQ; +OXANDROLONE2.5 MG PO
[2018-04-05] MEDS ORDERED: Sodium Chloride 500ML 500 ML IV ONE (08:12)
[2018-04-05] MEDS ORDERED: sodium chloride GT (08:13)
[2018-04-05] MEDS ORDERED: GUAIFENESIN-CO118 M1 GT (08:13)
[2018-04-05] MEDS ORDERED: COLLAGENASE TOPIC (08:13)
[2018-04-05] MEDS ORDERED: PRO-STAT RENAL30 ML PO (08:13)
[2018-04-05] MEDS ORDERED: DUONEB 0.5-3(2.53 ML HHN (08:13)
[2018-04-05] MEDS ORDERED: GENTAMICIN SULF15 G2 TOPIC (08:13)
[2018-04-05] MEDS ORDERED: BACTRIM 400-801 EACH GT (08:13)
[2018-04-05 08:30] VITALS: BP 132/77
--- NOTE | 2018-04-05 08:46 | Diagnostic Imaging Report ---
EXAM: XR Chest, 1 View CLINICAL HISTORY: Shortness of breath TECHNIQUE: Frontal view of the chest. COMPARISON: Chest x-ray dated 02/17/18 FINDINGS: Lungs: Mild interval improved aeration of the left mid and lower lung. Mildly increased interstitial markings. Pleural space: Unremarkable. The costophrenic angles are sharp. No visible pneumothorax. Heart: Unremarkable. No cardiomegaly. Mediastinum: Unremarkable. Bones/joints: Unremarkable. Vasculature: Atherosclerotic calcifications are noted within the aortic arch. Tubes, lines and devices: EKG leads overlie the thorax. IMPRESSION: 1. Interval improved aeration of the left mid and lower lung. 2. Mildly increased interstitial markings. This is likely related to chronic senescent changes although differential diagnosis may also include mild bronchitis or interstitial pneumonitis.
--- NOTE | 2018-04-05 09:06 | Emergency Room Report ---
History of Present Illness General Chief Complaint: Upper Respiratory Illness Source: Patient, EMS Present Illness HPI 87-year-old female presents ED for evaluation. [facility], cough 2 days. Patient is nonverbal at baseline. Patient noted to have a productive cough by nursing staff. Afebrile. No signs of distress. No nausea or vomiting. No other aggravating relieving factors. No other associated symptoms Allergies: Coded Allergies: AMOXICILLIN (Verified Allergy, Severe, SEVERE ICTHING /RASHES, 09/17/08) PENICILLINS (Verified Allergy, Intermediate, Itching, 06/21/13) Patient History Past Medical History: DM, HTN, COPD, GERD Past Surgical History: none Pertinent Family History: none Social History: Denies: smoking, alcohol use, drug use Now: No Immunizations: UTD Reviewed Nursing Documentation: PMH: Agreed; PSxH: Agreed Nursing Documentation-PMH Hx Cardiac Problems: Yes - thyroid, anemia Hx Hypertension: Yes Hx COPD: Yes Hx Diabetes: Yes Hx Cancer: No Hx Gastrointestinal Problems: Yes - GERD Hx Neurological Problems: No Hx Cerebrovascular Accident: Yes Review of Systems All Other Systems: limited Physical Exam Vital Signs Date Time Temp Pulse Resp B/P (MAP) Pulse Ox O2 Delivery O2 Flow Rate FiO2 04/05/18 07:57 97.4 112 20 132/77 100 Nasal Cannula 2.0 97.3 Sp02 EP Interpretation: reviewed, normal General Appearance: no apparent distress, GCS 15, non-toxic, other - nonverbal Head: normocephalic Eyes: bilateral eye normal inspection, bilateral eye PERRL ENT: normal ENT inspection Neck: normal inspection Respiratory: crackles, rhonchi Cardiovascular #1: regular rate, rhythm, no edema Gastrointestinal: normal bowel sounds, non tender, soft, non-distended, no guarding, no rebound Rectal: deferred Genitourinary: no CVA tenderness Musculoskeletal: normal inspection Neurologic: other - nonverbal Psychiatric: other - nonverbal Skin: normal inspection Lymphatic: normal inspection Medical Decision Making Diagnostic Impression: Primary Impression: COPD (chronic obstructive pulmonary disease) Qualified Codes: J44.9 - Chronic obstructive pulmonary disease, unspecified Additional Impressions: Pneumonia Qualified Codes: J18.9 - Pneumonia, unspecified organism Hyponatremia ER Course Hospital Course 87 yo F presents with dyspnea, congestion at SNF Differential diagnoses include: Pneumonia, CHF exacerbation, pneumothorax, fluid overload Clinical course Patient placed on stretcher. On personnel monitor with hypoxia on room air and tachycardia. After initial history and physical, I ordered nebulizer treatments. I ordered labs, IV fluids, EKG, chest x-ray, blood cultures, UA. Labs -no leukocytosis noted, hemoglobin/hematocrit stable, Na 124, K 5.4, BUN/ Cr ok, lactate okay troponins negative EKG - sinus tachycardia no acute ischemic changes interpreted by me CXR - R lobe infiltrate given IV hydration, given abx. patient in no distress after breathing treatments Case discussed with Dr. Oro and he agreed to the patient to his service for further care and support I feel this is a highly complex case requiring extensive working including EKG/ Rhythm strip, Xray/CT/US, Blood/urine lab work, repeat exams while in ED, and administration of strong opiates/narcotics for pain control, admission to hospital or close patient follow up. Diagnosis - pneumonia, COPD, hyponatremia Patient admitted to telemetry in serious condition Labs Test 04/05/18 08:49 White Blood Count 5.9 K/UL (4.8-10.8) Red Blood Count 3.73 M/UL (4.20-5.40) Hemoglobin 10.6 G/DL (12.0-16.0) Hematocrit 32.0 % (37.0-47.0) Mean Corpuscular Volume 86 FL (80-99) Mean Corpuscular Hemoglobin 28.4 PG (27.0-31.0) Mean Corpuscular Hemoglobin Concent 33.1 G/DL (32.0-36.0) Red Cell Distribution Width 14.8 % (11.6-14.8) Platelet Count 289 K/UL (150-450) Mean Platelet Volume 6.5 FL (6.5-10.1) Neutrophils (%) (Auto) 62.1 % (45.0-75.0) Lymphocytes (%) (Auto) 24.0 % (20.0-45.0) Monocytes (%) (Auto) 9.8 % (1.0-10.0) Eosinophils (%) (Auto) 1.8 % (0.0-3.0) Basophils (%) (Auto) 2.3 % (0.0-2.0) Urine Color Pale yellow Urine Appearance Clear Urine pH 9 (4.5-8.0) Urine Specific [place] 1.015 (1.005-1.035) Urine Protein 3+ (NEGATIVE) Urine Glucose (UA) Negative (NEGATIVE) Urine Ketones Negative (NEGATIVE) Urine Blood 1+ (NEGATIVE) Urine Nitrite Negative (NEGATIVE) Urine Bilirubin Negative (NEGATIVE) Urine Urobilinogen Normal MG/DL (0.0-1.0) Urine Leukocyte Esterase 3+ (NEGATIVE) Urine RBC 0-2 /HPF (0 - 2) Urine WBC 5-10 /HPF (0 - 2) Urine Squamous Epithelial Cells Few /LPF (NONE/OCC) Urine Triple Phosphate Crystals Moderate /LPF (NONE) Urine Bacteria Few /HPF (NONE) Sodium Level 124 MMOL/L (136-145) Potassium Level 5.4 MMOL/L (3.5-5.1) Chloride Level 91 MMOL/L (98-107) Carbon Dioxide Level 26 MMOL/L (21-32) Anion Gap 7 mmol/L (5-15) Blood Urea Nitrogen 23 mg/dL (7-18) Creatinine 0.9 MG/DL (0.55-1.30) Estimat Glomerular Filtration Rate mL/min (>60) Glucose Level 102 MG/DL (74-106) Lactic Acid Level 1.40 mmol/L (0.4-2.0) Calcium Level 9.0 MG/DL (8.5-10.1) Total Bilirubin 0.5 MG/DL (0.2-1.0) Aspartate Amino Transf (AST/SGOT) 114 U/L (15-37) Alanine Aminotransferase (ALT/SGPT) 111 U/L (12-78) Alkaline Phosphatase 86 U/L (46-116) Troponin I 0.008 ng/mL (0.000-0.056) Pro-B-Type Natriuretic Peptide 1997 pg/mL (0-125) Total Protein 9.0 G/DL (6.4-8.2) Albumin 2.8 G/DL (3.4-5.0) Globulin 6.2 g/dL Albumin/Globulin Ratio 0.5 (1.0-2.7) EKG Diagnostic Results Rate: tachycardiac Rhythm: NSR ST Segments: no acute changes ASA given to the pt in ED: No Rhythm Strip Diag. Results EP Interpretation: yes Rhythm: NSR, no PVC's, no ectopy Chest X-Ray Diagnostic Results Chest X-Ray Diagnostic Results : Chest X-Ray Ordered: Yes # of Views/Limited/Complete: 1 View Indication: Shortness of Breath EP Interpretation: Yes Interpretation: no pneumothorax, other - R sided PNA Impression: Other - PNA Electronically Signed by: Electronically signed by Sarthak Martell MD Last Vital Signs Date Time Temp Pulse Resp B/P (MAP) Pulse Ox O2 Delivery O2 Flow Rate FiO2 04/05/18 07:57 97.4 112 20 132/77 100 Nasal Cannula 2.0 97.3 Status: improved Disposition: ADMITTED INPATIENT Condition: Serious Referrals: Mark Oro DO (PCP) Sarthak Martell MD Apr 05, 2018 09:06
[2018-04-05] MEDS ORDERED: Miralax 17gm pkt ORAL PRN (09:15)
[2018-04-05] MEDS ORDERED: Solu-MEDROL 125mg Inj IVP ONE (09:15)
[2018-04-05] MEDS ORDERED: Ipratropium 0.02% Inh Soln 2.5ml UD HHN ONE (09:15)
[2018-04-05] MEDS ORDERED: Albuterol ud Inhalation HHN ONE (09:15)
[2018-04-05] MEDS ORDERED: Morphine Sulfate 2mg/ml Inj IVP PRN (09:15)
[2018-04-05 09:16] LABS: ANION GAP 7 mmol/L (5-15); BLOOD UREA NITROGEN 23 mg/dL (7-18); CARBON DIOXIDE 26 MMOL/L (21-32); CHLORIDE 91 MMOL/L (98-107); CREATININE 0.9 MG/DL (0.55-1.30); POTASSIUM 5.4 MMOL/L (3.5-5.1); SODIUM 124 MMOL/L (136-145)
[2018-04-05 09:22] LABS: BASOPHILS % (AUTO) 2.3 % (0.0-2.0); EOSINOPHILS % (AUTO) 1.8 % (0.0-3.0); HEMOGLOBIN 10.6 G/DL (12.0-16.0); MEAN CORPUSCULAR VOLUME 86 FL (80-99); MONOCYTES % (AUTO) 9.8 % (1.0-10.0); NEUTROPHILS % (AUTO) 62.1 % (45.0-75.0); PLATELET COUNT 289 K/UL (150-450); RED BLOOD COUNT 3.73 M/UL (4.20-5.40); RED CELL DISTRIBUTION WIDTH 14.8 % (11.6-14.8); WHITE BLOOD COUNT 5.9 K/UL (4.8-10.8)
[2018-04-05 09:23] LABS: APPEARANCE,URINE CLEAR; BILIRUBIN, URINE NEGATIVE (NEGATIVE); COLOR,URINE PALE YELLOW; GLUCOSE, URINE (UA) NEGATIVE (NEGATIVE); KETONES,URINE NEGATIVE (NEGATIVE); LEUKOCYTE ESTERASE ,URINE 3+ (NEGATIVE); NITRITE,URINE NEGATIVE (NEGATIVE); PH,URINE 9 (4.5-8.0); PROTEIN,URINE 3+ (NEGATIVE); UROBILINOGEN,URINE NORMAL MG/DL (0.0-1.0)
[2018-04-05 09:26] LABS: ALANINE AMINOTRANSFERASE 111 U/L (12-78); ALBUMIN 2.8 G/DL (3.4-5.0); ALBUMIN/GLOBULIN RATIO 0.5 (1.0-2.7); ALKALINE PHOSPHATASE 86 U/L (46-116); ASPARTATE AMINO TRANSFERASE 114 U/L (15-37); BILIRUBIN,TOTAL 0.5 MG/DL (0.2-1.0)
[2018-04-05] MEDS ORDERED: Nitroglycerin Subl 0.4mg tab SL PRN (09:30)
--- NOTE | 2018-04-05 09:30 | Consultation ---
History of Present Illness General Date patient seen: Apr 05, 2018 Time patient seen: 08:30 Chief Complaint: congestion Referring physician: dr Oro Reason for Consultation: pulm consult Present Illness HPI 87-year-old female with PMH of CVA, dysphagia, G tube, COPD, HTN, DM, hypothyroidism, long hx of smoking, anemia, presented to ED for evaluation for congestion, cough 2 days. Patient noted to have a productive cough by nursing staff. Afebrile. Patient nonverbal and unable to provide any history Upon evaluation no fever, + tachycardia, placed on supplemental O2 with stable pulse ox thereafter Labs still pending CXR with probable R sided infiltrate Patient was admitted for further management Allergies: Coded Allergies: AMOXICILLIN (Verified Allergy, Severe, SEVERE ICTHING /RASHES, 09/17/08) PENICILLINS (Verified Allergy, Intermediate, Itching, 06/21/13) Medication History Scheduled Alendronate Sodium* (Fosamax*), 70 MG ORAL ONCE A WEEK, (Reported) Amino Acids/Protein Hydrolys (Pro-Stat Renal Care Liquid Pkt), 30 ML PO DAILY, ( Reported) Amlodipine Besylate (Norvasc), 10 MG ORAL DAILY, (Reported) Arginine/Ascorbate Sod/Devang AC (Arginaid Powder), 1 EACH PO BID, (Reported) Aspirin (Aspirin EC), 81 MG ORAL BID, (Reported) Atorvastatin Calcium* (Lipitor*), 10 MG ORAL BEDTIME, (Reported) Bimatoprost (Lumigan), 1 DROP BOTH EYES DAILY, (Reported) Cefepime Hcl/D5w (Cefepime-Dextrose 1 Gm/50 Ml), 1 GM IVPB Q24H, (Reported) Cholecalciferol (Vitamin D3) (Vitamin D3), 1,000 UNIT PO BID, (Reported) Collagenase Clostridium Hist. (Collagenase), 250 UNIT TOPIC DAILY, (Reported) Docusate Sodium* (Docusate Sodium*), 100 MG ORAL THREE TIMES A DAY, (Reported) Enoxaparin* (Lovenox*), 40 MG SUBQ DAILY, (Reported) Famotidine (Famotidine), 20 MG GT TWICE A DAY, (Reported) Furosemide* (Lasix*), 20 MG ORAL DAILY, (Reported) Insulin Aspart* (Novolog*), 0 SUBQ Q6HR, (Reported) Ipratropium/Albuterol Sulfate (DuoNeb 0.5-3(2.5)mg/3ml), 3 ML HHN Q4HR, ( Reported) Levothyroxine Sodium* (Levothyroxine Sodium*), 112 MCG ORAL DAILY, (Reported) Lisinopril* (Zestril*), 10 MG ORAL BID, (Reported) Nitrofurantoin Macrocrystal (Macrodantin), 100 MG ORAL DAILY, (Reported) Omeprazole (Prilosec), 20 MG ORAL DAILY, (Reported) Oxandrolone (Oxandrolone), 2.5 MG PO BID, (Reported) Pregabalin (Lyrica), 25 MG ORAL THREE TIMES A DAY, (Reported) Ranitidine Hcl* (Zantac*), 150 MG ORAL QHS, (Reported) Sulfamethoxazole/Trimethoprim (Bactrim 400-80 Mg Tablet*), 2 TAB GT TWICE A DAY, (Reported) [sodium chloride], 1 GM GT BID, (Reported) Scheduled PRN Acetaminophen* (Acetaminophen 325MG Tablet*), 650 MG ORAL Q6H PRN for Pain Scale (6-10), (Reported) Albuterol Sulfate* (Albuterol Sulfate Hhn*), 3 ML INH Q4H PRN for Shortness of Breath, (Reported) Diphenhydramine Hcl (Diphenhydramine Hcl), 50 MG ORAL BEDTIME PRN for Itching, ( Reported) Guaifenesin/Codeine Phos* (Robitussin Ac*), 1 TSP GT Q8HR PRN for For Cough, ( Reported) Hydrocodone Bit/Acetaminophen 5-325* ([place] 5-325*), 1 TAB ORAL Q6H PRN for For Pain Lorazepam* (Lorazepam*), 0.5 MG ORAL Q6HR PRN for For Anxiety, (Reported) Polyethylene Glycol 3350* (Miralax*), 17 GM ORAL DAILY PRN for Constipation, ( Reported) Miscellaneous Medications Gentamicin Sulfate (Gentamicin Sulfate*), 0.1 % TOPIC, (Reported) Multivitamin (Multi-Vitamin Daily), 1 EACH PO, (Reported) Patient History Healthcare decision maker Resuscitation status Advanced Directive on File Review of Systems ROS Narrative unable to obtain 2 to ALOC Physical Exam General Appearance: other - bedridden, awake, nonverbal, chroncially ill looking AA female Lines, tubes and drains: peripheral HEENT: normocephalic, atraumatic, anicteric, no JVD, other - bilateral cataracts Neck: non-tender Respiratory/Chest: other - scattered rhonchi bilaterally, overall coarse BS Cardiovascular/Chest: tachycardia - ST on tele Abdomen: normal bowel sounds, non tender, soft, other - G tube Extremities: other - contracted Skin Exam: other - L foot and sacral decub Neurologic: abnormal gait - bedridden, other - nonverbal, awake, contarcetd Last 24 Hour Vital Signs Date Time Temp Pulse Resp B/P (MAP) Pulse Ox O2 Delivery O2 Flow Rate FiO2 04/05/18 07:57 97.4 112 20 132/77 100 Nasal Cannula 2.0 97.3 Laboratory Tests Test 04/05/18 08:49 White Blood Count Pending Red Blood Count Pending Hemoglobin Pending Hematocrit Pending Mean Corpuscular Volume Pending Mean Corpuscular Hemoglobin Pending Mean Corpuscular Hemoglobin Concent Pending Red Cell Distribution Width Pending Platelet Count Pending Mean Platelet Volume Pending Neutrophils (%) (Auto) Pending Lymphocytes (%) (Auto) Pending Monocytes (%) (Auto) Pending Eosinophils (%) (Auto) Pending Basophils (%) (Auto) Pending Urine Color Pending Urine Appearance Pending Urine pH Pending Urine Specific [place] Pending Urine Protein Pending Urine Glucose (UA) Pending Urine Ketones Pending Urine Blood Pending Urine Nitrite Pending Urine Bilirubin Pending Urine Urobilinogen Pending Urine Leukocyte Esterase Pending Sodium Level Pending Potassium Level Pending Chloride Level Pending Carbon Dioxide Level Pending Blood Urea Nitrogen Pending Creatinine Pending Estimat Glomerular Filtration Rate Pending Glucose Level Pending Lactic Acid Level Pending Calcium Level Pending Total Bilirubin Pending Aspartate Amino Transf (AST/SGOT) Pending Alanine Aminotransferase (ALT/SGPT) Pending Alkaline Phosphatase Pending Troponin I Pending Pro-B-Type Natriuretic Peptide Pending Total Protein Pending Albumin Pending Globulin Pending Height (Feet): 5 Height (Inches): 6.00 Weight (Pounds): 130 Medications Current Medications Medications (Trade) Dose Ordered Sig/Orin Route PRN Reason Start Time Stop Time Status Last Admin Dose Admin Acetaminophen (Tylenol) 650 mg Q4H PRN ORAL fever 04/05/18 09:15 05/05/18 09:14 UNV Albuterol Sulfate (Proventil) 5 mg ONCE ONCE HHN 04/05/18 09:15 04/05/18 09:16 Albuterol/ Ipratropium (Albuterol/ Ipratropium) 3 ml EVERY 4 HOURS PRN HHN Shortness of Breath 04/05/18 09:15 04/10/18 09:14 UNV Alendronate Sodium (Fosamax) 70 mg ONCE A WEEK ORAL 04/05/18 09:15 05/05/18 09:14 UNV Amlodipine Besylate (Norvasc) 10 mg DAILY ORAL 04/06/18 09:00 05/06/18 08:59 UNV Aztreonam 1 gm/ Sodium Chloride 50 ml @ 100 mls/hr EVERY 8 HOURS IVPB 04/05/18 14:00 04/12/18 13:59 UNV Dextrose (Dextrose 50%) STAT PRN IV Hypoglycemia 04/05/18 09:15 05/05/18 09:14 UNV Heparin Sodium (Porcine) (Heparin 5000 units/ml) 5,000 units EVERY 12 HOURS SUBQ 04/05/18 21:00 05/05/18 20:59 UNV Insulin Aspart (NovoLOG) BEFORE MEALS AND HS SUBQ 04/05/18 11:30 05/05/18 11:29 UNV Ipratropium Ophelia (Atrovent) 500 mcg ONCE ONCE HHN 04/05/18 09:15 04/05/18 09:16 Levofloxacin 150 ml @ 100 mls/hr NOW ONCE IVPB 04/05/18 09:00 04/05/18 10:29 04/05/18 09:07 Levothyroxine Sodium (Synthroid) 112 mcg DAILY ORAL 04/06/18 09:00 05/06/18 08:59 UNV Methylprednisolone Sodium Succinate (Solu-MEDROL) 125 mg ONCE ONCE IVP 04/05/18 09:15 04/05/18 09:16 Morphine Sulfate (Morphine Sulfate) 2 mg EVERY 4 HOURS PRN IVP Moderate Pain (Pain Scale 4-6) 04/05/18 09:15 04/12/18 09:14 UNV Nitroglycerin (Ntg) 0.4 mg Every 5 Minutes PRN SL Prn Chest Pain 04/05/18 09:15 05/05/18 09:14 UNV Ondansetron HCl (Zofran) 4 mg Q6H PRN IVP Nausea & Vomiting 04/05/18 09:15 05/05/18 09:14 UNV Oxandrolone (Oxandrin) 2.5 mg BID ORAL 04/05/18 18:00 05/05/18 17:59 UNV Polyethylene Glycol (Miralax) 17 gm DAILYPRN PRN ORAL Constipation 04/05/18 09:15 05/05/18 09:14 UNV Pregabalin (Lyrica) 25 mg THREE TIMES A DAY ORAL 04/05/18 13:00 05/05/18 12:59 UNV Temazepam (Restoril) 15 mg HSPRN PRN ORAL Insomnia 04/05/18 09:15 04/12/18 09:14 UNV Vancomycin HCl 1 gm/Dextrose 275 ml @ 183.3 mls/ hr Q24H IV 04/06/18 00:30 04/11/18 00:29 UNV Assessment/Plan Assessment/Plan ASSESSMENT acute respiratory failure probable PNA aspiration COPD , possible exacerbation dysphagia, G tube Hx of CVA encephalopathy HTN DM L foot and sacral st 4 decub, POA sinus tachycardia hypothyroidism hx of smoking PLAN OF CARE admit O2 HHN prn Fup with CXR in am abx, fup with cx ID consult strict aspir precautions, GT feeding, monitor tolerance, site care monitor HR, ST now, check TSH; for now continue current dose of Levothyroxine IVF monitor renal parameters, lytes, correct lytes as needed and avoid nephrotoxic Venous Duplex BLE DVT prophylaxis BP management with CCB and optimize as needed BS management with SSI, check HgA1c lipid panel , consider a/PLT therapy wound care as per wound nurse recs pain management bowel regimen supportive care case discussed and evaluated by supervising physician Kari Shen NP Apr 05, 2018 09:30
--- NOTE | 2018-04-05 09:45 | History and Physical Report ---
DATE OF ADMISSION: 04/05/2018 TIME: 8 a.m. CONSULTANTS: 1. Betsy Hope M.D. 2. Alfred Fortune M.D. 3. Josh Gonzalez M.D. 4. Joo Herrera M.D. CHIEF COMPLAINT: Shortness of breath, congestion, left ankle wound, and sacral decubitus. BRIEF HISTORY: This is an 87-year-old female from [facility] presents to [facility] last night with history of increased congestion, short of breath, diagnosed the above. Also has a left ankle wound and sacral decubitus. In the ER being admitted to telemetry for further care. Currently, calm, O2 NC, confused in bed, not talking much. PAST MEDICAL HISTORY: As mentioned. Sacral decubitus, left ankle wound, COPD, dementia, diabetes, hypertension, and OA. PAST SURGICAL HISTORY: G-tube. MEDICATIONS: Include just IV fluids . ALLERGIES: Amoxicillin and penicillin. SOCIAL HISTORY: Unable to obtain secondary to the patient's confusion. REVIEW OF SYSTEMS: Unavailable. PHYSICAL EXAMINATION: GENERAL: Slight short of breath in the ER, disoriented x3, no acute distress. VITAL SIGNS: Temperature 97, pulse 112, respirations 20, and blood pressure 132/77. CARDIOVASCULAR: No murmurs. LUNGS: Poor exchange. Slight congested. Wheezing bilaterally. ABDOMEN: Bowel sounds positive. Nontender. Nondistended. EXTREMITIES: No cyanosis, clubbing, or edema. Left ankle dressing clean and dry. NEUROLOGIC: The patient moves all extremities, slightly weak. LABORATORY DATA: Laboratories are pending. ASSESSMENT: 1. Shortness breath. 2. Congestion. 3. Left ankle wound. 4. Anemia. 5. Sacral decubitus. 6. COPD. 7. Diabetes. 8. Hypertension. 9. Dementia. 10. OA. PLAN: 1. Continue previous medications, wound care. 2. Antibiotics per Infectious Disease. 3. Blood pressure and blood sugar control. 4. O2 and Pulmonary treatment. 5. Resume home medications. 6. OT, PT, and dietary evaluation. 7. CBC and BMP in the morning. Mark Oro D.O. DR: BUFFY JOB#: [id number] CC:
[2018-04-05 10:00] VITALS: BP 132/77
[2018-04-05] MEDS ORDERED: Vancomycin 1250mg/D5W 250ml IVPB ONE (11:00)
[2018-04-05] MEDS ORDERED: NovoLOG Insulin Flexpen SUBQ SCH (11:30)
--- NOTE | 2018-04-05 11:44 | Consultation ---
Consult Note Consult Note asked to eval for low na and high K 87-year-old female presents ED for evaluation. Patient brought in from [facility] facility for congestion, cough 2 days. Patient is nonverbal at baseline. Patient noted to have a productive cough by nursing staff. Afebrile. No signs of distress. No nausea or vomiting. No other aggravating relieving factors. No other associated symptoms Allergies: Coded Allergies: AMOXICILLIN (Verified Allergy, Severe, SEVERE ICTHING /RASHES, 09/17/08) PENICILLINS (Verified Allergy, Intermediate, Itching, 06/21/13) Past Medical History: DM, HTN, COPD, GERD Hx Cardiac Problems: Yes - thyroid, anemia Hx Hypertension: Yes Hx COPD: Yes Hx Diabetes: Yes Hx Gastrointestinal Problems: Yes - GERD Hx Cerebrovascular Accident: Yes . Assessment/Plan HypoNatremia, Likely diuretic related and Depletional COPD exac. resp failure Hypothyroidism L foot and sacral decub, POA PNA ? Aspiration PEG DM h/o Long Smoking h/o Anemia h/o OA h/o Colon Ca h/o HTN [place] Isotonic solution Low Na snyder antibiotics / pulm support IV Pepcid change synthroid to IV Per orders Zeb Jiang MD Apr 05, 2018 11:44
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
[2018-04-05] MEDS: Lyrica 25mg cap ORAL SCH ×2 (13:58→21:24)
[2018-04-05 16:00] VITALS: BP 125/84
[2018-04-05] MEDS: Aztreonam Inj 1 GM in NS 50 ML IVPB SCH ×2 (16:28→21:23)
[2018-04-05] MEDS ORDERED: OXANDROLONE ORAL SCH (18:00)
[2018-04-05] MEDS ORDERED: Sodium Polystyrene Sulfonate 15gm Powder ORAL SCH (18:00)
[2018-04-05] MEDS: NovoLOG Insulin Flexpen SUBQ SCH ×2 (18:17→23:29)
[2018-04-05 20:00] VITALS: BP 120/81
[2018-04-05] MEDS: Heparin 5000 units/ml inj SUBQ SCH (21:22)
[2018-04-05] MEDS: Albuterol/Ipratropium 3ml neb HHN PRN (22:56)
[2018-04-06] VITALS (7 sets, daily range): BP systolic 103–137; BP diastolic 59–84
[2018-04-06] MEDS ORDERED: Vancomycin 1 GM in D5W 275 ML IV SCH (00:30)
[2018-04-06] MEDS: Albuterol/Ipratropium 3ml neb HHN PRN ×2 (04:47→14:29)
[2018-04-06] MEDS: Lyrica 25mg cap ORAL SCH ×3 (05:14→23:20)
[2018-04-06] MEDS: Aztreonam Inj 1 GM in NS 50 ML IVPB SCH ×3 (05:15→22:00)
[2018-04-06] MEDS: NovoLOG Insulin Flexpen SUBQ SCH ×4 (05:20→23:47)
[2018-04-06 06:44] LABS: HEMATOCRIT 25.9 % (37.0-47.0); HEMOGLOBIN 8.9 G/DL (12.0-16.0); MEAN CORPUSCULAR VOLUME 85 FL (80-99); PLATELET COUNT 254 K/UL (150-450); RED BLOOD COUNT 3.04 M/UL (4.20-5.40); WHITE BLOOD COUNT 10.9 K/UL (4.8-10.8)
[2018-04-06 07:20] LABS: PHOSPHORUS 3.8 MG/DL (2.5-4.9)
[2018-04-06 07:31] LABS: ALANINE AMINOTRANSFERASE 86 U/L (12-78); ALBUMIN 2.5 G/DL (3.4-5.0); ALBUMIN/GLOBULIN RATIO 0.5 (1.0-2.7); ALKALINE PHOSPHATASE 76 U/L (46-116); ANION GAP 9 mmol/L (5-15); ASPARTATE AMINO TRANSFERASE 69 U/L (15-37); BILIRUBIN,TOTAL 0.3 MG/DL (0.2-1.0); BLOOD UREA NITROGEN 27 mg/dL (7-18); CALCIUM 8.2 MG/DL (8.5-10.1); CARBON DIOXIDE 24 MMOL/L (21-32); CHLORIDE 94 MMOL/L (98-107); CHOLESTEROL 146 MG/DL (< 200); CREATININE 1.2 MG/DL (0.55-1.30); FERRITIN 819 NG/ML (8-388); HDL CHOLESTEROL 62 MG/DL (40-60); POTASSIUM 4.4 MMOL/L (3.5-5.1); SODIUM 127 MMOL/L (136-145); TRIGLYCERIDES 36 MG/DL (30-150)
[2018-04-06] MEDS: Heparin 5000 units/ml inj SUBQ SCH ×2 (09:45→21:06)
[2018-04-06] MEDS ORDERED: NaCl 3% 500ml 500 ML IV ONE (10:00)
[2018-04-06] MEDS ORDERED: Vancomycin 500mg/D5W 110ml IVPB SCH ×2 (11:00)
--- NOTE | 2018-04-06 11:14 | Consultation ---
History of Present Illness General Date patient seen: Apr 06, 2018 Chief Complaint: Upper Respiratory Illness Referring physician: dr Oro Reason for Consultation: full thickness wound eval and treat Present Illness HPI 87 y/o F with hx of Dm2, HTN,Dementia, OA, hypothyroidism, tobacco abuse, anemia , colon CA, COPD, CVA, s/p PEG, GERD, L foot and sacral decub ulcer, SNF resident presents to ED on 04/05 with SOB, congestion and productive cough for 2 days. Upon admission noticed to be hyponatremic, CXR with infiltrate. No fever, n/v. Allergies: Coded Allergies: AMOXICILLIN (Verified Allergy, Severe, SEVERE ICTHING /RASHES, 09/17/08) PENICILLINS (Verified Allergy, Intermediate, Itching, 06/21/13) Medication History Scheduled Alendronate Sodium* (Fosamax*), 70 MG ORAL ONCE A WEEK, (Reported) Amino Acids/Protein Hydrolys (Pro-Stat Renal Care Liquid Pkt), 30 ML PO DAILY, ( Reported) Amlodipine Besylate (Norvasc), 10 MG ORAL DAILY, (Reported) Arginine/Ascorbate Sod/Devang AC (Arginaid Powder), 1 EACH PO BID, (Reported) Aspirin (Aspirin EC), 81 MG ORAL BID, (Reported) Atorvastatin Calcium* (Lipitor*), 10 MG ORAL BEDTIME, (Reported) Bimatoprost (Lumigan), 1 DROP BOTH EYES DAILY, (Reported) Cefepime Hcl/D5w (Cefepime-Dextrose 1 Gm/50 Ml), 1 GM IVPB Q24H, (Reported) Cholecalciferol (Vitamin D3) (Vitamin D3), 1,000 UNIT PO BID, (Reported) Collagenase Clostridium Hist. (Collagenase), 250 UNIT TOPIC DAILY, (Reported) Docusate Sodium* (Docusate Sodium*), 100 MG ORAL THREE TIMES A DAY, (Reported) Enoxaparin* (Lovenox*), 40 MG SUBQ DAILY, (Reported) Famotidine (Famotidine), 20 MG GT TWICE A DAY, (Reported) Furosemide* (Lasix*), 20 MG ORAL DAILY, (Reported) Insulin Aspart* (Novolog*), 0 SUBQ Q6HR, (Reported) Ipratropium/Albuterol Sulfate (DuoNeb 0.5-3(2.5)mg/3ml), 3 ML HHN Q4HR, ( Reported) Levothyroxine Sodium* (Levothyroxine Sodium*), 112 MCG ORAL DAILY, (Reported) Lisinopril* (Zestril*), 10 MG ORAL BID, (Reported) Nitrofurantoin Macrocrystal (Macrodantin), 100 MG ORAL DAILY, (Reported) Omeprazole (Prilosec), 20 MG ORAL DAILY, (Reported) Oxandrolone (Oxandrolone), 2.5 MG PO BID, (Reported) Pregabalin (Lyrica), 25 MG ORAL THREE TIMES A DAY, (Reported) Ranitidine Hcl* (Zantac*), 150 MG ORAL QHS, (Reported) Sulfamethoxazole/Trimethoprim (Bactrim 400-80 Mg Tablet*), 2 TAB GT TWICE A DAY, (Reported) [sodium chloride], 1 GM GT BID, (Reported) Scheduled PRN Acetaminophen* (Acetaminophen 325MG Tablet*), 650 MG ORAL Q6H PRN for Pain Scale (6-10), (Reported) Albuterol Sulfate* (Albuterol Sulfate Hhn*), 3 ML INH Q4H PRN for Shortness of Breath, (Reported) Diphenhydramine Hcl (Diphenhydramine Hcl), 50 MG ORAL BEDTIME PRN for Itching, ( Reported) Guaifenesin/Codeine Phos* (Robitussin Ac*), 1 TSP GT Q8HR PRN for For Cough, ( Reported) Hydrocodone Bit/Acetaminophen 5-325* ([place] 5-325*), 1 TAB ORAL Q6H PRN for For Pain Lorazepam* (Lorazepam*), 0.5 MG ORAL Q6HR PRN for For Anxiety, (Reported) Polyethylene Glycol 3350* (Miralax*), 17 GM ORAL DAILY PRN for Constipation, ( Reported) Miscellaneous Medications Gentamicin Sulfate (Gentamicin Sulfate*), 0.1 % TOPIC, (Reported) Multivitamin (Multi-Vitamin Daily), 1 EACH PO, (Reported) Patient History Healthcare decision maker Resuscitation status Full Code Advanced Directive on File No Patient History Narrative Pmhx: as above Shx: prior hx of smoking Fhx: non contributory Review of Systems All Other Systems: negative except mentioned in HPI Physical Exam Physical Exam Narrative GENERAL: Slight short of breath in the ER, disoriented x3, no acute distress. CARDIOVASCULAR: No murmurs. LUNGS: Poor exchange. Slight congested. Wheezing bilaterally. ABDOMEN: Bowel sounds positive. Nontender. Nondistended. EXTREMITIES: No cyanosis, clubbing, or edema. Left ankle dressing clean and dry. SKin: L foot lateral ankle superifical ulcer with crust no active signs of infection Stage IV sacral decub with macerated skin borders, beefy red center, no foul smelling or active drainage. NEUROLOGIC: The patient moves all extremities, slightly weak. Last 24 Hour Vital Signs Date Time Temp Pulse Resp B/P (MAP) Pulse Ox O2 Delivery O2 Flow Rate FiO2 04/06/18 09:43 94 135/84 04/06/18 09:00 Nasal Cannula 2.0 04/06/18 08:00 97.5 89 20 123/59 (80) 90 97.5 04/06/18 07:55 78 04/06/18 04:56 94 18 100 Nasal Cannula 2.0 28 04/06/18 04:47 92 18 100 Nasal Cannula 2.0 28 04/06/18 04:00 98.4 55 18 135/84 (101) 99 98.4 04/06/18 04:00 77 04/06/18 00:00 98.4 92 16 123/79 (94) 94 98.4 04/06/18 00:00 85 04/05/18 23:13 98 18 100 Nasal Cannula 2.0 28 04/05/18 22:56 89 18 100 Nasal Cannula 2.0 28 04/05/18 21:00 Nasal Cannula 2.0 04/05/18 20:00 98.1 89 17 120/81 (94) 94 98.1 04/05/18 20:00 90 04/05/18 16:29 97.7 04/05/18 16:00 78 04/05/18 16:00 97.7 95 20 125/84 (98) 100 97.7 04/05/18 13:58 97.7 04/05/18 13:45 Nasal Cannula 2.0 Intake and Output 04/05/18 04/06/18 19:00 07:00 Intake Total 1000 ml 1600 ml Output Total 520 ml 300 ml Balance 480 ml 1300 ml Intake Oral 500 ml Free Water 140 ml IV Total 500 ml 1100 ml Tube Feeding 360 ml Output Urine Total 520 ml 300 ml # Voids 1 # Bowel Movements 3 Laboratory Tests Test 04/06/18 06:00 White Blood Count 10.9 K/UL (4.8-10.8) #H Red Blood Count 3.04 M/UL (4.20-5.40) L Hemoglobin 8.9 G/DL (12.0-16.0) L Hematocrit 25.9 % (37.0-47.0) L Mean Corpuscular Volume 85 FL (80-99) Mean Corpuscular Hemoglobin 29.3 PG (27.0-31.0) Mean Corpuscular Hemoglobin Concent 34.2 G/DL (32.0-36.0) Red Cell Distribution Width 15.0 % (11.6-14.8) H Platelet Count 254 K/UL (150-450) Mean Platelet Volume 6.6 FL (6.5-10.1) Neutrophils (%) (Auto) % (45.0-75.0) Lymphocytes (%) (Auto) % (20.0-45.0) Monocytes (%) (Auto) % (1.0-10.0) Eosinophils (%) (Auto) % (0.0-3.0) Basophils (%) (Auto) % (0.0-2.0) Differential Total Cells Counted 100 Neutrophils % (Manual) 88 % (45-75) H Lymphocytes % (Manual) 7 % (20-45) L Monocytes % (Manual) 5 % (1-10) Eosinophils % (Manual) 0 % (0-3) Basophils % (Manual) 0 % (0-2) Band Neutrophils 0 % (0-8) Platelet Estimate Adequate Platelet Morphology Normal Anisocytosis 1+ Sodium Level 127 MMOL/L (136-145) L Potassium Level 4.4 MMOL/L (3.5-5.1) Chloride Level 94 MMOL/L (98-107) L Carbon Dioxide Level 24 MMOL/L (21-32) Anion Gap 9 mmol/L (5-15) Blood Urea Nitrogen 27 mg/dL (7-18) H Creatinine 1.2 MG/DL (0.55-1.30) Estimat Glomerular Filtration Rate mL/min (>60) Glucose Level 140 MG/DL (74-106) H Osmolality 273 mOsm/kg (297-317) L Uric Acid 3.4 MG/DL (2.6-7.2) Calcium Level 8.2 MG/DL (8.5-10.1) L Phosphorus Level 3.8 MG/DL (2.5-4.9) Magnesium Level 2.1 MG/DL (1.8-2.4) Ferritin 819 NG/ML (8-388) H Total Bilirubin 0.3 MG/DL (0.2-1.0) Gamma Glutamyl Transpeptidase 69 U/L (5-85) Aspartate Amino Transf (AST/SGOT) 69 U/L (15-37) H Alanine Aminotransferase (ALT/SGPT) 86 U/L (12-78) H Alkaline Phosphatase 76 U/L (46-116) Troponin I 0.009 ng/mL (0.000-0.056) Pro-B-Type Natriuretic Peptide 3406 pg/mL (0-125) H Total Protein 7.9 G/DL (6.4-8.2) Albumin 2.5 G/DL (3.4-5.0) L Globulin 5.4 g/dL Albumin/Globulin Ratio 0.5 (1.0-2.7) L Triglycerides Level 36 MG/DL (30-150) Cholesterol Level 146 MG/DL (< 200) LDL Cholesterol 78 mg/dL (<100) HDL Cholesterol 62 MG/DL (40-60) H Cholesterol/HDL Ratio 2.4 (3.3-4.4) L Vitamin B12 Level 809 PG/ML (193-986) Folate 19.4 NG/ML (8.6-58.9) Height (Feet): 5 Height (Inches): 4.00 Weight (Pounds): 130 Medications Current Medications Medications (Trade) Dose Ordered Sig/Orin Route PRN Reason Start Time Stop Time Status Last Admin Dose Admin Acetaminophen (Tylenol) 650 mg Q4H PRN ORAL T>100.5 04/05/18 09:15 05/05/18 09:14 Albuterol/ Ipratropium (Albuterol/ Ipratropium) 3 ml Q4H PRN HHN Shortness of Breath 04/05/18 09:15 04/10/18 09:14 04/06/18 04:47 Amlodipine Besylate (Norvasc) 10 mg DAILY GT 04/06/18 09:00 05/06/18 08:59 10/1/18 09:43 Aztreonam 1 gm/ Sodium Chloride 50 ml @ 100 mls/hr EVERY 8 HOURS IVPB 04/05/18 14:00 04/12/18 13:59 04/06/18 05:15 Dextrose (Dextrose 50%) 25 ml Q30M PRN IV Hypoglycemia 04/05/18 09:30 05/05/18 09:18 Dextrose (Dextrose 50%) 50 ml Q30M PRN IV hypoglycemia 04/05/18 09:30 05/05/18 09:29 Famotidine (Pepcid I.v.) 20 mg Q12HR IVP 04/05/18 21:00 05/05/18 20:59 04/05/18 21:21 Furosemide (Lasix) 10 mg EVERY 8 HOURS IV 04/06/18 14:00 05/06/18 13:59 Heparin Sodium (Porcine) (Heparin 5000 units/ml) 5,000 units EVERY 12 HOURS SUBQ 04/05/18 21:00 05/05/18 20:59 04/06/18 09:45 Insulin Aspart (NovoLOG) EVERY 6 HOURS SUBQ 04/05/18 18:00 05/05/18 17:59 04/06/18 05:20 Levothyroxine Sodium (Synthroid) 50 mcg DAILY IV 04/05/18 13:30 05/05/18 13:29 04/06/18 09:43 Morphine Sulfate (Morphine Sulfate) 2 mg Q4H PRN IVP PAIN 4-10 04/05/18 09:15 04/12/18 09:14 Nitroglycerin (Ntg) 0.4 mg Q5MIN X 3 DOSES PRN SL Prn Chest Pain 04/05/18 09:30 05/05/18 09:29 Ondansetron HCl (Zofran) 4 mg Q6H PRN IVP Nausea & Vomiting 04/05/18 09:15 05/05/18 09:14 Polyethylene Glycol (Miralax) 17 gm DAILYPRN PRN ORAL Constipation 04/05/18 09:15 05/05/18 09:14 Pregabalin (Lyrica) 25 mg Q8HR ORAL 04/05/18 14:00 05/05/18 13:59 04/06/18 05:14 Sodium Chloride 500 ml @ 30 mls/hr ONCE ONCE IV 04/06/18 10:00 04/07/18 02:39 04/06/18 10:20 Temazepam (Restoril) 15 mg HSPRN PRN ORAL Insomnia 04/05/18 21:00 04/12/18 20:59 Vancomycin HCl (Vanco rx to dose) 1 ea DAILY PRN MISC . 04/05/18 09:45 05/05/18 09:44 Vancomycin HCl 500 mg/Dextrose 110 ml @ 110 mls/hr Q24H IVPB 04/06/18 11:00 04/11/18 10:59 Assessment/Plan Assessment/Plan Abx: Levaquin x1 04/05 IV Vanco 04/05- Aztreonam 04/05- Assessment: Sepsis 2ry to PNA -CXR: Interval improved aeration of the left mid and lower lung.. Mildly increased interstitial markings. This is likely related to chronic senescent changes although differential diagnosis may also include mild bronchitis or interstitial pneumonitis. Afebrile Mild leukocytosis (S/p high dose steroids) RITA Hyponatremia Elevated LFTs, improving L foot (superficial) and sacral decub ulcer (stage IV) -sacral wound: no active drainage. no foul odor. no tunneling. ; no signs of active ifnection Dm2 HTN Dementia OA hypothyroidism tobacco abuse anemia hx of colon CA COPD CVA s/p PEG GERD SNF resident Plan: -Continue empiric IV Vancomycin and Aztreonam #2 pending cultures -sp cx, legionella ag urine -f/u cx -Monitor CBC/CMP, temperatures -wound care per hosp protocol -Sx, renal f/u Thank you for this consultation. Will continue to follow along with you. Discussed with Mary Hooks M.D. Apr 06, 2018 11:14
--- NOTE | 2018-04-06 11:28 | General Progress Note ---
Assessment/Plan Problem List: (1) COPD (chronic obstructive pulmonary disease) ICD Codes: J44.9 - COPD (chronic obstructive pulmonary disease) SNOMED: 09900488 Qualifiers: Qualified Codes: J44.9 - Chronic obstructive pulmonary disease, unspecified (2) Hyponatremia ICD Codes: E87.1 - Hypo-osmolality and hyponatremia SNOMED: 12839797 (3) Anemia ICD Codes: D64.9 - Anemia, unspecified SNOMED: 730523780 (4) Confusion ICD Codes: R41.0 - Disorientation, unspecified SNOMED: 881763485 (5) Diabetes ICD Codes: E11.9 - Type 2 diabetes mellitus without complications SNOMED: 09673609 (6) Aspiration pneumonia ICD Codes: J69.0 - Pneumonitis due to inhalation of food and vomit SNOMED: 184763826 (7) Weak ICD Codes: R53.1 - Weakness SNOMED: 23523895 (8) Sepsis ICD Codes: A41.9 - Sepsis, unspecified organism SNOMED: 79064444 (9) ATN (acute tubular necrosis) ICD Codes: N17.0 - Acute kidney failure with tubular necrosis SNOMED: 66708008 (10) OA (osteoarthritis) ICD Codes: M19.90 - OA (osteoarthritis) SNOMED: 777626848 Status: unchanged Assessment/Plan ot pt diet o2 pulm tx abx cbc bmp am Subjective Constitutional: Reports: weakness Allergies: Coded Allergies: AMOXICILLIN (Verified Allergy, Severe, SEVERE ICTHING /RASHES, 09/17/08) PENICILLINS (Verified Allergy, Intermediate, Itching, 06/21/13) All Systems: reviewed and negative except above Subjective o2nc confused Objective Last 24 Hour Vital Signs Date Time Temp Pulse Resp B/P (MAP) Pulse Ox O2 Delivery O2 Flow Rate FiO2 04/06/18 09:43 94 135/84 04/06/18 09:00 Nasal Cannula 2.0 04/06/18 08:00 97.5 89 20 123/59 (80) 90 97.5 04/06/18 07:55 78 04/06/18 04:56 94 18 100 Nasal Cannula 2.0 28 04/06/18 04:47 92 18 100 Nasal Cannula 2.0 28 04/06/18 04:00 98.4 55 18 135/84 (101) 99 98.4 04/06/18 04:00 77 10/1/18 00:00 98.4 92 16 123/79 (94) 94 98.4 04/06/18 00:00 85 04/05/18 23:13 98 18 100 Nasal Cannula 2.0 28 04/05/18 22:56 89 18 100 Nasal Cannula 2.0 28 04/05/18 21:00 Nasal Cannula 2.0 04/05/18 20:00 98.1 89 17 120/81 (94) 94 98.1 04/05/18 20:00 90 04/05/18 16:29 97.7 04/05/18 16:00 78 04/05/18 16:00 97.7 95 20 125/84 (98) 100 97.7 04/05/18 13:58 97.7 04/05/18 13:45 Nasal Cannula 2.0 Intake and Output 04/05/18 04/06/18 19:00 07:00 Intake Total 1000 ml 1600 ml Output Total 520 ml 300 ml Balance 480 ml 1300 ml Intake Oral 500 ml Free Water 140 ml IV Total 500 ml 1100 ml Tube Feeding 360 ml Output Urine Total 520 ml 300 ml # Voids 1 # Bowel Movements 3 Laboratory Tests 04/06/18 06:00: White Blood Count 10.9#H, Red Blood Count 3.04L, Hemoglobin 8.9L, Hematocrit 25.9L, Mean Corpuscular Volume 85, Mean Corpuscular Hemoglobin 29.3, Mean Corpuscular Hemoglobin Concent 34.2, Red Cell Distribution Width 15.0H, Platelet Count 254, Mean Platelet Volume 6.6, Neutrophils (%) (Auto) , Lymphocytes (%) (Auto) , Monocytes (%) (Auto) , Eosinophils (%) (Auto) , Basophils (%) (Auto) , Differential Total Cells Counted 100, Neutrophils % ( Manual) 88H, Lymphocytes % (Manual) 7L, Monocytes % (Manual) 5, Eosinophils % ( Manual) 0, Basophils % (Manual) 0, Band Neutrophils 0, Platelet Estimate Adequate, Platelet Morphology Normal, Anisocytosis 1+, Sodium Level 127L, Potassium Level 4.4, Chloride Level 94L, Carbon Dioxide Level 24, Anion Gap 9, Blood Urea Nitrogen 27H, Creatinine 1.2, Estimat Glomerular Filtration Rate , Glucose Level 140H, Osmolality 273L, Uric Acid 3.4, Calcium Level 8.2L, Phosphorus Level 3.8, Magnesium Level 2.1, Ferritin 819H, Total Bilirubin 0.3, Gamma Glutamyl Transpeptidase 69, Aspartate Amino Transf (AST/SGOT) 69H, Alanine Aminotransferase (ALT/SGPT) 86H, Alkaline Phosphatase 76, Troponin I 0.009, Pro-B-Type Natriuretic Peptide 3406H, Total Protein 7.9, Albumin 2.5L, Globulin 5.4, Albumin/Globulin Ratio 0.5L, Triglycerides Level 36, Cholesterol Level 146, LDL Cholesterol 78, HDL Cholesterol 62H, Cholesterol/HDL Ratio 2.4L, Vitamin B12 Level 809, Folate 19.4 Height (Feet): 5 Height (Inches): 4.00 Weight (Pounds): 130 General Appearance: lethargic, confused EENT: normal ENT inspection Neck: normal alignment Cardiovascular: normal peripheral pulses, normal rate, regular rhythm Respiratory/Chest: chest wall non-tender, decreased breath sounds Abdomen: normal bowel sounds, non tender, soft Extremities: normal inspection Edema: no edema noted Arm (L), no edema noted Arm (R), no edema noted Leg (L), no edema noted Leg (R), no edema noted Pedal (L), no edema noted Pedal (R), no edema noted Generalized Neurologic: motor weakness Skin: normal pigmentation, warm/dry Mark Oro DO Apr 06, 2018 11:28
--- NOTE | 2018-04-06 11:50 | Pulmonology Progress Note ---
Assessment/Plan Problems: (1) Sepsis (2) Aspiration pneumonia (3) COPD (chronic obstructive pulmonary disease) (4) Anemia (5) Feeding by G-tube (6) Limited mobility in bed (7) Decubitus ulcer of sacral region, stage 4 Assessment/Plan respiratory treatment check sputum continue abx wound care surgical evaluation anemia w/u. Subjective ROS Limited/Unobtainable: Yes Constitutional: Reports: no symptoms HEENT: Repors: no symptoms Allergies: Coded Allergies: AMOXICILLIN (Verified Allergy, Severe, SEVERE ICTHING /RASHES, 09/17/08) PENICILLINS (Verified Allergy, Intermediate, Itching, 06/21/13) Objective Last 24 Hour Vital Signs Date Time Temp Pulse Resp B/P (MAP) Pulse Ox O2 Delivery O2 Flow Rate FiO2 04/06/18 09:43 94 135/84 04/06/18 09:00 Nasal Cannula 2.0 04/06/18 08:00 97.5 89 20 123/59 (80) 90 97.5 04/06/18 07:55 78 04/06/18 04:56 94 18 100 Nasal Cannula 2.0 28 04/06/18 04:47 92 18 100 Nasal Cannula 2.0 28 04/06/18 04:00 98.4 55 18 135/84 (101) 99 98.4 04/06/18 04:00 77 04/06/18 00:00 98.4 92 16 123/79 (94) 94 98.4 04/06/18 00:00 85 04/05/18 23:13 98 18 100 Nasal Cannula 2.0 28 04/05/18 22:56 89 18 100 Nasal Cannula 2.0 28 04/05/18 21:00 Nasal Cannula 2.0 04/05/18 20:00 98.1 89 17 120/81 (94) 94 98.1 04/05/18 20:00 90 04/05/18 16:29 97.7 04/05/18 16:00 78 04/05/18 16:00 97.7 95 20 125/84 (98) 100 97.7 04/05/18 13:58 97.7 04/05/18 13:45 Nasal Cannula 2.0 Intake and Output 04/05/18 04/06/18 19:00 07:00 Intake Total 1000 ml 1600 ml Output Total 520 ml 300 ml Balance 480 ml 1300 ml Intake Oral 500 ml Free Water 140 ml IV Total 500 ml 1100 ml Tube Feeding 360 ml Output Urine Total 520 ml 300 ml # Voids 1 # Bowel Movements 3 General Appearance: cachetic HEENT: normocephalic, atraumatic Respiratory/Chest: chest wall non-tender, lungs clear Breasts: no masses Cardiovascular: normal peripheral pulses, normal rate Abdomen: normal bowel sounds, soft, non tender Genitourinary: normal external genitalia Extremities: no cyanosis 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 Laboratory Tests 04/06/18 06:00: White Blood Count 10.9#H, Red Blood Count 3.04L, Hemoglobin 8.9L, Hematocrit 25.9L, Mean Corpuscular Volume 85, Mean Corpuscular Hemoglobin 29.3, Mean Corpuscular Hemoglobin Concent 34.2, Red Cell Distribution Width 15.0H, Platelet Count 254, Mean Platelet Volume 6.6, Neutrophils (%) (Auto) , Lymphocytes (%) (Auto) , Monocytes (%) (Auto) , Eosinophils (%) (Auto) , Basophils (%) (Auto) , Differential Total Cells Counted 100, Neutrophils % ( Manual) 88H, Lymphocytes % (Manual) 7L, Monocytes % (Manual) 5, Eosinophils % ( Manual) 0, Basophils % (Manual) 0, Band Neutrophils 0, Platelet Estimate Adequate, Platelet Morphology Normal, Anisocytosis 1+, Sodium Level 127L, Potassium Level 4.4, Chloride Level 94L, Carbon Dioxide Level 24, Anion Gap 9, Blood Urea Nitrogen 27H, Creatinine 1.2, Estimat Glomerular Filtration Rate , Glucose Level 140H, Osmolality 273L, Uric Acid 3.4, Calcium Level 8.2L, Phosphorus Level 3.8, Magnesium Level 2.1, Ferritin 819H, Total Bilirubin 0.3, Gamma Glutamyl Transpeptidase 69, Aspartate Amino Transf (AST/SGOT) 69H, Alanine Aminotransferase (ALT/SGPT) 86H, Alkaline Phosphatase 76, Troponin I 0.009, Pro-B-Type Natriuretic Peptide 3406H, Total Protein 7.9, Albumin 2.5L, Globulin 5.4, Albumin/Globulin Ratio 0.5L, Triglycerides Level 36, Cholesterol Level 146, LDL Cholesterol 78, HDL Cholesterol 62H, Cholesterol/HDL Ratio 2.4L, Vitamin B12 Level 809, Folate 19.4 Current Medications Medications (Trade) Dose Ordered Sig/Orin Route PRN Reason Start Time Stop Time Status Last Admin Dose Admin Acetaminophen (Tylenol) 650 mg Q4H PRN ORAL T>100.5 04/05/18 09:15 05/05/18 09:14 Albuterol/ Ipratropium (Albuterol/ Ipratropium) 3 ml Q4H PRN HHN Shortness of Breath 04/05/18 09:15 04/10/18 09:14 04/06/18 04:47 Amlodipine Besylate (Norvasc) 10 mg DAILY GT 04/06/18 09:00 05/06/18 08:59 04/06/18 09:43 Aztreonam 1 gm/ Sodium Chloride 50 ml @ 100 mls/hr EVERY 8 HOURS IVPB 04/05/18 14:00 04/12/18 13:59 04/06/18 05:15 Dextrose (Dextrose 50%) 25 ml Q30M PRN IV Hypoglycemia 04/05/18 09:30 05/05/18 09:18 Dextrose (Dextrose 50%) 50 ml Q30M PRN IV hypoglycemia 04/05/18 09:30 05/05/18 09:29 Famotidine (Pepcid I.v.) 20 mg Q12HR IVP 04/05/18 21:00 05/05/18 20:59 04/05/18 21:21 Furosemide (Lasix) 10 mg EVERY 8 HOURS IV 04/06/18 14:00 05/06/18 13:59 Heparin Sodium (Porcine) (Heparin 5000 units/ml) 5,000 units EVERY 12 HOURS SUBQ 04/05/18 21:00 05/05/18 20:59 04/06/18 09:45 Insulin Aspart (NovoLOG) EVERY 6 HOURS SUBQ 04/05/18 18:00 05/05/18 17:59 04/06/18 11:34 Levothyroxine Sodium (Synthroid) 50 mcg DAILY IV 04/05/18 13:30 05/05/18 13:29 04/06/18 09:43 Morphine Sulfate (Morphine Sulfate) 2 mg Q4H PRN IVP PAIN 4-10 04/05/18 09:15 04/12/18 09:14 Nitroglycerin (Ntg) 0.4 mg Q5MIN X 3 DOSES PRN SL Prn Chest Pain 04/05/18 09:30 05/05/18 09:29 Ondansetron HCl (Zofran) 4 mg Q6H PRN IVP Nausea & Vomiting 04/05/18 09:15 05/05/18 09:14 Polyethylene Glycol (Miralax) 17 gm DAILYPRN PRN ORAL Constipation 04/05/18 09:15 05/05/18 09:14 Pregabalin (Lyrica) 25 mg Q8HR ORAL 04/05/18 14:00 05/05/18 13:59 04/06/18 05:14 Sodium Chloride 500 ml @ 30 mls/hr ONCE ONCE IV 04/06/18 10:00 04/07/18 02:39 04/06/18 10:20 Temazepam (Restoril) 15 mg HSPRN PRN ORAL Insomnia 04/05/18 21:00 04/12/18 20:59 Vancomycin HCl (Vanco rx to dose) 1 ea DAILY PRN MISC . 04/05/18 09:45 05/05/18 09:44 Vancomycin HCl 500 mg/Dextrose 110 ml @ 110 mls/hr Q24H IVPB 04/06/18 11:00 04/11/18 10:59 04/06/18 11:03 Betsy Hope MD Apr 06, 2018 11:50
--- NOTE | 2018-04-06 12:08 | General Surgery Progress Note ---
General Surgery-Progress Note Subjective Additional Comments no acute events. leukocytosis. Objective Last 24 Hour Vital Signs Date Time Temp Pulse Resp B/P (MAP) Pulse Ox O2 Delivery O2 Flow Rate FiO2 04/06/18 09:43 94 135/84 04/06/18 09:00 Nasal Cannula 2.0 04/06/18 08:00 97.5 89 20 123/59 (80) 90 97.5 04/06/18 07:55 78 04/06/18 04:56 94 18 100 Nasal Cannula 2.0 28 04/06/18 04:47 92 18 100 Nasal Cannula 2.0 28 04/06/18 04:00 98.4 55 18 135/84 (101) 99 98.4 04/06/18 04:00 77 04/06/18 00:00 98.4 92 16 123/79 (94) 94 98.4 04/06/18 00:00 85 04/05/18 23:13 98 18 100 Nasal Cannula 2.0 28 04/05/18 22:56 89 18 100 Nasal Cannula 2.0 28 04/05/18 21:00 Nasal Cannula 2.0 04/05/18 20:00 98.1 89 17 120/81 (94) 94 98.1 04/05/18 20:00 90 04/05/18 16:29 97.7 04/05/18 16:00 78 04/05/18 16:00 97.7 95 20 125/84 (98) 100 97.7 04/05/18 13:58 97.7 04/05/18 13:45 Nasal Cannula 2.0 I&O Intake and Output 04/05/18 04/06/18 19:00 07:00 Intake Total 1000 ml 1600 ml Output Total 520 ml 300 ml Balance 480 ml 1300 ml Intake Oral 500 ml Free Water 140 ml IV Total 500 ml 1100 ml Tube Feeding 360 ml Output Urine Total 520 ml 300 ml # Voids 1 # Bowel Movements 3 Dressing: saturated Wound: clean, other Drains: other Cardiovascular: RSR Respiratory: clear Abdomen: soft, flat, present bowel sounds Extremities: other Laboratory Tests Test 04/06/18 06:00 White Blood Count 10.9 K/UL (4.8-10.8) #H Red Blood Count 3.04 M/UL (4.20-5.40) L Hemoglobin 8.9 G/DL (12.0-16.0) L Hematocrit 25.9 % (37.0-47.0) L Mean Corpuscular Volume 85 FL (80-99) Mean Corpuscular Hemoglobin 29.3 PG (27.0-31.0) Mean Corpuscular Hemoglobin Concent 34.2 G/DL (32.0-36.0) Red Cell Distribution Width 15.0 % (11.6-14.8) H Platelet Count 254 K/UL (150-450) Mean Platelet Volume 6.6 FL (6.5-10.1) Neutrophils (%) (Auto) % (45.0-75.0) Lymphocytes (%) (Auto) % (20.0-45.0) Monocytes (%) (Auto) % (1.0-10.0) Eosinophils (%) (Auto) % (0.0-3.0) Basophils (%) (Auto) % (0.0-2.0) Differential Total Cells Counted 100 Neutrophils % (Manual) 88 % (45-75) H Lymphocytes % (Manual) 7 % (20-45) L Monocytes % (Manual) 5 % (1-10) Eosinophils % (Manual) 0 % (0-3) Basophils % (Manual) 0 % (0-2) Band Neutrophils 0 % (0-8) Platelet Estimate Adequate Platelet Morphology Normal Anisocytosis 1+ Sodium Level 127 MMOL/L (136-145) L Potassium Level 4.4 MMOL/L (3.5-5.1) Chloride Level 94 MMOL/L (98-107) L Carbon Dioxide Level 24 MMOL/L (21-32) Anion Gap 9 mmol/L (5-15) Blood Urea Nitrogen 27 mg/dL (7-18) H Creatinine 1.2 MG/DL (0.55-1.30) Estimat Glomerular Filtration Rate mL/min (>60) Glucose Level 140 MG/DL (74-106) H Osmolality 273 mOsm/kg (297-317) L Uric Acid 3.4 MG/DL (2.6-7.2) Calcium Level 8.2 MG/DL (8.5-10.1) L Phosphorus Level 3.8 MG/DL (2.5-4.9) Magnesium Level 2.1 MG/DL (1.8-2.4) Ferritin 819 NG/ML (8-388) H Total Bilirubin 0.3 MG/DL (0.2-1.0) Gamma Glutamyl Transpeptidase 69 U/L (5-85) Aspartate Amino Transf (AST/SGOT) 69 U/L (15-37) H Alanine Aminotransferase (ALT/SGPT) 86 U/L (12-78) H Alkaline Phosphatase 76 U/L (46-116) Troponin I 0.009 ng/mL (0.000-0.056) Pro-B-Type Natriuretic Peptide 3406 pg/mL (0-125) H Total Protein 7.9 G/DL (6.4-8.2) Albumin 2.5 G/DL (3.4-5.0) L Globulin 5.4 g/dL Albumin/Globulin Ratio 0.5 (1.0-2.7) L Triglycerides Level 36 MG/DL (30-150) Cholesterol Level 146 MG/DL (< 200) LDL Cholesterol 78 mg/dL (<100) HDL Cholesterol 62 MG/DL (40-60) H Cholesterol/HDL Ratio 2.4 (3.3-4.4) L Vitamin B12 Level 809 PG/ML (193-986) Folate 19.4 NG/ML (8.6-58.9) Plan Problems: (1) Decubitus ulcer of sacral region, stage 4 Assessment & Plan: Stage IV full thickness pressure decubitus ulcer noted to sacrum approximately 5x6cm. wound moist and bed beefy red with, noted macerated borders, Rita-injury skin with dark discoloration without induration. no active drainage. no foul odor. wound present upon admission. patient seen prior during last admission and wound has become a bit larger and is slowly tunneling superior. will continue to care for patient and wound during admission. Tx plan: Cleanse wound with saline. Apply Silvasorb gel to wound .Apply Moist Barrier wipe to macerated borders and periwound .Cover with foam drsg daily and prn. Turn side to side at least every 2hours as tolerated . Off-load heels with pillow. heel protectors pressure release mattress Joo Herrera Apr 06, 2018 12:08
--- NOTE | 2018-04-06 12:23 | Cardiac Electrophysiology PN ---
Subjective Subjective Dictated [id number] Objective Last 24 Hour Vital Signs Date Time Temp Pulse Resp B/P (MAP) Pulse Ox O2 Delivery O2 Flow Rate FiO2 04/06/18 12:00 97.9 88 20 137/77 (97) 100 97.9 04/06/18 09:43 94 135/84 04/06/18 09:00 Nasal Cannula 2.0 04/06/18 08:00 97.5 89 20 123/59 (80) 90 97.5 04/06/18 07:55 78 04/06/18 04:56 94 18 100 Nasal Cannula 2.0 28 04/06/18 04:47 92 18 100 Nasal Cannula 2.0 28 04/06/18 04:00 98.4 55 18 135/84 (101) 99 98.4 04/06/18 04:00 77 04/06/18 00:00 98.4 92 16 123/79 (94) 94 98.4 04/06/18 00:00 85 04/05/18 23:13 98 18 100 Nasal Cannula 2.0 28 04/05/18 22:56 89 18 100 Nasal Cannula 2.0 28 04/05/18 21:00 Nasal Cannula 2.0 04/05/18 20:00 98.1 89 17 120/81 (94) 94 98.1 04/05/18 20:00 90 04/05/18 16:29 97.7 04/05/18 16:00 78 04/05/18 16:00 97.7 95 20 125/84 (98) 100 97.7 04/05/18 13:58 97.7 04/05/18 13:45 Nasal Cannula 2.0 Intake and Output 04/05/18 04/06/18 19:00 07:00 Intake Total 1000 ml 1600 ml Output Total 520 ml 300 ml Balance 480 ml 1300 ml Intake Oral 500 ml Free Water 140 ml IV Total 500 ml 1100 ml Tube Feeding 360 ml Output Urine Total 520 ml 300 ml # Voids 1 # Bowel Movements 3 Laboratory Tests Test 04/06/18 06:00 White Blood Count 10.9 K/UL (4.8-10.8) #H Red Blood Count 3.04 M/UL (4.20-5.40) L Hemoglobin 8.9 G/DL (12.0-16.0) L Hematocrit 25.9 % (37.0-47.0) L Mean Corpuscular Volume 85 FL (80-99) Mean Corpuscular Hemoglobin 29.3 PG (27.0-31.0) Mean Corpuscular Hemoglobin Concent 34.2 G/DL (32.0-36.0) Red Cell Distribution Width 15.0 % (11.6-14.8) H Platelet Count 254 K/UL (150-450) Mean Platelet Volume 6.6 FL (6.5-10.1) Neutrophils (%) (Auto) % (45.0-75.0) Lymphocytes (%) (Auto) % (20.0-45.0) Monocytes (%) (Auto) % (1.0-10.0) Eosinophils (%) (Auto) % (0.0-3.0) Basophils (%) (Auto) % (0.0-2.0) Differential Total Cells Counted 100 Neutrophils % (Manual) 88 % (45-75) H Lymphocytes % (Manual) 7 % (20-45) L Monocytes % (Manual) 5 % (1-10) Eosinophils % (Manual) 0 % (0-3) Basophils % (Manual) 0 % (0-2) Band Neutrophils 0 % (0-8) Platelet Estimate Adequate Platelet Morphology Normal Anisocytosis 1+ Sodium Level 127 MMOL/L (136-145) L Potassium Level 4.4 MMOL/L (3.5-5.1) Chloride Level 94 MMOL/L (98-107) L Carbon Dioxide Level 24 MMOL/L (21-32) Anion Gap 9 mmol/L (5-15) Blood Urea Nitrogen 27 mg/dL (7-18) H Creatinine 1.2 MG/DL (0.55-1.30) Estimat Glomerular Filtration Rate mL/min (>60) Glucose Level 140 MG/DL (74-106) H Osmolality 273 mOsm/kg (297-317) L Uric Acid 3.4 MG/DL (2.6-7.2) Calcium Level 8.2 MG/DL (8.5-10.1) L Phosphorus Level 3.8 MG/DL (2.5-4.9) Magnesium Level 2.1 MG/DL (1.8-2.4) Ferritin 819 NG/ML (8-388) H Total Bilirubin 0.3 MG/DL (0.2-1.0) Gamma Glutamyl Transpeptidase 69 U/L (5-85) Aspartate Amino Transf (AST/SGOT) 69 U/L (15-37) H Alanine Aminotransferase (ALT/SGPT) 86 U/L (12-78) H Alkaline Phosphatase 76 U/L (46-116) Troponin I 0.009 ng/mL (0.000-0.056) Pro-B-Type Natriuretic Peptide 3406 pg/mL (0-125) H Total Protein 7.9 G/DL (6.4-8.2) Albumin 2.5 G/DL (3.4-5.0) L Globulin 5.4 g/dL Albumin/Globulin Ratio 0.5 (1.0-2.7) L Triglycerides Level 36 MG/DL (30-150) Cholesterol Level 146 MG/DL (< 200) LDL Cholesterol 78 mg/dL (<100) HDL Cholesterol 62 MG/DL (40-60) H Cholesterol/HDL Ratio 2.4 (3.3-4.4) L Vitamin B12 Level 809 PG/ML (193-986) Folate 19.4 NG/ML (8.6-58.9) Cristofer Houser MD Apr 06, 2018 12:23
--- NOTE | 2018-04-06 12:41 | Nephrology Progress Note ---
Assessment/Plan Problem List: (1) Hyponatremia (2) Aspiration pneumonia (3) Hypothyroidism (4) PEG (percutaneous endoscopic gastrostomy) status Assessment HypoNatremia, Likely diuretic related and Depletional COPD exac. resp failure Hypothyroidism L foot and sacral decub, POA PNA ? Aspiration PEG DM h/o Long Smoking h/o Anemia h/o OA h/o Colon Ca h/o HTN Plan [place] Isotonic solution Low Na snyder antibiotics / pulm support IV Pepcid change synthroid to IV Per orders Subjective ROS Limited/Unobtainable: No Constitutional: Reports: malaise, weakness Objective Objective Last 24 Hour Vital Signs Date Time Temp Pulse Resp B/P (MAP) Pulse Ox O2 Delivery O2 Flow Rate FiO2 04/06/18 12:00 97.9 88 20 137/77 (97) 100 97.9 04/06/18 09:43 94 135/84 04/06/18 09:00 Nasal Cannula 2.0 04/06/18 08:00 97.5 89 20 123/59 (80) 90 97.5 04/06/18 07:55 78 04/06/18 04:56 94 18 100 Nasal Cannula 2.0 28 04/06/18 04:47 92 18 100 Nasal Cannula 2.0 28 04/06/18 04:00 98.4 55 18 135/84 (101) 99 98.4 04/06/18 04:00 77 04/06/18 00:00 98.4 92 16 123/79 (94) 94 98.4 04/06/18 00:00 85 04/05/18 23:13 98 18 100 Nasal Cannula 2.0 28 04/05/18 22:56 89 18 100 Nasal Cannula 2.0 28 04/05/18 21:00 Nasal Cannula 2.0 04/05/18 20:00 98.1 89 17 120/81 (94) 94 98.1 04/05/18 20:00 90 04/05/18 16:29 97.7 04/05/18 16:00 78 04/05/18 16:00 97.7 95 20 125/84 (98) 100 97.7 04/05/18 13:58 97.7 04/05/18 13:45 Nasal Cannula 2.0 Intake and Output 04/05/18 04/06/18 19:00 07:00 Intake Total 1000 ml 1600 ml Output Total 520 ml 300 ml Balance 480 ml 1300 ml Intake Oral 500 ml Free Water 140 ml IV Total 500 ml 1100 ml Tube Feeding 360 ml Output Urine Total 520 ml 300 ml # Voids 1 # Bowel Movements 3 Laboratory Tests 04/06/18 06:00: White Blood Count 10.9#H, Red Blood Count 3.04L, Hemoglobin 8.9L, Hematocrit 25.9L, Mean Corpuscular Volume 85, Mean Corpuscular Hemoglobin 29.3, Mean Corpuscular Hemoglobin Concent 34.2, Red Cell Distribution Width 15.0H, Platelet Count 254, Mean Platelet Volume 6.6, Neutrophils (%) (Auto) , Lymphocytes (%) (Auto) , Monocytes (%) (Auto) , Eosinophils (%) (Auto) , Basophils (%) (Auto) , Differential Total Cells Counted 100, Neutrophils % ( Manual) 88H, Lymphocytes % (Manual) 7L, Monocytes % (Manual) 5, Eosinophils % ( Manual) 0, Basophils % (Manual) 0, Band Neutrophils 0, Platelet Estimate Adequate, Platelet Morphology Normal, Anisocytosis 1+, Sodium Level 127L, Potassium Level 4.4, Chloride Level 94L, Carbon Dioxide Level 24, Anion Gap 9, Blood Urea Nitrogen 27H, Creatinine 1.2, Estimat Glomerular Filtration Rate , Glucose Level 140H, Osmolality 273L, Uric Acid 3.4, Calcium Level 8.2L, Phosphorus Level 3.8, Magnesium Level 2.1, Ferritin 819H, Total Bilirubin 0.3, Gamma Glutamyl Transpeptidase 69, Aspartate Amino Transf (AST/SGOT) 69H, Alanine Aminotransferase (ALT/SGPT) 86H, Alkaline Phosphatase 76, Troponin I 0.009, Pro-B-Type Natriuretic Peptide 3406H, Total Protein 7.9, Albumin 2.5L, Globulin 5.4, Albumin/Globulin Ratio 0.5L, Triglycerides Level 36, Cholesterol Level 146, LDL Cholesterol 78, HDL Cholesterol 62H, Cholesterol/HDL Ratio 2.4L, Vitamin B12 Level 809, Folate 19.4 Height (Feet): 5 Height (Inches): 4.00 Weight (Pounds): 130 General Appearance: lethargic Neck: limited range of motion Cardiovascular: tachycardia Respiratory/Chest: decreased breath sounds Abdomen: distended Objective no other change Zeb Jiang MD Apr 06, 2018 12:41
[2018-04-06] MEDS ORDERED: dilTIAZem HCl 30mg tab GT SCH (14:00)
--- NOTE | 2018-04-06 15:09 | Diagnostic Imaging Report ---
APPROVED REPORT CPT Code: 09479 Present Symptoms Lower Extremity Pain: BILATERAL: Imaging reveals a patent deep venous system bilaterally. There is no evidence of thrombus within the femoral, popliteal or tibial segments. The greater saphenous veins are also within normal limits. Doppler indicates normal spontaneous flow within these segments.
[2018-04-06] MEDS ORDERED: Nitroglycerin Subl 0.4mg tab SL PRN (16:00)
[2018-04-06] MEDS ORDERED: Miralax 17gm pkt ORAL PRN (16:00)
[2018-04-06] MEDS ORDERED: Sterile Water Irrig 1000ml IRRIG ONE (17:09)
[2018-04-06] MEDS ORDERED: Morphine Sulfate 2mg/ml Inj IVP PRN (17:15)
[2018-04-06] MEDS ORDERED: Albuterol/Ipratropium 3ml neb HHN PRN (17:15)
[2018-04-06] MEDS ORDERED: LORazepam 0.5mg tab ORAL SCH (18:00)
[2018-04-06] MEDS ORDERED: Memantine 5 MG TAB ORAL SCH (18:00)
[2018-04-06] MEDS: LORazepam 0.5mg tab ORAL SCH (18:42)
[2018-04-06] MEDS: Memantine 5 MG TAB ORAL SCH (18:42)
[2018-04-06] MEDS: dilTIAZem HCl 30mg tab GT SCH (23:26)
--- NOTE | 2018-04-06 23:45 | Consultation ---
DATE OF CONSULTATION: 04/06/2018 CARDIOLOGY CONSULTATION CONSULTING PHYSICIAN: Cristofer Houser M.D. REFERRING PHYSICIAN: Mark Oro D.O. REASON FOR CONSULTATION: Congestive heart failure and hypertension. HISTORY OF PRESENT ILLNESS: The patient is an 87-year-old lady with history of hypertension, diabetes, congestive heart failure, hypothyroidism, degenerative joint disease, history of colon cancer, dysphagia status post PEG placement, gastroesophageal reflux disease, as well as left foot and sacral decubitus ulcer, [facility] resident, was brought to the emergency room on 04/05/2018 for shortness of breath and congestion with productive cough. The patient was also found to be hyponatremic with elevated brain natriuretic peptide. Chest x-ray showed infiltrate. The patient was evaluated and was started on antibiotic and a Cardiology consultation was obtained for further evaluation. At the time of my evaluation, the patient was nonverbal and was unable to provide any information. All the information was obtained by reviewing the records. PAST MEDICAL HISTORY: As mentioned above. MEDICATIONS: Per reconciliation. FAMILY HISTORY: Noncontributory. REVIEW OF SYSTEMS: Cannot be obtained. PHYSICAL EXAMINATION: VITAL SIGNS: Blood pressure is 137/77, pulse 82, respirations 20, and temperature 97.9. HEAD AND NECK: Showed no JVD. LUNGS: Coarse rhonchi. CARDIOVASCULAR: Shows irregular S1 and S2 with no gallop or murmur. ABDOMEN: Soft. Status post G-tube. EXTREMITIES: Contracted with 1+ pitting edema. LABORATORY DATA: Labs show white count of 10.9, hemoglobin 8.9, hematocrit 25.9, and platelets of 254,000. Sodium 127, potassium 4.4, BUN of 22, and creatinine of 1.2. Troponin is negative. BNP 2406. Her EKG showed atrial fibrillation and the telemetry strip showed in and out of atrial fibrillation. ASSESSMENT AND PLAN: 1. Elevated BNP and congestive heart failure. We will get an echocardiogram to evaluate for ejection fraction and wall motion abnormality. The patient is on Lasix 10 mg every 8 hours. I will switch to 20 mg IV b.i.d. 2. Paroxysmal atrial fibrillation. Currently, goes in and out of sinus rhythm. Change amlodipine to Cardizem 30 mg 3 times daily. 3. Hypertension. Change amlodipine to Cardizem that would help in controlling the ventricular response atrial fibrillation. 4. Decubitus ulcer. The patient was evaluated by Dr. Herrera from a surgical perspective. 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 5. Dysphagia, status post PEG placement. 6. Sepsis, on antibiotic per ID. Thank you very much, Dr. Oro, for allowing me to participate in the care of this patient. Please do not hesitate to contact me for any questions regarding my evaluation. Cristofer Houser M.D. DR: KRISSY JOB#: [id number] CC:
[2018-04-07] VITALS: BP 107/52
--- NOTE | 2018-04-07 02:00 | Consultation ---
DATE OF CONSULTATION: 04/06/2018 INITIAL PSYCHIATRIC EVALUATION CONSULTING PHYSICIAN: Josh Gonzalez M.D. REFERRING PHYSICIAN: Mark Oro D.O. HISTORY OF PRESENT ILLNESS: This is an 87-year-old female patient. She is admitted with shortness of breath, congestion, left ankle wound, and sacral decubitus ulcer, but she came in very confused and disorganized. Her cognition has declined below baseline secondary to stress of her medical illness and so because her cognition has declined below baseline, her attending has requested daily psychiatric consultation for this patient to be seen in order to prevent any further decline in her cognition. The patient was being seen over [place] originally, but was sent from [facility] to [facility]. I saw and assessed the patient at bedside, very confused and disorganized. She is a very poor historian. I have seen her before. It appears that her cognition has declined below baseline. That is why daily psychiatric consultation is requested. ALLERGIES: She has allergies to amoxicillin and penicillin. MEDICAL PROBLEMS: She has a history of diabetes, hypertension, COPD, left ankle wound, sacral decubitus ulcer, and she has shortness of breath as well. PSYCHOTROPIC MEDICATIONS ON ADMISSION: As far as her psychotropic medications on admission, she has a history of being on Namenda. SUBSTANCE ABUSE HISTORY: As far as her substance abuse history, no history of drug and alcohol use. FAMILY PSYCHIATRIC HISTORY: She denies. PAIN ASSESSMENT: 0/10. DEVELOPMENTAL PROBLEMS: Denies. SOCIAL HISTORY: Lives in [facility]. Financially supported by [employer] and Medicare. PSYCHIATRIC HISTORY: As far as her psychiatric history, history of major depression with psychotic features, rule out pseudodementia, rule out dementia with psychotic features. STRENGTHS: She is motivated to get better and has a place to live. WEAKNESSES: She is impulsive and minimal support system. MENTAL STATUS EXAMINATION: This patient is an 87-year-old female. Appearance is disheveled. Attitude, irritable and agitated. Affect, guarded and restricted. Intellect poor. Mood depressed and anxious. Motor activity, psychomotor agitation. Attention span is poor. Orientation x2. Speech is pressured, low volume, and slurred. Thought process, disorganized and logical. Thought content, auditory hallucinations and paranoid delusions. Insight and judgment are poor. DIAGNOSIS: Major depression with psychotic features, rule out pseudodementia. PLAN: My plan for this patient, treat her with Namenda 5 mg twice a day and Ativan 0.5 mg every 6 hours p.r.n. anxiety and agitation. Provided 20 minutes of insight-oriented psychotherapy. I discussed with this patient symptoms that are causing her mental or that are target symptoms for mental disorder to help recognize her mental disorder to reduce impulsivity and help her behavior on the unit. Chart reviewed and discussed with staff. The patient is seen and assessed at bedside. I would like to thank Dr. Mark Oro for this interesting consultation. Josh Gonzalez M.D. DR: CARMENZA JOB#: [id number] CC:
[2018-04-07 04:00] VITALS: BP 106/53
[2018-04-07] MEDS: NovoLOG Insulin Flexpen SUBQ SCH ×3 (06:00→17:26)
--- NOTE | 2018-04-07 06:15 | Consultation ---
DATE OF CONSULTATION: 04/05/2018 PSYCHOTHERAPY CONSULTATION TREATING ATTENDING PHYSICIAN: Mark Oro D.O. HISTORY OF PRESENT ILLNESS: This patient is an 87-year-old female patient from [facility]. The patient was brought in to the hospital for shortness of breath and pneumonia. The patient has also left ankle wound. The patient has been confused, disorganized, and slightly irritable syncopal episodes. This clinician assessed this patient. The patient is a poor historian. The patient was irritable, mumbling to himself, making nonsensical statements, confused, disorganized, responds to her name and confused and disorganized at this time. The patient has been irritable as well. The patient is none. No indication of suicidal or homicidal thoughts of ideation noted. No indication of auditory or visual hallucinations per the patient. The patient is confused, disorganized, and very hopeless at this time. PAST MEDICAL HISTORY: Includes history of hypertension, left ankle wound, COPD, diabetes. ALLERGIES: The patient is allergic to amoxicillin and penicillin. SUBSTANCE ABUSE HISTORY: Denies history of alcohol use, illicit substance use, or smoking cigarettes. PSYCHIATRIC HISTORY: The patient has positive history of dementia. SOCIAL HISTORY: The patient is an 87-year-old single female patient from [facility]. . MENTAL STATUS EXAMINATION: The patient is alert and oriented to person and place. Mood is dysphoric. Affect is blunted. Thought process is disoriented. Thought content, confused. She has poor attention and concentration. Poor insight, judgment and impulse control. DIAGNOSIS: Rule out neurocognitive disorder, Alzheimer's type. rule out major depressive disorder, recurrent, moderate without psychotic features. PLAN: This clinician assessed this patient and assessed the patient's mental status. Provided the patient with supportive psychotherapy and reality orientation. Encouraging the patient to participate in treatment milieu. Continue with behavioral management. This clinician has reviewed the patient's chart and discussed the treatment with treatment team. Gisela Schuler PsyD. DR: TED JOB#: [id number] CC:
[2018-04-07] MEDS: Aztreonam Inj 1 GM in NS 50 ML IVPB SCH ×3 (06:16→22:44)
[2018-04-07] MEDS: Lyrica 25mg cap ORAL SCH ×3 (06:27→22:56)
[2018-04-07] MEDS: dilTIAZem HCl 30mg tab GT SCH ×3 (06:27→22:55)
[2018-04-07 06:51] LABS: HEMATOCRIT 19.3 % (37.0-47.0); MEAN CORPUSCULAR VOLUME 87 FL (80-99); PLATELET COUNT 196 K/UL (150-450); RED BLOOD COUNT 2.23 M/UL (4.20-5.40); WHITE BLOOD COUNT 6.3 K/UL (4.8-10.8)
[2018-04-07 06:56] LABS: INR 1.2 (0.9-1.1)
[2018-04-07 07:01] LABS: ANION GAP 6 mmol/L (5-15); BLOOD UREA NITROGEN 22 mg/dL (7-18); CALCIUM 7.8 MG/DL (8.5-10.1); CARBON DIOXIDE 26 MMOL/L (21-32); CHLORIDE 100 MMOL/L (98-107); POTASSIUM 3.5 MMOL/L (3.5-5.1); SODIUM 132 MMOL/L (136-145)
[2018-04-07 07:12] LABS: % IRON SATURATION 34 % (15-50); IRON 63 ug/dL (50-175); TOTAL IRON BINDING CAPACITY 188 ug/dL (250-450)
[2018-04-07 07:16] LABS: HEMOGLOBIN 6.5 G/DL (12.0-16.0)
[2018-04-07 07:56] LABS: LACTATE DEHYDROGENASE 220 U/L (81-234)
[2018-04-07 08:00] VITALS: BP 115/59
--- NOTE | 2018-04-07 08:04 | Consultation ---
Consult Note Consult Note Hematology Consult DOS: 04/07/2018 JOLANTA BARAHONA: Leonel Oro [facility]: Anemia evaluation ID 87 year old female with hx of endstage Dementia, bed bound, COPD, renal insufficiency, [facility] presented to ER with shortness of breath and increased cough. At this time, she mumbles, and is unable to provide appropriate history at this time. There was no reports of vomiting or diarrhea patient. It was reported that her oxygenation was worsening. she is awake, aphasic, doesn't follow simple commands. She is visibly slightly short of breath. Seen by several specialists but continues to have a anemia, worsened and heme consulted. Allergies: Coded Allergies: AMOXICILLIN (Verified Allergy, Severe, SEVERE ICTHING /RASHES, 09/17/08) PENICILLINS (Verified Allergy, Intermediate, Itching, 06/21/13) Medication History Scheduled Alendronate Sodium* (Fosamax*), 70 MG ORAL ONCE A WEEK, (Reported) Amlodipine Besylate (Norvasc), 10 MG ORAL DAILY, (Reported) Arginine/Ascorbate Sod/Devang AC (Arginaid Powder), 1 EACH PO BID, (Reported) Aspirin (Aspirin EC), 81 MG ORAL BID, (Reported) Atorvastatin Calcium* (Lipitor*), 20 MG ORAL BEDTIME, (Reported) Bimatoprost (Lumigan), 1 DROP BOTH EYES DAILY, (Reported) Cholecalciferol (Vitamin D3) (Vitamin D3), 1,000 UNIT PO BID, (Reported) Docusate Sodium* (Docusate Sodium*), 100 MG ORAL THREE TIMES A DAY, (Reported) Enoxaparin* (Lovenox*), 40 MG SUBQ DAILY, (Reported) Furosemide* (Lasix*), 20 MG ORAL DAILY, (Reported) Levothyroxine Sodium* (Levothyroxine Sodium*), 112 MCG ORAL DAILY, (Reported) Lisinopril* (Zestril*), 10 MG ORAL BID, (Reported) Nitrofurantoin Macrocrystal (Macrodantin), 100 MG ORAL DAILY, (Reported) Omeprazole (Prilosec), 20 MG ORAL DAILY, (Reported) Oxandrolone (Oxandrolone), 2.5 MG PO BID, (Reported) Polyethylene Glycol 3350* (Miralax*), 17 GM ORAL DAILY, (Reported) Pregabalin (Lyrica), 25 MG ORAL THREE TIMES A DAY, (Reported) Ranitidine Hcl* (Zantac*), 150 MG ORAL QHS, (Reported) Scheduled PRN Acetaminophen* (Acetaminophen 325MG Tablet*), 650 MG ORAL Q6H PRN for Pain Scale (6-10), (Reported) Albuterol Sulfate* (Albuterol Sulfate Hhn*), 3 ML INH Q4H PRN for Shortness of Breath, (Reported) Diphenhydramine Hcl (Diphenhydramine Hcl), 50 MG ORAL BEDTIME PRN for Itching, ( Reported) Hydrocodone Bit/Acetaminophen 5-325* ([place] 5-325*), 1 TAB ORAL Q6H PRN for For Pain Miscellaneous Medications Multivitamin (Multi-Vitamin Daily), 1 EACH PO, (Reported) Patient History Healthcare decision maker Resuscitation status Full Code Advanced Directive on File Past Medical/Surgical History Past Medical/Surgical History: (1) Feeding by G-tube (2) Advanced dementia (3) Limited mobility in bed (4) COPD (chronic obstructive pulmonary disease) Review of Systems All Other Systems: negative except mentioned in HPI Physical Exam Last 24 Hour Vital Signs Date Time Temp Pulse Resp B/P (MAP) Pulse Ox O2 Delivery O2 Flow Rate FiO2 04/07/18 12:00 98.2 69 18 128/71 (90) 95 98.2 04/07/18 09:00 Nasal Cannula 2.0 04/07/18 08:55 96 Nasal Cannula 2.0 28 04/07/18 08:55 Nasal Cannula 2.0 28 04/07/18 08:55 76 17 Nasal Cannula 2.0 28 04/07/18 08:00 97.7 73 18 115/59 (77) 99 97.7 04/07/18 06:57 98.3 04/07/18 06:27 98.3 04/07/18 06:27 71 121/63 04/07/18 04:00 98.0 71 18 106/53 (70) 100 98.0 04/07/18 00:00 98.3 69 18 107/52 (70) 100 98.3 04/06/18 23:46 Nasal Cannula 2.0 04/06/18 23:26 84 131/75 04/06/18 23:20 97.9 04/06/18 20:00 98.2 77 19 103/63 (76) 100 98.2 04/06/18 19:25 Nasal Cannula 2.0 28 04/06/18 19:25 96 Nasal Cannula 2.0 28 04/06/18 19:25 82 16 Nasal Cannula 2.0 28 04/06/18 15:54 97.9 82 20 125/64 (84) 100 97.9 04/06/18 14:35 97.9 04/06/18 14:28 77 20 95 Nasal Cannula 2.0 28 04/06/18 14:06 76 133/80 04/06/18 14:05 97.9 04/06/18 14:00 133/80 (97) General Appearance: WD/WN Lines, tubes and drains: peripheral HEENT: normocephalic, atraumatic Neck: non-tender, supple Respiratory/Chest: chest wall non-tender, rhonchi - left Cardiovascular/Chest: normal peripheral pulses, normal rate Abdomen: normal bowel sounds, non tender ++peg Genitourinary/Rectal: normal genital exam Extremities: normal range of motion, non-tender Last 24 Hour Vital Sign Laboratory Tests Test 04/07/18 05:10 04/07/18 07:24 04/07/18 08:30 White Blood Count 6.3 K/UL (4.8-10.8) Red Blood Count 2.23 M/UL (4.20-5.40) L Hemoglobin 6.5 G/DL (12.0-16.0) *L Hematocrit 19.3 % (37.0-47.0) L Mean Corpuscular Volume 87 FL (80-99) Mean Corpuscular Hemoglobin 29.1 PG (27.0-31.0) Mean Corpuscular Hemoglobin Concent 33.6 G/DL (32.0-36.0) Red Cell Distribution Width 15.0 % (11.6-14.8) H Platelet Count 196 K/UL (150-450) Mean Platelet Volume 6.3 FL (6.5-10.1) L Neutrophils (%) (Auto) % (45.0-75.0) Lymphocytes (%) (Auto) % (20.0-45.0) Monocytes (%) (Auto) % (1.0-10.0) Eosinophils (%) (Auto) % (0.0-3.0) Basophils (%) (Auto) % (0.0-2.0) Differential Total Cells Counted 100 Neutrophils % (Manual) 59 % (45-75) Lymphocytes % (Manual) 23 % (20-45) Monocytes % (Manual) 15 % (1-10) H Eosinophils % (Manual) 2 % (0-3) Basophils % (Manual) 1 % (0-2) Band Neutrophils 0 % (0-8) Platelet Estimate Adequate Platelet Morphology Normal Anisocytosis 1+ Erythrocyte Sedimentation Rate 139 MM/HR (0-30) H Reticulocyte Count 3.6 % (0.0-2.0) H Prothrombin Time 12.1 SEC (9.30-11.50) H Prothromb Time International Ratio 1.2 (0.9-1.1) H Activated Partial Thromboplast Time 33 SEC (23-33) Sodium Level 132 MMOL/L (136-145) L Potassium Level 3.5 MMOL/L (3.5-5.1) Chloride Level 100 MMOL/L (98-107) Carbon Dioxide Level 26 MMOL/L (21-32) Anion Gap 6 mmol/L (5-15) Blood Urea Nitrogen 22 mg/dL (7-18) H Creatinine 1.0 MG/DL (0.55-1.30) Estimat Glomerular Filtration Rate mL/min (>60) Glucose Level 74 MG/DL (74-106) Calcium Level 7.8 MG/DL (8.5-10.1) L Iron Level 63 ug/dL (50-175) Total Iron Binding Capacity 188 ug/dL (250-450) L Percent Iron Saturation 34 % (15-50) Unsaturated Iron Binding 125 ug/dL (112-346) Lactate Dehydrogenase 220 U/L (81-234) Pro-B-Type Natriuretic Peptide 3060 pg/mL (0-125) H Carcinoembryonic Antigen Pending Vitamin B12 Level 685 PG/ML (193-986) Folate 17.8 NG/ML (8.6-58.9) Stool Occult Blood Negative (NEGATIVE) CA 19-9 Antigen Pending Current Medications Medications (Trade) Dose Ordered Sig/Orin Route PRN Reason Start Time Stop Time Status Last Admin Dose Admin Acetaminophen (Tylenol) 650 mg Q4H PRN GT Mild Pain/Temp > 100.5 02/10/18 16:00 03/12/18 15:59 Albuterol/ Ipratropium (Albuterol/ Ipratropium) 3 ml Q6HRT HHN 02/10/18 19:00 02/15/18 18:59 Amlodipine Besylate (Norvasc) 10 mg DAILY ORAL 02/11/18 09:00 03/13/18 08:59 Atorvastatin Calcium (Lipitor) 20 mg BEDTIME ORAL 02/10/18 21:00 03/12/18 20:59 Chlorhexidine Gluconate (Merlyn-Hex 2%) 1 applic DAILY@2000 TOPIC 02/10/18 20:00 03/12/18 19:59 Dextrose (Dextrose 50%) 25 ml STAT PRN IV Hypoglycemia 02/10/18 15:45 03/12/18 15:44 Dextrose (Dextrose 50%) 50 ml STAT PRN IV Hypoglycemia 02/10/18 15:45 03/12/18 15:44 Dextrose/Sodium Chloride 1,000 ml @ 75 mls/hr [id number] IV 02/10/18 17:00 03/12/18 16:59 02/10/18 17:12 Docusate Sodium (Colace) 100 mg TID GT 02/10/18 18:00 03/12/18 17:59 02/10/18 17:17 Enoxaparin Sodium (Lovenox) 40 mg DAILY SUBQ 02/11/18 09:00 03/13/18 08:59 Insulin Aspart (NovoLOG) BEFORE MEALS AND HS SUBQ 02/10/18 16:30 03/12/18 16:29 02/10/18 17:13 Levothyroxine Sodium (Synthroid) 50 mcg DAILY IV 02/11/18 09:00 03/13/18 08:59 Lisinopril (Zestril) 2.5 mg DAILY GT 02/11/18 09:00 03/13/18 08:59 Methylprednisolone Sodium Succinate (Solu-MEDROL) 40 mg EVERY 8 HOURS IVP 02/10/18 22:00 03/12/18 21:59 Pantoprazole (Protonix) 40 mg EVERY 12 HOURS IVP 02/10/18 21:00 03/12/18 20:59 Polyethylene Glycol (Miralax) 17 gm DAILY GT 8/8/18 09:00 03/13/18 08:59 Assessment/Plan # Anemia of chronic disease -- multifactorial cause, workup started --> thus far rule out gi bleed, occult pending --> consider gi eval if needed --> transfuse to hgb goal >7 --> no evidence for hemolysis is noted # Leukocytosis is likely related to underlying ut --> s/p abx # Coagulopathy with elevated inr --> at this time does not need ffp or vitk unless has surgery # Stage IV full thickness pressure decubitus ulcer noted to sacrum approximately 5x6cm. wound moist and bed beefy red with --> debridement if necessary with surgical team # Aspiration pneumonia --> s/p abx # Respiratory distress # COPD (chronic obstructive pulmonary disease) # Advanced dementia # Feeding by G-tube # Limited mobility in bed Greatly appreciate consultation! Bib Arango MD Apr 07, 2018 08:04
[2018-04-07] MEDS: Heparin 5000 units/ml inj SUBQ SCH ×2 (09:00→20:52)
[2018-04-07] MEDS: LORazepam 0.5mg tab ORAL SCH ×3 (09:33→17:26)
[2018-04-07] MEDS: Memantine 5 MG TAB ORAL SCH ×2 (09:33→17:26)
[2018-04-07] MEDS ORDERED: NaCl 3% 500ml 500 ML IV ONE (10:00)
--- NOTE | 2018-04-07 10:52 | Cardiac Electrophysiology PN ---
Assessment/Plan Assessment/Plan 01. Elevated BNP and congestive heart failure. Echocardiogram showed EF 40-45% On Lasix 20 mg IV b.i.d. 2. Paroxysmal atrial fibrillation. In and out of sinus rhythm. On Cardizem 30 mg 3 times daily. 3. Hypertension. Cardizem 30 tid 4. Decubitus ulcer. Was evaluated by Dr. Herrera. 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 5. Dysphagia, status post PEG placement. 6. Sepsis, on antibiotic per ID. Subjective Subjective Transferred to nonmonitored bed. Scheduled to get blood transfusion. Objective Last 24 Hour Vital Signs Date Time Temp Pulse Resp B/P (MAP) Pulse Ox O2 Delivery O2 Flow Rate FiO2 04/07/18 08:00 97.7 73 18 115/59 (77) 99 97.7 04/07/18 06:57 98.3 04/07/18 06:27 98.3 04/07/18 06:27 71 121/63 04/07/18 04:00 98.0 71 18 106/53 (70) 100 98.0 04/07/18 00:00 98.3 69 18 107/52 (70) 100 98.3 04/06/18 23:46 Nasal Cannula 2.0 04/06/18 23:26 84 131/75 04/06/18 23:20 97.9 04/06/18 20:00 98.2 77 19 103/63 (76) 100 98.2 04/06/18 19:25 Nasal Cannula 2.0 28 04/06/18 19:25 96 Nasal Cannula 2.0 28 04/06/18 19:25 82 16 Nasal Cannula 2.0 28 04/06/18 15:54 97.9 82 20 125/64 (84) 100 97.9 04/06/18 14:35 97.9 04/06/18 14:28 77 20 95 Nasal Cannula 2.0 28 04/06/18 14:06 76 133/80 04/06/18 14:05 97.9 04/06/18 14:00 133/80 (97) 04/06/18 12:02 76 04/06/18 12:00 97.9 88 20 137/77 (97) 100 97.9 Intake and Output 04/06/18 04/07/18 19:00 07:00 Intake Total 270 ml 600 ml Balance 270 ml 600 ml Free Water 60 ml 160 ml IV Total 100 ml Tube Feeding 210 ml 340 ml # Bowel Movements 2 Laboratory Tests Test 04/07/18 05:10 04/07/18 07:24 04/07/18 08:30 White Blood Count 6.3 K/UL (4.8-10.8) Red Blood Count 2.23 M/UL (4.20-5.40) L Hemoglobin 6.5 G/DL (12.0-16.0) *L Hematocrit 19.3 % (37.0-47.0) L Mean Corpuscular Volume 87 FL (80-99) Mean Corpuscular Hemoglobin 29.1 PG (27.0-31.0) Mean Corpuscular Hemoglobin Concent 33.6 G/DL (32.0-36.0) Red Cell Distribution Width 15.0 % (11.6-14.8) H Platelet Count 196 K/UL (150-450) Mean Platelet Volume 6.3 FL (6.5-10.1) L Neutrophils (%) (Auto) % (45.0-75.0) Lymphocytes (%) (Auto) % (20.0-45.0) Monocytes (%) (Auto) % (1.0-10.0) Eosinophils (%) (Auto) % (0.0-3.0) Basophils (%) (Auto) % (0.0-2.0) Differential Total Cells Counted 100 Neutrophils % (Manual) 59 % (45-75) Lymphocytes % (Manual) 23 % (20-45) Monocytes % (Manual) 15 % (1-10) H Eosinophils % (Manual) 2 % (0-3) Basophils % (Manual) 1 % (0-2) Band Neutrophils 0 % (0-8) Platelet Estimate Adequate Platelet Morphology Normal Anisocytosis 1+ Erythrocyte Sedimentation Rate 139 MM/HR (0-30) H Reticulocyte Count Pending Prothrombin Time 12.1 SEC (9.30-11.50) H Prothromb Time International Ratio 1.2 (0.9-1.1) H Activated Partial Thromboplast Time 33 SEC (23-33) Sodium Level 132 MMOL/L (136-145) L Potassium Level 3.5 MMOL/L (3.5-5.1) Chloride Level 100 MMOL/L (98-107) Carbon Dioxide Level 26 MMOL/L (21-32) Anion Gap 6 mmol/L (5-15) Blood Urea Nitrogen 22 mg/dL (7-18) H Creatinine 1.0 MG/DL (0.55-1.30) Estimat Glomerular Filtration Rate mL/min (>60) Glucose Level 74 MG/DL (74-106) Calcium Level 7.8 MG/DL (8.5-10.1) L Iron Level 63 ug/dL (50-175) Total Iron Binding Capacity 188 ug/dL (250-450) L Percent Iron Saturation 34 % (15-50) Unsaturated Iron Binding 125 ug/dL (112-346) Lactate Dehydrogenase 220 U/L (81-234) Pro-B-Type Natriuretic Peptide 3060 pg/mL (0-125) H Carcinoembryonic Antigen Pending Vitamin B12 Level 685 PG/ML (193-986) Folate 17.8 NG/ML (8.6-58.9) Stool Occult Blood Pending CA 19-9 Antigen Pending Microbiology Date/Time Source Procedure Growth Status 04/05/18 08:49 Blood Blood Culture - Preliminary NO GROWTH AFTER 24 HOURS Resulted 04/05/18 08:39 Blood Blood Culture - Preliminary NO GROWTH AFTER 24 HOURS Resulted Objective HEAD AND NECK: No JVD. LUNGS: Coarse rhonchi. CARDIOVASCULAR: Irregular S1 and S2 with no gallop or murmur. ABDOMEN: Soft. Status post G-tube. EXTREMITIES: Contracted with 1+ pitting edema. Cristofer Houser MD Apr 07, 2018 10:52
[2018-04-07] MEDS ORDERED: Vancomycin 500 MG in D5W 110 ML IVPB SCH (11:00)
--- NOTE | 2018-04-07 11:46 | Nephrology Progress Note ---
Assessment/Plan Problem List: (1) Hyponatremia Assessment: improving (2) Aspiration pneumonia (3) Hypothyroidism (4) PEG (percutaneous endoscopic gastrostomy) status (5) Anemia Assessment worsening Anemia HypoNatremia, Likely diuretic related and Depletional up to 132 COPD exac. resp failure Hypothyroidism L foot and sacral decub, POA PNA ? Aspiration PEG DM h/o Long Smoking h/o Anemia h/o OA h/o Colon Ca h/o HTN Plan Transfuse 2 units today [place] Isotonic solution Low Na snyder antibiotics / pulm support IV Pepcid change synthroid to IV Per orders Subjective ROS Limited/Unobtainable: No Constitutional: Reports: malaise, weakness Objective Objective Last 24 Hour Vital Signs Date Time Temp Pulse Resp B/P (MAP) Pulse Ox O2 Delivery O2 Flow Rate FiO2 04/07/18 09:00 Nasal Cannula 2.0 04/07/18 08:55 96 Nasal Cannula 2.0 28 04/07/18 08:55 Nasal Cannula 2.0 28 04/07/18 08:55 76 17 Nasal Cannula 2.0 28 04/07/18 08:00 97.7 73 18 115/59 (77) 99 97.7 04/07/18 06:57 98.3 04/07/18 06:27 98.3 04/07/18 06:27 71 121/63 04/07/18 04:00 98.0 71 18 106/53 (70) 100 98.0 04/07/18 00:00 98.3 69 18 107/52 (70) 100 98.3 04/06/18 23:46 Nasal Cannula 2.0 04/06/18 23:26 84 131/75 04/06/18 23:20 97.9 04/06/18 20:00 98.2 77 19 103/63 (76) 100 98.2 04/06/18 19:25 Nasal Cannula 2.0 28 04/06/18 19:25 96 Nasal Cannula 2.0 28 04/06/18 19:25 82 16 Nasal Cannula 2.0 28 04/06/18 15:54 97.9 82 20 125/64 (84) 100 97.9 04/06/18 14:35 97.9 04/06/18 14:28 77 20 95 Nasal Cannula 2.0 28 04/06/18 14:06 76 133/80 04/06/18 14:05 97.9 04/06/18 14:00 133/80 (97) 04/06/18 12:02 76 04/06/18 12:00 97.9 88 20 137/77 (97) 100 97.9 Intake and Output 04/06/18 04/07/18 19:00 07:00 Intake Total 270 ml 600 ml Balance 270 ml 600 ml Free Water 60 ml 160 ml IV Total 100 ml Tube Feeding 210 ml 340 ml # Bowel Movements 2 Laboratory Tests 04/07/18 05:10: White Blood Count 6.3, Red Blood Count 2.23L, Hemoglobin 6.5*L, Hematocrit 19.3L , Mean Corpuscular Volume 87, Mean Corpuscular Hemoglobin 29.1, Mean Corpuscular Hemoglobin Concent 33.6, Red Cell Distribution Width 15.0H, Platelet Count 196, Mean Platelet Volume 6.3L, Neutrophils (%) (Auto) , Lymphocytes (%) (Auto) , Monocytes (%) (Auto) , Eosinophils (%) (Auto) , Basophils (%) (Auto) , Differential Total Cells Counted 100, Neutrophils % ( Manual) 59, Lymphocytes % (Manual) 23, Monocytes % (Manual) 15H, Eosinophils % ( Manual) 2, Basophils % (Manual) 1, Band Neutrophils 0, Platelet Estimate Adequate, Platelet Morphology Normal, Anisocytosis 1+, Erythrocyte Sedimentation Rate 139H, Reticulocyte Count 3.6H, Prothrombin Time 12.1H, Prothromb Time International Ratio 1.2H, Activated Partial Thromboplast Time 33 , Sodium Level 132L, Potassium Level 3.5, Chloride Level 100, Carbon Dioxide Level 26, Anion Gap 6, Blood Urea Nitrogen 22H, Creatinine 1.0, Estimat Glomerular Filtration Rate , Glucose Level 74, Calcium Level 7.8L, Iron Level 63 , Total Iron Binding Capacity 188L, Percent Iron Saturation 34, Unsaturated Iron Binding 125, Lactate Dehydrogenase 220, Pro-B-Type Natriuretic Peptide 3060H, Carcinoembryonic Antigen [Pending], Vitamin B12 Level 685, Folate 17.8 04/07/18 07:24: Stool Occult Blood Negative 04/07/18 08:30: CA 19-9 Antigen [Pending] Height (Feet): 5 Height (Inches): 4.00 Weight (Pounds): 130 General Appearance: mild distress Cardiovascular: normal rate Respiratory/Chest: decreased breath sounds Abdomen: distended Objective no other change Zeb Jiang MD Apr 07, 2018 11:46
[2018-04-07 12:00] VITALS: BP 128/71
--- NOTE | 2018-04-07 12:27 | Infectious Diseases Prog Note ---
Assessment/Plan Assessment/Plan Abx: Levaquin x1 04/05 IV Vanco 04/05- Aztreonam 04/05- Assessment: Sepsis 2ry to PNA -CXR: Interval improved aeration of the left mid and lower lung.. Mildly increased interstitial markings. This is likely related to chronic senescent changes although differential diagnosis may also include mild bronchitis or interstitial pneumonitis. 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 no foul odor. no tunneling. ; no signs of active ifnection Dm2 HTN Dementia OA hypothyroidism tobacco abuse anemia hx of colon CA COPD CVA s/p PEG GERD SNF resident Plan: -Continue empiric IV Vancomycin and Aztreonam #3 pending cultures -04/05 SP LEvaquin x1 -f/u sp cx, legionella ag urine -f/u cx -Monitor CBC/CMP, temperatures -wound care per hosp protocol -Sx, renal f/u Thank you for this consultation. Will continue to follow along with you. Discussed with RN. Subjective Allergies: Coded Allergies: AMOXICILLIN (Verified Allergy, Severe, SEVERE ICTHING /RASHES, 09/17/08) PENICILLINS (Verified Allergy, Intermediate, Itching, 06/21/13) Subjective afebrile leukocytosis resolved Bcx NTD at 2l NC Objective Vital Signs Last 24 Hour Vital Signs Date Time Temp Pulse Resp B/P (MAP) Pulse Ox O2 Delivery O2 Flow Rate FiO2 04/07/18 09:00 Nasal Cannula 2.0 04/07/18 08:55 96 Nasal Cannula 2.0 28 04/07/18 08:55 Nasal Cannula 2.0 28 04/07/18 08:55 76 17 Nasal Cannula 2.0 28 04/07/18 08:00 97.7 73 18 115/59 (77) 99 97.7 04/07/18 06:57 98.3 04/07/18 06:27 98.3 04/07/18 06:27 71 121/63 04/07/18 04:00 98.0 71 18 106/53 (70) 100 98.0 04/07/18 00:00 98.3 69 18 107/52 (70) 100 98.3 04/06/18 23:46 Nasal Cannula 2.0 04/06/18 23:26 84 131/75 04/06/18 23:20 97.9 04/06/18 20:00 98.2 77 19 103/63 (76) 100 98.2 04/06/18 19:25 Nasal Cannula 2.0 28 04/06/18 19:25 96 Nasal Cannula 2.0 28 04/06/18 19:25 82 16 Nasal Cannula 2.0 28 04/06/18 15:54 97.9 82 20 125/64 (84) 100 97.9 04/06/18 14:35 97.9 04/06/18 14:28 77 20 95 Nasal Cannula 2.0 28 04/06/18 14:06 76 133/80 04/06/18 14:05 97.9 04/06/18 14:00 133/80 (97) Height (Feet): 5 Height (Inches): 4.00 Weight (Pounds): 130 Objective GENERAL: Slight short of breath in the ER, disoriented x3, no acute distress. CARDIOVASCULAR: No murmurs. LUNGS: Poor exchange. Slight congested. Wheezing bilaterally. ABDOMEN: Bowel sounds positive. Nontender. Nondistended. EXTREMITIES: No cyanosis, clubbing, or edema. Left ankle dressing clean and dry. SKin: L foot lateral ankle superifical ulcer with crust no active signs of infection Stage IV sacral decub with macerated skin borders, beefy red center, no foul smelling or active drainage. NEUROLOGIC: The patient moves all extremities, slightly weak. Microbiology Date/Time Source Procedure Growth Status 04/05/18 08:49 Blood Blood Culture - Preliminary NO GROWTH AFTER 24 HOURS Resulted 04/05/18 08:39 Blood Blood Culture - Preliminary NO GROWTH AFTER 24 HOURS Resulted Laboratory Tests Test 04/07/18 05:10 04/07/18 07:24 04/07/18 08:30 White Blood Count 6.3 K/UL (4.8-10.8) Red Blood Count 2.23 M/UL (4.20-5.40) L Hemoglobin 6.5 G/DL (12.0-16.0) *L Hematocrit 19.3 % (37.0-47.0) L Mean Corpuscular Volume 87 FL (80-99) Mean Corpuscular Hemoglobin 29.1 PG (27.0-31.0) Mean Corpuscular Hemoglobin Concent 33.6 G/DL (32.0-36.0) Red Cell Distribution Width 15.0 % (11.6-14.8) H Platelet Count 196 K/UL (150-450) Mean Platelet Volume 6.3 FL (6.5-10.1) L Neutrophils (%) (Auto) % (45.0-75.0) Lymphocytes (%) (Auto) % (20.0-45.0) Monocytes (%) (Auto) % (1.0-10.0) Eosinophils (%) (Auto) % (0.0-3.0) Basophils (%) (Auto) % (0.0-2.0) Differential Total Cells Counted 100 Neutrophils % (Manual) 59 % (45-75) Lymphocytes % (Manual) 23 % (20-45) Monocytes % (Manual) 15 % (1-10) H Eosinophils % (Manual) 2 % (0-3) Basophils % (Manual) 1 % (0-2) Band Neutrophils 0 % (0-8) Platelet Estimate Adequate Platelet Morphology Normal Anisocytosis 1+ Erythrocyte Sedimentation Rate 139 MM/HR (0-30) H Reticulocyte Count 3.6 % (0.0-2.0) H Prothrombin Time 12.1 SEC (9.30-11.50) H Prothromb Time International Ratio 1.2 (0.9-1.1) H Activated Partial Thromboplast Time 33 SEC (23-33) Sodium Level 132 MMOL/L (136-145) L Potassium Level 3.5 MMOL/L (3.5-5.1) Chloride Level 100 MMOL/L (98-107) Carbon Dioxide Level 26 MMOL/L (21-32) Anion Gap 6 mmol/L (5-15) Blood Urea Nitrogen 22 mg/dL (7-18) H Creatinine 1.0 MG/DL (0.55-1.30) Estimat Glomerular Filtration Rate mL/min (>60) Glucose Level 74 MG/DL (74-106) Calcium Level 7.8 MG/DL (8.5-10.1) L Iron Level 63 ug/dL (50-175) Total Iron Binding Capacity 188 ug/dL (250-450) L Percent Iron Saturation 34 % (15-50) Unsaturated Iron Binding 125 ug/dL (112-346) Lactate Dehydrogenase 220 U/L (81-234) Pro-B-Type Natriuretic Peptide 3060 pg/mL (0-125) H Carcinoembryonic Antigen Pending Vitamin B12 Level 685 PG/ML (193-986) Folate 17.8 NG/ML (8.6-58.9) Stool Occult Blood Negative (NEGATIVE) CA 19-9 Antigen Pending Current Medications Medications (Trade) Dose Ordered Sig/Orin Route PRN Reason Start Time Stop Time Status Last Admin Dose Admin Acetaminophen (Tylenol) 650 mg Q4H PRN ORAL T>100.5 04/06/18 17:15 05/05/18 09:14 Albuterol/ Ipratropium (Albuterol/ Ipratropium) 3 ml Q4H PRN HHN Shortness of Breath 04/06/18 17:15 04/10/18 09:14 Aztreonam 1 gm/ Sodium Chloride 50 ml @ 100 mls/hr EVERY 8 HOURS IVPB 04/06/18 22:00 04/12/18 13:59 04/07/18 06:16 Dextrose (Dextrose 50%) 25 ml Q30M PRN IV Hypoglycemia 04/06/18 16:00 05/05/18 09:18 Dextrose (Dextrose 50%) 50 ml Q30M PRN IV hypoglycemia 04/06/18 16:00 05/05/18 09:29 Diltiazem HCl (Cardizem) 30 mg EVERY 8 HOURS GT 04/06/18 22:00 05/06/18 13:59 04/07/18 06:27 Famotidine (Pepcid I.v.) 20 mg Q12HR IVP 04/06/18 21:00 05/05/18 20:59 04/07/18 09:38 Furosemide (Lasix) 20 mg BID IV 04/06/18 18:00 05/06/18 13:59 04/07/18 09:30 Heparin Sodium (Porcine) (Heparin 5000 units/ml) 5,000 units EVERY 12 HOURS SUBQ 04/06/18 21:00 05/05/18 20:59 04/06/18 21:06 Insulin Aspart (NovoLOG) EVERY 6 HOURS SUBQ 04/06/18 18:00 05/05/18 17:59 Levothyroxine Sodium (Synthroid) 50 mcg DAILY IV 04/07/18 09:00 05/05/18 13:29 04/07/18 09:31 Lorazepam (Ativan) 0.5 mg TID ORAL 04/06/18 18:00 04/13/18 17:59 04/07/18 09:33 Memantine (Namenda) 5 mg BID ORAL 04/06/18 18:00 05/06/18 17:59 04/07/18 09:33 Morphine Sulfate (Morphine Sulfate) 2 mg Q4H PRN IVP PAIN 4-10 04/06/18 17:15 04/12/18 09:14 Nitroglycerin (Ntg) 0.4 mg Q5MIN X 3 DOSES PRN SL Prn Chest Pain 04/06/18 16:00 05/05/18 09:29 Ondansetron HCl (Zofran) 4 mg Q6H PRN IVP Nausea & Vomiting 04/06/18 16:00 05/05/18 15:59 Polyethylene Glycol (Miralax) 17 gm DAILYPRN PRN ORAL Constipation 04/06/18 16:00 05/06/18 15:59 Pregabalin (Lyrica) 25 mg Q8HR ORAL 04/06/18 22:00 05/05/18 13:59 04/07/18 06:27 Temazepam (Restoril) 15 mg HSPRN PRN ORAL Insomnia 04/06/18 21:00 04/12/18 20:59 Vancomycin HCl (Vanco rx to dose) 1 ea DAILY PRN MISC . 04/06/18 16:00 05/06/18 15:59 Vancomycin HCl 500 mg/Dextrose 110 ml @ 110 mls/hr Q24H IVPB 04/07/18 11:00 04/11/18 10:59 Mary Abarca M.D. Apr 07, 2018 12:26
--- NOTE | 2018-04-07 14:07 | General Progress Note ---
Assessment/Plan Problem List: (1) COPD (chronic obstructive pulmonary disease) ICD Codes: J44.9 - COPD (chronic obstructive pulmonary disease) SNOMED: 18414089 Qualifiers: Qualified Codes: J44.9 - Chronic obstructive pulmonary disease, unspecified (2) Hyponatremia ICD Codes: E87.1 - Hypo-osmolality and hyponatremia SNOMED: 05543589 (3) Anemia ICD Codes: D64.9 - Anemia, unspecified SNOMED: 325235351 (4) Diabetes ICD Codes: E11.9 - Type 2 diabetes mellitus without complications SNOMED: 63056267 (5) Aspiration pneumonia ICD Codes: J69.0 - Pneumonitis due to inhalation of food and vomit SNOMED: 242063719 (6) Sepsis ICD Codes: A41.9 - Sepsis, unspecified organism SNOMED: 85733480 (7) ATN (acute tubular necrosis) ICD Codes: N17.0 - Acute kidney failure with tubular necrosis SNOMED: 13165812 (8) OA (osteoarthritis) ICD Codes: M19.90 - OA (osteoarthritis) SNOMED: 218949931 Status: unchanged Assessment/Plan ot pt diet o2 pulm tx abx cbc bmp am promise ltach eval Subjective Constitutional: Reports: weakness Allergies: Coded Allergies: AMOXICILLIN (Verified Allergy, Severe, SEVERE ICTHING /RASHES, 09/17/08) PENICILLINS (Verified Allergy, Intermediate, Itching, 06/21/13) All Systems: reviewed and negative except above Subjective o2nc confused Objective Last 24 Hour Vital Signs Date Time Temp Pulse Resp B/P (MAP) Pulse Ox O2 Delivery O2 Flow Rate FiO2 04/07/18 13:40 69 128/71 04/07/18 12:00 98.2 69 18 128/71 (90) 95 98.2 04/07/18 09:00 Nasal Cannula 2.0 04/07/18 08:55 96 Nasal Cannula 2.0 28 04/07/18 08:55 Nasal Cannula 2.0 28 04/07/18 08:55 76 17 Nasal Cannula 2.0 28 04/07/18 08:00 97.7 73 18 115/59 (77) 99 97.7 04/07/18 06:57 98.3 04/07/18 06:27 98.3 04/07/18 06:27 71 121/63 04/07/18 04:00 98.0 71 18 106/53 (70) 100 98.0 04/07/18 00:00 98.3 69 18 107/52 (70) 100 98.3 04/06/18 23:46 Nasal Cannula 2.0 04/06/18 23:26 84 131/75 04/06/18 23:20 97.9 04/06/18 20:00 98.2 77 19 103/63 (76) 100 98.2 04/06/18 19:25 Nasal Cannula 2.0 28 04/06/18 19:25 96 Nasal Cannula 2.0 28 04/06/18 19:25 82 16 Nasal Cannula 2.0 28 04/06/18 15:54 97.9 82 20 125/64 (84) 100 97.9 04/06/18 14:35 97.9 04/06/18 14:28 77 20 95 Nasal Cannula 2.0 28 Intake and Output 04/06/18 04/07/18 19:00 07:00 Intake Total 270 ml 600 ml Balance 270 ml 600 ml Free Water 60 ml 160 ml IV Total 100 ml Tube Feeding 210 ml 340 ml # Bowel Movements 2 Laboratory Tests 04/07/18 05:10: White Blood Count 6.3, Red Blood Count 2.23L, Hemoglobin 6.5*L, Hematocrit 19.3L , Mean Corpuscular Volume 87, Mean Corpuscular Hemoglobin 29.1, Mean Corpuscular Hemoglobin Concent 33.6, Red Cell Distribution Width 15.0H, Platelet Count 196, Mean Platelet Volume 6.3L, Neutrophils (%) (Auto) , Lymphocytes (%) (Auto) , Monocytes (%) (Auto) , Eosinophils (%) (Auto) , Basophils (%) (Auto) , Differential Total Cells Counted 100, Neutrophils % ( Manual) 59, Lymphocytes % (Manual) 23, Monocytes % (Manual) 15H, Eosinophils % ( Manual) 2, Basophils % (Manual) 1, Band Neutrophils 0, Other Cell Type Pathologist comment, Platelet Estimate Adequate, Platelet Morphology Normal, Anisocytosis 1+, Erythrocyte Sedimentation Rate 139H, Reticulocyte Count 3.6H, Prothrombin Time 12.1H, Prothromb Time International Ratio 1.2H, Activated Partial Thromboplast Time 33, Sodium Level 132L, Potassium Level 3.5, Chloride Level 100, Carbon Dioxide Level 26, Anion Gap 6, Blood Urea Nitrogen 22H, Creatinine 1.0, Estimat Glomerular Filtration Rate , Glucose Level 74, Calcium Level 7.8L, Iron Level 63, Total Iron Binding Capacity 188L, Percent Iron Saturation 34, Unsaturated Iron Binding 125, Lactate Dehydrogenase 220, Pro-B- Type Natriuretic Peptide 3060H, Carcinoembryonic Antigen [Pending], Vitamin B12 Level 685, Folate 17.8 04/07/18 07:24: Stool Occult Blood Negative 04/07/18 08:30: CA 19-9 Antigen [Pending] Height (Feet): 5 Height (Inches): 4.00 Weight (Pounds): 130 General Appearance: lethargic EENT: normal ENT inspection Neck: normal alignment Cardiovascular: normal peripheral pulses, normal rate, regular rhythm Respiratory/Chest: chest wall non-tender, lungs clear, normal breath sounds Abdomen: normal bowel sounds, non tender, soft Extremities: normal inspection Edema: no edema noted Arm (L), no edema noted Arm (R), no edema noted Leg (L), no edema noted Leg (R), no edema noted Pedal (L), no edema noted Pedal (R), no edema noted Generalized Neurologic: motor weakness Skin: normal pigmentation, warm/dry Mark Oro DO Apr 07, 2018 14:07
--- NOTE | 2018-04-07 14:12 | GI Initial Consult Note ---
History of Present Illness General Date patient seen: Apr 07, 2018 Time patient seen: 13:58 Reason for Hospitalization: Upper Respiratory Illness Referring physician: dr Oro Reason for Consultation: ANEMIA Present Illness HPI 87-year-old female presents ED for evaluation. Patient brought in from long-term facility for congestion, cough 2 days. Patient is nonverbal at baseline. Patient noted to have a productive cough by nursing staff. Afebrile. No signs of distress. No nausea or vomiting. No other aggravating relieving factors. No other associated symptoms GI consulted for anemia. ROS limited, nonverbal. Pt seen, awake alert NAD with no active s/sx of N/V/D. Patient had severe Hgb drop over the past day. OB was sent, noted to be negative. She has a documented history of EGD/ colonoscopy approximately 3 years ago as noted below. Unknown if the mass was surgically removed. 1. A 2 cm smooth mucosa gastric nodule seen in the antrum, which was diagnosed to be a gastric polyp status post biopsy. 2. Scattered colonic diverticulosis. 3. Ulcerated mass seen in the cecum surrounding the ileocecal valve. The mass appeared to be about 3 to 4 cm in diameter and it was extensively biopsied. The mass appeared to be very friable and necrotic. >> invasive adenocarcinoma 4. Status post Tatiana Ink injection in two quadrants just distal of mass in the cecum. Home Meds Active Scripts Hydrocodone Bit/Acetaminophen 5-325* (NORCO 5-325*) 1 Each Tablet, 1 TAB ORAL Q6H PRN for For Pain, #10 TAB Prov:NATTY JAMISON P.ATod 06/21/13 Reported Medications Sulfamethoxazole/Trimethoprim (BACTRIM 400-80 MG TABLET*) 1 Each Tablet, 2 TAB GT TWICE A DAY, TAB 04/05/18 [sodium chloride] No Conflict Check, 1 GM GT BID 04/05/18 Collagenase Clostridium Hist. (Collagenase) 1 Each Powder.ea., 250 UNIT TOPIC DAILY, GM 04/05/18 Guaifenesin/Codeine Phos* (ROBITUSSIN AC*) 118 Ml Liquid, 1 TSP GT Q8HR PRN for For Cough, #118 ML 0 Refills 04/05/18 Amino Acids/Protein Hydrolys (Pro-Stat Renal Care Liquid Pkt) 30 Ml Liquid.pkt, 30 ML PO DAILY, PACKET 04/05/18 Ipratropium/Albuterol Sulfate (DuoNeb 0.5-3(2.5)mg/3ml) 3 Ml Ampul.neb, 3 ML HHN Q4HR, EA 04/05/18 Gentamicin Sulfate (GENTAMICIN SULFATE*) 15 Gm Oint...g., 0.1 % TOPIC, #15 GM 0 Refills 04/05/18 Insulin Aspart* (NOVOLOG*) 100 Unit/1 Ml Insuln.pen, 0 SUBQ Q6HR, #1 EA 0 Refills 02/18/18 Lorazepam* (LORAZEPAM*) 0.5 Mg Tablet, 0.5 MG ORAL Q6HR PRN for For Anxiety, TAB 02/18/18 Cefepime Hcl/D5w (CEFEPIME-DEXTROSE 1 GM/50 ML) 1 Gm/50 Ml Piggyback, 1 GM IVPB Q24H for 2 Days, BAG 02/18/18 Famotidine (FAMOTIDINE) 20 Mg Tablet, 20 MG GT TWICE A DAY, #60 TAB 0 Refills 02/18/18 Oxandrolone (OXANDROLONE) 2.5 Mg Tablet, 2.5 MG PO BID, TAB 02/10/18 Polyethylene Glycol 3350* (MIRALAX*) 17 Gm Powd.pack, 17 GM ORAL DAILY PRN for Constipation, PACKET 02/10/18 Nitrofurantoin Macrocrystal (MACRODANTIN) 100 Mg Capsule, 100 MG ORAL DAILY, CAP 02/10/18 Furosemide* (LASIX*) 20 Mg Tablet, 20 MG ORAL DAILY, TAB 02/10/18 Enoxaparin* (LOVENOX*) 40 Mg/0.4 Ml Inj, 40 MG SUBQ DAILY 02/10/18 Bimatoprost (LUMIGAN) 2.5 Ml Drops, 1 DROP BOTH EYES DAILY, #2.5 ML 0 Refills 02/10/18 Arginine/Ascorbate Sod/Devang AC (Arginaid Powder) 1 Each Powd.pack, 1 EACH PO BID , PACK 02/10/18 Albuterol Sulfate* (ALBUTEROL SULFATE HHN*) 2.5 Mg/3 Ml Vial.neb, 3 ML INH Q4H PRN for Shortness of Breath, EA 02/10/18 Multivitamin (MULTI-VITAMIN DAILY) 1 Each Tablet, 1 EACH PO, TAB 02/10/18 Acetaminophen* (ACETAMINOPHEN 325MG TABLET*) 325 Mg Tablet, 650 MG ORAL Q6H PRN for Pain Scale (6-10), TAB 02/10/18 Diphenhydramine Hcl (DIPHENHYDRAMINE HCL) 50 Mg Capsule, 50 MG ORAL BEDTIME PRN for Itching, #30 CAP 0 Refills 10/02/15 Pregabalin (Lyrica) 25 Mg Cap, 25 MG ORAL THREE TIMES A DAY, CAP 10/02/15 Cholecalciferol (Vitamin D3) (VITAMIN D3) 1,000 Unit Tablet, 1000 UNIT PO BID, TAB 10/02/15 Aspirin (Aspirin EC) 81 Mg Tabec, 81 MG ORAL BID, TAB 10/02/15 Alendronate Sodium* (FOSAMAX*) 70 Mg Tablet, 70 MG ORAL ONCE A WEEK, TAB 01/06/15 Omeprazole (PRILOSEC) 20 Mg Capsule.dr, 20 MG ORAL DAILY, #15 TAB 0 Refills 06/21/13 Docusate Sodium* (DOCUSATE SODIUM*) 100 Mg Capsule, 100 MG ORAL THREE TIMES A DAY, CAP 06/21/13 Levothyroxine Sodium* (LEVOTHYROXINE SODIUM*) 112 Mcg Tablet, 112 MCG ORAL DAILY , TAB Take in the morning on an empty stomach, at least 30 minutes before food. 06/21/13 Ranitidine Hcl* (ZANTAC*) 150 Mg Tablet, 150 MG ORAL QHS, TAB 06/21/13 Lisinopril* (ZESTRIL*) 10 Mg Tablet, 10 MG ORAL BID, TAB 06/21/13 Atorvastatin Calcium* (LIPITOR*) 20 Mg Tablet, 10 MG ORAL BEDTIME, TAB 06/21/13 Amlodipine Besylate (Norvasc) 10 Mg Tab, 10 MG ORAL DAILY, TAB 06/21/13 Med list reviewed/reconciled: Yes Allergies: Coded Allergies: AMOXICILLIN (Verified Allergy, Severe, SEVERE ICTHING /RASHES, 09/17/08) PENICILLINS (Verified Allergy, Intermediate, Itching, 06/21/13) Patient History Limited by: medical condition History Provided By: Medical Record PMH Narrative Past Medical History: DM, HTN, COPD, GERD Past Surgical History: none Pertinent Family History: none Social History: Denies: smoking, alcohol use, drug use Now: No Immunizations: UTD Reviewed Nursing Documentation: PMH: Agreed; PSxH: Agreed Nursing Documentation-PMH Hx Cardiac Problems: Yes - thyroid, anemia Hx Hypertension: Yes Hx COPD: Yes Hx Diabetes: Yes Hx Cancer: No Hx Gastrointestinal Problems: Yes - GERD Hx Neurological Problems: No Hx Cerebrovascular Accident: Yes Review of Systems All Other Systems: limited Physical Exam Vital Signs Date Time Temp Pulse Resp B/P (MAP) Pulse Ox O2 Delivery O2 Flow Rate FiO2 04/05/18 07:57 97.4 112 20 132/77 100 Nasal Cannula 2.0 97.3 04/05/18 09:14 28 Sp02 EP Interpretation: reviewed Labs Laboratory Tests Test 04/07/18 05:10 04/07/18 07:24 04/07/18 08:30 White Blood Count 6.3 K/UL (4.8-10.8) Red Blood Count 2.23 M/UL (4.20-5.40) L Hemoglobin 6.5 G/DL (12.0-16.0) *L Hematocrit 19.3 % (37.0-47.0) L Mean Corpuscular Volume 87 FL (80-99) Mean Corpuscular Hemoglobin 29.1 PG (27.0-31.0) Mean Corpuscular Hemoglobin Concent 33.6 G/DL (32.0-36.0) Red Cell Distribution Width 15.0 % (11.6-14.8) H Platelet Count 196 K/UL (150-450) Mean Platelet Volume 6.3 FL (6.5-10.1) L Neutrophils (%) (Auto) % (45.0-75.0) Lymphocytes (%) (Auto) % (20.0-45.0) Monocytes (%) (Auto) % (1.0-10.0) Eosinophils (%) (Auto) % (0.0-3.0) Basophils (%) (Auto) % (0.0-2.0) Differential Total Cells Counted 100 Neutrophils % (Manual) 59 % (45-75) Lymphocytes % (Manual) 23 % (20-45) Monocytes % (Manual) 15 % (1-10) H Eosinophils % (Manual) 2 % (0-3) Basophils % (Manual) 1 % (0-2) Band Neutrophils 0 % (0-8) Other Cell Type Pathologist comment Platelet Estimate Adequate Platelet Morphology Normal Anisocytosis 1+ Erythrocyte Sedimentation Rate 139 MM/HR (0-30) H Reticulocyte Count 3.6 % (0.0-2.0) H Prothrombin Time 12.1 SEC (9.30-11.50) H Prothromb Time International Ratio 1.2 (0.9-1.1) H Activated Partial Thromboplast Time 33 SEC (23-33) Sodium Level 132 MMOL/L (136-145) L Potassium Level 3.5 MMOL/L (3.5-5.1) Chloride Level 100 MMOL/L (98-107) Carbon Dioxide Level 26 MMOL/L (21-32) Anion Gap 6 mmol/L (5-15) Blood Urea Nitrogen 22 mg/dL (7-18) H Creatinine 1.0 MG/DL (0.55-1.30) Estimat Glomerular Filtration Rate mL/min (>60) Glucose Level 74 MG/DL (74-106) Calcium Level 7.8 MG/DL (8.5-10.1) L Iron Level 63 ug/dL (50-175) Total Iron Binding Capacity 188 ug/dL (250-450) L Percent Iron Saturation 34 % (15-50) Unsaturated Iron Binding 125 ug/dL (112-346) Lactate Dehydrogenase 220 U/L (81-234) Pro-B-Type Natriuretic Peptide 3060 pg/mL (0-125) H Carcinoembryonic Antigen Pending Vitamin B12 Level 685 PG/ML (193-986) Folate 17.8 NG/ML (8.6-58.9) Stool Occult Blood Negative (NEGATIVE) CA 19-9 Antigen Pending General Appearance: well appearing, no apparent distress, alert Head: normocephalic EENT: normal ENT inspection Neck: supple Respiratory: no respiratory distress Cardiovascular: normal rate Gastrointestinal: soft Rectal: deferred Neurologic: alert Skin: no rash Lymphatic: normal inspection, no adenopathy Current Medications Current Medications Medications (Trade) Dose Ordered Sig/Orin Route PRN Reason Start Time Stop Time Status Last Admin Dose Admin Acetaminophen (Tylenol) 650 mg Q4H PRN ORAL T>100.5 04/06/18 17:15 05/05/18 09:14 Albuterol/ Ipratropium (Albuterol/ Ipratropium) 3 ml Q4H PRN HHN Shortness of Breath 04/06/18 17:15 04/10/18 09:14 Aztreonam 1 gm/ Sodium Chloride 50 ml @ 100 mls/hr EVERY 8 HOURS IVPB 04/06/18 22:00 04/12/18 13:59 04/07/18 06:16 Dextrose (Dextrose 50%) 25 ml Q30M PRN IV Hypoglycemia 04/06/18 16:00 05/05/18 09:18 Dextrose (Dextrose 50%) 50 ml Q30M PRN IV hypoglycemia 04/06/18 16:00 05/05/18 09:29 Diltiazem HCl (Cardizem) 30 mg EVERY 8 HOURS GT 04/06/18 22:00 05/06/18 13:59 04/07/18 13:40 Famotidine (Pepcid I.v.) 20 mg Q12HR IVP 04/06/18 21:00 05/05/18 20:59 04/07/18 09:38 Furosemide (Lasix) 20 mg BID IV 04/06/18 18:00 05/06/18 13:59 04/07/18 09:30 Heparin Sodium (Porcine) (Heparin 5000 units/ml) 5,000 units EVERY 12 HOURS SUBQ 04/06/18 21:00 05/05/18 20:59 04/06/18 21:06 Insulin Aspart (NovoLOG) EVERY 6 HOURS SUBQ 04/06/18 18:00 05/05/18 17:59 Levothyroxine Sodium (Synthroid) 50 mcg DAILY IV 04/07/18 09:00 05/05/18 13:29 04/07/18 09:31 Lorazepam (Ativan) 0.5 mg TID ORAL 04/06/18 18:00 04/13/18 17:59 04/07/18 13:40 Memantine (Namenda) 5 mg BID ORAL 04/06/18 18:00 05/06/18 17:59 04/07/18 09:33 Morphine Sulfate (Morphine Sulfate) 2 mg Q4H PRN IVP PAIN 4-10 04/06/18 17:15 04/12/18 09:14 Nitroglycerin (Ntg) 0.4 mg Q5MIN X 3 DOSES PRN SL Prn Chest Pain 04/06/18 16:00 05/05/18 09:29 Ondansetron HCl (Zofran) 4 mg Q6H PRN IVP Nausea & Vomiting 04/06/18 16:00 05/05/18 15:59 Polyethylene Glycol (Miralax) 17 gm DAILYPRN PRN ORAL Constipation 04/06/18 16:00 05/06/18 15:59 Pregabalin (Lyrica) 25 mg Q8HR ORAL 04/06/18 22:00 05/05/18 13:59 04/07/18 13:39 Temazepam (Restoril) 15 mg HSPRN PRN ORAL Insomnia 04/06/18 21:00 04/12/18 20:59 Vancomycin HCl (Vanco rx to dose) 1 ea DAILY PRN MISC . 04/06/18 16:00 05/06/18 15:59 Vancomycin HCl 500 mg/Dextrose 110 ml @ 110 mls/hr Q24H IVPB 04/07/18 11:00 04/11/18 10:59 GI: Plan Problems: (1) Cecum mass (2) PEG (percutaneous endoscopic gastrostomy) status (3) Limited mobility in bed (4) Feeding by G-tube (5) Advanced dementia (6) Acute GI bleeding (7) Anemia Plan S/P EGD/colonoscopy 2015. 1. A 2 cm smooth mucosa gastric nodule seen in the antrum, which was diagnosed to be a gastric polyp status post biopsy. 2. Scattered colonic diverticulosis. 3. Ulcerated mass seen in the cecum surrounding the ileocecal valve. The mass appeared to be about 3 to 4 cm in diameter and it was extensively biopsied. >> pathology invasive adenocarcinoma. EGD/colonoscopy scheduled tomorrow given severe anemia. - maintain NPO + IVFs. - hold all blood thinners tonight ordered CTAP to evaluate cecum mass prn transfusions ppi fu labs Discussed with Dr. Lacey. Thank you for this patient referral, we will follow. The patient was seen and examined at bedside and all new and available data was reviewed in the patients chart. I agree with the above findings, impression and plan. (Patient seen earlier today. Signature stamp does not reflect patient encounter time.). - MD Gavi Lange,[facility] [employer] Apr 07, 2018 14:12
[2018-04-07] MEDS ORDERED: Isovue-300 100ml vial INJ PRN (14:15)
--- NOTE | 2018-04-07 14:26 | Pulmonology Progress Note ---
Assessment/Plan Problems: (1) Sepsis (2) Aspiration pneumonia (3) COPD (chronic obstructive pulmonary disease) (4) Anemia (5) Feeding by G-tube (6) Limited mobility in bed (7) Decubitus ulcer of sacral region, stage 4 Assessment/Plan prbc prn respiratory treatment check sputum continue abx wound care surgical evaluation anemia w/u. Subjective ROS Limited/Unobtainable: Yes Allergies: Coded Allergies: AMOXICILLIN (Verified Allergy, Severe, SEVERE ICTHING /RASHES, 09/17/08) PENICILLINS (Verified Allergy, Intermediate, Itching, 06/21/13) Objective Last 24 Hour Vital Signs Date Time Temp Pulse Resp B/P (MAP) Pulse Ox O2 Delivery O2 Flow Rate FiO2 04/07/18 13:40 69 128/71 04/07/18 12:00 98.2 69 18 128/71 (90) 95 98.2 04/07/18 09:00 Nasal Cannula 2.0 04/07/18 08:55 96 Nasal Cannula 2.0 28 04/07/18 08:55 Nasal Cannula 2.0 28 04/07/18 08:55 76 17 Nasal Cannula 2.0 28 04/07/18 08:00 97.7 73 18 115/59 (77) 99 97.7 04/07/18 06:57 98.3 04/07/18 06:27 98.3 04/07/18 06:27 71 121/63 04/07/18 04:00 98.0 71 18 106/53 (70) 100 98.0 04/07/18 00:00 98.3 69 18 107/52 (70) 100 98.3 04/06/18 23:46 Nasal Cannula 2.0 04/06/18 23:26 84 131/75 04/06/18 23:20 97.9 04/06/18 20:00 98.2 77 19 103/63 (76) 100 98.2 04/06/18 19:25 Nasal Cannula 2.0 28 04/06/18 19:25 96 Nasal Cannula 2.0 28 04/06/18 19:25 82 16 Nasal Cannula 2.0 28 04/06/18 15:54 97.9 82 20 125/64 (84) 100 97.9 04/06/18 14:35 97.9 04/06/18 14:28 77 20 95 Nasal Cannula 2.0 28 Intake and Output 04/06/18 04/07/18 19:00 07:00 Intake Total 270 ml 600 ml Balance 270 ml 600 ml Free Water 60 ml 160 ml IV Total 100 ml Tube Feeding 210 ml 340 ml # Bowel Movements 2 General Appearance: cachetic HEENT: normocephalic, atraumatic Respiratory/Chest: chest wall non-tender, lungs clear Breasts: no masses Cardiovascular: normal peripheral pulses, normal rate Abdomen: normal bowel sounds, soft, non tender Genitourinary: normal external genitalia Extremities: no cyanosis Neurologic/Psychiatric: summons server II-XII grossly normal Microbiology Date/Time Source Procedure Growth Status 04/05/18 08:49 Blood Blood Culture - Preliminary NO GROWTH AFTER 24 HOURS Resulted 04/05/18 08:39 Blood Blood Culture - Preliminary NO GROWTH AFTER 24 HOURS Resulted 04/06/18 12:00 Sputum Induced Gram Stain - Final Resulted 04/06/18 12:00 Sputum Induced Sputum Culture Pending Resulted Laboratory Tests 04/07/18 05:10: White Blood Count 6.3, Red Blood Count 2.23L, Hemoglobin 6.5*L, Hematocrit 19.3L , Mean Corpuscular Volume 87, Mean Corpuscular Hemoglobin 29.1, Mean Corpuscular Hemoglobin Concent 33.6, Red Cell Distribution Width 15.0H, Platelet Count 196, Mean Platelet Volume 6.3L, Neutrophils (%) (Auto) , Lymphocytes (%) (Auto) , Monocytes (%) (Auto) , Eosinophils (%) (Auto) , Basophils (%) (Auto) , Differential Total Cells Counted 100, Neutrophils % ( Manual) 59, Lymphocytes % (Manual) 23, Monocytes % (Manual) 15H, Eosinophils % ( Manual) 2, Basophils % (Manual) 1, Band Neutrophils 0, Other Cell Type Pathologist comment, Platelet Estimate Adequate, Platelet Morphology Normal, Anisocytosis 1+, Erythrocyte Sedimentation Rate 139H, Reticulocyte Count 3.6H, Prothrombin Time 12.1H, Prothromb Time International Ratio 1.2H, Activated Partial Thromboplast Time 33, Sodium Level 132L, Potassium Level 3.5, Chloride Level 100, Carbon Dioxide Level 26, Anion Gap 6, Blood Urea Nitrogen 22H, Creatinine 1.0, Estimat Glomerular Filtration Rate , Glucose Level 74, Calcium Level 7.8L, Iron Level 63, Total Iron Binding Capacity 188L, Percent Iron Saturation 34, Unsaturated Iron Binding 125, Lactate Dehydrogenase 220, Pro-B- Type Natriuretic Peptide 3060H, Carcinoembryonic Antigen [Pending], Vitamin B12 Level 685, Folate 17.8 04/07/18 07:24: Stool Occult Blood Negative 04/07/18 08:30: CA 19-9 Antigen [Pending] Current Medications Medications (Trade) Dose Ordered Sig/Orin Route PRN Reason Start Time Stop Time Status Last Admin Dose Admin Acetaminophen (Tylenol) 650 mg Q4H PRN ORAL T>100.5 04/06/18 17:15 05/05/18 09:14 Albuterol/ Ipratropium (Albuterol/ Ipratropium) 3 ml Q4H PRN HHN Shortness of Breath 04/06/18 17:15 04/10/18 09:14 Aztreonam 1 gm/ Sodium Chloride 50 ml @ 100 mls/hr EVERY 8 HOURS IVPB 04/06/18 22:00 04/12/18 13:59 04/07/18 13:58 Barium Sulfate (Readi-Cat 2) 450 ml NOW PRN ORAL Radiology Procedure 04/07/18 14:15 04/09/18 14:03 Dextrose (Dextrose 50%) 25 ml Q30M PRN IV Hypoglycemia 04/06/18 16:00 05/05/18 09:18 Dextrose (Dextrose 50%) 50 ml Q30M PRN IV hypoglycemia 04/06/18 16:00 05/05/18 09:29 Dextrose/ Electrolytes 1,000 ml @ 75 mls/hr [id number] IV 04/07/18 15:00 05/07/18 14:59 Diltiazem HCl (Cardizem) 30 mg EVERY 8 HOURS GT 04/06/18 22:00 05/06/18 13:59 04/07/18 13:40 Famotidine (Pepcid I.v.) 20 mg Q12HR IVP 04/06/18 21:00 05/05/18 20:59 04/07/18 09:38 Furosemide (Lasix) 20 mg BID IV 04/06/18 18:00 05/06/18 13:59 04/07/18 09:30 Heparin Sodium (Porcine) (Heparin 5000 units/ml) 5,000 units EVERY 12 HOURS SUBQ 04/06/18 21:00 05/05/18 20:59 04/06/18 21:06 Insulin Aspart (NovoLOG) EVERY 6 HOURS SUBQ 04/06/18 18:00 05/05/18 17:59 Iopamidol (Isovue-300 100ml) 100 ml NOW PRN INJ Radiology Procedure 04/07/18 14:15 04/08/18 23:59 Levothyroxine Sodium (Synthroid) 50 mcg DAILY IV 04/07/18 09:00 05/05/18 13:29 04/07/18 09:31 Lorazepam (Ativan) 0.5 mg TID ORAL 04/06/18 18:00 04/13/18 17:59 04/07/18 13:40 Memantine (Namenda) 5 mg BID ORAL 04/06/18 18:00 05/06/18 17:59 04/07/18 09:33 Morphine Sulfate (Morphine Sulfate) 2 mg Q4H PRN IVP PAIN 4-10 04/06/18 17:15 04/12/18 09:14 Nitroglycerin (Ntg) 0.4 mg Q5MIN X 3 DOSES PRN SL Prn Chest Pain 04/06/18 16:00 05/05/18 09:29 Ondansetron HCl (Zofran) 4 mg Q6H PRN IVP Nausea & Vomiting 04/06/18 16:00 05/05/18 15:59 Polyethylene Glycol (Miralax) 17 gm DAILYPRN PRN ORAL Constipation 04/06/18 16:00 05/06/18 15:59 Polyethylene Glycol/ Electrolytes (Nulytely) 4,000 ml ONCE ONCE ORAL 04/07/18 16:00 04/07/18 16:01 Pregabalin (Lyrica) 25 mg Q8HR ORAL 04/06/18 22:00 05/05/18 13:59 04/07/18 13:39 Temazepam (Restoril) 15 mg HSPRN PRN ORAL Insomnia 04/06/18 21:00 04/12/18 20:59 Vancomycin HCl (Vanco rx to dose) 1 ea DAILY PRN MISC . 04/06/18 16:00 05/06/18 15:59 Vancomycin HCl 500 mg/Dextrose 110 ml @ 110 mls/hr Q24H IVPB 04/07/18 11:00 04/11/18 10:59 Betsy Hope MD Apr 07, 2018 14:25
[2018-04-07] MEDS: D5 1/2NS w/KCl 20mEq 1,000 ML IV SCH (15:00)
[2018-04-07 15:49] VITALS: BP 136/71
[2018-04-07] MEDS ORDERED: Polyethylene Glycol 238gm bottle ORAL SCH (16:00)
[2018-04-07] MEDS ORDERED: Nulytely 4L ORAL ONE (16:00)
[2018-04-07] MEDS: Vancomycin 500 MG in D5W 110 ML IVPB SCH (17:25)
[2018-04-07 20:00] VITALS: BP 150/92
--- NOTE | 2018-04-07 21:45 | Progress Note ---
DATE: 04/07/2018 NOTE: "VERY POOR AUDIO QUALITY" SUBJECTIVE: The patient is an 87-year-old female patient with shortness of breath confusion and altered mental status worsened by stress of her medical illness. That is why her attending has requested daily psychiatric consultation. MENTAL STATUS EXAMINATION: This is an 87-year-old female. Appearance disheveled. Attitude, irritable and agitated. Affect, guarded, restricted. Intellect poor. Mood depressed, anxious. Motor activity, psychomotor agitation. Attention span is poor. Orientation x2. Speech is pressured. Thought process, disorganized and illogical. Thought content, auditory hallucinations and paranoid delusions. Insight and judgment is poor. DIAGNOSIS: Major depressive disorder, mild, recurrent with psychotic features, rule out pseudodementia. PLAN: Treat with Namenda 5 mg twice a day and Ativan 0.5 mg every 6 hours p.r.n. anxiety or agitation. Provided 20 minutes of insight-oriented psychotherapy to improve the patient's insight into her psychiatric illness and cognitive benefits so she has better impulse control on the unit. Twenty minutes of insight-oriented psychotherapy provided. Josh Gonzalez M.D. DR: Michael JOB#: [id number] CC:
[2018-04-07] MEDS ORDERED: Fleet's Enema 133ml RECTAL SCH (23:00)
[2018-04-08] VITALS (11 sets, daily range): BP systolic 121–156; BP diastolic 61–92
[2018-04-08] MEDS: D5 1/2NS w/KCl 20mEq 1,000 ML IV SCH ×2 (04:51→17:11)
[2018-04-08] MEDS: Lyrica 25mg cap ORAL SCH ×3 (05:21→20:32)
[2018-04-08] MEDS: dilTIAZem HCl 30mg tab GT SCH ×3 (05:21→20:31)
[2018-04-08] MEDS: NovoLOG Insulin Flexpen SUBQ SCH ×4 (05:21→17:40)
--- NOTE | 2018-04-08 06:41 | Anethesia Preoperative Eval ---
Anesthesia Pre-op PMH/ROS General Date of Evaluation: Apr 08, 2018 Time of Evaluation: 06:35 Anesthesiologist: momo ASA Score: ASA 4 Mallampati Score Class I : Soft palate, uvula, fauces, pillars visible Class II: Soft palate, uvula, fauces visible Class III: Soft palate, base of uvula visible Class IV: Only hard plate visible Mallampati Classification: Class II Surgeon: paty Diagnosis: anemia Surgical Procedure: egd/colonoscopy Anesthesia History: none Social History: smoking - nonsmoker Family History: no anesthesia problems Allergies: Coded Allergies: AMOXICILLIN (Verified Allergy, Severe, SEVERE ICTHING /RASHES, 09/17/08) PENICILLINS (Verified Allergy, Intermediate, Itching, 06/21/13) Medications: see eMAR Past Medical History Cardiovascular: Reports: HTN, other - hypercholesterolemia Gastrointestinal/Genitourinary: Reports: GERD, other - hx/o miscarriages, Neurologic/Psychiatric: Reports: dementia, CVA, other Endocrine: Reports: DM, hypothyroidism Hematology/Immune: Reports: anemia Musculoskeletal/Integumentary: Reports: OA PSxH Narrative: hysterectomy Anesthesia Pre-op Phys. Exam Physician Exam Last Vital Signs Date Time Temp Pulse Resp B/P (MAP) Pulse Ox O2 Delivery O2 Flow Rate FiO2 04/08/18 05:21 98.9 04/08/18 05:21 82 139/71 04/08/18 04:00 18 100 04/08/18 01:39 Nasal Cannula 2.0 28 Constitutional: NAD Neurologic: CN 2-12 intact Cardiovascular: RRR Respiratory: CTA Gastrointestinal: S/NT/ND Airway Exam Mallampati Score: Class II MO: limited Neck: flexible TMD: 2fb ROM: limited Teeth: missing Anesthesia Pre-op A/P Labs Chemistry Test 04/07/18 08:30 CA 19-9 Antigen Pending Risk Assessment & Plan Assessment: [email or web address] Plan: mac Status Change Before Surgery: No Pre-Antibiotics Drug: Jimena Barcenas MD Apr 08, 2018 06:41
[2018-04-08] MEDS ORDERED: fentaNYL 100 mcg/2 mL IV PRN (06:45)
[2018-04-08] MEDS ORDERED: DiphenhydrAMINE 50mg/ml Inj IVP PRN (06:45)
[2018-04-08] MEDS ORDERED: Atropine Inj 1mg/10ml Syr IV PRN (06:45)
[2018-04-08] MEDS: Aztreonam Inj 1 GM in NS 50 ML IVPB SCH ×3 (06:50→22:05)
[2018-04-08 07:42] LABS: BASOPHILS % (AUTO) 1.6 % (0.0-2.0); EOSINOPHILS % (AUTO) 0.9 % (0.0-3.0); HEMOGLOBIN 11.1 G/DL (12.0-16.0); LYMPHOCYTES % (AUTO) 12.9 % (20.0-45.0); MEAN CORPUSCULAR VOLUME 86 FL (80-99); MONOCYTES % (AUTO) 9.8 % (1.0-10.0); NEUTROPHILS % (AUTO) 74.8 % (45.0-75.0); PLATELET COUNT 216 K/UL (150-450); RED BLOOD COUNT 3.94 M/UL (4.20-5.40); RED CELL DISTRIBUTION WIDTH 14.5 % (11.6-14.8); WHITE BLOOD COUNT 8.7 K/UL (4.8-10.8)
--- NOTE | 2018-04-08 07:43 | Pre-Procedure Note/Attestation ---
Pre-Procedure Note/Attestation Complete Prior to Procedure Planned Procedure: not applicable Procedure Narrative: esophagogastroduodenoscopy and colonoscopy Indications for Procedure Pre-Operative Diagnosis: anemia Attestation I attest that I discussed the nature of the procedure; its benefits; risks and complications; and alternatives (and the risks and benefits of such alternatives ), prior to the procedure, with the patient (or the patient's legal pest control service representative). I attest that, if there was a reasonable possibility of needing a blood transfusion, the patient (or the patient's legal pest control service representative) was given the [facility] standardized written summary, pursuant to the Jared Pranav Blood Safety Act ([place] Health and Safety Code # 1645, as amended). I attest that I re-evaluated the patient just prior to the surgery and that there has been no change in the patient's H&P, except as documented below: Pierce Lacey MD Apr 08, 2018 07:43
--- NOTE | 2018-04-08 07:44 | General Progress Note ---
Assessment/Plan Problem List: (1) PEG (percutaneous endoscopic gastrostomy) status ICD Codes: Z93.1 - Gastrostomy status SNOMED: 452444657, 133013659 (2) Diabetes ICD Codes: E11.9 - Type 2 diabetes mellitus without complications SNOMED: 44793737 (3) Anemia ICD Codes: D64.9 - Anemia, unspecified SNOMED: 267606038 (4) Cecum mass ICD Codes: K63.9 - Disease of intestine, unspecified SNOMED: 420604702, 558476012 Assessment/Plan pending EGD and colonoscopy for today Subjective ROS Limited/Unobtainable: Yes Allergies: Coded Allergies: AMOXICILLIN (Verified Allergy, Severe, SEVERE ICTHING /RASHES, 09/17/08) PENICILLINS (Verified Allergy, Intermediate, Itching, 06/21/13) Subjective no event Objective Last 24 Hour Vital Signs Date Time Temp Pulse Resp B/P (MAP) Pulse Ox O2 Delivery O2 Flow Rate FiO2 04/08/18 05:51 98.9 04/08/18 05:21 98.9 04/08/18 05:21 82 139/71 04/08/18 04:00 98.9 75 18 130/67 (88) 100 98.9 04/08/18 01:39 98 Nasal Cannula 2.0 28 04/08/18 01:39 Nasal Cannula 2.0 28 04/08/18 01:36 72 20 Nasal Cannula 2.0 28 04/08/18 00:00 99.0 71 19 138/74 (95) 100 99.0 04/07/18 22:56 99.1 04/07/18 22:55 73 148/85 04/07/18 21:00 Nasal Cannula 2.0 04/07/18 20:00 99.1 69 19 150/92 (111) 97 99.1 04/07/18 15:49 98.4 68 18 136/71 (92) 97 98.4 04/07/18 13:40 69 128/71 04/07/18 12:00 98.2 69 18 128/71 (90) 95 98.2 04/07/18 09:00 Nasal Cannula 2.0 04/07/18 08:55 96 Nasal Cannula 2.0 28 04/07/18 08:55 Nasal Cannula 2.0 28 10/2/18 08:55 76 17 Nasal Cannula 2.0 28 04/07/18 08:00 97.7 73 18 115/59 (77) 99 97.7 Intake and Output 04/07/18 04/08/18 19:00 07:00 Intake Total 885 ml 1445 ml Output Total 2200 ml 2000 ml Balance -1315 ml -555 ml Free Water 200 ml 120 ml IV Total 385 ml 725 ml Tube Feeding 300 ml Other 600 ml Output Urine Total 2200 ml 2000 ml # Bowel Movements 2 6 Laboratory Tests 04/07/18 08:30: CA 19-9 Antigen [Pending] 04/08/18 05:40: White Blood Count [Pending], Red Blood Count [Pending], Hemoglobin [Pending], Hematocrit [Pending], Mean Corpuscular Volume [Pending], Mean Corpuscular Hemoglobin [Pending], Mean Corpuscular Hemoglobin Concent [Pending], Red Cell Distribution Width [Pending], Platelet Count [Pending], Mean Platelet Volume [ Pending], Neutrophils (%) (Auto) [Pending], Lymphocytes (%) (Auto) [Pending], Monocytes (%) (Auto) [Pending], Eosinophils (%) (Auto) [Pending], Basophils (%) (Auto) [Pending], Prothrombin Time [Pending], Prothromb Time International Ratio [Pending], Activated Partial Thromboplast Time [Pending], Sodium Level [ Pending], Potassium Level [Pending], Chloride Level [Pending], Carbon Dioxide Level [Pending], Blood Urea Nitrogen [Pending], Creatinine [Pending], Estimat Glomerular Filtration Rate [Pending], Glucose Level [Pending], Calcium Level [ Pending], Total Bilirubin [Pending], Direct Bilirubin [Pending], Aspartate Amino Transf (AST/SGOT) [Pending], Alanine Aminotransferase (ALT/SGPT) [Pending] , Alkaline Phosphatase [Pending], Total Protein [Pending], Albumin [Pending] Height (Feet): 5 Height (Inches): 4.00 Weight (Pounds): 133 General Appearance: no apparent distress EENT: normal ENT inspection Neck: supple Cardiovascular: normal rate Respiratory/Chest: decreased breath sounds Abdomen: normal bowel sounds, non tender, soft Extremities: non-tender Vosoghi,Pierce MD Apr 08, 2018 07:44
[2018-04-08 07:51] LABS: INR 1.2 (0.9-1.1)
[2018-04-08 08:13] LABS: ANION GAP 10 mmol/L (5-15); BLOOD UREA NITROGEN 18 mg/dL (7-18); CALCIUM 8.4 MG/DL (8.5-10.1); CARBON DIOXIDE 28 MMOL/L (21-32); CHLORIDE 98 MMOL/L (98-107); POTASSIUM 3.6 MMOL/L (3.5-5.1); SODIUM 136 MMOL/L (136-145)
[2018-04-08] MEDS ORDERED: NS 500ML IVPB ONE (08:27)
[2018-04-08] MEDS ORDERED: Lidocaine 1% MPF 10mg/ml 5ml ONE (08:30)
[2018-04-08] MEDS ORDERED: Propofol 200mg/20ml IV ONE (08:30)
[2018-04-08 08:40] LABS: ALANINE AMINOTRANSFERASE 71 U/L (12-78); ALBUMIN 2.4 G/DL (3.4-5.0); ALKALINE PHOSPHATASE 67 U/L (46-116); ASPARTATE AMINO TRANSFERASE 61 U/L (15-37); BILIRUBIN,DIRECT 0.1 MG/DL (0.0-0.3); BILIRUBIN,TOTAL 0.5 MG/DL (0.2-1.0)
--- NOTE | 2018-04-08 09:01 | Endoscopy Procedure Note ---
Endoscopy Procedure Note General Indication for Procedure: anemia Procedures Performed: EGD, colonoscopy Operative Findings/Diagnosis: gastritis, diverticulosis Specimen: yes Pt Tolerated Procedure Well: Yes Estimated Blood Loss: none Anesthesia Anesthesiologist: lacey Anesthesia: MAC Inserted Devices Implant(s) used?: No Quality Quality of Bowel Preparation: Fair Did scope reach the cecum?: Yes Was there any complications?: No GI Core Measures 50 yrs or older w/o bx or poly: Not Applicable 10yrs. F/U not recommended: Not Applicable Pierce Lacey MD Apr 08, 2018 09:01
--- NOTE | 2018-04-08 09:37 | Immediate Post-Op Evaluation ---
Immediate Post-Op Evalulation Immediate Post-Op Evalulation Procedure: egd/colonoscopy Date of Evaluation: Apr 08, 2018 Time of Evaluation: 09:19 IV Fluids: 300ml 0.9ns Blood Products: none Estimated Blood Loss: neglgible Blood Pressure Systolic: 154 Blood Pressure Diastolic: 92 Pulse Rate: 79 Respiratory Rate: 18 O2 Sat by Pulse Oximetry: 99 Temperature (Fahrenheit): 97.3 Pain Score (1-10): 0 Nausea: No Vomiting: No Complications none Patient Status: awake, reacts, patent Hydration Status: adequate Drug: Jimena Barcenas MD Apr 08, 2018 09:37
--- NOTE | 2018-04-08 09:39 | 48 Hour Post Anesthesia Eval ---
Post Anesthesia Evaluation Procedure: egd/colonoscopy Date of Evaluation: Apr 08, 2018 Time of Evaluation: 09:21 Blood Pressure Systolic: 150 0: 91 Pulse Rate: 79 Respiratory Rate: 18 Temperature (Fahrenheit): 97.3 O2 Sat by Pulse Oximetry: 99 Airway: patent Nausea: No Vomiting: No Pain Intensity: 0 Hydration Status: adequate Cardiopulmonary Status: stable Mental Status/LOC: patient returned to baseline Post-Anesthesia Complications: none Follow-up care needed: N/A Jimena Justice MD Apr 08, 2018 09:39
--- NOTE | 2018-04-08 10:27 | Cardiac Electrophysiology PN ---
Assessment/Plan Assessment/Plan 1. Elevated BNP and congestive heart failure. Echocardiogram showed EF 40-45% Change Lasix to 40 mg GT daily 2. Paroxysmal atrial fibrillation. On Cardizem 30 mg tid.Off anticoagulation for anemia Hb 6.5 3. Hypertension. Cardizem 30 tid 4. Decubitus ulcer. FU by Dr. Herrera. 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 5. Dysphagia, status post PEG placement. 6. Sepsis, on antibiotic per ID. 7. Anemia hb 6.5. Had EGD and colonoscopy today that showed Gastritis and diverticulosis S/P Transfusion DW RN Subjective Subjective Had EGD and colonoscopy by Dr Lacey today. Objective Last 24 Hour Vital Signs Date Time Temp Pulse Resp B/P (MAP) Pulse Ox O2 Delivery O2 Flow Rate FiO2 04/08/18 09:41 98.0 68 13 156/88 100 Nasal Cannula 3 98.0 04/08/18 09:39 207.1 79 18 99 04/08/18 09:37 207.1 79 18 99 04/08/18 09:30 73 13 147/84 100 Nasal Cannula 3 04/08/18 09:17 73 11 150/91 100 Nasal Cannula 3 04/08/18 09:12 76 18 151/86 99 Nasal Cannula 3 04/08/18 09:07 97.3 79 18 154/92 99 Nasal Cannula 3 97.3 04/08/18 09:00 Nasal Cannula 2.0 04/08/18 08:00 97.7 70 18 141/80 (100) 100 97.7 04/08/18 05:51 98.9 04/08/18 05:21 98.9 04/08/18 05:21 82 139/71 04/08/18 04:00 98.9 75 18 130/67 (88) 100 98.9 04/08/18 01:39 98 Nasal Cannula 2.0 28 04/08/18 01:39 Nasal Cannula 2.0 28 04/08/18 01:36 72 20 Nasal Cannula 2.0 28 04/08/18 00:00 99.0 71 19 138/74 (95) 100 99.0 04/07/18 22:56 99.1 04/07/18 22:55 73 148/85 04/07/18 21:00 Nasal Cannula 2.0 04/07/18 20:00 99.1 69 19 150/92 (111) 97 99.1 04/07/18 15:49 98.4 68 18 136/71 (92) 97 98.4 04/07/18 13:40 69 128/71 04/07/18 12:00 98.2 69 18 128/71 (90) 95 98.2 Intake and Output 04/07/18 04/08/18 19:00 07:00 Intake Total 885 ml 1445 ml Output Total 2200 ml 2000 ml Balance -1315 ml -555 ml Free Water 200 ml 120 ml IV Total 385 ml 725 ml Tube Feeding 300 ml Other 600 ml Output Urine Total 2200 ml 2000 ml # Bowel Movements 2 6 Laboratory Tests Test 04/08/18 05:40 White Blood Count 8.7 K/UL (4.8-10.8) Red Blood Count 3.94 M/UL (4.20-5.40) L Hemoglobin 11.1 G/DL (12.0-16.0) #L Hematocrit 34.0 % (37.0-47.0) #L Mean Corpuscular Volume 86 FL (80-99) Mean Corpuscular Hemoglobin 28.2 PG (27.0-31.0) Mean Corpuscular Hemoglobin Concent 32.6 G/DL (32.0-36.0) Red Cell Distribution Width 14.5 % (11.6-14.8) Platelet Count 216 K/UL (150-450) Mean Platelet Volume 5.7 FL (6.5-10.1) L Neutrophils (%) (Auto) 74.8 % (45.0-75.0) Lymphocytes (%) (Auto) 12.9 % (20.0-45.0) L Monocytes (%) (Auto) 9.8 % (1.0-10.0) Eosinophils (%) (Auto) 0.9 % (0.0-3.0) Basophils (%) (Auto) 1.6 % (0.0-2.0) Prothrombin Time 12.4 SEC (9.30-11.50) H Prothromb Time International Ratio 1.2 (0.9-1.1) H Activated Partial Thromboplast Time 32 SEC (23-33) Sodium Level 136 MMOL/L (136-145) Potassium Level 3.6 MMOL/L (3.5-5.1) Chloride Level 98 MMOL/L (98-107) Carbon Dioxide Level 28 MMOL/L (21-32) Anion Gap 10 mmol/L (5-15) Blood Urea Nitrogen 18 mg/dL (7-18) Creatinine 1.0 MG/DL (0.55-1.30) Estimat Glomerular Filtration Rate mL/min (>60) Glucose Level 94 MG/DL (74-106) Calcium Level 8.4 MG/DL (8.5-10.1) L Total Bilirubin 0.5 MG/DL (0.2-1.0) Direct Bilirubin 0.1 MG/DL (0.0-0.3) Aspartate Amino Transf (AST/SGOT) 61 U/L (15-37) H Alanine Aminotransferase (ALT/SGPT) 71 U/L (12-78) Alkaline Phosphatase 67 U/L (46-116) Total Protein 7.3 G/DL (6.4-8.2) Albumin 2.4 G/DL (3.4-5.0) L Microbiology Date/Time Source Procedure Growth Status 04/06/18 12:00 Sputum Induced Gram Stain - Final Complete 04/06/18 12:00 Sputum Induced Sputum Culture - Final NORMAL UPPER RESPIRATORY NURY PRESENT Complete Objective HEAD AND NECK: No JVD. LUNGS: Coarse rhonchi. CARDIOVASCULAR: Irregular S1 and S2 with no gallop or murmur. ABDOMEN: Soft. Status post G-tube. EXTREMITIES: Contracted with 1+ pitting edema. Cristofer Houser MD Apr 08, 2018 10:27
[2018-04-08] MEDS: LORazepam 0.5mg tab ORAL SCH ×3 (10:36→17:11)
[2018-04-08] MEDS: Memantine 5 MG TAB ORAL SCH ×2 (10:36→17:11)
[2018-04-08] MEDS: Heparin 5000 units/ml inj SUBQ SCH ×2 (10:38→20:27)
--- NOTE | 2018-04-08 10:52 | Nephrology Progress Note ---
Assessment/Plan Problem List: (1) Hyponatremia Assessment: improving (2) Aspiration pneumonia (3) Hypothyroidism (4) PEG (percutaneous endoscopic gastrostomy) status (5) Anemia Assessment worsening Anemia, transfused HypoNatremia, Likely diuretic related and Depletional up to 132 COPD exac. resp failure Hypothyroidism L foot and sacral decub, POA PNA ? Aspiration PEG DM h/o Long Smoking h/o Anemia h/o OA h/o Colon Ca h/o HTN Plan Transfuse 2 units 04/07 Cordova Isotonic solution Low Na snyder antibiotics / pulm support IV Pepcid change synthroid to IV Per orders Subjective ROS Limited/Unobtainable: No Constitutional: Reports: malaise, weakness Objective Objective Last 24 Hour Vital Signs Date Time Temp Pulse Resp B/P (MAP) Pulse Ox O2 Delivery O2 Flow Rate FiO2 04/08/18 09:41 98.0 68 13 156/88 100 Nasal Cannula 3 98.0 04/08/18 09:39 207.1 79 18 99 04/08/18 09:37 207.1 79 18 99 04/08/18 09:30 73 13 147/84 100 Nasal Cannula 3 04/08/18 09:17 73 11 150/91 100 Nasal Cannula 3 04/08/18 09:12 76 18 151/86 99 Nasal Cannula 3 04/08/18 09:07 97.3 79 18 154/92 99 Nasal Cannula 3 97.3 04/08/18 09:00 Nasal Cannula 2.0 04/08/18 08:00 97.7 70 18 141/80 (100) 100 97.7 04/08/18 07:05 Nasal Cannula 2.0 28 04/08/18 07:05 98 Nasal Cannula 2.0 28 04/08/18 07:05 71 18 Nasal Cannula 2.0 28 04/08/18 05:51 98.9 04/08/18 05:21 98.9 04/08/18 05:21 82 139/71 04/08/18 04:00 98.9 75 18 130/67 (88) 100 98.9 04/08/18 01:39 98 Nasal Cannula 2.0 28 04/08/18 01:39 Nasal Cannula 2.0 28 04/08/18 01:36 72 20 Nasal Cannula 2.0 28 04/08/18 00:00 99.0 71 19 138/74 (95) 100 99.0 04/07/18 22:56 99.1 04/07/18 22:55 73 148/85 04/07/18 21:00 Nasal Cannula 2.0 04/07/18 20:00 99.1 69 19 150/92 (111) 97 99.1 04/07/18 15:49 98.4 68 18 136/71 (92) 97 98.4 04/07/18 13:40 69 128/71 04/07/18 12:00 98.2 69 18 128/71 (90) 95 98.2 Intake and Output 04/07/18 04/08/18 19:00 07:00 Intake Total 885 ml 1445 ml Output Total 2200 ml 2000 ml Balance -1315 ml -555 ml Free Water 200 ml 120 ml IV Total 385 ml 725 ml Tube Feeding 300 ml Other 600 ml Output Urine Total 2200 ml 2000 ml # Bowel Movements 2 6 Laboratory Tests 04/08/18 05:40: White Blood Count 8.7, Red Blood Count 3.94L, Hemoglobin 11.1#L, Hematocrit 34.0 #L, Mean Corpuscular Volume 86, Mean Corpuscular Hemoglobin 28.2, Mean Corpuscular Hemoglobin Concent 32.6, Red Cell Distribution Width 14.5, Platelet Count 216, Mean Platelet Volume 5.7L, Neutrophils (%) (Auto) 74.8, Lymphocytes ( %) (Auto) 12.9L, Monocytes (%) (Auto) 9.8, Eosinophils (%) (Auto) 0.9, Basophils (%) (Auto) 1.6, Prothrombin Time 12.4H, Prothromb Time International Ratio 1.2H, Activated Partial Thromboplast Time 32, Sodium Level 136, Potassium Level 3.6, Chloride Level 98, Carbon Dioxide Level 28, Anion Gap 10, Blood Urea Nitrogen 18, Creatinine 1.0, Estimat Glomerular Filtration Rate , Glucose Level 94, Calcium Level 8.4L, Total Bilirubin 0.5, Direct Bilirubin 0.1, Aspartate Amino Transf (AST/SGOT) 61H, Alanine Aminotransferase (ALT/SGPT) 71, Alkaline Phosphatase 67, Total Protein 7.3, Albumin 2.4L Height (Feet): 5 Height (Inches): 4.00 Weight (Pounds): 133 General Appearance: no apparent distress Cardiovascular: normal rate Respiratory/Chest: decreased breath sounds Abdomen: soft Objective no other change Zeb Jiang MD Apr 08, 2018 10:52
--- NOTE | 2018-04-08 11:42 | General Progress Note ---
Assessment/Plan Assessment/Plan Assessment/Plan # Anemia of chronic disease -- multifactorial cause, workup reviewed and occult is negative --> thus far rule out gi bleed, occult negative --> appreciate gi recs --> transfuse to hgb goal >7 --> no evidence for hemolysis is noted # Leukocytosis is likely related to underlying ut --> s/p abx, now better # Coagulopathy with elevated inr --> at this time does not need ffp or vitk unless has surgery # Stage IV full thickness pressure decubitus ulcer noted to sacrum approximately 5x6cm. wound moist and bed beefy red with --> debridement if necessary with surgical team # Aspiration pneumonia --> s/p abx # Respiratory distress # COPD (chronic obstructive pulmonary disease) # Advanced dementia # Feeding by G-tube # Limited mobility in bed Greatly appreciate consultation! Subjective Constitutional: Denies: no symptoms, chills, diaphoresis, fever, malaise, weakness, other HEENT: Denies: no symptoms, eye pain, blurred vision, tearing, double vision, ear pain, ear discharge, nose pain, nose congestion, throat pain, throat swelling, mouth pain, mouth swelling, other Cardiovascular: Denies: no symptoms, chest pain, edema, irregular heart rate, lightheadedness, palpitations, syncope, other Respiratory: Denies: no symptoms, cough, orthopnea, shortness of breath, SOB with excertion, SOB at rest, sputum, stridor, wheezing, other Gastrointestinal/Abdominal: Denies: no symptoms, abdomen distended, abdominal pain, black stools, tarry stools, blood in stool, constipated, diarrhea, difficulty swallowing, nausea, poor appetite, poor fluid intake, rectal bleeding , vomiting, other Genitourinary: Denies: no symptoms, burning, discharge, frequency, flank pain, hematuria, incontinence, pain, urgency, other Neurologic/Psychiatric: Denies: no symptoms, anxiety, depressed, emotional problems, headache, numbness, paresthesia, pre-existing deficit, seizure, tingling, tremors, weakness, other Endocrine: Denies: no symptoms, excessive sweating, flushing, intolerance to cold, intolerance to heat, increased hunger, increased thirst, increased urine, unexplained weight gain, unexplained weight loss, other Hematologic/Lymphatic: Denies: no symptoms, anemia, easy bleeding, easy bruising, other Allergies: Coded Allergies: AMOXICILLIN (Verified Allergy, Severe, SEVERE ICTHING /RASHES, 09/17/08) PENICILLINS (Verified Allergy, Intermediate, Itching, 06/21/13) Subjective no events, no f/c Objective Last 24 Hour Vital Signs Date Time Temp Pulse Resp B/P (MAP) Pulse Ox O2 Delivery O2 Flow Rate FiO2 04/08/18 09:41 98.0 68 13 156/88 100 Nasal Cannula 3 98.0 04/08/18 09:39 207.1 79 18 99 04/08/18 09:37 207.1 79 18 99 04/08/18 09:30 73 13 147/84 100 Nasal Cannula 3 04/08/18 09:17 73 11 150/91 100 Nasal Cannula 3 04/08/18 09:12 76 18 151/86 99 Nasal Cannula 3 04/08/18 09:07 97.3 79 18 154/92 99 Nasal Cannula 3 97.3 04/08/18 09:00 Nasal Cannula 2.0 04/08/18 08:00 97.7 70 18 141/80 (100) 100 97.7 04/08/18 07:05 Nasal Cannula 2.0 28 04/08/18 07:05 98 Nasal Cannula 2.0 28 04/08/18 07:05 71 18 Nasal Cannula 2.0 28 04/08/18 05:51 98.9 04/08/18 05:21 98.9 04/08/18 05:21 82 139/71 04/08/18 04:00 98.9 75 18 130/67 (88) 100 98.9 04/08/18 01:39 98 Nasal Cannula 2.0 28 04/08/18 01:39 Nasal Cannula 2.0 28 04/08/18 01:36 72 20 Nasal Cannula 2.0 28 04/08/18 00:00 99.0 71 19 138/74 (95) 100 99.0 04/07/18 22:56 99.1 04/07/18 22:55 73 148/85 04/07/18 21:00 Nasal Cannula 2.0 04/07/18 20:00 99.1 69 19 150/92 (111) 97 99.1 04/07/18 15:49 98.4 68 18 136/71 (92) 97 98.4 04/07/18 13:40 69 128/71 04/07/18 12:00 98.2 69 18 128/71 (90) 95 98.2 Intake and Output 04/07/18 04/08/18 19:00 07:00 Intake Total 885 ml 1445 ml Output Total 2200 ml 2000 ml Balance -1315 ml -555 ml Free Water 200 ml 120 ml IV Total 385 ml 725 ml Tube Feeding 300 ml Other 600 ml Output Urine Total 2200 ml 2000 ml # Bowel Movements 2 6 Laboratory Tests 04/08/18 05:40: White Blood Count 8.7, Red Blood Count 3.94L, Hemoglobin 11.1#L, Hematocrit 34.0 #L, Mean Corpuscular Volume 86, Mean Corpuscular Hemoglobin 28.2, Mean Corpuscular Hemoglobin Concent 32.6, Red Cell Distribution Width 14.5, Platelet Count 216, Mean Platelet Volume 5.7L, Neutrophils (%) (Auto) 74.8, Lymphocytes ( %) (Auto) 12.9L, Monocytes (%) (Auto) 9.8, Eosinophils (%) (Auto) 0.9, Basophils (%) (Auto) 1.6, Prothrombin Time 12.4H, Prothromb Time International Ratio 1.2H, Activated Partial Thromboplast Time 32, Sodium Level 136, Potassium Level 3.6, Chloride Level 98, Carbon Dioxide Level 28, Anion Gap 10, Blood Urea Nitrogen 18, Creatinine 1.0, Estimat Glomerular Filtration Rate , Glucose Level 94, Calcium Level 8.4L, Total Bilirubin 0.5, Direct Bilirubin 0.1, Aspartate Amino Transf (AST/SGOT) 61H, Alanine Aminotransferase (ALT/SGPT) 71, Alkaline Phosphatase 67, Total Protein 7.3, Albumin 2.4L Height (Feet): 5 Height (Inches): 4.00 Weight (Pounds): 133 General Appearance: no apparent distress EENT: TMs normal Neck: supple Cardiovascular: regular rhythm Respiratory/Chest: normal breath sounds Abdomen: non tender, other - gtube++ Extremities: non-tender Edema: 1+ Leg (L), 1+ Leg (R) Edema: mild edema Neurologic: alert Skin: warm/dry Bib Arango MD Apr 08, 2018 11:42
--- NOTE | 2018-04-08 12:30 | Diagnostic Imaging Report ---
Clinical Indication: Cecal mass Technique: Patient given enteric contrast. IV administration nonionic contrast. Venous phase spiral acquisition obtained through the abdomen and pelvis. Multiplanar reconstructions were generated. Total dose length product 946.26 mGycm. CTDIvol(s) 18.84,14.69 mGy. Dose reduction achieved using automated exposure control Comparison: 02/10/2018 Findings: There is apparent wall thickening of the distal sigmoid and rectum. There is colonic diverticulosis. No evidence of diverticulitis. There is evidence of prior right hemicolectomy, with end to side ileocecal anastomosis. Contrast is seen throughout the entirety of the small bowel and reaches the colon, is seen as far through the colon as the proximal descending colon. No small bowel wall thickening. A gastrostomy is noted in good position. No free or loculated intraperitoneal gas or fluid is demonstrated. 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 It demonstrates mural thrombus on the right lateral wall which does not narrow the lumen. No evidence of leakage or rupture. The right common iliac artery is borderline aneurysmal, measuring 2 cm in diameter. The left common iliac artery is ectatic, not quite aneurysmal, measuring 1.8 cm in diameter. Iliac vessels are patent. The liver is unremarkable. The gallbladder contains gallstones. The common bile duct is ectatic, measuring 8 mm in diameter. The pancreas, spleen, adrenals are unremarkable. The kidneys demonstrate bilateral cysts, largest on the left. No renal or ureter calculi, hydronephrosis, or hydroureter demonstrated. There are bilateral hip prostheses. These throw off streak artifact which obscure much of the pelvis. There is a Cordova catheter within the bladder, which is nondistended. The included lung bases demonstrate bilateral small pleural effusions. There is mild interstitial edema and posterior dependent atelectatic changes. The heart is enlarged. The pleural fluid and interstitial congestion are new findings since the previous exam. Bones demonstrate anterior offset of L4 on L5 without evidence of pars defect. There are degenerative spondylosis changes. 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 This has enlarged considerably since the previous study of February 2018. No evidence of leakage or rupture. There is some mural thrombus Stable borderline aneurysmal bilateral common iliac arteries Apparent wall thickening of the distal sigmoid and rectum. Could represent artifact of under distention, but the possibility of colitis should be considered. Evidence of prior right hemicolectomy. Bilateral pleural effusions. Mild interstitial edema and basilar atelectasis. Cardiomegaly Cholelithiasis. Ectatic common bile duct, probably related to age, but downstream obstruction not completely excludable. Correlate with liver function tests, consider MRCP if clinically indicated Diverticulosis Other findings as noted, including degenerative spondylosis changes, bilateral hip prostheses, Cordova catheter, gastrostomy Critical value findings phoned to Dr. Mark Oro at the time of interpretation The CT scanner at [facility] is accredited by the [employer] and the scans are performed using protocols designed to limit radiation exposure to as low as reasonably achievable to attain images of sufficient resolution adequate for diagnostic evaluation.
--- NOTE | 2018-04-08 13:33 | General Progress Note ---
Assessment/Plan Problem List: (1) COPD (chronic obstructive pulmonary disease) ICD Codes: J44.9 - COPD (chronic obstructive pulmonary disease) SNOMED: 13036389 Qualifiers: Qualified Codes: J44.9 - Chronic obstructive pulmonary disease, unspecified (2) Hyponatremia ICD Codes: E87.1 - Hypo-osmolality and hyponatremia SNOMED: 03378050 (3) Anemia ICD Codes: D64.9 - Anemia, unspecified SNOMED: 856255558 (4) Diabetes ICD Codes: E11.9 - Type 2 diabetes mellitus without complications SNOMED: 61844801 (5) Aspiration pneumonia ICD Codes: J69.0 - Pneumonitis due to inhalation of food and vomit SNOMED: 357545603 (6) Sepsis ICD Codes: A41.9 - Sepsis, unspecified organism SNOMED: 08677183 (7) ATN (acute tubular necrosis) ICD Codes: N17.0 - Acute kidney failure with tubular necrosis SNOMED: 19379201 (8) OA (osteoarthritis) ICD Codes: M19.90 - OA (osteoarthritis) SNOMED: 655364870 (9) Colitis ICD Codes: K52.9 - Noninfective gastroenteritis and colitis, unspecified SNOMED: 77824945 (10) AAA (abdominal aortic aneurysm) ICD Codes: I71.4 - Abdominal aortic aneurysm, without rupture SNOMED: 075587431 Status: stable, progressing Assessment/Plan ot pt diet o2 pulm tx abx cbc bmp am vasc eval promise ltach eval Subjective Constitutional: Reports: weakness Allergies: Coded Allergies: AMOXICILLIN (Verified Allergy, Severe, SEVERE ICTHING /RASHES, 09/17/08) PENICILLINS (Verified Allergy, Intermediate, Itching, 06/21/13) All Systems: reviewed and negative except above Subjective o2nc confused Objective Last 24 Hour Vital Signs Date Time Temp Pulse Resp B/P (MAP) Pulse Ox O2 Delivery O2 Flow Rate FiO2 04/08/18 12:00 98.0 80 18 152/80 (104) 100 98.0 04/08/18 09:41 98.0 68 13 156/88 100 Nasal Cannula 3 98.0 04/08/18 09:39 207.1 79 18 99 04/08/18 09:37 207.1 79 18 99 04/08/18 09:30 73 13 147/84 100 Nasal Cannula 3 04/08/18 09:17 73 11 150/91 100 Nasal Cannula 3 04/08/18 09:12 76 18 151/86 99 Nasal Cannula 3 04/08/18 09:07 97.3 79 18 154/92 99 Nasal Cannula 3 97.3 04/08/18 09:00 Nasal Cannula 2.0 04/08/18 08:00 97.7 70 18 141/80 (100) 100 97.7 04/08/18 07:05 Nasal Cannula 2.0 28 04/08/18 07:05 98 Nasal Cannula 2.0 28 04/08/18 07:05 71 18 Nasal Cannula 2.0 28 04/08/18 05:51 98.9 04/08/18 05:21 98.9 04/08/18 05:21 82 139/71 04/08/18 04:00 98.9 75 18 130/67 (88) 100 98.9 04/08/18 01:39 98 Nasal Cannula 2.0 28 04/08/18 01:39 Nasal Cannula 2.0 28 04/08/18 01:36 72 20 Nasal Cannula 2.0 28 04/08/18 00:00 99.0 71 19 138/74 (95) 100 99.0 04/07/18 22:56 99.1 04/07/18 22:55 73 148/85 04/07/18 21:00 Nasal Cannula 2.0 04/07/18 20:00 99.1 69 19 150/92 (111) 97 99.1 04/07/18 15:49 98.4 68 18 136/71 (92) 97 98.4 04/07/18 13:40 69 128/71 Intake and Output 04/07/18 04/08/18 19:00 07:00 Intake Total 885 ml 1445 ml Output Total 2200 ml 2000 ml Balance -1315 ml -555 ml Free Water 200 ml 120 ml IV Total 385 ml 725 ml Tube Feeding 300 ml Other 600 ml Output Urine Total 2200 ml 2000 ml # Bowel Movements 2 6 Laboratory Tests 04/08/18 05:40: White Blood Count 8.7, Red Blood Count 3.94L, Hemoglobin 11.1#L, Hematocrit 34.0 #L, Mean Corpuscular Volume 86, Mean Corpuscular Hemoglobin 28.2, Mean Corpuscular Hemoglobin Concent 32.6, Red Cell Distribution Width 14.5, Platelet Count 216, Mean Platelet Volume 5.7L, Neutrophils (%) (Auto) 74.8, Lymphocytes ( %) (Auto) 12.9L, Monocytes (%) (Auto) 9.8, Eosinophils (%) (Auto) 0.9, Basophils (%) (Auto) 1.6, Prothrombin Time 12.4H, Prothromb Time International Ratio 1.2H, Activated Partial Thromboplast Time 32, Sodium Level 136, Potassium Level 3.6, Chloride Level 98, Carbon Dioxide Level 28, Anion Gap 10, Blood Urea Nitrogen 18, Creatinine 1.0, Estimat Glomerular Filtration Rate , Glucose Level 94, Calcium Level 8.4L, Total Bilirubin 0.5, Direct Bilirubin 0.1, Aspartate Amino Transf (AST/SGOT) 61H, Alanine Aminotransferase (ALT/SGPT) 71, Alkaline Phosphatase 67, Total Protein 7.3, Albumin 2.4L Height (Feet): 5 Height (Inches): 4.00 Weight (Pounds): 133 General Appearance: lethargic EENT: normal ENT inspection Neck: normal alignment Cardiovascular: normal peripheral pulses, normal rate, regular rhythm Respiratory/Chest: chest wall non-tender, lungs clear, normal breath sounds Abdomen: normal bowel sounds, non tender, soft Extremities: normal inspection Edema: no edema noted Arm (L), no edema noted Arm (R), no edema noted Leg (L), no edema noted Leg (R), no edema noted Pedal (L), no edema noted Pedal (R), no edema noted Generalized Neurologic: motor weakness Skin: normal pigmentation, warm/dry Objective per radiology, ct abd show colitis and aaa Mark Oro DO Apr 08, 2018 13:33
--- NOTE | 2018-04-08 14:46 | General Surgery Progress Note ---
General Surgery-Progress Note Subjective Additional Comments no acute events. EGD / Colonoscopy today. Objective Last 24 Hour Vital Signs Date Time Temp Pulse Resp B/P (MAP) Pulse Ox O2 Delivery O2 Flow Rate FiO2 04/08/18 13:52 80 152/80 04/08/18 12:00 98.0 80 18 152/80 (104) 100 98.0 04/08/18 09:41 98.0 68 13 156/88 100 Nasal Cannula 3 98.0 04/08/18 09:39 207.1 79 18 99 04/08/18 09:37 207.1 79 18 99 04/08/18 09:30 73 13 147/84 100 Nasal Cannula 3 04/08/18 09:17 73 11 150/91 100 Nasal Cannula 3 04/08/18 09:12 76 18 151/86 99 Nasal Cannula 3 04/08/18 09:07 97.3 79 18 154/92 99 Nasal Cannula 3 97.3 04/08/18 09:00 Nasal Cannula 2.0 04/08/18 08:00 97.7 70 18 141/80 (100) 100 97.7 04/08/18 07:05 Nasal Cannula 2.0 28 04/08/18 07:05 98 Nasal Cannula 2.0 28 04/08/18 07:05 71 18 Nasal Cannula 2.0 28 04/08/18 05:51 98.9 04/08/18 05:21 98.9 04/08/18 05:21 82 139/71 04/08/18 04:00 98.9 75 18 130/67 (88) 100 98.9 04/08/18 01:39 98 Nasal Cannula 2.0 28 04/08/18 01:39 Nasal Cannula 2.0 28 04/08/18 01:36 72 20 Nasal Cannula 2.0 28 04/08/18 00:00 99.0 71 19 138/74 (95) 100 99.0 04/07/18 22:56 99.1 04/07/18 22:55 73 148/85 04/07/18 21:00 Nasal Cannula 2.0 04/07/18 20:00 99.1 69 19 150/92 (111) 97 99.1 04/07/18 15:49 98.4 68 18 136/71 (92) 97 98.4 I&O Intake and Output 04/07/18 04/08/18 19:00 07:00 Intake Total 885 ml 1445 ml Output Total 2200 ml 2000 ml Balance -1315 ml -555 ml Free Water 200 ml 120 ml IV Total 385 ml 725 ml Tube Feeding 300 ml Other 600 ml Output Urine Total 2200 ml 2000 ml # Bowel Movements 2 6 Dressing: saturated Wound: clean Drains: other Cardiovascular: RSR Respiratory: clear Abdomen: soft, flat, present bowel sounds Extremities: other Laboratory Tests Test 04/08/18 05:40 White Blood Count 8.7 K/UL (4.8-10.8) Red Blood Count 3.94 M/UL (4.20-5.40) L Hemoglobin 11.1 G/DL (12.0-16.0) #L Hematocrit 34.0 % (37.0-47.0) #L Mean Corpuscular Volume 86 FL (80-99) Mean Corpuscular Hemoglobin 28.2 PG (27.0-31.0) Mean Corpuscular Hemoglobin Concent 32.6 G/DL (32.0-36.0) Red Cell Distribution Width 14.5 % (11.6-14.8) Platelet Count 216 K/UL (150-450) Mean Platelet Volume 5.7 FL (6.5-10.1) L Neutrophils (%) (Auto) 74.8 % (45.0-75.0) Lymphocytes (%) (Auto) 12.9 % (20.0-45.0) L Monocytes (%) (Auto) 9.8 % (1.0-10.0) Eosinophils (%) (Auto) 0.9 % (0.0-3.0) Basophils (%) (Auto) 1.6 % (0.0-2.0) Prothrombin Time 12.4 SEC (9.30-11.50) H Prothromb Time International Ratio 1.2 (0.9-1.1) H Activated Partial Thromboplast Time 32 SEC (23-33) Sodium Level 136 MMOL/L (136-145) Potassium Level 3.6 MMOL/L (3.5-5.1) Chloride Level 98 MMOL/L (98-107) Carbon Dioxide Level 28 MMOL/L (21-32) Anion Gap 10 mmol/L (5-15) Blood Urea Nitrogen 18 mg/dL (7-18) Creatinine 1.0 MG/DL (0.55-1.30) Estimat Glomerular Filtration Rate mL/min (>60) Glucose Level 94 MG/DL (74-106) Calcium Level 8.4 MG/DL (8.5-10.1) L Total Bilirubin 0.5 MG/DL (0.2-1.0) Direct Bilirubin 0.1 MG/DL (0.0-0.3) Aspartate Amino Transf (AST/SGOT) 61 U/L (15-37) H Alanine Aminotransferase (ALT/SGPT) 71 U/L (12-78) Alkaline Phosphatase 67 U/L (46-116) Total Protein 7.3 G/DL (6.4-8.2) Albumin 2.4 G/DL (3.4-5.0) L Plan Problems: (1) Decubitus ulcer of sacral region, stage 4 Assessment & Plan: Stage IV full thickness pressure decubitus ulcer noted to sacrum approximately 5x6cm. wound moist and bed beefy red with, noted macerated borders, Rita-injury skin with dark discoloration without induration. no active drainage. no foul odor. wound present upon admission. patient seen prior during last admission and wound has become a bit larger and is slowly tunneling superior. will continue to care for patient and wound during admission. Tx plan: Cleanse wound with saline. Apply Silvasorb gel to wound .Apply Moist Barrier wipe to macerated borders and periwound .Cover with foam drsg daily and prn. Turn side to side at least every 2hours as tolerated . Off-load heels with pillow. 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 will follow Joo Herrera Apr 08, 2018 14:46
--- NOTE | 2018-04-08 15:01 | Pulmonology Progress Note ---
Assessment/Plan Problems: (1) Sepsis (2) Aspiration pneumonia (3) COPD (chronic obstructive pulmonary disease) (4) Anemia (5) Feeding by G-tube (6) Limited mobility in bed (7) Decubitus ulcer of sacral region, stage 4 Assessment/Plan prbc prn respiratory treatment check sputum continue abx wound care surgical evaluation anemia w/u. h/h better Vascular surgeon to see Subjective ROS Limited/Unobtainable: No Constitutional: Reports: no symptoms HEENT: Repors: no symptoms Respiratory: Reports: no symptoms Allergies: Coded Allergies: AMOXICILLIN (Verified Allergy, Severe, SEVERE ICTHING /RASHES, 09/17/08) PENICILLINS (Verified Allergy, Intermediate, Itching, 06/21/13) Objective Last 24 Hour Vital Signs Date Time Temp Pulse Resp B/P (MAP) Pulse Ox O2 Delivery O2 Flow Rate FiO2 04/08/18 13:52 80 152/80 04/08/18 12:00 98.0 80 18 152/80 (104) 100 98.0 04/08/18 09:41 98.0 68 13 156/88 100 Nasal Cannula 3 98.0 04/08/18 09:39 207.1 79 18 99 04/08/18 09:37 207.1 79 18 99 04/08/18 09:30 73 13 147/84 100 Nasal Cannula 3 04/08/18 09:17 73 11 150/91 100 Nasal Cannula 3 04/08/18 09:12 76 18 151/86 99 Nasal Cannula 3 04/08/18 09:07 97.3 79 18 154/92 99 Nasal Cannula 3 97.3 04/08/18 09:00 Nasal Cannula 2.0 04/08/18 08:00 97.7 70 18 141/80 (100) 100 97.7 04/08/18 07:05 Nasal Cannula 2.0 28 04/08/18 07:05 98 Nasal Cannula 2.0 28 04/08/18 07:05 71 18 Nasal Cannula 2.0 28 04/08/18 05:51 98.9 04/08/18 05:21 98.9 04/08/18 05:21 82 139/71 04/08/18 04:00 98.9 75 18 130/67 (88) 100 98.9 04/08/18 01:39 98 Nasal Cannula 2.0 28 04/08/18 01:39 Nasal Cannula 2.0 28 04/08/18 01:36 72 20 Nasal Cannula 2.0 28 04/08/18 00:00 99.0 71 19 138/74 (95) 100 99.0 04/07/18 22:56 99.1 04/07/18 22:55 73 148/85 04/07/18 21:00 Nasal Cannula 2.0 04/07/18 20:00 99.1 69 19 150/92 (111) 97 99.1 04/07/18 15:49 98.4 68 18 136/71 (92) 97 98.4 Intake and Output 04/07/18 04/08/18 19:00 07:00 Intake Total 885 ml 1445 ml Output Total 2200 ml 2000 ml Balance -1315 ml -555 ml Free Water 200 ml 120 ml IV Total 385 ml 725 ml Tube Feeding 300 ml Other 600 ml Output Urine Total 2200 ml 2000 ml # Bowel Movements 2 6 General Appearance: WD/WN HEENT: normocephalic, atraumatic Respiratory/Chest: chest wall non-tender, normal breath sounds Cardiovascular: normal rate Abdomen: normal bowel sounds, no mass Extremities: no cyanosis Microbiology Date/Time Source Procedure Growth Status 04/06/18 12:00 Sputum Induced Gram Stain - Final Complete 04/06/18 12:00 Sputum Induced Sputum Culture - Final NORMAL UPPER RESPIRATORY NURY PRESENT Complete Laboratory Tests 04/08/18 05:40: White Blood Count 8.7, Red Blood Count 3.94L, Hemoglobin 11.1#L, Hematocrit 34.0 #L, Mean Corpuscular Volume 86, Mean Corpuscular Hemoglobin 28.2, Mean Corpuscular Hemoglobin Concent 32.6, Red Cell Distribution Width 14.5, Platelet Count 216, Mean Platelet Volume 5.7L, Neutrophils (%) (Auto) 74.8, Lymphocytes ( %) (Auto) 12.9L, Monocytes (%) (Auto) 9.8, Eosinophils (%) (Auto) 0.9, Basophils (%) (Auto) 1.6, Prothrombin Time 12.4H, Prothromb Time International Ratio 1.2H, Activated Partial Thromboplast Time 32, Sodium Level 136, Potassium Level 3.6, Chloride Level 98, Carbon Dioxide Level 28, Anion Gap 10, Blood Urea Nitrogen 18, Creatinine 1.0, Estimat Glomerular Filtration Rate , Glucose Level 94, Calcium Level 8.4L, Total Bilirubin 0.5, Direct Bilirubin 0.1, Aspartate Amino Transf (AST/SGOT) 61H, Alanine Aminotransferase (ALT/SGPT) 71, Alkaline Phosphatase 67, Total Protein 7.3, Albumin 2.4L Current Medications Medications (Trade) Dose Ordered Sig/Orin Route PRN Reason Start Time Stop Time Status Last Admin Dose Admin Acetaminophen (Tylenol) 650 mg Q4H PRN ORAL T>100.5 04/06/18 17:15 05/05/18 09:14 Al Hydroxide/Mg Hydroxide (Mylanta) 15 ml Q1H PRN ORAL gi upset 04/08/18 06:45 04/08/18 15:00 Albuterol/ Ipratropium (Albuterol/ Ipratropium) 3 ml Q4H PRN HHN Shortness of Breath 04/06/18 17:15 04/10/18 09:14 Atropine Sulfate (Atropine) 0.5 mg Q5M PRN IV bpm less than 45 04/08/18 06:45 04/08/18 15:00 Aztreonam 1 gm/ Sodium Chloride 50 ml @ 100 mls/hr EVERY 8 HOURS IVPB 04/06/18 22:00 04/12/18 13:59 04/08/18 13:52 Barium Sulfate (Readi-Cat 2) 450 ml NOW PRN ORAL Radiology Procedure 04/07/18 14:15 04/09/18 14:03 Dextrose (Dextrose 50%) 25 ml Q30M PRN IV Hypoglycemia 04/06/18 16:00 05/05/18 09:18 Dextrose (Dextrose 50%) 50 ml Q30M PRN IV hypoglycemia 04/06/18 16:00 05/05/18 09:29 Dextrose/ Electrolytes 1,000 ml @ 75 mls/hr [id number] IV 04/07/18 15:00 05/07/18 14:59 04/08/18 04:51 Diltiazem HCl (Cardizem) 30 mg EVERY 8 HOURS GT 04/06/18 22:00 05/06/18 13:59 04/08/18 13:52 Diphenhydramine HCl (Benadryl) 25 mg Q15M PRN IVP Itching 04/08/18 06:45 04/08/18 15:00 Famotidine (Pepcid I.v.) 20 mg Q12HR IVP 04/06/18 21:00 05/05/18 20:59 04/08/18 10:36 Fentanyl Citrate (Sublimaze 100 mcg/2 mL) 25 mcg Q10M PRN IV Moderate Pain (Pain Scale 4-6) 04/08/18 06:45 04/08/18 15:00 Furosemide (Lasix) 40 mg DAILY PEG 04/09/18 09:00 05/09/18 08:59 Heparin Sodium (Porcine) (Heparin 5000 units/ml) 5,000 units EVERY 12 HOURS SUBQ 04/06/18 21:00 05/05/18 20:59 04/08/18 10:38 Hydralazine HCl (Apresoline) 5 mg Q30M PRN IV SBP>160 OR___/DBP>90 OR___ 04/08/18 06:45 04/08/18 15:00 Insulin Aspart (NovoLOG) EVERY 6 HOURS SUBQ 04/06/18 18:00 05/05/18 17:59 Iopamidol (Isovue-300 100ml) 100 ml NOW PRN INJ Radiology Procedure 04/07/18 14:15 04/08/18 23:59 Levothyroxine Sodium (Synthroid) 50 mcg DAILY IV 04/07/18 09:00 05/05/18 13:29 04/08/18 10:36 Lorazepam (Ativan) 0.5 mg TID ORAL 04/06/18 18:00 04/13/18 17:59 04/08/18 13:52 Memantine (Namenda) 5 mg BID ORAL 04/06/18 18:00 05/06/18 17:59 04/08/18 10:36 Morphine Sulfate (Morphine Sulfate) 2 mg Q4H PRN IVP PAIN 4-10 04/06/18 17:15 04/12/18 09:14 Nitroglycerin (Ntg) 0.4 mg Q5MIN X 3 DOSES PRN SL Prn Chest Pain 04/06/18 16:00 05/05/18 09:29 Ondansetron HCl (Zofran) 4 mg Q1H PRN IVP Nausea & Vomiting 04/08/18 06:45 04/08/18 15:00 Ondansetron HCl (Zofran) 4 mg Q6H PRN IVP Nausea & Vomiting 04/06/18 16:00 05/05/18 15:59 Polyethylene Glycol (Miralax) 17 gm DAILYPRN PRN ORAL Constipation 04/06/18 16:00 05/06/18 15:59 Pregabalin (Lyrica) 25 mg Q8HR ORAL 04/06/18 22:00 05/05/18 13:59 04/08/18 13:52 Temazepam (Restoril) 15 mg HSPRN PRN ORAL Insomnia 04/06/18 21:00 04/12/18 20:59 Vancomycin HCl (Vanco rx to dose) 1 ea DAILY PRN MISC . 04/06/18 16:00 05/06/18 15:59 Vancomycin HCl 500 mg/Dextrose 110 ml @ 110 mls/hr Q24H IVPB 04/07/18 17:15 04/12/18 17:14 04/07/18 17:25 Betsy Hope MD Apr 08, 2018 15:01
--- NOTE | 2018-04-08 16:54 | Infectious Diseases Prog Note ---
Assessment/Plan Assessment/Plan Abx: Levaquin x1 04/05 IV Vanco 04/05- Aztreonam 04/05- Assessment: Sepsis 2ry to PNA; improvbing -CXR: Interval improved aeration of the left mid and lower lung.. Mildly increased interstitial markings. This is likely related to chronic senescent changes although differential diagnosis may also include mild bronchitis or interstitial pneumonitis. Rapid enlarging abdominal aortic aneurysm. Probable colitis -CT abd/p: 6 x 5.1 x 5 cm eccentric saccular aneurysm of the distal abdominal aorta. This has enlarged considerably since the previous study of February 2018. No evidence of leakage or rupture. There is some mural thrombus. Stable borderline aneurysmal bilateral common iliac arteries. Apparent wall thickening of the distal sigmoid and rectum. Could represent artifact of under distention, but the possibility of colitis should be considered. Evidence of prior right hemicolectomy. Bilateral pleural effusions. Mild interstitial edema and basilar atelectasis. Cardiomegaly. Cholelithiasis. Ectatic common bile duct , probably related to age, but downstream obstruction not completely excludable. Correlate with liver function tests, consider MRCP if clinically indicated. Diverticulosis Afebrile Mild leukocytosis (S/p high dose steroids)- SP Acute anemia -04/08 s/p EGD/colo: gastritis, diverticulosis RITA, improving Hyponatremia Elevated LFTs, improving L foot (superficial) and sacral decub ulcer (stage IV) -sacral wound: no active drainage. no foul odor. no tunneling. ; no signs of active ifnection Dm2 HTN Dementia OA hypothyroidism tobacco abuse anemia hx of colon CA COPD CVA s/p PEG GERD SNF resident Plan: -Continue empiric IV Vancomycin and Aztreonam #3 pending cultures -04/05 SP LEvaquin x1 -f/u sp cx, legionella ag urine -f/u cx -Monitor CBC/CMP, temperatures -wound care per hosp protocol -Sx, renal f/u -vasc sx eval for AAA -CXR am Thank you for this consultation. Will continue to follow along with you. Discussed with RN. Subjective Allergies: Coded Allergies: AMOXICILLIN (Verified Allergy, Severe, SEVERE ICTHING /RASHES, 09/17/08) PENICILLINS (Verified Allergy, Intermediate, Itching, 06/21/13) Subjective afebrile no leukocytosis sp EGD and colo today CT abd/p showed enlarging abdominal aortic aneurysm and mural thrombus Objective Vital Signs Last 24 Hour Vital Signs Date Time Temp Pulse Resp B/P (MAP) Pulse Ox O2 Delivery O2 Flow Rate FiO2 04/08/18 13:52 80 152/80 04/08/18 12:00 98.0 80 18 152/80 (104) 100 98.0 04/08/18 09:41 98.0 68 13 156/88 100 Nasal Cannula 3 98.0 04/08/18 09:39 207.1 79 18 99 04/08/18 09:37 207.1 79 18 99 04/08/18 09:30 73 13 147/84 100 Nasal Cannula 3 04/08/18 09:17 73 11 150/91 100 Nasal Cannula 3 04/08/18 09:12 76 18 151/86 99 Nasal Cannula 3 04/08/18 09:07 97.3 79 18 154/92 99 Nasal Cannula 3 97.3 04/08/18 09:00 Nasal Cannula 2.0 04/08/18 08:00 97.7 70 18 141/80 (100) 100 97.7 04/08/18 07:05 Nasal Cannula 2.0 28 04/08/18 07:05 98 Nasal Cannula 2.0 28 04/08/18 07:05 71 18 Nasal Cannula 2.0 28 04/08/18 05:51 98.9 04/08/18 05:21 98.9 04/08/18 05:21 82 139/71 04/08/18 04:00 98.9 75 18 130/67 (88) 100 98.9 04/08/18 01:39 98 Nasal Cannula 2.0 28 04/08/18 01:39 Nasal Cannula 2.0 28 04/08/18 01:36 72 20 Nasal Cannula 2.0 28 04/08/18 00:00 99.0 71 19 138/74 (95) 100 99.0 04/07/18 22:56 99.1 04/07/18 22:55 73 148/85 04/07/18 21:00 Nasal Cannula 2.0 04/07/18 20:00 99.1 69 19 150/92 (111) 97 99.1 Height (Feet): 5 Height (Inches): 4.00 Weight (Pounds): 133 Objective GENERAL: Slight short of breath in the ER, disoriented x3, no acute distress. CARDIOVASCULAR: No murmurs. LUNGS: Poor exchange. Slight congested. Wheezing bilaterally. ABDOMEN: Bowel sounds positive. Nontender. Nondistended. EXTREMITIES: No cyanosis, clubbing, or edema. Left ankle dressing clean and dry. SKin: L foot lateral ankle superifical ulcer with crust no active signs of infection Stage IV sacral decub with macerated skin borders, beefy red center, no foul smelling or active drainage. NEUROLOGIC: The patient moves all extremities, slightly weak. Microbiology Date/Time Source Procedure Growth Status 04/06/18 12:00 Sputum Induced Gram Stain - Final Complete 04/06/18 12:00 Sputum Induced Sputum Culture - Final NORMAL UPPER RESPIRATORY NURY PRESENT Complete Laboratory Tests Test 04/08/18 05:40 White Blood Count 8.7 K/UL (4.8-10.8) Red Blood Count 3.94 M/UL (4.20-5.40) L Hemoglobin 11.1 G/DL (12.0-16.0) #L Hematocrit 34.0 % (37.0-47.0) #L Mean Corpuscular Volume 86 FL (80-99) Mean Corpuscular Hemoglobin 28.2 PG (27.0-31.0) Mean Corpuscular Hemoglobin Concent 32.6 G/DL (32.0-36.0) Red Cell Distribution Width 14.5 % (11.6-14.8) Platelet Count 216 K/UL (150-450) Mean Platelet Volume 5.7 FL (6.5-10.1) L Neutrophils (%) (Auto) 74.8 % (45.0-75.0) Lymphocytes (%) (Auto) 12.9 % (20.0-45.0) L Monocytes (%) (Auto) 9.8 % (1.0-10.0) Eosinophils (%) (Auto) 0.9 % (0.0-3.0) Basophils (%) (Auto) 1.6 % (0.0-2.0) Prothrombin Time 12.4 SEC (9.30-11.50) H Prothromb Time International Ratio 1.2 (0.9-1.1) H Activated Partial Thromboplast Time 32 SEC (23-33) Sodium Level 136 MMOL/L (136-145) Potassium Level 3.6 MMOL/L (3.5-5.1) Chloride Level 98 MMOL/L (98-107) Carbon Dioxide Level 28 MMOL/L (21-32) Anion Gap 10 mmol/L (5-15) Blood Urea Nitrogen 18 mg/dL (7-18) Creatinine 1.0 MG/DL (0.55-1.30) Estimat Glomerular Filtration Rate mL/min (>60) Glucose Level 94 MG/DL (74-106) Calcium Level 8.4 MG/DL (8.5-10.1) L Total Bilirubin 0.5 MG/DL (0.2-1.0) Direct Bilirubin 0.1 MG/DL (0.0-0.3) Aspartate Amino Transf (AST/SGOT) 61 U/L (15-37) H Alanine Aminotransferase (ALT/SGPT) 71 U/L (12-78) Alkaline Phosphatase 67 U/L (46-116) Total Protein 7.3 G/DL (6.4-8.2) Albumin 2.4 G/DL (3.4-5.0) L Current Medications Medications (Trade) Dose Ordered Sig/Orin Route PRN Reason Start Time Stop Time Status Last Admin Dose Admin Acetaminophen (Tylenol) 650 mg Q4H PRN ORAL T>100.5 04/06/18 17:15 05/05/18 09:14 Albuterol/ Ipratropium (Albuterol/ Ipratropium) 3 ml Q4H PRN HHN Shortness of Breath 04/06/18 17:15 04/10/18 09:14 Aztreonam 1 gm/ Sodium Chloride 50 ml @ 100 mls/hr EVERY 8 HOURS IVPB 04/06/18 22:00 04/12/18 13:59 04/08/18 13:52 Barium Sulfate (Readi-Cat 2) 450 ml NOW PRN ORAL Radiology Procedure 04/07/18 14:15 04/09/18 14:03 Dextrose (Dextrose 50%) 25 ml Q30M PRN IV Hypoglycemia 04/06/18 16:00 05/05/18 09:18 Dextrose (Dextrose 50%) 50 ml Q30M PRN IV hypoglycemia 04/06/18 16:00 05/05/18 09:29 Dextrose/ Electrolytes 1,000 ml @ 75 mls/hr [id number] IV 04/07/18 15:00 05/07/18 14:59 04/08/18 04:51 Diltiazem HCl (Cardizem) 30 mg EVERY 8 HOURS GT 04/06/18 22:00 05/06/18 13:59 04/08/18 13:52 Famotidine (Pepcid I.v.) 20 mg Q12HR IVP 04/06/18 21:00 05/05/18 20:59 04/08/18 10:36 Furosemide (Lasix) 40 mg DAILY PEG 04/09/18 09:00 05/09/18 08:59 Heparin Sodium (Porcine) (Heparin 5000 units/ml) 5,000 units EVERY 12 HOURS SUBQ 04/06/18 21:00 05/05/18 20:59 04/08/18 10:38 Insulin Aspart (NovoLOG) EVERY 6 HOURS SUBQ 04/06/18 18:00 05/05/18 17:59 Iopamidol (Isovue-300 100ml) 100 ml NOW PRN INJ Radiology Procedure 04/07/18 14:15 04/08/18 23:59 Levothyroxine Sodium (Synthroid) 50 mcg DAILY IV 04/07/18 09:00 05/05/18 13:29 04/08/18 10:36 Lorazepam (Ativan) 0.5 mg TID ORAL 04/06/18 18:00 04/13/18 17:59 04/08/18 13:52 Memantine (Namenda) 5 mg BID ORAL 04/06/18 18:00 05/06/18 17:59 04/08/18 10:36 Morphine Sulfate (Morphine Sulfate) 2 mg Q4H PRN IVP PAIN 4-10 04/06/18 17:15 04/12/18 09:14 Nitroglycerin (Ntg) 0.4 mg Q5MIN X 3 DOSES PRN SL Prn Chest Pain 04/06/18 16:00 05/05/18 09:29 Ondansetron HCl (Zofran) 4 mg Q6H PRN IVP Nausea & Vomiting 04/06/18 16:00 05/05/18 15:59 Polyethylene Glycol (Miralax) 17 gm DAILYPRN PRN ORAL Constipation 04/06/18 16:00 05/06/18 15:59 Pregabalin (Lyrica) 25 mg Q8HR ORAL 04/06/18 22:00 05/05/18 13:59 04/08/18 13:52 Temazepam (Restoril) 15 mg HSPRN PRN ORAL Insomnia 04/06/18 21:00 04/12/18 20:59 Vancomycin HCl (Vanco rx to dose) 1 ea DAILY PRN MISC . 04/06/18 16:00 05/06/18 15:59 Vancomycin HCl 500 mg/Dextrose 110 ml @ 110 mls/hr Q24H IVPB 04/07/18 17:15 04/12/18 17:14 04/07/18 17:25 Mary Abarca M.D. Apr 08, 2018 16:54
[2018-04-08] MEDS: Vancomycin 500 MG in D5W 110 ML IVPB SCH (17:12)
[2018-04-08] MEDS ORDERED: Tubing IV Secondary IV ONE (17:25)
[2018-04-08] MEDS ORDERED: Tubing IV Blood Pump IV ONE (17:25)
--- NOTE | 2018-04-08 17:30 | Procedure Note ---
DATE OF PROCEDURE: 04/08/2018 SURGEON: Pierce Lacey M.D. ANESTHESIOLOGIST: Dr. Cruz. REFERRING PHYSICIAN: Mark Oro D.O. PROCEDURE: Upper endoscopy with biopsy and colonoscopy. ANESTHESIA: Per Dr. Cruz. INSTRUMENT: Olympus adult flexible colonoscope and upper endoscope. INDICATION: Anemia, history of colon cancer. The procedure, risks, benefits, and possible consequences, including hemorrhage, aspiration, perforation and infection, and alternative treatments, were explained to the patient/legal guardian by Dr. Pierce Lacey and the patient/legal guardian understood and accepted these risks. DESCRIPTION OF PROCEDURE: After informed consent was obtained and the patient was adequately sedated, Olympus upper endoscope was advanced from the mouth into the second portion of the duodenum and retroflexion was performed in the stomach. This study was limited given there was some oral contrast still in the stomach making this examination somewhat limited. G-tube was pushed in. There was no evidence of any ulceration on the G-tube. No active blood or blood product was seen in the stomach. The patient had evidence of diffuse atrophic gastritis. Random biopsy from antrum was obtained to rule out H. pylori infection. At this time, the upper endoscope was retrieved. The patient was turned over for colonoscopy. First, rectal exam was performed which was positive for internal hemorrhoids. Then, the scope was advanced from the rectum into the anastomosis. Quality of prep was fair. There was no obvious polyp, mass, ulceration, or any other bleeding was seen. The patient had some diverticulosis throughout the left colon. Retroflexion of rectum was not performed given the rectum was not expanding up for the retroflexed vision. SUMMARY OF FINDINGS: 1. Atrophic gastritis. 2. History of G-tube and G-tube in place. 3. Diverticulosis. 4. Right hemicolectomy. 5. Internal hemorrhoids. RECOMMENDATIONS: At this time, there is no evidence of any obvious GI bleeding based on endoscopy and colonoscopy. We will monitor hemoglobin and hematocrit and transfuse as needed. Given stool OB is negative, we will hold off on doing any further study at this time. I want to thank Dr. Mark Oro for this kind referral. Pierce Alex Lacey DR: Les JOB#: [id number] CC: Mark Oro D.O.
--- NOTE | 2018-04-08 19:26 | Cardiology Report ---
APPROVED REPORT EXAM: Two-dimensional and M-mode echocardiogram with Doppler and color Doppler. INDICATION Congestive Heart Failure M-Mode DIMENSIONS IVSd2.0 (0.7-1.1cm)Left Atrium (MM)4.4 (1.6-4.0cm) LVDd5.4 (3.5-5.6cm)Aortic Root3.6 (2.0-3.7cm) PWd1.4 (0.7-1.1cm)Aortic Cusp Exc.1.7 (1.5-2.0cm) LVDs3.7 (2.5-4.0cm) PWs1.6 cm Technically difficult study due to poor acoustical windows. Normal left ventricular chamber size. Global left ventricular hypokinesis, worse in inferoseptal mid to distal and apex to extent visualized. Ischemic cardiomyopathy can not be excluded. Left ventricular ejection fraction estimated to be 40-45 %. Study quality precludes accurate assessment of regional wall motion. Mild left ventricular hypertrophy. No evidence of pericardial effusion. Mild left atrial enlargement. Right cardiac chamber sizes are within normal limits. Focal aortic valve sclerosis with adequate cusp excursion. Thickened mitral valve leaflets with normal excursion. Mitral annulus and aortic root calcification. Pulmonic valve not well visualized. Normal tricuspid valve structure. IVC at normal size with physiologic collapse. A color flow and spectral Doppler study was performed and revealed: Moderate mitral regurgitation. Mitral inflow velocities indicates possible pseudo normalization pattern implying moderately elevated left atrial pressure (Grade II ). Moderate tricuspid regurgitation. Tricuspid systolic velocities suggests peak right ventricular systolic pressure of 46 mmHg, consistent with moderate pulmonary hypertension. Moderate pulmonic regurgitation present.
[2018-04-08] MEDS ORDERED: Vancomycin 500mg/D5W 110ml IVPB ONE ×2 (20:00)
--- NOTE | 2018-04-08 23:07 | General Progress Note ---
Progress Note Progress Note Patient seen and examined Asked by Dr Oro to eval re AAA Enlarging AAA to [address] scan 87 yrs old female Unresponsive Non verbal-opens eyes Obesity Non ambulatory with contracted arm and legs Calcific arterial occlusive PAD COPD with pneumonia CHF Anemia with PEG Large sacral decub necrosis Abdomen soft nontender Feet warm with absent pedal pulses Rec Patient is NOT a candidate for AAA repair (open or stent graft) given the above morbidities Supportive care d/w pt's nurse & left a message for Eduardo Renteria MD Apr 08, 2018 23:07
[2018-04-09] VITALS: BP 128/84
[2018-04-09] MEDS: NovoLOG Insulin Flexpen SUBQ SCH ×4 (00:37→18:00)
[2018-04-09 04:00] VITALS: BP 131/85
--- NOTE | 2018-04-09 04:15 | Progress Note ---
DATE: 04/08/2018 "NOTE: POOR AUDIO QUALITY" SUBJECTIVE: This is an 87-year-old female patient with shortness of breath, confused, and disorganized with mood labile. She has got no logical plan for own self-care. She has got feelings of helplessness, hopelessness, low energy, poor appetite, and loss of interest in activity. That is why, she does require inpatient treatment at this time. She has . MENTAL STATUS EXAMINATION: This is an 87-year-old female. Appearance is disheveled. Attitude, irritable and agitated. Affect, guarded and restricted. Intellect poor. Mood, depressed and anxious. Motor activity, psychomotor agitation. Attention span is poor. Orientation x2. Speech is low volume and slurred. Thought process, disorganized and illogical. Thought content, auditory hallucinations and paranoid delusions. Insight and judgment are poor. DIAGNOSIS: major depression with psychotic features, rule out . PLAN: Continue . Provided 20 minutes of cognitive behavior therapy to help her identify automatic negative thoughts and help her to convert them to more positive thoughts to reduce depression and suicidality. Chart reviewed. Discussed with staff ____. Josh Gonzalez M.D. DR: NITA JOB#: [id number] CC:
[2018-04-09] MEDS: dilTIAZem HCl 30mg tab GT SCH ×2 (05:56→14:03)
[2018-04-09] MEDS: Lyrica 25mg cap ORAL SCH ×2 (05:56→13:57)
[2018-04-09] MEDS: Aztreonam Inj 1 GM in NS 50 ML IVPB SCH ×2 (05:57→13:57)
[2018-04-09] MEDS: D5 1/2NS w/KCl 20mEq 1,000 ML IV SCH (06:54)
--- NOTE | 2018-04-09 07:17 | Infectious Diseases Prog Note ---
Assessment/Plan Assessment/Plan Assessment: Sepsis, Sp PNA; improving -CXR: Interval improved aeration of the left mid and lower lung.. Mildly increased interstitial markings. This is likely related to chronic senescent changes although differential diagnosis may also include mild bronchitis or interstitial pneumonitis. 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 This has enlarged considerably since the previous study of February 2018. No evidence of leakage or rupture. There is some mural thrombus. Stable borderline aneurysmal bilateral common iliac arteries. Apparent wall thickening of the distal sigmoid and rectum. Could represent artifact of under distention, but the possibility of colitis should be considered. Evidence of prior right hemicolectomy. Bilateral pleural effusions. Mild interstitial edema and basilar atelectasis. Cardiomegaly. Cholelithiasis. Ectatic common bile duct , probably related to age, but downstream obstruction not completely excludable. Correlate with liver function tests, consider MRCP if clinically indicated. Diverticulosis Rapid enlarging abdominal aortic aneurysm. Acute anemia -04/08 s/p EGD/colo: gastritis, diverticulosis RITA,SP Elevated LFTs, improving L foot (superficial) and sacral decub ulcer (stage IV) -sacral wound: no active drainage. no foul odor. no tunneling. ; no signs of active ifnection Dm2 HTN Dementia OA hypothyroidism tobacco abuse anemia hx of colon CA COPD CVA s/p PEG GERD SNF resident Plan: -Continue empiric IV Vancomycin and Aztreonam # 4 / 7 pending cultures -04/05 SP LEvaquin x1 -f/u sp cx, legionella ag urine -f/u cx -Monitor CBC/CMP, temperatures -wound care per hosp protocol -Sx, renal f/u -vasc sx eval for AAA -CXR am Subjective Allergies: Coded Allergies: AMOXICILLIN (Verified Allergy, Severe, SEVERE ICTHING /RASHES, 09/17/08) PENICILLINS (Verified Allergy, Intermediate, Itching, 06/21/13) Subjective Afebrile Objective Vital Signs Last 24 Hour Vital Signs Date Time Temp Pulse Resp B/P (MAP) Pulse Ox O2 Delivery O2 Flow Rate FiO2 04/09/18 05:56 84 131/85 04/09/18 04:00 98.1 84 19 131/85 (100) 100 98.1 04/09/18 00:00 98.2 77 19 128/84 (99) 99 98.2 04/08/18 21:00 Nasal Cannula 2.0 04/08/18 21:00 Nasal Cannula 2.0 04/08/18 20:31 79 139/89 04/08/18 20:28 Nasal Cannula 2.0 28 04/08/18 20:28 78 18 Nasal Cannula 2.0 28 04/08/18 20:28 97 Nasal Cannula 2.0 28 04/08/18 20:00 98.9 79 19 139/89 (106) 100 98.9 04/08/18 16:00 97.8 78 18 121/61 (81) 100 97.8 04/08/18 13:52 80 152/80 04/08/18 12:00 98.0 80 18 152/80 (104) 100 98.0 04/08/18 09:41 98.0 68 13 156/88 100 Nasal Cannula 3 98.0 04/08/18 09:39 207.1 79 18 99 04/08/18 09:37 207.1 79 18 99 04/08/18 09:30 73 13 147/84 100 Nasal Cannula 3 04/08/18 09:17 73 11 150/91 100 Nasal Cannula 3 04/08/18 09:12 76 18 151/86 99 Nasal Cannula 3 04/08/18 09:07 97.3 79 18 154/92 99 Nasal Cannula 3 97.3 04/08/18 09:00 Nasal Cannula 2.0 04/08/18 08:00 97.7 70 18 141/80 (100) 100 97.7 Height (Feet): 5 Height (Inches): 4.00 Weight (Pounds): 133 HEENT: anicteric Respiratory/Chest: no respiratory distress Cardiovascular: regularly irregular Abdomen: no organomegaly Microbiology Date/Time Source Procedure Growth Status 04/06/18 12:00 Sputum Induced Gram Stain - Final Complete 04/06/18 12:00 Sputum Induced Sputum Culture - Final NORMAL UPPER RESPIRATORY NURY PRESENT Complete Laboratory Tests Test 04/08/18 16:25 Vancomycin Level Trough 6.4 ug/mL (5.0-12.0) Current Medications Medications (Trade) Dose Ordered Sig/Orin Route PRN Reason Start Time Stop Time Status Last Admin Dose Admin Acetaminophen (Tylenol) 650 mg Q4H PRN ORAL T>100.5 04/06/18 17:15 05/05/18 09:14 Albuterol/ Ipratropium (Albuterol/ Ipratropium) 3 ml Q4H PRN HHN Shortness of Breath 04/06/18 17:15 04/10/18 09:14 Aztreonam 1 gm/ Sodium Chloride 50 ml @ 100 mls/hr EVERY 8 HOURS IVPB 04/06/18 22:00 04/12/18 13:59 04/09/18 05:57 Barium Sulfate (Readi-Cat 2) 450 ml NOW PRN ORAL Radiology Procedure 04/07/18 14:15 04/09/18 14:03 Dextrose (Dextrose 50%) 25 ml Q30M PRN IV Hypoglycemia 04/06/18 16:00 05/05/18 09:18 Dextrose (Dextrose 50%) 50 ml Q30M PRN IV hypoglycemia 04/06/18 16:00 05/05/18 09:29 Dextrose/ Electrolytes 1,000 ml @ 75 mls/hr [id number] IV 04/07/18 15:00 05/07/18 14:59 04/09/18 06:54 Diltiazem HCl (Cardizem) 30 mg EVERY 8 HOURS GT 04/06/18 22:00 05/06/18 13:59 04/09/18 05:56 Famotidine (Pepcid I.v.) 20 mg Q12HR IVP 04/06/18 21:00 05/05/18 20:59 04/08/18 20:25 Furosemide (Lasix) 40 mg DAILY PEG 04/09/18 09:00 05/09/18 08:59 Heparin Sodium (Porcine) (Heparin 5000 units/ml) 5,000 units EVERY 12 HOURS SUBQ 04/06/18 21:00 05/05/18 20:59 04/08/18 20:27 Insulin Aspart (NovoLOG) EVERY 6 HOURS SUBQ 04/06/18 18:00 05/05/18 17:59 04/09/18 06:25 Levothyroxine Sodium (Synthroid) 50 mcg DAILY IV 04/07/18 09:00 05/05/18 13:29 10/3/18 10:36 Lorazepam (Ativan) 0.5 mg TID ORAL 04/06/18 18:00 04/13/18 17:59 04/08/18 17:11 Memantine (Namenda) 5 mg BID ORAL 04/06/18 18:00 05/06/18 17:59 04/08/18 17:11 Morphine Sulfate (Morphine Sulfate) 2 mg Q4H PRN IVP PAIN 4-10 04/06/18 17:15 04/12/18 09:14 Nitroglycerin (Ntg) 0.4 mg Q5MIN X 3 DOSES PRN SL Prn Chest Pain 04/06/18 16:00 05/05/18 09:29 Ondansetron HCl (Zofran) 4 mg Q6H PRN IVP Nausea & Vomiting 04/06/18 16:00 05/05/18 15:59 Polyethylene Glycol (Miralax) 17 gm DAILYPRN PRN ORAL Constipation 04/06/18 16:00 05/06/18 15:59 Pregabalin (Lyrica) 25 mg Q8HR ORAL 04/06/18 22:00 05/05/18 13:59 04/09/18 05:56 Temazepam (Restoril) 15 mg HSPRN PRN ORAL Insomnia 04/06/18 21:00 04/12/18 20:59 Vancomycin HCl (Vanco rx to dose) 1 ea DAILY PRN MISC . 04/06/18 16:00 05/06/18 15:59 Vancomycin HCl 1 gm/Dextrose 275 ml @ 183.708 mls/hr Q24H IVPB 04/09/18 20:00 04/14/18 19:59 Alfred Fortune MD Apr 09, 2018 07:17
[2018-04-09 08:00] VITALS: BP 146/85
[2018-04-09 08:02] LABS: EOSINOPHILS % (AUTO) 2.1 % (0.0-3.0); HEMATOCRIT 35.6 % (37.0-47.0); HEMOGLOBIN 11.8 G/DL (12.0-16.0); LYMPHOCYTES % (AUTO) 12.2 % (20.0-45.0); MEAN CORPUSCULAR VOLUME 87 FL (80-99); MONOCYTES % (AUTO) 8.5 % (1.0-10.0); NEUTROPHILS % (AUTO) 76.2 % (45.0-75.0); PLATELET COUNT 197 K/UL (150-450); RED BLOOD COUNT 4.11 M/UL (4.20-5.40); RED CELL DISTRIBUTION WIDTH 14.2 % (11.6-14.8); WHITE BLOOD COUNT 7.7 K/UL (4.8-10.8)
[2018-04-09 08:14] LABS: ANION GAP 6 mmol/L (5-15); BLOOD UREA NITROGEN 12 mg/dL (7-18); CALCIUM 8.4 MG/DL (8.5-10.1); CARBON DIOXIDE 26 MMOL/L (21-32); CHLORIDE 95 MMOL/L (98-107); CREATININE 0.9 MG/DL (0.55-1.30); POTASSIUM 3.4 MMOL/L (3.5-5.1); SODIUM 127 MMOL/L (136-145)
[2018-04-09] MEDS ORDERED: Furosemide 40mg tab PEG SCH (09:00)
[2018-04-09] MEDS: LORazepam 0.5mg tab ORAL SCH ×3 (09:37→18:41)
[2018-04-09] MEDS: Heparin 5000 units/ml inj SUBQ SCH (09:38)
--- NOTE | 2018-04-09 09:38 | General Progress Note ---
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 wound moist and bed beefy red with --> debridement if necessary with surgical team # Aspiration pneumonia --> s/p abx # Respiratory distress # COPD (chronic obstructive pulmonary disease) # Advanced dementia # Feeding by G-tube # Limited mobility in bed Greatly appreciate consultation! Subjective Constitutional: Denies: no symptoms, chills, diaphoresis, fever, malaise, weakness, other HEENT: Denies: no symptoms, eye pain, blurred vision, tearing, double vision, ear pain, ear discharge, nose pain, nose congestion, throat pain, throat swelling, mouth pain, mouth swelling, other Cardiovascular: Denies: no symptoms, chest pain, edema, irregular heart rate, lightheadedness, palpitations, syncope, other Respiratory: Denies: no symptoms, cough, orthopnea, shortness of breath, SOB with excertion, SOB at rest, sputum, stridor, wheezing, other Gastrointestinal/Abdominal: Denies: no symptoms, abdomen distended, abdominal pain, black stools, tarry stools, blood in stool, constipated, diarrhea, difficulty swallowing, nausea, poor appetite, poor fluid intake, rectal bleeding , vomiting, other Genitourinary: Denies: no symptoms, burning, discharge, frequency, flank pain, hematuria, incontinence, pain, urgency, other Endocrine: Denies: no symptoms, excessive sweating, flushing, intolerance to cold, intolerance to heat, increased hunger, increased thirst, increased urine, unexplained weight gain, unexplained weight loss, other Allergies: Coded Allergies: AMOXICILLIN (Verified Allergy, Severe, SEVERE ICTHING /RASHES, 09/17/08) PENICILLINS (Verified Allergy, Intermediate, Itching, 06/21/13) Subjective no events, no f/c, no bleeding Objective Last 24 Hour Vital Signs Date Time Temp Pulse Resp B/P (MAP) Pulse Ox O2 Delivery O2 Flow Rate FiO2 04/09/18 08:00 97.4 100 19 146/85 (105) 100 97.4 04/09/18 05:56 84 131/85 04/09/18 04:00 98.1 84 19 131/85 (100) 100 98.1 04/09/18 00:00 98.2 77 19 128/84 (99) 99 98.2 04/08/18 21:00 Nasal Cannula 2.0 04/08/18 21:00 Nasal Cannula 2.0 04/08/18 20:31 79 139/89 04/08/18 20:28 Nasal Cannula 2.0 28 04/08/18 20:28 78 18 Nasal Cannula 2.0 28 04/08/18 20:28 97 Nasal Cannula 2.0 28 04/08/18 20:00 98.9 79 19 139/89 (106) 100 98.9 04/08/18 16:00 97.8 78 18 121/61 (81) 100 97.8 04/08/18 13:52 80 152/80 04/08/18 12:00 98.0 80 18 152/80 (104) 100 98.0 04/08/18 09:41 98.0 68 13 156/88 100 Nasal Cannula 3 98.0 04/08/18 09:39 207.1 79 18 99 Intake and Output 04/08/18 04/09/18 19:00 07:00 Intake Total 1105 ml 1025 ml Output Total 1300 ml 700 ml Balance -195 ml 325 ml Free Water 200 ml IV Total 425 ml 1025 ml Tube Feeding 480 ml Output Urine Total 1300 ml 700 ml # Bowel Movements 1 1 Laboratory Tests 04/08/18 16:25: Vancomycin Level Trough 6.4 04/09/18 07:40: White Blood Count 7.7, Red Blood Count 4.11L, Hemoglobin 11.8L, Hematocrit 35.6L , Mean Corpuscular Volume 87, Mean Corpuscular Hemoglobin 28.7, Mean Corpuscular Hemoglobin Concent 33.2, Red Cell Distribution Width 14.2, Platelet Count 197, Mean Platelet Volume 6.1L, Neutrophils (%) (Auto) 76.2H, Lymphocytes (%) (Auto) 12.2L, Monocytes (%) (Auto) 8.5, Eosinophils (%) (Auto) 2.1, Basophils (%) (Auto) 1.0, Sodium Level 127L, Potassium Level 3.4L, Chloride Level 95L, Carbon Dioxide Level 26, Anion Gap 6, Blood Urea Nitrogen 12, Creatinine 0.9, Estimat Glomerular Filtration Rate , Glucose Level 121H, Calcium Level 8.4L Height (Feet): 5 Height (Inches): 4.00 Weight (Pounds): 133 General Appearance: no apparent distress EENT: TMs normal Neck: supple Cardiovascular: regular rhythm Respiratory/Chest: normal breath sounds Extremities: non-tender Neurologic: alert Skin: warm/dry Bib Arango MD Apr 09, 2018 09:38
[2018-04-09] MEDS: Memantine 5 MG TAB ORAL SCH ×2 (09:39→18:41)
--- NOTE | 2018-04-09 11:02 | Diagnostic Imaging Report ---
Indication: Cough Comparison: 04/05/2018 A single view chest radiograph was obtained. Findings: Infiltrate ill-defined within the right upper lobe and left lung base demonstrated. Heart size is prominent. No definite effusion identified. IMPRESSION: Patchy infiltrate suspected
--- NOTE | 2018-04-09 11:14 | GI Progress Note ---
Assessment/Plan Problems: (1) PEG (percutaneous endoscopic gastrostomy) status ICD Codes: Z93.1 - Gastrostomy status SNOMED: 447004130, 390379400 (2) Limited mobility in bed SNOMED: 381283602 (3) Feeding by G-tube ICD Codes: Z93.1 - Gastrostomy status SNOMED: 113894946, 773508044 (4) Advanced dementia ICD Codes: F03.90 - Unspecified dementia without behavioral disturbance SNOMED: 17805430 (5) Acute GI bleeding ICD Codes: K92.2 - Gastrointestinal hemorrhage, unspecified SNOMED: 44028040 (6) Anemia ICD Codes: D64.9 - Anemia, unspecified SNOMED: 650309809 Status: stable Status Narrative Discussed with Dr. Lacey. 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 This has enlarged considerably since the previous study of February 2018. s/p EGD/colonoscopy SUMMARY OF FINDINGS: 1. Atrophic gastritis. 2. History of G-tube and G-tube in place. 3. Diverticulosis. 4. Right hemicolectomy. 5. Internal hemorrhoids. RECOMMENDATIONS: patient needs higher level of care for expanding AAA prn transfusions GTFs per RD to goal ppi fu labs The patient was seen and examined at bedside and all new and available data was reviewed in the patients chart. I agree with the above findings, impression and plan. (Patient seen earlier today. Signature stamp does not reflect patient encounter time.). - Pierce Lacey MD Subjective Subjective limited Objective Last 24 Hour Vital Signs Date Time Temp Pulse Resp B/P (MAP) Pulse Ox O2 Delivery O2 Flow Rate FiO2 04/09/18 09:00 Nasal Cannula 2.0 04/09/18 08:20 99 20 Nasal Cannula 2.0 28 04/09/18 08:20 Nasal Cannula 2.0 28 04/09/18 08:20 99 Nasal Cannula 2.0 28 04/09/18 08:00 97.4 100 19 146/85 (105) 100 97.4 04/09/18 05:56 84 131/85 04/09/18 04:00 98.1 84 19 131/85 (100) 100 98.1 04/09/18 00:00 98.2 77 19 128/84 (99) 99 98.2 04/08/18 21:00 Nasal Cannula 2.0 04/08/18 21:00 Nasal Cannula 2.0 04/08/18 20:31 79 139/89 04/08/18 20:28 Nasal Cannula 2.0 28 04/08/18 20:28 78 18 Nasal Cannula 2.0 28 04/08/18 20:28 97 Nasal Cannula 2.0 28 04/08/18 20:00 98.9 79 19 139/89 (106) 100 98.9 04/08/18 16:00 97.8 78 18 121/61 (81) 100 97.8 04/08/18 13:52 80 152/80 04/08/18 12:00 98.0 80 18 152/80 (104) 100 98.0 Intake and Output 04/08/18 04/09/18 19:00 07:00 Intake Total 1105 ml 1025 ml Output Total 1300 ml 700 ml Balance -195 ml 325 ml Free Water 200 ml IV Total 425 ml 1025 ml Tube Feeding 480 ml Output Urine Total 1300 ml 700 ml # Bowel Movements 1 1 Laboratory Tests Test 04/08/18 16:25 04/09/18 07:40 Vancomycin Level Trough 6.4 ug/mL (5.0-12.0) White Blood Count 7.7 K/UL (4.8-10.8) Red Blood Count 4.11 M/UL (4.20-5.40) L Hemoglobin 11.8 G/DL (12.0-16.0) L Hematocrit 35.6 % (37.0-47.0) L Mean Corpuscular Volume 87 FL (80-99) Mean Corpuscular Hemoglobin 28.7 PG (27.0-31.0) Mean Corpuscular Hemoglobin Concent 33.2 G/DL (32.0-36.0) Red Cell Distribution Width 14.2 % (11.6-14.8) Platelet Count 197 K/UL (150-450) Mean Platelet Volume 6.1 FL (6.5-10.1) L Neutrophils (%) (Auto) 76.2 % (45.0-75.0) H Lymphocytes (%) (Auto) 12.2 % (20.0-45.0) L Monocytes (%) (Auto) 8.5 % (1.0-10.0) Eosinophils (%) (Auto) 2.1 % (0.0-3.0) Basophils (%) (Auto) 1.0 % (0.0-2.0) Sodium Level 127 MMOL/L (136-145) L Potassium Level 3.4 MMOL/L (3.5-5.1) L Chloride Level 95 MMOL/L (98-107) L Carbon Dioxide Level 26 MMOL/L (21-32) Anion Gap 6 mmol/L (5-15) Blood Urea Nitrogen 12 mg/dL (7-18) Creatinine 0.9 MG/DL (0.55-1.30) Estimat Glomerular Filtration Rate mL/min (>60) Glucose Level 121 MG/DL (74-106) H Calcium Level 8.4 MG/DL (8.5-10.1) L Height (Feet): 5 Height (Inches): 4.00 Weight (Pounds): 133 General Appearance: alert Cardiovascular: normal rate Respiratory/Chest: normal breath sounds, no respiratory distress Abdominal Exam: soft Kallie Gatica ADDICTIONS COUNSELOR Apr 09, 2018 11:14
[2018-04-09 11:45] VITALS: BP 107/85
--- NOTE | 2018-04-09 11:54 | Nephrology Progress Note ---
Assessment/Plan Problem List: (1) Hyponatremia Assessment: Na 127 again (2) Aspiration pneumonia (3) Hypothyroidism (4) PEG (percutaneous endoscopic gastrostomy) status (5) Anemia Assessment worsening Anemia, transfused HypoNatremia, Likely diuretic related and Depletional up to 132 COPD exac. resp failure Hypothyroidism L foot and sacral decub, POA PNA ? Aspiration PEG DM h/o Long Smoking h/o Anemia h/o OA h/o Colon Ca h/o HTN Plan 3% saline Transfused 2 units 04/07 [place] Low Na snyder antibiotics / pulm support IV Pepcid change synthroid to IV Per orders Subjective ROS Limited/Unobtainable: No Constitutional: Reports: malaise, weakness Objective Objective Last 24 Hour Vital Signs Date Time Temp Pulse Resp B/P (MAP) Pulse Ox O2 Delivery O2 Flow Rate FiO2 04/09/18 11:45 98.0 94 19 107/85 (92) 100 98.0 04/09/18 09:00 Nasal Cannula 2.0 04/09/18 08:20 99 20 Nasal Cannula 2.0 28 04/09/18 08:20 Nasal Cannula 2.0 28 04/09/18 08:20 99 Nasal Cannula 2.0 28 04/09/18 08:00 97.4 100 19 146/85 (105) 100 97.4 04/09/18 05:56 84 131/85 04/09/18 04:00 98.1 84 19 131/85 (100) 100 98.1 04/09/18 00:00 98.2 77 19 128/84 (99) 99 98.2 04/08/18 21:00 Nasal Cannula 2.0 04/08/18 21:00 Nasal Cannula 2.0 04/08/18 20:31 79 139/89 04/08/18 20:28 Nasal Cannula 2.0 28 04/08/18 20:28 78 18 Nasal Cannula 2.0 28 04/08/18 20:28 97 Nasal Cannula 2.0 28 04/08/18 20:00 98.9 79 19 139/89 (106) 100 98.9 04/08/18 16:00 97.8 78 18 121/61 (81) 100 97.8 04/08/18 13:52 80 152/80 04/08/18 12:00 98.0 80 18 152/80 (104) 100 98.0 Intake and Output 04/08/18 04/09/18 19:00 07:00 Intake Total 1105 ml 1025 ml Output Total 1300 ml 700 ml Balance -195 ml 325 ml Free Water 200 ml IV Total 425 ml 1025 ml Tube Feeding 480 ml Output Urine Total 1300 ml 700 ml # Bowel Movements 1 1 Laboratory Tests 04/08/18 16:25: Vancomycin Level Trough 6.4 04/09/18 07:40: White Blood Count 7.7, Red Blood Count 4.11L, Hemoglobin 11.8L, Hematocrit 35.6L , Mean Corpuscular Volume 87, Mean Corpuscular Hemoglobin 28.7, Mean Corpuscular Hemoglobin Concent 33.2, Red Cell Distribution Width 14.2, Platelet Count 197, Mean Platelet Volume 6.1L, Neutrophils (%) (Auto) 76.2H, Lymphocytes (%) (Auto) 12.2L, Monocytes (%) (Auto) 8.5, Eosinophils (%) (Auto) 2.1, Basophils (%) (Auto) 1.0, Sodium Level 127L, Potassium Level 3.4L, Chloride Level 95L, Carbon Dioxide Level 26, Anion Gap 6, Blood Urea Nitrogen 12, Creatinine 0.9, Estimat Glomerular Filtration Rate , Glucose Level 121H, Calcium Level 8.4L Height (Feet): 5 Height (Inches): 4.00 Weight (Pounds): 133 General Appearance: no apparent distress Cardiovascular: tachycardia Respiratory/Chest: decreased breath sounds Abdomen: distended Objective no other change Zeb Jiang MD Apr 09, 2018 11:54
[2018-04-09] MEDS ORDERED: NaCl 3% 500ml 250 ML IV ONE (12:00)
--- NOTE | 2018-04-09 14:07 | General Progress Note ---
Assessment/Plan Problem List: (1) COPD (chronic obstructive pulmonary disease) ICD Codes: J44.9 - COPD (chronic obstructive pulmonary disease) SNOMED: 11794797 Qualifiers: Qualified Codes: J44.9 - Chronic obstructive pulmonary disease, unspecified (2) Hyponatremia ICD Codes: E87.1 - Hypo-osmolality and hyponatremia SNOMED: 43500095 (3) Anemia ICD Codes: D64.9 - Anemia, unspecified SNOMED: 311259335 (4) Diabetes ICD Codes: E11.9 - Type 2 diabetes mellitus without complications SNOMED: 80670625 (5) Aspiration pneumonia ICD Codes: J69.0 - Pneumonitis due to inhalation of food and vomit SNOMED: 002356934 (6) Sepsis ICD Codes: A41.9 - Sepsis, unspecified organism SNOMED: 56189595 (7) ATN (acute tubular necrosis) ICD Codes: N17.0 - Acute kidney failure with tubular necrosis SNOMED: 35339083 (8) OA (osteoarthritis) ICD Codes: M19.90 - OA (osteoarthritis) SNOMED: 013661713 (9) Colitis ICD Codes: K52.9 - Noninfective gastroenteritis and colitis, unspecified SNOMED: 35698168 (10) AAA (abdominal aortic aneurysm) ICD Codes: I71.4 - Abdominal aortic aneurysm, without rupture SNOMED: 171336903 Status: unchanged Assessment/Plan ot pt diet o2 pulm tx abx cbc bmp am dc to [facility] Subjective Constitutional: Reports: weakness Allergies: Coded Allergies: AMOXICILLIN (Verified Allergy, Severe, SEVERE ICTHING /RASHES, 09/17/08) PENICILLINS (Verified Allergy, Intermediate, Itching, 06/21/13) All Systems: reviewed and negative except above Subjective o2nc confused Objective Last 24 Hour Vital Signs Date Time Temp Pulse Resp B/P (MAP) Pulse Ox O2 Delivery O2 Flow Rate FiO2 04/09/18 14:03 94 107/85 04/09/18 11:45 98.0 94 19 107/85 (92) 100 98.0 04/09/18 09:00 Nasal Cannula 2.0 04/09/18 08:20 99 20 Nasal Cannula 2.0 28 04/09/18 08:20 Nasal Cannula 2.0 28 04/09/18 08:20 99 Nasal Cannula 2.0 28 04/09/18 08:00 97.4 100 19 146/85 (105) 100 97.4 04/09/18 05:56 84 131/85 04/09/18 04:00 98.1 84 19 131/85 (100) 100 98.1 04/09/18 00:00 98.2 77 19 128/84 (99) 99 98.2 04/08/18 21:00 Nasal Cannula 2.0 04/08/18 21:00 Nasal Cannula 2.0 04/08/18 20:31 79 139/89 04/08/18 20:28 Nasal Cannula 2.0 28 04/08/18 20:28 78 18 Nasal Cannula 2.0 28 04/08/18 20:28 97 Nasal Cannula 2.0 28 04/08/18 20:00 98.9 79 19 139/89 (106) 100 98.9 04/08/18 16:00 97.8 78 18 121/61 (81) 100 97.8 Intake and Output 04/08/18 04/09/18 19:00 07:00 Intake Total 1105 ml 1025 ml Output Total 1300 ml 700 ml Balance -195 ml 325 ml Free Water 200 ml IV Total 425 ml 1025 ml Tube Feeding 480 ml Output Urine Total 1300 ml 700 ml # Bowel Movements 1 1 Laboratory Tests 04/08/18 16:25: Vancomycin Level Trough 6.4 04/09/18 07:40: White Blood Count 7.7, Red Blood Count 4.11L, Hemoglobin 11.8L, Hematocrit 35.6L , Mean Corpuscular Volume 87, Mean Corpuscular Hemoglobin 28.7, Mean Corpuscular Hemoglobin Concent 33.2, Red Cell Distribution Width 14.2, Platelet Count 197, Mean Platelet Volume 6.1L, Neutrophils (%) (Auto) 76.2H, Lymphocytes (%) (Auto) 12.2L, Monocytes (%) (Auto) 8.5, Eosinophils (%) (Auto) 2.1, Basophils (%) (Auto) 1.0, Sodium Level 127L, Potassium Level 3.4L, Chloride Level 95L, Carbon Dioxide Level 26, Anion Gap 6, Blood Urea Nitrogen 12, Creatinine 0.9, Estimat Glomerular Filtration Rate , Glucose Level 121H, Calcium Level 8.4L Height (Feet): 5 Height (Inches): 4.00 Weight (Pounds): 133 General Appearance: lethargic EENT: normal ENT inspection Neck: normal alignment Cardiovascular: normal peripheral pulses, normal rate, regular rhythm Respiratory/Chest: chest wall non-tender, lungs clear, normal breath sounds Abdomen: normal bowel sounds, non tender, soft Extremities: normal inspection Edema: no edema noted Arm (L), no edema noted Arm (R), no edema noted Leg (L), no edema noted Leg (R), no edema noted Pedal (L), no edema noted Pedal (R), no edema noted Generalized Neurologic: motor weakness Skin: normal pigmentation, warm/dry Objective per radiology, ct abd show colitis and aaa Mark Oro DO Apr 09, 2018 14:07
--- NOTE | 2018-04-09 15:09 | General Surgery Progress Note ---
General Surgery-Progress Note Subjective Additional Comments no acute events. stable Objective Last 24 Hour Vital Signs Date Time Temp Pulse Resp B/P (MAP) Pulse Ox O2 Delivery O2 Flow Rate FiO2 04/09/18 14:03 94 107/85 04/09/18 11:45 98.0 94 19 107/85 (92) 100 98.0 04/09/18 09:00 Nasal Cannula 2.0 04/09/18 08:20 99 20 Nasal Cannula 2.0 28 04/09/18 08:20 Nasal Cannula 2.0 28 04/09/18 08:20 99 Nasal Cannula 2.0 28 04/09/18 08:00 97.4 100 19 146/85 (105) 100 97.4 04/09/18 05:56 84 131/85 04/09/18 04:00 98.1 84 19 131/85 (100) 100 98.1 04/09/18 00:00 98.2 77 19 128/84 (99) 99 98.2 04/08/18 21:00 Nasal Cannula 2.0 04/08/18 21:00 Nasal Cannula 2.0 04/08/18 20:31 79 139/89 04/08/18 20:28 Nasal Cannula 2.0 28 04/08/18 20:28 78 18 Nasal Cannula 2.0 28 04/08/18 20:28 97 Nasal Cannula 2.0 28 04/08/18 20:00 98.9 79 19 139/89 (106) 100 98.9 04/08/18 16:00 97.8 78 18 121/61 (81) 100 97.8 I&O Intake and Output 04/08/18 04/09/18 19:00 07:00 Intake Total 1105 ml 1025 ml Output Total 1300 ml 700 ml Balance -195 ml 325 ml Free Water 200 ml IV Total 425 ml 1025 ml Tube Feeding 480 ml Output Urine Total 1300 ml 700 ml # Bowel Movements 1 1 Dressing: other Wound: other Drains: other Cardiovascular: RSR Respiratory: clear Abdomen: soft, non-tender, present bowel sounds Extremities: other Laboratory Tests Test 04/08/18 16:25 04/09/18 07:40 Vancomycin Level Trough 6.4 ug/mL (5.0-12.0) White Blood Count 7.7 K/UL (4.8-10.8) Red Blood Count 4.11 M/UL (4.20-5.40) L Hemoglobin 11.8 G/DL (12.0-16.0) L Hematocrit 35.6 % (37.0-47.0) L Mean Corpuscular Volume 87 FL (80-99) Mean Corpuscular Hemoglobin 28.7 PG (27.0-31.0) Mean Corpuscular Hemoglobin Concent 33.2 G/DL (32.0-36.0) Red Cell Distribution Width 14.2 % (11.6-14.8) Platelet Count 197 K/UL (150-450) Mean Platelet Volume 6.1 FL (6.5-10.1) L Neutrophils (%) (Auto) 76.2 % (45.0-75.0) H Lymphocytes (%) (Auto) 12.2 % (20.0-45.0) L Monocytes (%) (Auto) 8.5 % (1.0-10.0) Eosinophils (%) (Auto) 2.1 % (0.0-3.0) Basophils (%) (Auto) 1.0 % (0.0-2.0) Sodium Level 127 MMOL/L (136-145) L Potassium Level 3.4 MMOL/L (3.5-5.1) L Chloride Level 95 MMOL/L (98-107) L Carbon Dioxide Level 26 MMOL/L (21-32) Anion Gap 6 mmol/L (5-15) Blood Urea Nitrogen 12 mg/dL (7-18) Creatinine 0.9 MG/DL (0.55-1.30) Estimat Glomerular Filtration Rate mL/min (>60) Glucose Level 121 MG/DL (74-106) H Calcium Level 8.4 MG/DL (8.5-10.1) L Plan Problems: (1) Decubitus ulcer of sacral region, stage 4 Assessment & Plan: Stage IV full thickness pressure decubitus ulcer noted to sacrum approximately 5x6cm. wound moist and bed beefy red with, noted macerated borders, Rita-injury skin with dark discoloration without induration. no active drainage. no foul odor. wound present upon admission. patient seen prior during last admission and wound has become a bit larger and is slowly tunneling superior. will continue to care for patient and wound during admission. Tx plan: Cleanse wound with saline. Apply Silvasorb gel to wound .Apply Moist Barrier wipe to macerated borders and periwound .Cover with foam drsg daily and prn. Turn side to side at least every 2hours as tolerated . Off-load heels with pillow. 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 will follow (3) AAA (abdominal aortic aneurysm) Assessment & Plan: enlarging as noted on CT. critical size limits being reached. high risk for rupture or complication would recommend evaluation soon after discharge by CT surgery for semi-elective repair. currently not ruptured or complicated but should be evaluated and managed thank you Joo Herrera Apr 09, 2018 15:09
--- NOTE | 2018-04-09 15:12 | Pulmonology Progress Note ---
Assessment/Plan Problems: (1) Sepsis (2) Aspiration pneumonia (3) COPD (chronic obstructive pulmonary disease) (4) Anemia (5) Feeding by G-tube (6) Limited mobility in bed (7) Decubitus ulcer of sacral region, stage 4 Assessment/Plan respiratory treatment check sputum continue abx wound care surgical evaluation anemia w/u. h/h better Vascular surgeon didn't recommend Subjective ROS Limited/Unobtainable: Yes Constitutional: Reports: no symptoms HEENT: Repors: no symptoms Allergies: Coded Allergies: AMOXICILLIN (Verified Allergy, Severe, SEVERE ICTHING /RASHES, 09/17/08) PENICILLINS (Verified Allergy, Intermediate, Itching, 06/21/13) Objective Last 24 Hour Vital Signs Date Time Temp Pulse Resp B/P (MAP) Pulse Ox O2 Delivery O2 Flow Rate FiO2 04/09/18 14:03 94 107/85 04/09/18 11:45 98.0 94 19 107/85 (92) 100 98.0 04/09/18 09:00 Nasal Cannula 2.0 04/09/18 08:20 99 20 Nasal Cannula 2.0 28 04/09/18 08:20 Nasal Cannula 2.0 28 04/09/18 08:20 99 Nasal Cannula 2.0 28 04/09/18 08:00 97.4 100 19 146/85 (105) 100 97.4 04/09/18 05:56 84 131/85 04/09/18 04:00 98.1 84 19 131/85 (100) 100 98.1 04/09/18 00:00 98.2 77 19 128/84 (99) 99 98.2 04/08/18 21:00 Nasal Cannula 2.0 04/08/18 21:00 Nasal Cannula 2.0 04/08/18 20:31 79 139/89 04/08/18 20:28 Nasal Cannula 2.0 28 04/08/18 20:28 78 18 Nasal Cannula 2.0 28 04/08/18 20:28 97 Nasal Cannula 2.0 28 04/08/18 20:00 98.9 79 19 139/89 (106) 100 98.9 04/08/18 16:00 97.8 78 18 121/61 (81) 100 97.8 Intake and Output 04/08/18 04/09/18 19:00 07:00 Intake Total 1105 ml 1025 ml Output Total 1300 ml 700 ml Balance -195 ml 325 ml Free Water 200 ml IV Total 425 ml 1025 ml Tube Feeding 480 ml Output Urine Total 1300 ml 700 ml # Bowel Movements 1 1 General Appearance: WD/WN HEENT: normocephalic Respiratory/Chest: chest wall non-tender, lungs clear Cardiovascular: normal peripheral pulses, normal rate Abdomen: normal bowel sounds, no scars Genitourinary: normal external genitalia Skin: no lesions Neurologic/Psychiatric: forensic social worker II-XII grossly normal Laboratory Tests 04/08/18 16:25: Vancomycin Level Trough 6.4 04/09/18 07:40: White Blood Count 7.7, Red Blood Count 4.11L, Hemoglobin 11.8L, Hematocrit 35.6L , Mean Corpuscular Volume 87, Mean Corpuscular Hemoglobin 28.7, Mean Corpuscular Hemoglobin Concent 33.2, Red Cell Distribution Width 14.2, Platelet Count 197, Mean Platelet Volume 6.1L, Neutrophils (%) (Auto) 76.2H, Lymphocytes (%) (Auto) 12.2L, Monocytes (%) (Auto) 8.5, Eosinophils (%) (Auto) 2.1, Basophils (%) (Auto) 1.0, Sodium Level 127L, Potassium Level 3.4L, Chloride Level 95L, Carbon Dioxide Level 26, Anion Gap 6, Blood Urea Nitrogen 12, Creatinine 0.9, Estimat Glomerular Filtration Rate , Glucose Level 121H, Calcium Level 8.4L Current Medications Medications (Trade) Dose Ordered Sig/Orin Route PRN Reason Start Time Stop Time Status Last Admin Dose Admin Acetaminophen (Tylenol) 650 mg Q4H PRN ORAL T>100.5 04/06/18 17:15 05/05/18 09:14 Albuterol/ Ipratropium (Albuterol/ Ipratropium) 3 ml Q4H PRN HHN Shortness of Breath 04/06/18 17:15 04/10/18 09:14 Aztreonam 1 gm/ Sodium Chloride 50 ml @ 100 mls/hr EVERY 8 HOURS IVPB 04/06/18 22:00 04/12/18 13:59 04/09/18 13:57 Dextrose (Dextrose 50%) 25 ml Q30M PRN IV Hypoglycemia 04/06/18 16:00 05/05/18 09:18 Dextrose (Dextrose 50%) 50 ml Q30M PRN IV hypoglycemia 04/06/18 16:00 05/05/18 09:29 Diltiazem HCl (Cardizem) 30 mg EVERY 8 HOURS GT 04/06/18 22:00 05/06/18 13:59 04/09/18 14:03 Famotidine (Pepcid I.v.) 20 mg Q12HR IVP 04/06/18 21:00 05/05/18 20:59 04/09/18 09:37 Furosemide (Lasix) 40 mg DAILY PEG 04/09/18 09:00 05/09/18 08:59 04/09/18 09:37 Heparin Sodium (Porcine) (Heparin 5000 units/ml) 5,000 units EVERY 12 HOURS SUBQ 04/06/18 21:00 05/05/18 20:59 04/09/18 09:38 Insulin Aspart (NovoLOG) EVERY 6 HOURS SUBQ 04/06/18 18:00 05/05/18 17:59 04/09/18 12:07 Levothyroxine Sodium (Synthroid) 50 mcg DAILY IV 04/07/18 09:00 05/05/18 13:29 04/09/18 09:37 Lorazepam (Ativan) 0.5 mg TID ORAL 04/06/18 18:00 04/13/18 17:59 04/09/18 12:08 Memantine (Namenda) 5 mg BID ORAL 04/06/18 18:00 05/06/18 17:59 04/09/18 09:39 Morphine Sulfate (Morphine Sulfate) 2 mg Q4H PRN IVP PAIN 4-10 04/06/18 17:15 04/12/18 09:14 Nitroglycerin (Ntg) 0.4 mg Q5MIN X 3 DOSES PRN SL Prn Chest Pain 04/06/18 16:00 05/05/18 09:29 Ondansetron HCl (Zofran) 4 mg Q6H PRN IVP Nausea & Vomiting 04/06/18 16:00 05/05/18 15:59 Polyethylene Glycol (Miralax) 17 gm DAILYPRN PRN ORAL Constipation 04/06/18 16:00 05/06/18 15:59 Pregabalin (Lyrica) 25 mg Q8HR ORAL 04/06/18 22:00 05/05/18 13:59 04/09/18 13:57 Sodium Chloride 250 ml @ 30 mls/hr ONCE ONCE IV 04/09/18 12:00 04/09/18 20:19 04/09/18 13:56 Temazepam (Restoril) 15 mg HSPRN PRN ORAL Insomnia 04/06/18 21:00 04/12/18 20:59 Vancomycin HCl (Vanco rx to dose) 1 ea DAILY PRN MISC . 04/06/18 16:00 05/06/18 15:59 Vancomycin HCl 1 gm/Dextrose 275 ml @ 183.708 mls/hr Q24H IVPB 04/09/18 20:00 04/14/18 19:59 Betsy Hope MD Apr 09, 2018 15:12
--- NOTE | 2018-04-09 15:15 | Cardiac Electrophysiology PN ---
Assessment/Plan Assessment/Plan 1. Elevated BNP and congestive heart failure. Echocardiogram showed EF 40-45% On Lasix 40 mg GT daily 2. Paroxysmal atrial fibrillation. On Cardizem 30 mg tid.Off anticoagulation for anemia Hb 6.5 3. Hypertension. Cardizem 30 tid 4. Decubitus ulcer. FU by Dr. Herrera. 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 5. Dysphagia, status post PEG placement. 6. Sepsis, on antibiotic per ID. 7. Anemia hb 6.5. Had EGD and colonoscopy that showed Gastritis and diverticulosis S/P Transfusion DW RN Subjective Subjective Nonverbal on nonmonitored bed.GT feeding ongoing. Objective Last 24 Hour Vital Signs Date Time Temp Pulse Resp B/P (MAP) Pulse Ox O2 Delivery O2 Flow Rate FiO2 04/09/18 14:03 94 107/85 04/09/18 11:45 98.0 94 19 107/85 (92) 100 98.0 04/09/18 09:00 Nasal Cannula 2.0 04/09/18 08:20 99 20 Nasal Cannula 2.0 28 04/09/18 08:20 Nasal Cannula 2.0 28 04/09/18 08:20 99 Nasal Cannula 2.0 28 04/09/18 08:00 97.4 100 19 146/85 (105) 100 97.4 04/09/18 05:56 84 131/85 04/09/18 04:00 98.1 84 19 131/85 (100) 100 98.1 04/09/18 00:00 98.2 77 19 128/84 (99) 99 98.2 04/08/18 21:00 Nasal Cannula 2.0 04/08/18 21:00 Nasal Cannula 2.0 04/08/18 20:31 79 139/89 04/08/18 20:28 Nasal Cannula 2.0 28 04/08/18 20:28 78 18 Nasal Cannula 2.0 28 04/08/18 20:28 97 Nasal Cannula 2.0 28 04/08/18 20:00 98.9 79 19 139/89 (106) 100 98.9 04/08/18 16:00 97.8 78 18 121/61 (81) 100 97.8 Intake and Output 04/08/18 04/09/18 19:00 07:00 Intake Total 1105 ml 1025 ml Output Total 1300 ml 700 ml Balance -195 ml 325 ml Free Water 200 ml IV Total 425 ml 1025 ml Tube Feeding 480 ml Output Urine Total 1300 ml 700 ml # Bowel Movements 1 1 Laboratory Tests Test 04/08/18 16:25 04/09/18 07:40 Vancomycin Level Trough 6.4 ug/mL (5.0-12.0) White Blood Count 7.7 K/UL (4.8-10.8) Red Blood Count 4.11 M/UL (4.20-5.40) L Hemoglobin 11.8 G/DL (12.0-16.0) L Hematocrit 35.6 % (37.0-47.0) L Mean Corpuscular Volume 87 FL (80-99) Mean Corpuscular Hemoglobin 28.7 PG (27.0-31.0) Mean Corpuscular Hemoglobin Concent 33.2 G/DL (32.0-36.0) Red Cell Distribution Width 14.2 % (11.6-14.8) Platelet Count 197 K/UL (150-450) Mean Platelet Volume 6.1 FL (6.5-10.1) L Neutrophils (%) (Auto) 76.2 % (45.0-75.0) H Lymphocytes (%) (Auto) 12.2 % (20.0-45.0) L Monocytes (%) (Auto) 8.5 % (1.0-10.0) Eosinophils (%) (Auto) 2.1 % (0.0-3.0) Basophils (%) (Auto) 1.0 % (0.0-2.0) Sodium Level 127 MMOL/L (136-145) L Potassium Level 3.4 MMOL/L (3.5-5.1) L Chloride Level 95 MMOL/L (98-107) L Carbon Dioxide Level 26 MMOL/L (21-32) Anion Gap 6 mmol/L (5-15) Blood Urea Nitrogen 12 mg/dL (7-18) Creatinine 0.9 MG/DL (0.55-1.30) Estimat Glomerular Filtration Rate mL/min (>60) Glucose Level 121 MG/DL (74-106) H Calcium Level 8.4 MG/DL (8.5-10.1) L Objective HEAD AND NECK: No JVD. LUNGS: Coarse rhonchi. CARDIOVASCULAR: Irregular S1 and S2 with no gallop or murmur. ABDOMEN: Soft. G-tube in place EXTREMITIES: Contracted with 1+ pitting edema. Cristofer Houser MD Apr 09, 2018 15:15
[2018-04-09 16:00] VITALS: BP 115/85
[2018-04-09] MEDS ORDERED: CARDIZEM30 M1 PO (17:36)
[2018-04-09] MEDS ORDERED: FAMOTIDINE10 MG/1 ML IV (17:37)
[2018-04-09] MEDS ORDERED: FUROSEMIDE40 MG GT (17:37)
[2018-04-09] MEDS ORDERED: HEPARIN SO5000 UNIT2 SUBQ (17:37)
[2018-04-09] MEDS ORDERED: NOVOLOG100 UNIT/3 SUBQ ×2 (17:38→17:39)
[2018-04-09] MEDS ORDERED: IPRAT-ALBUT 0.5-3 ML IH (17:39)
[2018-04-09] MEDS ORDERED: LEVOTHYROXINE100 MC1 IV (17:39)
[2018-04-09] MEDS ORDERED: LORAZEPAM0.5 MG GT (17:40)
[2018-04-09] MEDS ORDERED: LYRICA75 M1 GT (17:41)
[2018-04-09] MEDS ORDERED: NAMENDA5 MG GT (17:41)
[2018-04-09] MEDS ORDERED: MIRALAX17 G2 GT (17:41)
[2018-04-09] MEDS ORDERED: ZOFRAN 4 MG4 MG/2 ML IV (17:41)
[2018-04-09] MEDS ORDERED: TEMAZEPAM15 MG GT (17:42)
[2018-04-09] MEDS ORDERED: VANCOMYCIN1 GM IV (17:44)
[2018-04-09] MEDS ORDERED: AZTREONAM1 GM IJ (17:45)
--- NOTE | 2018-04-09 18:00 | Progress Note ---
DATE: 04/09/2018 SUBJECTIVE: This is an 87-year-old female patient, still confused, came in with shortness of breath. She still has confusion, worsened by the stress of her medical illness. This is why her attending has requested daily psychiatric consultation for this patient. MENTAL STATUS EXAMINATION: This is an 87-year-old female. Appearance is disheveled. Attitude, irritable and agitated. Affect, guarded and restricted. Intellect poor. Mood, depressed and anxious. Motor activity, psychomotor agitation. Attention span is poor. Orientation x2. Speech is pressured. Thought process, disorganized and illogical. Insight and judgment is poor. DIAGNOSIS: Major depression with psychotic features, rule out dementia with psychosis. PLAN: Treat her with Namenda 5 mg twice a day, Ativan 0.5 mg q.6 h. p.r.n. anxiety and agitation. Provide 20 minutes of cognitive behavioral therapy to help her identify her automatic negative thoughts and help convert those to more positive thoughts to reduce depression and anxiety. Josh Gonzalez M.D. DR: DAMARIS JOB#: [id number] CC:
[2018-04-09 20:00] VITALS: BP 137/79
[2018-04-09] MEDS ORDERED: Vancomycin 1gm/D5W 275ml IVPB SCH ×2 (20:00)
--- NOTE | 2018-04-10 13:50 | Discharge Summary ---
Discharge Summary Discharge Summary _ DATE OF ADMISSION: 04/05/2018 DATE OF DISCHARGE: 04/09/2018 CONSULTANTS: Dr. Josh Schuler PsyD BRIEF HOSPITAL COURSE: Patient's an 87-year-old female, from [facility] presented to ED for evaluation of congestion, cough 2 days. Patient is nonverbal at baseline. Patient was noted to have productive cough by the nursing staff. There was no fever noted. No nausea or vomiting. She has medical history significant for diabetes mellitus, hypertension, COPD and GERD. On evaluation at ED, blood work showed no leukocytosis, hemoglobin and hematocrit was stable, sodium was noted to be low at 124, potassium 5.4. Troponin was negative, BNP was 1997. Urinalysis showed 3+ leukocyte esterase, 5 -10 WBC, 0-2 RBC, negative nitrite. She had an EKG that showed sinus tachycardia. Chest x-ray showed right-sided pneumonia. She was then admitted for evaluation of pneumonia, hyponatremia, COPD. Patient had hyponatremia, likely diuretic related and possibly depletional. She was given isotonic fluid and hyponatremia workup was initiated. TSH was 18. Synthroid was changed to IV. She came in with multiple wounds. Dr. Herrera was consulted. Patient was noted to have stage IV full-thickness pressure decubitus ulcer on the sacrum. Wound care was provided. Patient was placed on pressure release mattress with frequent turning, repositioning and offloading of sites. ID was consulted. She was started empirically on IV vancomycin and aztreonam pending culture results. Shee was given respiratory treatment. O2 saturations were monitored. She was placed on strict aspiration precaution. Patient had elevated BNP and congestive heart failure. She was given Lasix IV. She has history of paroxysmal atrial fibrillation and goes in and out of sinus rhythm. Amlodipine was changed to Cardizem 30 mg 3 times a day. Psychiatric evaluation was done. Patient was confused and disorganized. She was diagnosed with major depressive disorder with psychotic features. She was given Namenda and Ativan. She continued to have worsening anemia, mattress spring encaser was consulted. Hemoglobin dropped to 6.5. She was given 2 units packed RBC blood transfusion There was no evidence of hemolysis noted. Patient was noted to have anemia of chronic disease, multifactorial, stool OB negative. She had coagulopathy with elevated INR, however did not require FFP or vitamin K. GI was consulted. 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 Unknown if mass was surgically removed. On 04/08/2018, she underwent EGD with colonoscopy. There was no evidence of ulceration. There was evidence of diffuse atrophic gastritis. During colonoscopy there was no obvious polyp, mass, ulceration or any other bleeding seen. Patient have some diverticulosis throughout the left colon. Patient was noted to have abdominal aortic aneurysm that was noted to be enlarged on a recent CT scan to 6 cm. Vascular surgery consult was obtained. On evaluation, patient is not a candidate for AAA repair (open or stent graft) given comorbidities. She was recommended strict blood pressure control. She was eventually transferred to long-term acute hospital to continue treatment. 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 DISCHARGE MEDICATIONS: Refer to Discharge Medication List. I have been assigned to dictate discharge summary on this account, and I was not involved in the patient's management. Alessandra Triana NP Apr 10, 2018 13:50
== END 2018-04-09 20:10 | DRG 177 ==
LOC: EDBD 08:01 → EMR 08:22 → 2E 08:29 → EDBEDREQ 08:31 → 4E 04-06 15:32
PROC: 30233N1 Transfusion of Nonautologous Red Blood Cells into Peripheral Vein, Percutaneous Approach (ICD-10-PCS; principal; 2018-04-07)
PROC: 0DD68ZX Extraction of Stomach, Via Natural or Artificial Opening Endoscopic, Diagnostic (ICD-10-PCS; 2018-04-08 08:36)
PROC: 0DJD8ZZ Inspection of Lower Intestinal Tract, Via Natural or Artificial Opening Endoscopic (ICD-10-PCS; 2018-04-08 08:36)
DX: J69.0 Pneumonitis due to inhalation of food and vomit (principal); L89.154 Pressure ulcer of sacral region, stage 4; L89.894 Pressure ulcer of other site, stage 4; N17.0 Acute kidney failure with tubular necrosis; J44.0 Chronic obstructive pulmonary disease with (acute) lower respiratory infection; J44.1 Chronic obstructive pulmonary disease with (acute) exacerbation; G93.40 Encephalopathy, unspecified; E87.1 Hypo-osmolality and hyponatremia; D68.9 Coagulation defect, unspecified; F33.3 Major depressive disorder, recurrent, severe with psychotic symptoms; E03.9 Hypothyroidism, unspecified; R13.10 Dysphagia, unspecified; F03.90 Unspecified dementia, unspecified severity, without behavioral disturbance, psychotic disturbance, mood disturbance, and anxiety; E11.9 Type 2 diabetes mellitus without complications; D63.8 Anemia in other chronic diseases classified elsewhere; K57.90 Diverticulosis of intestine, part unspecified, without perforation or abscess without bleeding; K29.70 Gastritis, unspecified, without bleeding; I71.4 Abdominal aortic aneurysm, without rupture; K29.40 Chronic atrophic gastritis without bleeding; K64.8 Other hemorrhoids; M19.90 Unspecified osteoarthritis, unspecified site; K21.9 Gastro-esophageal reflux disease without esophagitis; T50.2X5A Adverse effect of carbonic-anhydrase inhibitors, benzothiadiazides and other diuretics, initial encounter; I48.0 Paroxysmal atrial fibrillation; I11.0 Hypertensive heart disease with heart failure; I50.9 Heart failure, unspecified; Z88.0 Allergy status to penicillin; Z93.1 Gastrostomy status; Z87.891 Personal history of nicotine dependence; Z85.038 Personal history of other malignant neoplasm of large intestine; Z74.01 Bed confinement status; Y92.129 Unspecified place in nursing home as the place of occurrence of the external cause
CPT/HCPCS: 36415; 71045; 74177; 80048; 80053; 80061; 80076; 80202; 81003; 82270; 82378; 82607; 82728; 82746; 82962; 82977; 83036; 83540; 83550; 83605; 83615; 83735; 83880; 83930; 84100; 84443; 84484; 84550; 85007; 85025; 85044; 85060; 85610; 85651; 85730; 86140; 86850; 86900; 86901; 86920; 87040; 87070; 87081; 87205; 93005; 93306; 93970; 94003; 94150; 94640; 94664; 94760; 96365; 96375; 97803; 99285; J1815; J7620